=== PATIENT | male | born 1940 | race African-American/Black ===

== ENCOUNTER 2016-07-12 17:22 | Emergency (ER) | payer MEDICARE, MEDICAID ==
--- NOTE | 2016-07-12 18:27 | ER Document Report ---
ED General - General Chief Complaint: Nausea/Vomiting Stated Complaint: NAUSEA/VOMITING Time seen by provider: 18:01 Mode of Arrival: Stretcher Information source: Patient, Emergency Med Personnel Cannot obtain history due to: Dementia TRAVEL OUTSIDE OF THE [place] IN LAST 30 DAYS: No - HPI Notes: Patient is a 76-year-old male coming from local [facility] has history of dementia, CABG, gastroesophageal reflux disease presents to the emergency department without report of some nausea and vomiting earlier this week and report of leg swelling. There is a question of the patient previously having abdominal pain, but on my questioning he denies both nausea and abdominal pain. Patient reports no chest pain or difficulty breathing or fever or dysuria. No significant back pain. No head injury or headache or neck stiffness or cough or congestion. - Related Data Allergies/Adverse Reactions: No Known Allergies Allergy (Unverified 01/25/16 11:24) Past Medical History - General Information source: Patient, Emergency Med Personnel, Outside Facility Records Cannot obtain history due to: Dementia - Social History Smoking Status: Never Smoker Chew tobacco use (# tins/day): No Frequency of alcohol use: None Drug Abuse: None Lives with: [facility] Family History: Reviewed & Not Pertinent - Past Medical History Cardiac Medical History: Reports: Hx Coronary Artery Disease, Hx Hypercholesterolemia, Hx Hypertension Pulmonary Medical History: Reports: Hx COPD Renal/ Medical History: Reports: Hx Renal Insufficiency GI Medical History: Reports: Hx Gastroesophageal Reflux Disease, Hx Hiatal Hernia Musculoskeltal Medical History: Reports Hx Muscle Weakness - generalized Past Surgical History: Reports: Hx Cardiac Surgery, Hx Coronary Artery Bypass Graft - Immunizations Hx Diphtheria, Pertussis, Tetanus Vaccination: Yes Review of Systems - Review of Systems Notes: REVIEW OF SYSTEMS: CONSTITUTIONAL : Denies fever, chills, or sweats. EENT: Denies eye, ear, throat, or mouth pain or symptoms. Denies nasal or sinus congestion or discharge. Denies throat, tongue, or mouth swelling or difficulty swallowing. CARDIOVASCULAR: Denies chest pain. Denies palpitations or racing or irregular heart beat. Denies ankle edema. RESPIRATORY: Denies cough, cold, or chest congestion. Denies shortness of breath, difficulty breathing, or wheezing. GASTROINTESTINAL: Denies abdominal pain or distention. Denies diarrhea. Denies blood in vomitus, stools, or per rectum. Denies black, tarry stools. Denies constipation. Patient reports no recollection of when his last bowel movement was. GENITOURINARY: Denies difficulty urinating, painful urination, burning, frequency, blood in urine, or discharge. MUSCULOSKELETAL: Denies back or neck pain or stiffness. Denies joint pain or swelling. SKIN: Denies rash. HEMATOLOGIC : Denies easy bruising or bleeding. LYMPHATIC: Denies swollen, enlarged glands. NEUROLOGICAL: Denies change in his mental state.. Denies passing out or loss of consciousness. Denies dizziness or lightheadedness. Denies headache. Denies weakness or paralysis or loss of use of either side. Denies problems with gait or speech. Denies sensory loss, numbness, or tingling. Denies seizures. PSYCHIATRIC: Denies anxiety or stress. Denies depression, suicidal ideation, or homicidal ideation. ALL OTHER SYSTEMS REVIEWED AND NEGATIVE. Dictation was performed using [employer] voice recognition software Physical Exam - Vital signs Vitals: Temp Pulse Resp BP Pulse Ox 98 F 67 17 127/80 H 96 07/12/16 17:40 07/12/16 17:40 07/12/16 17:40 07/12/16 17:40 07/12/16 17:40 - Notes Notes: PHYSICAL EXAMINATION: GENERAL: Well-appearing, well-nourished and in no acute distress. HEAD: Atraumatic, normocephalic. EYES: Pupils equal round and reactive to light, extraocular movements intact, sclera anicteric, conjunctiva are normal. ENT: Nares patent, oropharynx clear without exudates. Moist mucous membranes. NECK: Normal range of motion, supple without lymphadenopathy LUNGS: Breath sounds clear to auscultation bilaterally and equal. No wheezes rales or rhonchi. HEART: Regular rate and rhythm without murmurs ABDOMEN: Soft, nontender abdomen. No guarding, no rebound. No masses appreciated. Mildly distended, no pulsatile mass. Patient does have a midline upper hernia which is easily reduced. Patient's coronary bypass surgery scar is well-healed but does seem to represent the upper aspect of the midline abdominal hernia. Negative Quintanilla's. Normal bowel sounds. Musculoskeletal: Normal range of motion. No cyanosis. 1+ bilateral lower extremity edema. Negative Homans. No palpable cord. NEUROLOGICAL: Cranial nerves grossly intact. Normal speech. Normal sensory exam. Patient is alert to person and place but thinks the president is Obama. patient does not know the year. This is chronic for the patient. Patient has mild generalized weakness in both legs which is also unchanged. PSYCH: Normal mood, normal affect. SKIN: Warm, Dry, normal turgor, no rashes noted. Patient has minimal stage I decubitus on the scrotum without evidence for active infection or other abnormality. Course - Re-evaluation Re-evalutation: 07/12/16 22:38 Patient was rehydrated with IV fluids, given that his BUN and creatinine were somewhat elevated showing some evidence of dehydration. On repeat exam patient's abdomen is nontender. He denied any further nausea. 07/12/16 22:39 No obvious evidence for cardiac ischemia or lower extremity edema. 07/12/16 22:42 Repeat troponin unchanged. No evidence for acute ME. 07/13/16 00:03 Patient given IV fluid rehydration for dehydration. We'll hold the patient's Lasix pending follow-up by her regular practitioner given the dehydration. We'll start the patient on omeprazole for reflux and Zofran for any nausea. 07/13/16 00:03 - Vital Signs Vital signs: Temp Pulse Resp BP Pulse Ox 98 F 67 17 127/75 H 98 07/12/16 17:40 07/12/16 17:40 07/12/16 23:00 07/12/16 22:01 07/12/16 23:00 - Laboratory Result Diagrams: 07/12/16 18:36 07/12/16 18:36 Laboratory results interpreted by me: 07/12/16 07/12/16 07/12/16 18:36 18:36 19:16 WBC 11.5 H RDW 14.6 H Sodium 148.8 H Carbon Dioxide 33 H BUN 47 H Creatinine 3.31 H Est GFR ( Amer) 22 L Est GFR (Non-Af Amer) 18 L Glucose 150 H Urine Protein 30 H Urine Urobilinogen 4.0 H - EKG Interpretation by Ri EKG shows normal: Sinus rhythm Additional EKG results interpreted by me: 07/12/16 19:16 EKG as interpreted by az showed normal sinus rhythm heart rate of 75. There is a left bundle-branch block noted with secondary repolarization abnormalities. There is no gross evidence for acute ME or ischemia. There was no old EKG available for comparison. Discharge - Discharge Clinical Impression: Renal insufficiency, Dehydration Vomiting Qualifiers: Vomiting type: unspecified Vomiting Intractability: unspecified Nausea presence : with nausea Qualified Code(s): R11.2 - Nausea with vomiting, unspecified GERD (gastroesophageal reflux disease) Qualifiers: Esophagitis presence: without esophagitis Qualified Code(s): K21.9 - Gastro- esophageal reflux disease without esophagitis Condition: Stable Disposition: SNF Instructions: Antinausea Medication ([facility]), Intravenous (IV) Fluids ([facility]), Vomiting ([facility]) Additional Instructions: Stop Lasix until you follow up with your regular doctor due to dehydration. Start omeprazole for reflux symptoms. Take Zofran as needed for nausea. Prescriptions: Ondansetron [Zofran Odt 4 mg Tablet] 1 - 2 tab PO Q8HP PRN #15 tab.rapdis PRN Reason: For Nausea/Vomiting Omeprazole 20 mg PO DAILY #30 tablet.dr Referrals: BOB MAHARAJ MD [Primary Care Provider] - Follow up as needed
[2016-07-12 18:58] LABS: ABSOLUTE BASOPHILS # (AUTO) 0.1 10^3/uL (0.0-0.2); ABSOLUTE EOSINOPHILS # (AUTO) 0.2 10^3/uL (0.0-0.6); ABSOLUTE LYMPHOCYTES (AUTO) 2.2 10^3/uL (0.5-4.7); ABSOLUTE NEUT (AUTO) 7.9 10^3/uL (1.7-8.2); EOSINOPHILS % (AUTO) 1.7 % (0-6); HEMATOCRIT 41.8 % (37.9-51.0); HEMOGLOBIN 13.8 g/dL (13.5-17.0); HGB HCT DIFFERENCE -0.4; LYMPHOCYTES % (AUTO) 19.6 % (13-45); MEAN CORPUSCULAR HEMOGLOBIN 29.1 pg (27.0-33.4); MEAN CORPUSCULAR VOLUME 88 fl (80-97); RED BLOOD COUNT 4.74 10^6/uL (4.35-5.55); RED CELL DISTRIBUTION WIDTH 14.6 % (11.5-14.0); SEGMENTED NEUTROPHILS % (AUTO) 68.7 % (42-78); WHITE BLOOD COUNT 11.5 10^3/uL (4.0-10.5)
[2016-07-12 19:05] LABS: ALANINE AMINOTRANSFERASE 38 U/L (21-72); ALBUMIN 3.9 g/dL (3.5-5.0); ALKALINE PHOSPHATASE 93 U/L (38-126); ANION GAP 17 (5-19); ASPARTATE AMINO TRANSFERASE 29 U/L (17-59); BILIRUBIN,DIRECT 0.4 mg/dL (0.0-0.4); BILIRUBIN,TOTAL 0.8 mg/dL (0.2-1.3); BLOOD UREA NITROGEN 47 mg/dL (7-20); CARBON DIOXIDE 33 mmol/L (22-30); CHLORIDE 99 mmol/L (98-107); CREATININE RESULT 3.31 mg/dL (0.52-1.25); GLUCOSE 150 mg/dL (75-110); LIPASE 105.7 U/L (23-300); POTASSIUM 3.9 mmol/L (3.6-5.0); SODIUM 148.8 mmol/L (137-145); TOTAL PROTEIN 7.3 g/dL (6.3-8.2)
[2016-07-12 19:28] LABS: APPEARANCE,URINE CLEAR; BILIRUBIN,URINE NEGATIVE (NEGATIVE); GLUCOSE, URINE NEGATIVE (NEGATIVE); KETONES,URINE NEGATIVE (NEGATIVE); LEUKOCYTE ESTERASE,URINE NEGATIVE (NEGATIVE); NITRITE,URINE NEGATIVE (NEGATIVE); PROTEIN,URINE 30 mg/dL (NEGATIVE); URINE SPECIFIC GRAVITY 1.013
[2016-07-12] MEDS ORDERED: POTASSI CL 20 MEQ/1/2NS 1L 1,000 ML IV ONE (20:07)
--- NOTE | 2016-07-12 22:17 | EKG REPORT ---
SEVERITY:- ABNORMAL ECG - SINUS RHYTHM PROBABLE LEFT ATRIAL ABNORMALITY LEFT BUNDLE BRANCH BLOCK : Confirmed by: Beto Delarosa 12-Jul-2016 22:16:50
[2016-07-12] MEDS ORDERED: FAMOTIDINE 20 MG TABLET PO ONE (23:30)
[2016-07-13 11:07] VITALS: BP 164/89
== END 2016-07-13 11:50 ==
LOC: ER 17:22
DX: K21.9 Gastro-esophageal reflux disease without esophagitis (principal); N28.9 Disorder of kidney and ureter, unspecified; R11.2 Nausea with vomiting, unspecified; E86.0 Dehydration; I44.7 Left bundle-branch block, unspecified; Z95.1 Presence of aortocoronary bypass graft; F03.90 Unspecified dementia, unspecified severity, without behavioral disturbance, psychotic disturbance, mood disturbance, and anxiety; I25.10 Atherosclerotic heart disease of native coronary artery without angina pectoris; I10 Essential (primary) hypertension; J44.9 Chronic obstructive pulmonary disease, unspecified; K46.9 Unspecified abdominal hernia without obstruction or gangrene; R60.0 Localized edema; R53.1 Weakness; L89.891 Pressure ulcer of other site, stage 1
CPT/HCPCS: 93005; 99284; 96365; 96366; 36415; 83605; 83690; 85025; 80053; 81001; 84484; 74022; 93010; A9270; J3480

== ENCOUNTER 2016-07-17 18:54 | Inpatient (IN) | payer MEDICARE, MEDICAID ==
[2016-07-17] MEDS ORDERED: NORMAL SALINE 1000 ML 1,000 ML IV ONE (19:31)
[2016-07-17 19:45] LABS: ABSOLUTE BASOPHILS # (AUTO) 0.1 10^3/uL (0.0-0.2); ABSOLUTE EOSINOPHILS # (AUTO) 0.5 10^3/uL (0.0-0.6); ABSOLUTE LYMPHOCYTES (AUTO) 2.4 10^3/uL (0.5-4.7); ABSOLUTE MONOCYTES (AUTO) 1.1 10^3/uL (0.1-1.4); ABSOLUTE NEUT (AUTO) 8.6 10^3/uL (1.7-8.2); BASOPHILS % (AUTO) 0.9 % (0-2); EOSINOPHILS % (AUTO) 4.2 % (0-6); HEMATOCRIT 39.3 % (37.9-51.0); HEMOGLOBIN 12.8 g/dL (13.5-17.0); HGB HCT DIFFERENCE -0.9; LYMPHOCYTES % (AUTO) 19.1 % (13-45); MEAN CORPUSCULAR HEMOGLOBIN 28.5 pg (27.0-33.4); MEAN CORPUSCULAR HGB CONC 32.5 g/dL (32.0-36.0); MEAN CORPUSCULAR VOLUME 88 fl (80-97); MONOCYTES % (AUTO) 8.6 % (3-13); RED BLOOD COUNT 4.48 10^6/uL (4.35-5.55); RED CELL DISTRIBUTION WIDTH 14.2 % (11.5-14.0); SEGMENTED NEUTROPHILS % (AUTO) 67.2 % (42-78); WHITE BLOOD COUNT 12.8 10^3/uL (4.0-10.5)
--- NOTE | 2016-07-17 19:45 | ER Document Report ---
ED General - General Stated Complaint: BOWEL ISSUES Time seen by provider: 19:40 Notes: Patient is a 76-year-old male that comes emergency department for chief complaint of "no bowel movement for 2 days", patient comes by EMS from [facility]. After arrival to the emergency department patient was found to be hypotensive. Patient states he "feels fine", he denies vomiting, fever, or any areas of pain including his abdomen. He states he has not had a bowel movement in a "couple" of days. Patient is unable to tell me any more relevant history this time. Past medical history of dementia and he has an obvious CABG scar. TRAVEL OUTSIDE OF THE [place] IN LAST 30 DAYS: No - Related Data Allergies/Adverse Reactions: No Known Allergies Allergy (Verified 07/18/16 03:22) Past Medical History - General Information source: Patient, Transfer Record, Emergency Med Personnel - Social History Smoking Status: Never Smoker Frequency of alcohol use: None Drug Abuse: None Lives with: [facility]irement Family History: Reviewed & Not Pertinent - Past Medical History Cardiac Medical History: Reports: Hx Coronary Artery Disease, Hx Hypercholesterolemia, Hx Hypertension Pulmonary Medical History: Reports: Hx COPD Renal/ Medical History: Reports: Hx Renal Insufficiency GI Medical History: Reports: Hx Gastroesophageal Reflux Disease, Hx Hiatal Hernia Musculoskeltal Medical History: Reports Hx Muscle Weakness - generalized Past Surgical History: Reports: Hx Cardiac Surgery, Hx Coronary Artery Bypass Graft - Immunizations Hx Diphtheria, Pertussis, Tetanus Vaccination: Yes Review of Systems - Review of Systems Constitutional: No symptoms reported EENT: No symptoms reported Cardiovascular: See HPI Respiratory: No symptoms reported Gastrointestinal: See HPI Genitourinary: No symptoms reported Male Genitourinary: No symptoms reported Musculoskeletal: No symptoms reported Skin: No symptoms reported Hematologic/Lymphatic: No symptoms reported Neurological/Psychological: No symptoms reported Physical Exam - Vital signs Vitals: Temp Pulse BP Pulse Ox 98.2 F 122 H 89/57 L 93 07/17/16 19:05 07/17/16 19:05 07/17/16 19:05 07/17/16 19:05 Interpretation: Normal - General General appearance: Appears well, Alert - HEENT Head: Normocephalic, Atraumatic Eyes: Normal Pupils: PERRL - Respiratory Respiratory status: No respiratory distress Chest status: Nontender Breath sounds: Normal Chest palpation: Normal - Cardiovascular Rhythm: Regular. No: Tachycardia Heart sounds: Normal auscultation, S1 appreciated, S2 appreciated - Abdominal Inspection: Normal Distension: Distended - Questionable mild distention, small diastasis recti hernia, no evidence of incarceration, hernia area is very nontender Bowel sounds: Normal Tenderness: Nontender. No: Tender - No tenderness noted over the abdomen, no guarding Organomegaly: No organomegaly - Back Back: Normal, Nontender. No: Tender - Extremities General upper extremity: Normal inspection, Nontender, Normal color, Normal ROM , Normal temperature General lower extremity: Normal inspection, Nontender, Normal color, Normal ROM , Normal temperature, Normal weight bearing. 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 No fever, no vomiting, no other symptoms reported. His primary care is listed as Dr. Burrell. Patient is on treatments for hypertension including Norvasc, lisinopril, Lopressor, Catapres, hydralazine, and Lasix 40 mg daily. Patient was evaluated in this department for vomiting 5 days ago. Patient is also treated for COPD, hyperlipidemia. Patient noted to be hypotensive, IV placed, immediately gave IV fluid bolus, after this blood pressure normalized. Patient still denies any symptoms. Patient is not tachycardic. Mild leukocytosis at 13.1 with elevated neutrophils but no shift. Could be from dehydration, nonspecific. Other labs hemolyzed. Acute abdominal series shows no obstruction, free air, or obvious abnormal. Chest x-ray is clear. 07/17/16 22:52 Still attempting to obtain chemistry, initial hemolyzed, 2 more attempts by personnel failed to get any blood, lab support technician is returning and has been paged. Chemistry shows that creatinine is significantly elevated, this has been trending upwards from 2, then 3 days, now in the 5 range. Patient given 500 mL of additional fluid. Despite extra time patient's blood pressure is still borderline low. CAT scan was performed to rule out obstruction or intra- abdominal pathology with mild leukocytosis, but CAT scan is completely unremarkable. Patient was discussed with Dr. Lisa for potential admission, agrees with admission for hypotension, worsening renal failure. Patient remains asymptomatic on reevaluation. Discussed with Dr. Huerta, neon sign erector for Dr. Burrell, patient will be admitted to the hospital - Vital Signs Vital signs: Temp Pulse Resp BP Pulse Ox 98.3 F 66 16 108/59 L 100 07/18/16 04:16 07/18/16 04:22 07/18/16 04:16 07/18/16 04:16 07/18/16 04:16 - Laboratory Result Diagrams: 07/17/16 19:20 07/17/16 23:21 Laboratory results interpreted by me: 07/17/16 07/17/16 19:20 23:21 WBC 12.8 H Hgb 12.8 L RDW 14.2 H Absolute Neutrophils 8.6 H BUN 70 H Creatinine 5.30 H Est GFR ( Amer) 13 L Est GFR (Non-Af Amer) 11 L Glucose 111 H Albumin 3.4 L Lipase 309.8 H Discharge - Discharge Clinical Impression: Acute renal insufficiency Hypotension Qualifiers: Hypotension type: unspecified hypotension type Qualified Code(s): I95.9 - Hypotension, unspecified Condition: Stable Disposition: ADMITTED INPATIENT Admitting Provider: Deanna Unit Admitted: [facility], [place]
--- NOTE | 2016-07-17 22:50 | EKG REPORT ---
SEVERITY:- ABNORMAL ECG - SINUS RHYTHM LEFT BUNDLE BRANCH BLOCK : Confirmed by: Beto Delarosa 17-Jul-2016 22:50:01
[2016-07-17 23:40] LABS: ALANINE AMINOTRANSFERASE 29 U/L (21-72); ALBUMIN 3.4 g/dL (3.5-5.0); ALKALINE PHOSPHATASE 72 U/L (38-126); ANION GAP 16 (5-19); ASPARTATE AMINO TRANSFERASE 25 U/L (17-59); BILIRUBIN,DIRECT 0.3 mg/dL (0.0-0.4); BILIRUBIN,TOTAL 0.4 mg/dL (0.2-1.3); BLOOD UREA NITROGEN 70 mg/dL (7-20); CALCIUM 8.6 mg/dL (8.4-10.2); CARBON DIOXIDE 25 mmol/L (22-30); CHLORIDE 98 mmol/L (98-107); CREATINE KINASE 76 U/L (55-170); GLUCOSE 111 mg/dL (75-110); LIPASE 309.8 U/L (23-300); POTASSIUM 3.9 mmol/L (3.6-5.0); SODIUM 138.6 mmol/L (137-145); TOTAL PROTEIN 6.6 g/dL (6.3-8.2)
[2016-07-17] MEDS ORDERED: NORMAL SALINE 1000 ML 500 ML IV ONE (23:54)
[2016-07-18] MEDS ORDERED: NORMAL SALINE 1000 ML 1,000 ML IV PRN ×2 (05:34→08:00)
[2016-07-18] MEDS ORDERED: (PENDING PHARMACY ID) (Budesonide [Pulmicort 180 Mcg Flexhaler] 2 PUFF) IH PRN (08:03)
[2016-07-18] MEDS ORDERED: LANSOPRAZOLE 15 MG TAB.RAP.DR PO ONE (09:00)
[2016-07-18] MEDS: IPRATROPIUM/ALBUTEROL 0.5-2.5 MG/3 ML AMPUL NEB SCH ×3 (09:07→20:38)
[2016-07-18 09:34] LABS: CREATINE KINASE MB 0.79 ng/mL (<4.55); TROPONIN I 0.061 ng/mL
[2016-07-18] MEDS ORDERED: HYDRALAZINE HCL 25 MG TABLET PO SCH (10:00)
[2016-07-18] MEDS ORDERED: FUROSEMIDE 40 MG TABLET PO SCH (10:00)
[2016-07-18] MEDS ORDERED: ISOSORBIDE DINITRATE 20 MG TABLET PO SCH ×2 (10:00)
[2016-07-18] MEDS ORDERED: CLONIDINE HCL 0.1 MG TABLET PO SCH (10:00)
[2016-07-18] MEDS ORDERED: AMLODIPINE BESYLATE 10 MG TABLET PO SCH (10:00)
--- NOTE | 2016-07-18 10:56 | PDOC H&P ---
History of Present Illness Admission Date/PCP: 07/18/16 08:00 ILAN FALCON MD Patient complains of: Altered mental status and worsening the kidney functions History of Present Illness: PHOEBE CHARLES is a 76 year old male This is a 76-year-old male with a history of the coronary artery disease status post bypass surgery history of the congestive heart failure and a history of the COPD and a chronic kidney disease came to the emergency department couple of days back with a complaint for nausea vomiting and not feeling well and patient was discharged with not significant finding and in the jail the nursing staff noticed the patient is more lethargic and patient's blood pressure is running lower and and in emergency department patient was found to acute renal failure on chronic kidney disease and the patient initial workup otherwise all stableAnd patient was decided to admit in the IMCU for further evaluation and treatment When I saw the patient on the floor this morning patient was denied any chest pain patients denied any shortness of the breath denied any abdominal pain and no nausea no vomitinPatient also see cardiology Dr. Pace As outpatients Patient's having no swelling in the lower extremity this morning and patient initial cardiac enzyme was also stable Patient CT abdomen and pelvis is not any significant finding Past Medical History Cardiac Medical History: Reports: Coronary Artery Disease, Hyperlipidema, Hypertension Pulmonary Medical History: Reports: Chronic Obstructive Pulmonary Disease (COPD) Renal/ Medical History: Reports: Chronic Kidney Disease GI Medical History: Reports: Gastroesophageal Reflux Disease, Hiatal Hernia Hematology: Reports: Anemia Past Surgical History Past Surgical History: 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 Social History Lives with: Long-Term Smoking Status: Never Smoker Last Time Smoked: 03/20/2012 Frequency of Alcohol Use: None Hx Recreational Drug Use: No Hx Prescription Drug Abuse: No - Advance Directive Resuscitation Status: Full Code Family History Family History: Reviewed & Not Pertinent Parental Family History Reviewed: Yes Children Family History Reviewed: Yes Sibling(s) Family History Reviewed.: Yes Medication/Allergy Home Medications: Amlodipine Besylate 10 mg PO DAILY 07/18/16 Aspirin [[place] Aspirin] 81 mg PO DAILY PRN 07/18/16 Budesonide [Pulmicort 180 mcg Flexhaler] 2 puff IH DAILY PRN 07/18/16 Clonidine HCl [Catapres 0.1 mg Tablet] 0.1 mg PO Q12 07/18/16 Furosemide [Lasix] 40 mg PO DAILY 07/18/16 Hydralazine HCl [Apresoline 25 mg Tablet] 25 mg PO TID 07/18/16 Isosorbide Dinitrate [Isordil Titradose 20 Mg Tablet] 20 mg PO TID 07/18/16 Lisinopril [Prinivil 10 mg Tablet] 10 mg PO DAILY 07/18/16 Metoprolol Tartrate [Lopressor] 50 mg PO Q12 07/18/16 Omeprazole Magnesium [Prilosec Otc] 20 mg PO QAM 07/18/16 Ondansetron HCl [Zofran 4 mg Tablet] 1 tab PO Q8H PRN 07/18/16 Simvastatin [Zocor 20 mg Tablet] 20 mg PO QHS 07/18/16 Tiotropium [place] [Spiriva Handihaler 5 Cap/Kit (18 Mcg/Cap)] 1 cap IH DAILY Allergies/Adverse Reactions: No Known Allergies Allergy (Verified 07/18/16 03:22) Review of Systems Constitutional: ABSENT: chills, fever(s), headache(s), weight gain, weight loss Eyes: ABSENT: visual disturbances Ears: ABSENT: hearing changes Cardiovascular: ABSENT: chest pain, dyspnea on exertion, edema, orthropnea, palpitations Respiratory: ABSENT: cough, hemoptysis Gastrointestinal: ABSENT: abdominal pain, constipation, diarrhea, hematemesis, hematochezia, nausea, vomiting Genitourinary: ABSENT: dysuria, hematuria Musculoskeletal: ABSENT: joint swelling Integumentary: ABSENT: rash, wounds Neurological: ABSENT: abnormal gait, abnormal speech, confusion, dizziness, focal weakness, syncope Psychiatric: ABSENT: anxiety, depression, homidical ideation, suicidal ideation Endocrine: ABSENT: cold intolerance, heat intolerance, menstrual abnormalities, polydipsia, polyuria Hematologic/Lymphatic: ABSENT: easy bleeding, easy bruising, lymphadenopathy Physical Exam Vital Signs: Temp Pulse Resp BP Pulse Ox 98.5 F 65 20 110/55 L 94 07/18/16 07:07 07/18/16 09:15 07/18/16 09:15 07/18/16 07:07 07/18/16 09:15 General appearance: PRESENT: no acute distress, well-developed, well-nourished Head exam: PRESENT: atraumatic, normocephalic Eye exam: PRESENT: conjunctiva pink, EOMI, PERRLA. ABSENT: scleral icterus Ear exam: PRESENT: normal external ear exam Mouth exam: PRESENT: moist, tongue midline Neck exam: PRESENT: full ROM. ABSENT: carotid bruit, JVD, lymphadenopathy, thyromegaly Respiratory exam: PRESENT: clear to auscultation magdalena Cardiovascular exam: PRESENT: RRR. ABSENT: diastolic murmur, rubs, systolic murmur Pulses: PRESENT: normal dorsalis pedis pul, +2 pedal pulses bilateral Vascular exam: PRESENT: normal capillary refill GI/Abdominal exam: PRESENT: distended, normal bowel sounds, soft. ABSENT: guarding, mass, organolmegaly, rebound, tenderness Rectal exam: PRESENT: deferred Extremities exam: ABSENT: pedal edema Neurological exam: PRESENT: alert, awake, oriented to person, oriented to place , oriented to time, oriented to situation, CN II-XII grossly intact. ABSENT: motor sensory deficit Psychiatric exam: PRESENT: appropriate affect, normal mood. ABSENT: homicidal ideation, suicidal ideation Skin exam: PRESENT: dry, intact, warm. ABSENT: cyanosis, rash Results Laboratory Results: 07/18/16 07/18/16 08:45 08:45 Creatine Kinase 88 CK-MB (CK-2) 0.79 Troponin I 0.061 Impressions: Acute Abdomen Series 07/17/16 19:30 IMPRESSION: NO RADIOGRAPHIC EVIDENCE FOR ACUTE ABDOMINAL DISEASE.Similar moderate gas distention of the stomach. Nonobstructive pattern. Abdomen/Pelvis CT 07/18/16 00:00 IMPRESSION: NO SIGNIFICANT OR ACUTE PROCESS IN THE ABDOMEN OR PELVIS. Renal Ultrasound 07/18/16 00:00 IMPRESSION: There is some increased echogenicity in the renal cortex of the left kidney suggesting intrinsic renal disease. No evidence for hydronephrosis. Other findings as noted above Assessment & Plan - Diagnosis (1) Acute renal insufficiency Is this a current diagnosis for this admission?: YesPlan: Mostly a possible underlying dehydration's with the recent onset of the nausea and vomiting and possible underlying urinary tract infections. We will start the patient on IV fluid and stop the lisinopril and currently hold the Lasix and consult the nephrology and continues to monitor the patient's (2) Hypotension Qualifiers: Hypotension type: unspecified hypotension type Qualified Code(s): I95.9 - Hypotension, unspecified Is this a current diagnosis for this admission?: YesPlan: Most likely recent dehydration's versus underlying sepsis but continues to hold all blood pressure medications and continues to IV fluid (3) Dehydration Is this a current diagnosis for this admission?: YesPlan: Within the sudden onset of the gastroenteritis (4) Coronary artery disease (CAD) excluded Is this a current diagnosis for this admission?: YesPlan: We will consult the cardiology with ongoing heart issues with the heart failure possible need a echocardiogram (5) GERD (gastroesophageal reflux disease) Qualifiers: Esophagitis presence: without esophagitis Qualified Code(s): K21.9 - Gastro-esophageal reflux disease without esophagitis Is this a current diagnosis for this admission?: YesPlan: Currently stable (6) Congestive heart failure Qualifiers: Congestive heart failure type: diastolic Is this a current diagnosis for this admission?: YesPlan: We will get the echocardiogram (7) Chronic obstructive pulmonary disease (COPD) Qualifiers: COPD type: unspecified COPD Qualified Code(s): J44.9 - Chronic obstructive pulmonary disease, unspecified Is this a current diagnosis for this admission?: YesPlan: Continues to nebulizer treatment (8) Hypertension Qualifiers: Hypertension type: unspecified secondary hypertension Qualified Code (s): I15.9 - Secondary hypertension, unspecified; I15 - Secondary hypertension Is this a current diagnosis for this admission?: YesPlan: Currently low will give IV fluid and hold all blood pressure medications (9) Hyperlipidemia Qualifiers: Hyperlipidemia type: unspecified Qualified Code(s): E78.5 - Hyperlipidemia, unspecified Is this a current diagnosis for this admission?: YesPlan: Stable - Time Time Spent: 50 to 70 Minutes Medications reviewed and adjusted accordingly: Yes Anticipated discharge: SNF Within: Other - Inpatient Certification Medical Necessity: Need For IV Fluids, Need for IV Antibiotics Post Hospital Care: D/C Dry Pan Feeder Documentation - Plan Summary Plan Summary: Patient is currently hemodynamically stable we will correct the patient's renal failure started on IV fluid and start the IV Rocephin get the urine culture and continues to monitor the patient's will put the consult from nephrology and cardiology and will discuss the patient's brother who also works in the jail regarding the patient's current status
[2016-07-18] MEDS: TIOTROPIUM BROMIDE DPI 5 CAP/KIT (18 MCG/CAP) IH SCH (10:59)
[2016-07-18] MEDS: ASPIRIN 81 MG TABLET, CHEWABLE PO SCH (11:01)
[2016-07-18] MEDS: METOPROLOL TARTRATE 50 MG TABLET PO SCH ×2 (11:02→21:47)
[2016-07-18] MEDS: CEFTRIAXONE 1 GM/D5W RTU 50 ML IV SCH (11:03)
[2016-07-18] MEDS: ENOXAPARIN SODIUM INJ 30 MG/0.3 ML DISP.SYRIN SUBCUT SCH (11:04)
[2016-07-18 12:04] LABS: AMORPHOUS SEDIMENT,URINE TRACE /HPF; APPEARANCE,URINE CLEAR; BILIRUBIN,URINE NEGATIVE (NEGATIVE); GLUCOSE, URINE NEGATIVE (NEGATIVE); KETONES,URINE NEGATIVE (NEGATIVE); LEUKOCYTE ESTERASE,URINE MODERATE (NEGATIVE); NITRITE,URINE NEGATIVE (NEGATIVE); PROTEIN,URINE NEGATIVE (NEGATIVE); URINE SPECIFIC GRAVITY 1.011; UROBILINOGEN,URINE NEGATIVE mg/dL (<2.0)
--- NOTE | 2016-07-18 18:03 | PDOC CONSULTATION ---
Consultation Consult Date: 07/18/16 Consult reason:: Acute kidney injury on CKD stage III. History of Present Illness Admission Date/PCP: 07/18/16 08:00 ILAN FALCON MD History of Present Illness: PHOEBE CHARLES is a 76 year old male with a history of the coronary artery disease, status post bypass surgery history of the congestive heart failure and a history of the COPD and chronic kidney disease Stage III with a base creatinine of 2.0, came to the emergency department couple of days ago with a complaint for nausea vomiting and not feeling well. He was evaluated in the ER and patient was discharged with no significant finding. In the detention the nursing staff noticed the patient was more lethargic and patient's blood pressure is running low. Evaluations in the emergency department patient was found to acute renal failure on chronic kidney disease with a creatinine of 5.3. Patient is currently sleepy but easily arousable and answers to questions. He denies any history of chest pain shortness of breath no history of any coughing spells no history of any dysuria. He says he is constipated and does not know when was his last bowel movements. Does not recall any history to indicate of having had seizures. Has a poor appetite with poor food and fluid intake Past Medical History Cardiac Medical History: Reports: Coronary Artery Disease, Hyperlipidemia, Hypertension-primary Pulmonary Medical History: Reports: Chronic Obstructive Pulmonary Disease (COPD) Renal/ Medical History: Reports: Chronic Kidney Disease Stage III - The base creatinine of around 2.0. GI Medical History: Reports: Gastroesophageal Reflux Disease, Hiatal Hernia Past Surgical History Past Surgical History: 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 Social History Lives with: Care Home Smoking Status: Never Smoker Last Time Smoked: 03/20/2012 Frequency of Alcohol Use: None Hx Recreational Drug Use: No Hx Prescription Drug Abuse: No - Advance Directive Resuscitation Status: Full Code Family History Parental Family History Reviewed: Yes - Negative for CKD Children Family History Reviewed: No Sibling(s) Family History Reviewed.: No Medication/Allergy Home Medications: Amlodipine Besylate 10 mg PO DAILY 07/18/16 Aspirin [[place] Aspirin] 81 mg PO DAILY PRN 07/18/16 Budesonide [Pulmicort 180 mcg Flexhaler] 2 puff IH DAILY PRN 07/18/16 Clonidine HCl [Catapres 0.1 mg Tablet] 0.1 mg PO Q12 07/18/16 Furosemide [Lasix] 40 mg PO DAILY 07/18/16 Hydralazine HCl [Apresoline 25 mg Tablet] 25 mg PO TID 07/18/16 Isosorbide Dinitrate [Isordil Titradose 20 Mg Tablet] 20 mg PO TID 07/18/16 Lisinopril [Prinivil 10 mg Tablet] 10 mg PO DAILY 07/18/16 Metoprolol Tartrate [Lopressor] 50 mg PO Q12 07/18/16 Omeprazole Magnesium [Prilosec Otc] 20 mg PO QAM 07/18/16 Ondansetron HCl [Zofran 4 mg Tablet] 1 tab PO Q8H PRN 07/18/16 Simvastatin [Zocor 20 mg Tablet] 20 mg PO QHS 07/18/16 Tiotropium [place] [Spiriva Handihaler 5 Cap/Kit (18 Mcg/Cap)] 1 cap IH DAILY Allergies/Adverse Reactions: No Known Allergies Allergy (Verified 07/18/16 03:22) Review of Systems Review of Systems: Constitutional: PRESENT: as per HPI. ABSENT: chills, fever(s), headache(s), weight gain, weight loss Eyes: ABSENT: visual disturbances Ears: ABSENT: hearing changes Cardiovascular: ABSENT: edema, orthropnea, palpitations Respiratory: ABSENT: cough, hemoptysis Gastrointestinal: ABSENT: abdominal pain, diarrhea, hematemesis, hematochezia, nausea, vomiting Genitourinary: ABSENT: dysuria, hematuria Musculoskeletal: ABSENT: joint swelling Integumentary: ABSENT: rash, wounds Neurological: ABSENT: abnormal gait, abnormal speech, confusion, dizziness, focal weakness, syncope Psychiatric: ABSENT: anxiety, depression, homicidal ideation, suicidal ideation Endocrine: ABSENT: cold intolerance, heat intolerance, polydipsia, polyuria Hematologic/Lymphatic: ABSENT: easy bleeding, easy bruising, lymphadenopathy Physical Exam Vital Signs: Temp Pulse Resp BP Pulse Ox 98.3 F 70 16 126/50 H 99 07/18/16 15:33 07/18/16 15:33 07/18/16 15:33 07/18/16 15:33 07/18/16 15:33 Intake & Output 07/17/16 07/18/16 07/19/16 06:59 06:59 06:59 Intake Total 237 Output Total 100 Balance 137 General appearance: PRESENT: no acute distress Eye exam: PRESENT: conjunctiva pink, EOMI, PERRLA Ear exam: PRESENT: normal external ear exam Mouth exam: ABSENT: moist Neck exam: ABSENT: lymphadenopathy, meningismus, tenderness, thyromegaly, tracheal deviation Respiratory exam: PRESENT: clear to auscultation magdalena. ABSENT: crackles, rhonchi Cardiovascular exam: PRESENT: +S1, +S2, systolic murmur GI/Abdominal exam: PRESENT: normal bowel sounds, soft. ABSENT: distended, organomegaly, tenderness Extremities exam: PRESENT: pedal edema Neurological exam: PRESENT: altered - As he is quite sleepy but easily arousable and answers questions appropriately., oriented to person, oriented to place Psychiatric exam: PRESENT: flat affect Skin exam: PRESENT: dry. ABSENT: erythema, mottled, rash Results Laboratory Results: 07/18/16 11:00 Urine Color YELLOW Urine Appearance CLEAR Urine pH 5.0 Ur Specific [place] 1.011 Urine Protein NEGATIVE Urine Glucose (UA) NEGATIVE Urine Ketones NEGATIVE Urine Blood NEGATIVE Urine Nitrite NEGATIVE Ur Leukocyte Esterase MODERATE H Urine WBC (Auto) 12 Urine RBC (Auto) 1 07/18/16 07/18/16 08:45 08:45 Creatine Kinase 88 CK-MB (CK-2) 0.79 Troponin I 0.061 Impressions: Acute Abdomen Series 07/17/16 19:30 IMPRESSION: NO RADIOGRAPHIC EVIDENCE FOR ACUTE ABDOMINAL DISEASE.Similar moderate gas distention of the stomach. Nonobstructive pattern. Abdomen/Pelvis CT 07/18/16 00:00 IMPRESSION: NO SIGNIFICANT OR ACUTE PROCESS IN THE ABDOMEN OR PELVIS. Renal Ultrasound 07/18/16 00:00 IMPRESSION: There is some increased echogenicity in the renal cortex of the left kidney suggesting intrinsic renal disease. No evidence for hydronephrosis. Other findings as noted above Assessment & Plan - Diagnosis (1) Acute renal insufficiency Is this a current diagnosis for this admission?: YesPlan: Continue on the dry side. Agree with fluid resuscitation. I am going to hold the Lasix and cut back on the clonidine and follow-up.Reviewed the ultrasound which shows no obstructive hydronephrosis. (2) Chronic obstructive pulmonary disease (COPD) Qualifiers: COPD type: unspecified COPD Qualified Code(s): J44.9 - Chronic obstructive pulmonary disease, unspecified Is this a current diagnosis for this admission?: YesPlan: Stable. Would recommend however to do an ABG on him. (3) Congestive heart failure Qualifiers: Congestive heart failure type: diastolic Is this a current diagnosis for this admission?: YesPlan: Stable. Monitor. (4) Hypertension Qualifiers: Hypertension type: unspecified secondary hypertension Qualified Code (s): I15.9 - Secondary hypertension, unspecified; I15 - Secondary hypertension Is this a current diagnosis for this admission?: YesPlan: Presently low normal. Cut back clonidine to just 1 at bedtime and follow-up monitor. (5) Dehydration Is this a current diagnosis for this admission?: YesPlan: Agree with fluid resuscitation and follow-up.
--- NOTE | 2016-07-18 18:51 | XCELERA REPORT ---
[address] [address] Transthoracic Echocardiogram Report Name: PHOEBE CHARLES Age: 76 yrs Gender: Male : 1940 Patient Status: Inpatient Patient Location: [id number]\324\[id number]\A Study Date: 07/18/2016 09:23 AM Height: 65 in Weight: 189 lb BSA: 1.9 m2 Procedure: A complete two-dimensional transthoracic echocardiogram was performed (2D, M-mode, spectral and color flow Doppler). The study was technically difficult with many images being suboptimal in quality. Reason For Study: chf Ordering Physician: BOB MAHARAJ Performed By: Susana Esquivel Interpretation Summary The study was technically difficult with many images being suboptimal in quality. Left ventricular systolic function is low normal. There is moderate concentric left ventricular hypertrophy. Doppler measurements suggest pseudonormalized left ventricular relaxation, which is associated with grade II/IV or mild to moderate diastolic dysfunction The left ventricle is grossly normal size. Not all wall segments were well visualized. Wall motion cannot be accurately commented on, but no definite regional wall motion abnormalities noted. The right ventricular systolic function is normal. The left atrial size is normal. The right atrium is normal. There is a trace amount of mitral regurgitation There is no mitral valve stenosis. No aortic regurgitation is present. There is no aortic valve stenosis There is a trace or physiologic amount of tricuspid regurgitation Tricuspid regurgitation jet envelope not well defined to measure RV systolic pressure accurately. The aortic root is not well visualized. The inferior vena cava appeared small and collapsed with respiration (RAP 0-5 mmHg) Minimal pericardial effusion. MMode/2D Measurements \T\ Calculations RVDd: 3.5 cm LVIDd: 3.8 cm FS: 29.2 % Ao root diam: 3.5 cm IVSd: 1.4 cm LVIDs: 2.7 cm EDV(Teich): 62.1 ml LVPWd: 1.4 cm ESV(Teich): 26.8 ml Ao root area: 9.7 cm2 EF(Teich): 56.8 % LA dimension: 2.8 cm LVOT diam: 2.2 cm LVOT area: 3.8 cm2 Doppler Measurements \T\ Calculations MV E max bennie: MV P1/2t max bennie: Ao V2 max: LV V1 max P.1 cm/sec 73.1 cm/sec 167.7 cm/sec 6.8 mmHg MV A max bennie: MV P1/2t: 69.7 msec Ao max PG: LV V1 max: 102.7 cm/sec MVA(P1/2t): 3.2 cm2 11.3 mmHg 130.3 cm/sec MV E/A: 0.71 MV dec slope: ARMANDO(V,D): 2.9 cm2 307.2 cm/sec2 PA V2 max: 119.4 cm/sec PA max P.7 mmHg Left Ventricle The left ventricle is grossly normal size. There is moderate concentric left ventricular hypertrophy. Left ventricular systolic function is low normal. Doppler measurements suggest pseudonormalized left ventricular relaxation, which is associated with grade II/IV or mild to moderate diastolic dysfunction. Not all wall segments were well visualized. Wall motion cannot be accurately commented on, but no definite regional wall motion abnormalities noted. Right Ventricle The right ventricle is grossly normal size. There is normal right ventricular wall thickness. The right ventricular systolic function is normal. Atria The right atrium is normal. The left atrial size is normal. Interarterial septum not well visualized and not well dopplered. Cannot comment on ASD/PFO presence. Mitral Valve The mitral valve is grossly normal. There is no mitral valve stenosis. There is a trace amount of mitral regurgitation. Aortic Valve The aortic valve is not well visualized secondary to technical limitations. There is no aortic valve stenosis. No aortic regurgitation is present. Tricuspid Valve The tricuspid valve is not well visualized secondary to technical limitations. There is no tricuspid stenosis. There is a trace or physiologic amount of tricuspid regurgitation. Tricuspid regurgitation jet envelope not well defined to measure RV systolic pressure accurately. Pulmonic Valve The pulmonic valve is not well visualized. Great Vessels The aortic root is not well visualized. The inferior vena cava appeared small and collapsed with respiration (RAP 0-5 mmHg). Effusions Minimal pericardial effusion. : BOB MAHARAJ > Beto Delarosa
--- NOTE | 2016-07-18 19:33 | PDOC CONSULTATION ---
Consultation Consult Date: 07/18/16 Attending physician:: BOB MAHARAJ Consult reason:: CAD History of Present Illness Admission Date/PCP: 07/18/16 08:00 ILAN FALCON MD Patient complains of: Shortness of breath History of Present Illness: PHOEBE CHARLES is a 76 year old male with a history of the coronary artery disease status post bypass surgery history of the congestive heart failure and a history of the COPD and a chronic kidney disease came to the emergency department couple of days back with a complaint for nausea vomiting and not feeling well and patient was discharged with no significant finding. In the [facility] the nursing staff noticed the patient is more lethargic and patient 's blood pressure is running lower and and in emergency department patient was found to acute renal failure on chronic kidney disease and the patient initial workup otherwise all stableAnd patient was decided to admit in the IMCU for further evaluation and treatment When I saw the patient on the floor this morning patient was denied any chest pain patients denied any shortness of the breath denied any abdominal pain and no nausea no vomiting. Patient's having no swelling in the lower extremity this morning and patient initial cardiac enzyme was also stable Patient CT abdomen and pelvis is not any significant finding. Patient has significant coronary artery disease and also now presented with acute renal failure on chronic renal failure therefore I was asked to see this patient. This history was reviewed confirmed and supplemented. Past Medical History Cardiac Medical History: Reports: Coronary Artery Disease, Hyperlipidema, Hypertension Pulmonary Medical History: Reports: Chronic Obstructive Pulmonary Disease (COPD) Renal/ Medical History: Reports: Chronic Kidney Disease GI Medical History: Reports: Gastroesophageal Reflux Disease, Hiatal Hernia Hematology: Reports: Anemia Past Surgical History Past Surgical History: 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 Social History Information Source: Patient Lives with: Intermediate Smoking Status: Never Smoker Last Time Smoked: 03/20/2012 Frequency of Alcohol Use: None Hx Recreational Drug Use: No Hx Prescription Drug Abuse: No - Advance Directive Resuscitation Status: Full Code Surrogate healthcare decision maker:: Currently full code patient did not want to identify a surrogate decision-maker at this time. Family History Family History: CAD Parental Family History Reviewed: Yes Children Family History Reviewed: Yes Sibling(s) Family History Reviewed.: Yes Medication/Allergy Home Medications: Amlodipine Besylate 10 mg PO DAILY 07/18/16 Aspirin [[place] Aspirin] 81 mg PO DAILY PRN 07/18/16 Budesonide [Pulmicort 180 mcg Flexhaler] 2 puff IH DAILY PRN 07/18/16 Clonidine HCl [Catapres 0.1 mg Tablet] 0.1 mg PO Q12 07/18/16 Furosemide [Lasix] 40 mg PO DAILY 07/18/16 Hydralazine HCl [Apresoline 25 mg Tablet] 25 mg PO TID 07/18/16 Isosorbide Dinitrate [Isordil Titradose 20 Mg Tablet] 20 mg PO TID 07/18/16 Lisinopril [Prinivil 10 mg Tablet] 10 mg PO DAILY 07/18/16 Metoprolol Tartrate [Lopressor] 50 mg PO Q12 07/18/16 Omeprazole Magnesium [Prilosec Otc] 20 mg PO QAM 07/18/16 Ondansetron HCl [Zofran 4 mg Tablet] 1 tab PO Q8H PRN 07/18/16 Simvastatin [Zocor 20 mg Tablet] 20 mg PO QHS 07/18/16 Tiotropium [place] [Spiriva Handihaler 5 Cap/Kit (18 Mcg/Cap)] 1 cap IH DAILY Allergies/Adverse Reactions: No Known Allergies Allergy (Verified 07/18/16 03:22) Review of Systems Review of Systems: Please see history of present illness and past medical history as wall. This was mainly obtained by direct questioning as patient is somewhat lethargic and intermittently confused. Constitutional: No fever or chills reported. Head : No recent chronic headaches, recent head injury. Eyes: No recent eye pain, diplopia, redness, discharge, acute visual changes. Ears: No recent chronic ear pain, acute hearing loss, ear discharge. Oral cavity: No recent ulcerations, bleeding, oral cavity discomfort. Neck: No recent acute neck pain reported. Hematologic: No recent easy bruising or bleeding or hematologic malignancy reported. Lymphatic: No recent lymphatic malignancy, chronic lymphadenopathy reported yet Cardiovascular system review: See history of present illness. Respiratory system review: No recent chronic cough, hemoptysis, blood clots in the lungs reported. Shortness of breath on exertion Gastrointestinal system review: Negative for any recent acute or chronic abdominal pain, hematemesis, melena, recent change in bowel habits. Patient did note some recent nausea vomiting and poor by mouth intake. Genitourinary system review: No recent acute or chronic hematuria, flank pain, UTI etc. reported. Skin system review: Negative for any recent abnormal bruising, no rash, no pruritus reported. Neurologic: No prior history of strokes, mini strokes, seizure disorder. Psychologic: No history of major psychosis or major depression reported. Musculoskeletal: Minor aches and pains reported. No acute joint swelling reported. Endocrine: No recent polyuria, polydipsia, recent heat or cold intolerance. Physical Exam Vital Signs: Temp Pulse Resp BP Pulse Ox 98.4 F 65 16 128/54 H 100 07/18/16 11:29 07/18/16 11:29 07/18/16 11:29 07/18/16 11:29 07/18/16 11:29 Intake & Output 07/17/16 07/18/16 07/19/16 06:59 06:59 06:59 Intake Total 237 Output Total 100 Balance 137 Exam: GENERAL: well-nourished and in no acute distress. Alert and oriented x3. Patient however noted to be intermittently confused by the nurses. HEAD: Atraumatic, normocephalic. EYES: Pupils equal round and reactive to light, extraocular movements intact, sclera anicteric, conjunctiva are normal. ENT: TMs normal, nares patent, oropharynx clear without exudates. Moist mucous membranes. No oral ulcerations or bleeding gums noted NECK: supple without lymphadenopathy. Trachea is central. No cervical or axillary lymphadenopathy noted. Carotids are 2+, JVD WNL LUNGS: Respiration seems nonlabored, no significant accessory muscle action noted. Breath sounds clear to auscultation bilaterally and equal noted. No wheezes rales or rhonchi noted. No significant dullness noted on percussion. CHEST: Palpation of the chest wall shows no significant chest wall tenderness. No other significant abnormalities noted. HEART: [employer], No PSH, 1/6 PARMINDER aortic area, 1/6 brown systolic murmur mitral area, no rubs, no gallops. ABDOMEN: Soft, no significant tenderness appreciated, normoactive bowel sounds. No guarding, no rebound. No rigidity noted . No masses appreciated. EXTREMITIES: Pedal pulses are 1-2+, no calf tenderness noted. No clubbing or cyanosis.trace to 1+ pedal edema noted NEUROLOGICAL: Focused neurological exam showed no significant neurologic deficit. Normal speech, no focal weakness appreciated. PSYCH: Normal mood, normal affect. Judgment and insight somewhat impaired because of intermittent confusion. SKIN: No significant ecchymosis, rash, ulcerations or signs of pruritus noted. MUSCULOSKELETAL EXAM: No significant joint swelling noted. Results Laboratory Results: 07/18/16 11:00 Urine Color YELLOW Urine Appearance CLEAR Urine pH 5.0 Ur Specific [place] 1.011 Urine Protein NEGATIVE Urine Glucose (UA) NEGATIVE Urine Ketones NEGATIVE Urine Blood NEGATIVE Urine Nitrite NEGATIVE Ur Leukocyte Esterase MODERATE H Urine WBC (Auto) 12 Urine RBC (Auto) 1 07/18/16 07/18/16 08:45 08:45 Creatine Kinase 88 CK-MB (CK-2) 0.79 Troponin I 0.061 EKG Comments: Sinus rhythm with left bundle branch block pattern. Impressions: Acute Abdomen Series 07/17/16 19:30 IMPRESSION: NO RADIOGRAPHIC EVIDENCE FOR ACUTE ABDOMINAL DISEASE.Similar moderate gas distention of the stomach. Nonobstructive pattern. Abdomen/Pelvis CT 07/18/16 00:00 IMPRESSION: NO SIGNIFICANT OR ACUTE PROCESS IN THE ABDOMEN OR PELVIS. Renal Ultrasound 07/18/16 00:00 IMPRESSION: There is some increased echogenicity in the renal cortex of the left kidney suggesting intrinsic renal disease. No evidence for hydronephrosis. Other findings as noted above Assessment & Plan - Diagnosis (1) Acute renal insufficiency Is this a current diagnosis for this admission?: Yes (2) Hyperlipidemia Qualifiers: Hyperlipidemia type: unspecified Qualified Code(s): E78.5 - Hyperlipidemia, unspecified Is this a current diagnosis for this admission?: Yes (3) Hypotension Qualifiers: Hypotension type: unspecified hypotension type Qualified Code(s): I95.9 - Hypotension, unspecified Is this a current diagnosis for this admission?: Yes (4) Dehydration Is this a current diagnosis for this admission?: Yes (5) Hypertension Qualifiers: Hypertension type: unspecified secondary hypertension Qualified Code (s): I15.9 - Secondary hypertension, unspecified; I15 - Secondary hypertension Is this a current diagnosis for this admission?: Yes (6) Chronic obstructive pulmonary disease (COPD) Qualifiers: COPD type: unspecified COPD Qualified Code(s): J44.9 - Chronic obstructive pulmonary disease, unspecified Is this a current diagnosis for this admission?: Yes (7) Coronary artery disease Qualifiers: Coronary Disease-Associated Artery/Lesion type: unspecified vessel or lesion type [place] vs. transplanted heart: [place] heart Associated angina: angina presence unspecified Qualified Code(s): I25.10 - Atherosclerotic heart disease of [place] coronary artery without angina pectoris Is this a current diagnosis for this admission?: Yes - Notes Notes: Acute renal failure: Chart review suggest that patient really has acute on chronic renal failure most likely precipitated by volume depletion and dehydration. Very likely he may have had ATN. Nephrology already following. At this point recommend stopping EUGENE inhibitor/ARB and slow hydration. This was discussed with primary care attending. Continue to follow renal functions. Coronary artery disease: Patient is symptomatically stable. 2-D echo performed was reviewed. It shows lower limit of normal LVEF. Hypotension: Patient was noted to have low blood pressure at the [facility]. Exact readings are not available. This could be related to dehydration, medication etc. Currently blood pressure is stable. Hypertension: Patient has a history of this. Blood-pressure medications would need to be held. Dehydration: Agree with slow hydration. COPD: Currently stable. Mental status changes: Possibly related to uremia. Continue to observe very closely. Elevation to was just slow in speaking but not noted to have any other significant focal deficit. - Time Time Spent: 50 to 70 Minutes - CODE STATUS was discussed, patient remains full code. Surrogate decision-maker unchanged. Multiple medical problems were addressed.More than 50% of the time spent coordinating care, discussing management plans with involved caregivers. Management plans discussed with involved personnels. Medical decision making was of moderate to high complexity , patient's has multiple severe comorbidities. Medications reviewed and adjusted accordingly: Yes - consider stopping clonidine
[2016-07-18 20:45] LABS: CREATINE KINASE MB 0.77 ng/mL (<4.55); TROPONIN I 0.063 ng/mL
[2016-07-18] MEDS: SIMVASTATIN 10 MG TABLET PO SCH (21:47)
[2016-07-18] MEDS: CLONIDINE HCL 0.1 MG TABLET PO SCH (21:47)
[2016-07-18] MEDS: ISOSORBIDE DINITRATE 20 MG TABLET PO SCH (21:48)
[2016-07-19] MEDS: LANSOPRAZOLE 15 MG TAB.RAP.DR PO SCH (05:39)
[2016-07-19 06:02] LABS: ABSOLUTE BASOPHILS # (AUTO) 0.1 10^3/uL (0.0-0.2); ABSOLUTE EOSINOPHILS # (AUTO) 0.2 10^3/uL (0.0-0.6); ABSOLUTE LYMPHOCYTES (AUTO) 1.8 10^3/uL (0.5-4.7); ABSOLUTE NEUT (AUTO) 7.8 10^3/uL (1.7-8.2); BASOPHILS % (AUTO) 0.8 % (0-2); EOSINOPHILS % (AUTO) 1.7 % (0-6); HEMATOCRIT 35.4 % (37.9-51.0); HEMOGLOBIN 11.6 g/dL (13.5-17.0); HGB HCT DIFFERENCE -0.6; LYMPHOCYTES % (AUTO) 16.3 % (13-45); MEAN CORPUSCULAR HEMOGLOBIN 28.8 pg (27.0-33.4); MEAN CORPUSCULAR HGB CONC 32.9 g/dL (32.0-36.0); MEAN CORPUSCULAR VOLUME 88 fl (80-97); RED BLOOD COUNT 4.04 10^6/uL (4.35-5.55); RED CELL DISTRIBUTION WIDTH 14.4 % (11.5-14.0); SEGMENTED NEUTROPHILS % (AUTO) 72.2 % (42-78); WHITE BLOOD COUNT 10.8 10^3/uL (4.0-10.5)
[2016-07-19 06:22] LABS: ALANINE AMINOTRANSFERASE 29 U/L (21-72); ALBUMIN 3.2 g/dL (3.5-5.0); ALKALINE PHOSPHATASE 69 U/L (38-126); ANION GAP 14 (5-19); ASPARTATE AMINO TRANSFERASE 20 U/L (17-59); BILIRUBIN,DIRECT 0.3 mg/dL (0.0-0.4); BILIRUBIN,TOTAL 0.6 mg/dL (0.2-1.3); BLOOD UREA NITROGEN 52 mg/dL (7-20); CARBON DIOXIDE 25 mmol/L (22-30); CHLORIDE 107 mmol/L (98-107); CREATININE RESULT 3.22 mg/dL (0.52-1.25); GLUCOSE 120 mg/dL (75-110); LIPASE 250.6 U/L (23-300); MAGNESIUM 2.8 mg/dL (1.6-2.3); POTASSIUM 3.7 mmol/L (3.6-5.0); SODIUM 146.3 mmol/L (137-145); TOTAL PROTEIN 6.2 g/dL (6.3-8.2)
[2016-07-19] MEDS: IPRATROPIUM/ALBUTEROL 0.5-2.5 MG/3 ML AMPUL NEB SCH ×3 (08:03→20:33)
--- NOTE | 2016-07-19 09:51 | PDOC PROGRESS REPORT ---
Subjective Progress Note for:: 07/19/16 Subjective:: Patient is currently doing well more alert awake denied any chest pain denied any shortness of the breath patient seen by nephrology and cardiology and adjust the medications Physical Exam Vital Signs: Temp Pulse Resp BP Pulse Ox 98.6 F 64 16 118/60 93 07/19/16 07:08 07/19/16 08:03 07/19/16 08:03 07/19/16 07:08 07/19/16 08:03 Intake & Output 07/18/16 07/19/16 07/20/16 06:59 06:59 06:59 Intake Total 2974 Output Total 1300 Balance 1674 Weight 85.5 kg General appearance: PRESENT: no acute distress, well-developed, well-nourished Head exam: PRESENT: atraumatic, normocephalic Eye exam: PRESENT: conjunctiva pink, EOMI, PERRLA. ABSENT: scleral icterus Ear exam: PRESENT: normal external ear exam Mouth exam: PRESENT: moist, tongue midline Neck exam: PRESENT: full ROM. ABSENT: carotid bruit, JVD, lymphadenopathy, thyromegaly Respiratory exam: PRESENT: clear to auscultation magdalena Cardiovascular exam: PRESENT: RRR. ABSENT: diastolic murmur, rubs, systolic murmur Pulses: PRESENT: normal dorsalis pedis pul, +2 pedal pulses bilateral Vascular exam: PRESENT: normal capillary refill GI/Abdominal exam: PRESENT: normal bowel sounds, soft. ABSENT: distended, guarding, mass, organolmegaly, rebound, tenderness Rectal exam: PRESENT: deferred Neurological exam: PRESENT: alert, awake, oriented to person, oriented to place , oriented to time, oriented to situation, CN II-XII grossly intact. ABSENT: motor sensory deficit Psychiatric exam: PRESENT: appropriate affect, normal mood. ABSENT: homicidal ideation, suicidal ideation Skin exam: PRESENT: dry, intact, warm. ABSENT: cyanosis, rash Results Laboratory Results: 07/19/16 05:11 07/19/16 05:11 07/18/16 07/19/16 07/19/16 11:00 05:11 05:11 WBC 10.8 H RBC 4.04 L Hgb 11.6 L Hct 35.4 L MCV 88 MCH 28.8 MCHC 32.9 RDW 14.4 H Plt Count 304 Seg Neutrophils % 72.2 Lymphocytes % 16.3 Monocytes % 9.0 Eosinophils % 1.7 Basophils % 0.8 Absolute Neutrophils 7.8 Absolute Lymphocytes 1.8 Absolute Monocytes 1.0 Absolute Eosinophils 0.2 Absolute Basophils 0.1 Sodium 146.3 H Potassium 3.7 Chloride 107 Carbon Dioxide 25 Anion Gap 14 BUN 52 H Creatinine 3.22 H Est GFR ( Amer) 23 L Est GFR (Non-Af Amer) 19 L Glucose 120 H Calcium 9.0 Magnesium 2.8 H Total Bilirubin 0.6 AST 20 ALT 29 Alkaline Phosphatase 69 Total Protein 6.2 L Albumin 3.2 L Lipase 250.6 Urine Color YELLOW Urine Appearance CLEAR Urine pH 5.0 Ur Specific [place] 1.011 Urine Protein NEGATIVE Urine Glucose (UA) NEGATIVE Urine Ketones NEGATIVE Urine Blood NEGATIVE Urine Nitrite NEGATIVE Ur Leukocyte Esterase MODERATE H Urine WBC (Auto) 12 Urine RBC (Auto) 1 07/18/16 07/18/16 07/18/16 08:45 08:45 20:00 Creatine Kinase 88 81 CK-MB (CK-2) 0.79 Troponin I 0.061 07/18/16 20:00 Creatine Kinase CK-MB (CK-2) 0.77 Troponin I 0.063 Impressions: Acute Abdomen Series 07/17/16 19:30 IMPRESSION: NO RADIOGRAPHIC EVIDENCE FOR ACUTE ABDOMINAL DISEASE.Similar moderate gas distention of the stomach. Nonobstructive pattern. Abdomen/Pelvis CT 07/18/16 00:00 IMPRESSION: NO SIGNIFICANT OR ACUTE PROCESS IN THE ABDOMEN OR PELVIS. Renal Ultrasound 07/18/16 00:00 IMPRESSION: There is some increased echogenicity in the renal cortex of the left kidney suggesting intrinsic renal disease. No evidence for hydronephrosis. Other findings as noted above Assessment & Plan - Diagnosis (1) Acute renal insufficiency Is this a current diagnosis for this admission?: YesPlan: Currently all improving continues to current IV fluid and continues to monitor and follow with the nephrology (2) Hypotension Qualifiers: Hypotension type: unspecified hypotension type Qualified Code(s): I95.9 - Hypotension, unspecified Is this a current diagnosis for this admission?: YesPlan: Currently hold all the blood pressure medications and is all stable (3) Dehydration Is this a current diagnosis for this admission?: YesPlan: Continues to IV fluid (4) Coronary artery disease (CAD) excluded Is this a current diagnosis for this admission?: YesPlan: We will consult the cardiology with ongoing heart issues with the heart failure possible need a echocardiogram (5) GERD (gastroesophageal reflux disease) Qualifiers: Esophagitis presence: without esophagitis Qualified Code(s): K21.9 - Gastro-esophageal reflux disease without esophagitis Is this a current diagnosis for this admission?: YesPlan: Currently stable (6) Congestive heart failure Qualifiers: Congestive heart failure type: diastolic Is this a current diagnosis for this admission?: YesPlan: Will follow the following the echo report and follow with the cardiology (7) Chronic obstructive pulmonary disease (COPD) Qualifiers: COPD type: unspecified COPD Qualified Code(s): J44.9 - Chronic obstructive pulmonary disease, unspecified Is this a current diagnosis for this admission?: YesPlan: Continues to nebulizer treatment (8) Hypertension Qualifiers: Hypertension type: unspecified secondary hypertension Qualified Code (s): I15.9 - Secondary hypertension, unspecified; I15 - Secondary hypertension Is this a current diagnosis for this admission?: YesPlan: Currently low will give IV fluid and hold all blood pressure medications (9) Hyperlipidemia Qualifiers: Hyperlipidemia type: unspecified Qualified Code(s): E78.5 - Hyperlipidemia, unspecified Is this a current diagnosis for this admission?: Yes - Time Time Spent with patient: 15-24 minutes Medications reviewed and adjusted accordingly: Yes Anticipated discharge: SNF Within: Other - Inpatient Certification Medical Necessity: Need Close Monitoring Due to Risk of Patient Decompensation, Need For IV Fluids 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
[2016-07-19] MEDS: ASPIRIN 81 MG TABLET, CHEWABLE PO SCH (09:54)
[2016-07-19] MEDS: ISOSORBIDE DINITRATE 20 MG TABLET PO SCH ×2 (09:54→21:09)
[2016-07-19] MEDS: METOPROLOL TARTRATE 50 MG TABLET PO SCH ×2 (09:54→21:10)
[2016-07-19] MEDS: TIOTROPIUM BROMIDE DPI 5 CAP/KIT (18 MCG/CAP) IH SCH (09:55)
[2016-07-19] MEDS: CEFTRIAXONE 1 GM/D5W RTU 50 ML IV SCH (09:55)
[2016-07-19] MEDS: ENOXAPARIN SODIUM INJ 30 MG/0.3 ML DISP.SYRIN SUBCUT SCH (09:56)
--- NOTE | 2016-07-19 14:29 | PDOC PROGRESS REPORT ---
Subjective Progress Note for:: 07/19/16 Subjective:: Patient seen in the hospital today. He is feeling somewhat better. He denies any history of chest pain shortness of breath no history of nausea vomiting. He states he is constipated and has not moved bowels for quite a few days. Labs were reviewed as well as medications. His labs shows improving renal numbers. Physical Exam Vital Signs: Temp Pulse Resp BP Pulse Ox 98.6 F 64 16 118/60 93 07/19/16 07:08 07/19/16 08:03 07/19/16 08:03 07/19/16 07:08 07/19/16 08:03 Intake & Output 07/18/16 07/19/16 07/20/16 06:59 06:59 06:59 Intake Total 2974 Output Total 1300 Balance 1674 Weight 85.5 kg General appearance: PRESENT: no acute distress Respiratory exam: PRESENT: clear to auscultation magdalena. ABSENT: crackles, rhonchi Cardiovascular exam: PRESENT: +S1, +S2, systolic murmur GI/Abdominal exam: PRESENT: normal bowel sounds, soft. ABSENT: distended, organomegaly, tenderness Extremities exam: ABSENT: pedal edema Neurological exam: PRESENT: awake, oriented to person, oriented to place, oriented to time Skin exam: PRESENT: dry. ABSENT: erythema, mottled, rash Results Laboratory Results: 07/19/16 05:11 07/19/16 05:11 07/19/16 07/19/16 05:11 05:11 WBC 10.8 H RBC 4.04 L Hgb 11.6 L Hct 35.4 L MCV 88 MCH 28.8 MCHC 32.9 RDW 14.4 H Plt Count 304 Seg Neutrophils % 72.2 Lymphocytes % 16.3 Monocytes % 9.0 Eosinophils % 1.7 Basophils % 0.8 Absolute Neutrophils 7.8 Absolute Lymphocytes 1.8 Absolute Monocytes 1.0 Absolute Eosinophils 0.2 Absolute Basophils 0.1 Sodium 146.3 H Potassium 3.7 Chloride 107 Carbon Dioxide 25 Anion Gap 14 BUN 52 H Creatinine 3.22 H Est GFR ( Amer) 23 L Est GFR (Non-Af Amer) 19 L Glucose 120 H Calcium 9.0 Magnesium 2.8 H Total Bilirubin 0.6 AST 20 ALT 29 Alkaline Phosphatase 69 Total Protein 6.2 L Albumin 3.2 L Lipase 250.6 07/18/16 07/18/16 07/18/16 08:45 08:45 20:00 Creatine Kinase 88 81 CK-MB (CK-2) 0.79 Troponin I 0.061 07/18/16 20:00 Creatine Kinase CK-MB (CK-2) 0.77 Troponin I 0.063 Impressions: Acute Abdomen Series 07/17/16 19:30 IMPRESSION: NO RADIOGRAPHIC EVIDENCE FOR ACUTE ABDOMINAL DISEASE.Similar moderate gas distention of the stomach. Nonobstructive pattern. Abdomen/Pelvis CT 07/18/16 00:00 IMPRESSION: NO SIGNIFICANT OR ACUTE PROCESS IN THE ABDOMEN OR PELVIS. Renal Ultrasound 07/18/16 00:00 IMPRESSION: There is some increased echogenicity in the renal cortex of the left kidney suggesting intrinsic renal disease. No evidence for hydronephrosis. Other findings as noted above Assessment & Plan - Diagnosis (1) Acute renal insufficiency Is this a current diagnosis for this admission?: YesPlan: Patient improving renal numbers. Continue present lines of management. Adjusted medications. (2) Chronic obstructive pulmonary disease (COPD) Qualifiers: COPD type: unspecified COPD Qualified Code(s): J44.9 - Chronic obstructive pulmonary disease, unspecified Is this a current diagnosis for this admission?: Yes (3) Congestive heart failure Qualifiers: Congestive heart failure type: diastolic Is this a current diagnosis for this admission?: YesPlan: Stable. No signs of decompensation. (4) Hypertension Qualifiers: Hypertension type: unspecified secondary hypertension Qualified Code (s): I15.9 - Secondary hypertension, unspecified; I15 - Secondary hypertension Is this a current diagnosis for this admission?: YesPlan: Presently low normal. Patient's antihypertensives are being held. Monitor. (5) Dehydration Is this a current diagnosis for this admission?: Yes (6) Constipation Plan: Will order an enema and follow-up.
--- NOTE | 2016-07-19 19:17 | PDOC PROGRESS REPORT ---
Subjective Progress Note for:: 07/19/16 Subjective:: Patient seems to be doing significantly better with marked. Patient confusion is significantly improved as well. Pt is denying any chest arm or neck discomfort. Patient denying any PND, orthopnea. Patient denied any sustained palpitations, dizziness, syncope, near syncope. Patient denying any fever chills. Patient denying any other significant discomfort. Yesterday he was noted to be in somewhat slow in responses but today he is better. Patient is maintaining sinus rhythm. Review of systems: Rest review of systems negative. Medications: Medications have been reviewed. Physical Exam Vital Signs: Temp Pulse Resp BP Pulse Ox 98.6 F 64 16 118/60 93 07/19/16 07:08 07/19/16 08:03 07/19/16 08:03 07/19/16 07:08 07/19/16 08:03 Intake & Output 07/18/16 07/19/16 07/20/16 06:59 06:59 06:59 Intake Total 2974 Output Total 1300 Balance 1674 Weight 85.5 kg Exam: GENERAL: well-nourished and in no acute distress. Alert and oriented x3 HEAD: Atraumatic, normocephalic. EYES: Pupils equal round and reactive to light, extraocular movements intact, sclera anicteric, conjunctiva are normal. ENT: TMs normal, nares patent, oropharynx clear without exudates. Moist mucous membranes. No oral ulcerations or bleeding gums noted NECK: supple without lymphadenopathy. Trachea is central. No cervical or axillary lymphadenopathy noted. Carotids are 2+, JVD WNL LUNGS: Respiration seems nonlabored, no significant accessory muscle action noted. Breath sounds clear to auscultation bilaterally and equal noted. No wheezes rales or rhonchi noted. No significant dullness noted on percussion. CHEST: Palpation of the chest wall shows no significant chest wall tenderness. No other significant abnormalities noted. HEART: [place] [employer], No PSH, 1/6 PARMINDER aortic area, 1/6 brown systolic murmur mitral area, no rubs, no gallops. ABDOMEN: Soft, mildly distended, no significant tenderness appreciated, normoactive bowel sounds. No guarding, no rebound. No rigidity noted . No masses appreciated. EXTREMITIES: Pedal pulses are 1-2+, no calf tenderness noted. No clubbing or cyanosis.1+ pedal edema noted NEUROLOGICAL: Focused neurological exam showed no significant neurologic deficit. Normal speech, no focal weakness appreciated. PSYCH: Normal mood, normal affect. Judgment and insight within normal limits. SKIN: No significant ecchymosis, rash, ulcerations or signs of pruritus noted. MUSCULOSKELETAL EXAM: No significant joint swelling noted. Results Laboratory Results: 07/19/16 05:11 07/19/16 05:11 07/19/16 07/19/16 05:11 05:11 WBC 10.8 H RBC 4.04 L Hgb 11.6 L Hct 35.4 L MCV 88 MCH 28.8 MCHC 32.9 RDW 14.4 H Plt Count 304 Seg Neutrophils % 72.2 Lymphocytes % 16.3 Monocytes % 9.0 Eosinophils % 1.7 Basophils % 0.8 Absolute Neutrophils 7.8 Absolute Lymphocytes 1.8 Absolute Monocytes 1.0 Absolute Eosinophils 0.2 Absolute Basophils 0.1 Sodium 146.3 H Potassium 3.7 Chloride 107 Carbon Dioxide 25 Anion Gap 14 BUN 52 H Creatinine 3.22 H Est GFR ( Amer) 23 L Est GFR (Non-Af Amer) 19 L Glucose 120 H Calcium 9.0 Magnesium 2.8 H Total Bilirubin 0.6 AST 20 ALT 29 Alkaline Phosphatase 69 Total Protein 6.2 L Albumin 3.2 L Lipase 250.6 07/18/16 07/18/16 07/18/16 08:45 08:45 20:00 Creatine Kinase 88 81 CK-MB (CK-2) 0.79 Troponin I 0.061 07/18/16 20:00 Creatine Kinase CK-MB (CK-2) 0.77 Troponin I 0.063 Impressions: Acute Abdomen Series 07/17/16 19:30 IMPRESSION: NO RADIOGRAPHIC EVIDENCE FOR ACUTE ABDOMINAL DISEASE.Similar moderate gas distention of the stomach. Nonobstructive pattern. Abdomen/Pelvis CT 07/18/16 00:00 IMPRESSION: NO SIGNIFICANT OR ACUTE PROCESS IN THE ABDOMEN OR PELVIS. Renal Ultrasound 07/18/16 00:00 IMPRESSION: There is some increased echogenicity in the renal cortex of the left kidney suggesting intrinsic renal disease. No evidence for hydronephrosis. Other findings as noted above Assessment & Plan - Diagnosis (1) Acute renal insufficiency Is this a current diagnosis for this admission?: Yes (2) Hyperlipidemia Qualifiers: Hyperlipidemia type: unspecified Qualified Code(s): E78.5 - Hyperlipidemia, unspecified Is this a current diagnosis for this admission?: Yes (3) Hypotension Qualifiers: Hypotension type: unspecified hypotension type Qualified Code(s): I95.9 - Hypotension, unspecified Is this a current diagnosis for this admission?: Yes (4) Dehydration Is this a current diagnosis for this admission?: Yes (5) Hypertension Qualifiers: Hypertension type: unspecified secondary hypertension Qualified Code (s): I15.9 - Secondary hypertension, unspecified; I15 - Secondary hypertension Is this a current diagnosis for this admission?: Yes (6) Chronic obstructive pulmonary disease (COPD) Qualifiers: COPD type: unspecified COPD Qualified Code(s): J44.9 - Chronic obstructive pulmonary disease, unspecified Is this a current diagnosis for this admission?: Yes (7) Coronary artery disease Qualifiers: Coronary Disease-Associated Artery/Lesion type: unspecified vessel or lesion type [place] vs. transplanted heart: [place] heart Associated angina: angina presence unspecified Qualified Code(s): I25.10 - Atherosclerotic heart disease of [place] coronary artery without angina pectoris Is this a current diagnosis for this admission?: Yes - Notes Notes: Acute renal insufficiency: There is significant improvement in patient's renal function with hydration. Hypotension: Blood pressure is improved. Hypertension: Blood pressure is stable. Continue beta blockers for CAD. COPD: Stable Coronary artery disease: Symptomatically stable. Continue with statin, aspirin and beta hussain therapy. EUGENE inhibitor/ARB on hold due to acute renal failure. Mental status changes: Was secondary to uremia is much improved today. - Time Time with patient: 15-25 minutes - CODE STATUS was discussed, patient remains full code. Surrogate decision-maker unchanged. Multiple medical problems were addressed.More than 50% of the time spent coordinating care, discussing management plans with involved caregivers. Management plans discussed with involved personnels. Medical decision making was of moderate to high complexity , patient's has multiple severe comorbidities.
[2016-07-19] MEDS: SIMVASTATIN 10 MG TABLET PO SCH (21:07)
[2016-07-19] MEDS: CLONIDINE HCL 0.1 MG TABLET PO SCH (21:09)
[2016-07-20] MEDS: ONDANSETRON 4 MG TAB.RAPDIS PO PRN ×2 (00:48→22:40)
[2016-07-20] MEDS: LANSOPRAZOLE 15 MG TAB.RAP.DR PO SCH (06:05)
[2016-07-20 06:45] LABS: ABSOLUTE BASOPHILS # (AUTO) 0.1 10^3/uL (0.0-0.2); ABSOLUTE EOSINOPHILS # (AUTO) 0.3 10^3/uL (0.0-0.6); ABSOLUTE LYMPHOCYTES (AUTO) 1.9 10^3/uL (0.5-4.7); ABSOLUTE MONOCYTES (AUTO) 0.9 10^3/uL (0.1-1.4); ABSOLUTE NEUT (AUTO) 6.5 10^3/uL (1.7-8.2); BASOPHILS % (AUTO) 0.9 % (0-2); EOSINOPHILS % (AUTO) 3.5 % (0-6); HEMATOCRIT 34.7 % (37.9-51.0); HEMOGLOBIN 11.7 g/dL (13.5-17.0); HGB HCT DIFFERENCE 0.4; LYMPHOCYTES % (AUTO) 19.7 % (13-45); MEAN CORPUSCULAR HEMOGLOBIN 29.4 pg (27.0-33.4); MEAN CORPUSCULAR HGB CONC 33.6 g/dL (32.0-36.0); MEAN CORPUSCULAR VOLUME 88 fl (80-97); MONOCYTES % (AUTO) 8.8 % (3-13); RED BLOOD COUNT 3.97 10^6/uL (4.35-5.55); RED CELL DISTRIBUTION WIDTH 14.5 % (11.5-14.0); SEGMENTED NEUTROPHILS % (AUTO) 67.1 % (42-78); WHITE BLOOD COUNT 9.7 10^3/uL (4.0-10.5)
[2016-07-20 07:11] LABS: ALANINE AMINOTRANSFERASE 31 U/L (21-72); ALBUMIN 3.3 g/dL (3.5-5.0); ALKALINE PHOSPHATASE 71 U/L (38-126); ANION GAP 15 (5-19); ASPARTATE AMINO TRANSFERASE 23 U/L (17-59); BILIRUBIN,DIRECT 0.5 mg/dL (0.0-0.4); BILIRUBIN,TOTAL 0.7 mg/dL (0.2-1.3); BLOOD UREA NITROGEN 38 mg/dL (7-20); CALCIUM 9.3 mg/dL (8.4-10.2); CARBON DIOXIDE 24 mmol/L (22-30); CHLORIDE 109 mmol/L (98-107); CREATININE RESULT 2.45 mg/dL (0.52-1.25); GLUCOSE 96 mg/dL (75-110); MAGNESIUM 2.5 mg/dL (1.6-2.3); POTASSIUM 4.3 mmol/L (3.6-5.0); SODIUM 147.6 mmol/L (137-145); TOTAL PROTEIN 6.6 g/dL (6.3-8.2)
[2016-07-20] MEDS ORDERED: NORMAL SALINE 1000 ML 1,000 ML IV PRN (07:58)
[2016-07-20] MEDS: IPRATROPIUM/ALBUTEROL 0.5-2.5 MG/3 ML AMPUL NEB SCH ×3 (08:27→20:16)
[2016-07-20] MEDS: METOPROLOL TARTRATE 50 MG TABLET PO SCH ×2 (09:11→22:39)
[2016-07-20] MEDS: ISOSORBIDE DINITRATE 20 MG TABLET PO SCH ×2 (09:11→22:39)
[2016-07-20] MEDS: CEFTRIAXONE 1 GM/D5W RTU 50 ML IV SCH (09:12)
[2016-07-20] MEDS: TIOTROPIUM BROMIDE DPI 5 CAP/KIT (18 MCG/CAP) IH SCH (09:12)
[2016-07-20] MEDS: ASPIRIN 81 MG TABLET, CHEWABLE PO SCH (09:12)
[2016-07-20] MEDS: ENOXAPARIN SODIUM INJ 30 MG/0.3 ML DISP.SYRIN SUBCUT SCH (09:12)
--- NOTE | 2016-07-20 11:58 | PDOC CONSULTATION ---
Consultation Consult Date: 07/20/16 Consult reason:: nausea , vomitting. regurgutation. dysphagia History of Present Illness Admission Date/PCP: 07/18/16 08:00 ILAN FALCON MD History of Present Illness: patient has been admitted by Dr Burrell he is a custodial resident his brother is by the bedside patient has been having difficulty with nausea, vomiting and regurgitation going on for several weeks patient states cannot eat certain foods he has a plate of fruit in front of him and states has dysphagia and has spit up undigested food contents patient denies any weight loss denies any melena admitted for renal issues, and now improved however upper GI symptoms have not improved consultation requested to rule out esophageal stricture denies any GERD there is no odynophagia patient denies any rectal bleeding Past Medical History Cardiac Medical History: Reports: Coronary Artery Disease, Hyperlipidema, Hypertension Pulmonary Medical History: Reports: Chronic Obstructive Pulmonary Disease (COPD) Renal/ Medical History: Reports: Chronic Kidney Disease GI Medical History: Reports: Gastroesophageal Reflux Disease, Hiatal Hernia Hematology: Reports: Anemia Past Surgical History Past Surgical History: 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 Social History Lives with: [facility] Smoking Status: Never Smoker Last Time Smoked: 03/20/2012 Frequency of Alcohol Use: None Hx Recreational Drug Use: No Hx Prescription Drug Abuse: No - Advance Directive Resuscitation Status: Full Code Family History Family History: CAD Parental Family History Reviewed: Yes Children Family History Reviewed: Unknown Sibling(s) Family History Reviewed.: Unknown Medication/Allergy Home Medications: Amlodipine Besylate 10 mg PO DAILY 07/18/16 Aspirin [[place] Aspirin] 81 mg PO DAILY PRN 07/18/16 Budesonide [Pulmicort 180 mcg Flexhaler] 2 puff IH DAILY PRN 07/18/16 Clonidine HCl [Catapres 0.1 mg Tablet] 0.1 mg PO Q12 07/18/16 Furosemide [Lasix] 40 mg PO DAILY 07/18/16 Hydralazine HCl [Apresoline 25 mg Tablet] 25 mg PO TID 07/18/16 Isosorbide Dinitrate [Isordil Titradose 20 Mg Tablet] 20 mg PO TID 07/18/16 Lisinopril [Prinivil 10 mg Tablet] 10 mg PO DAILY 07/18/16 Metoprolol Tartrate [Lopressor] 50 mg PO Q12 07/18/16 Omeprazole Magnesium [Prilosec Otc] 20 mg PO QAM 07/18/16 Ondansetron HCl [Zofran 4 mg Tablet] 1 tab PO Q8H PRN 07/18/16 Simvastatin [Zocor 20 mg Tablet] 20 mg PO QHS 07/18/16 Tiotropium [place] [Spiriva Handihaler 5 Cap/Kit (18 Mcg/Cap)] 1 cap IH DAILY Allergies/Adverse Reactions: No Known Allergies Allergy (Verified 07/18/16 03:22) Review of Systems Constitutional: ABSENT: fever(s), headache(s), night sweats, weakness Eyes: ABSENT: visual disturbances Ears: ABSENT: hearing changes Nose, Mouth, and Throat: ABSENT: mouth pain Cardiovascular: ABSENT: chest pain, edema, palpitations Respiratory: ABSENT: dyspnea, hemoptysis Gastrointestinal: PRESENT: dysphagia, vomiting. ABSENT: diarrhea, heartburn, hematochezia, melena Genitourinary: ABSENT: dysuria, hematuria Musculoskeletal: ABSENT: joint swelling Integumentary: ABSENT: pruritus Neurological: ABSENT: syncope, tremor(s), vertigo Psychiatric: ABSENT: anxiety Endocrine: ABSENT: polydipsia, polyphagia, polyuria Hematologic/Lymphatic: ABSENT: easy bruising Physical Exam Vital Signs: Temp Pulse Resp BP Pulse Ox 98.0 F 63 18 147/61 H 94 07/20/16 07:33 07/20/16 08:28 07/20/16 08:28 07/20/16 07:33 07/20/16 08:28 Intake & Output 07/19/16 07/20/16 07/21/16 06:59 06:59 06:59 Intake Total 2974 2888 Output Total 1300 1500 Balance 1674 1388 Weight 85.5 kg 85.7 kg General appearance: PRESENT: no acute distress, morbidly obese Head exam: PRESENT: atraumatic, normocephalic Eye exam: PRESENT: EOMI, PERRLA. ABSENT: nystagmus, periorbital swelling, scleral icterus Throat exam: ABSENT: tonsillar exudate Neck exam: ABSENT: meningismus, tenderness, thyromegaly Respiratory exam: PRESENT: symmetrical, unlabored. ABSENT: tachypnea, wheezes Cardiovascular exam: PRESENT: RRR, +S1, +S2 GI/Abdominal exam: PRESENT: soft. ABSENT: ascites, Quintanilla's sign, rebound, rigid Extremities exam: ABSENT: joint swelling Musculoskeletal exam: PRESENT: full ROM Neurological exam: PRESENT: oriented to time, oriented to situation, reflexes normal, CN II-XII grossly intact Focused psych exam: ABSENT: restlessness Skin exam: PRESENT: normal color. ABSENT: mottled, pallor, petechiae, urticaria , vesicles Results Laboratory Results: 07/20/16 06:01 07/20/16 06:01 07/20/16 07/20/16 06:01 06:01 WBC 9.7 RBC 3.97 L Hgb 11.7 L Hct 34.7 L MCV 88 MCH 29.4 MCHC 33.6 RDW 14.5 H Plt Count 329 Seg Neutrophils % 67.1 Lymphocytes % 19.7 Monocytes % 8.8 Eosinophils % 3.5 Basophils % 0.9 Absolute Neutrophils 6.5 Absolute Lymphocytes 1.9 Absolute Monocytes 0.9 Absolute Eosinophils 0.3 Absolute Basophils 0.1 Sodium 147.6 H Potassium 4.3 Chloride 109 H Carbon Dioxide 24 Anion Gap 15 BUN 38 H Creatinine 2.45 H Est GFR ( Amer) 31 L Est GFR (Non-Af Amer) 26 L Glucose 96 Calcium 9.3 Magnesium 2.5 H Total Bilirubin 0.7 AST 23 ALT 31 Alkaline Phosphatase 71 Total Protein 6.6 Albumin 3.3 L 07/18/16 11:00 Catheterized Urine Urine Culture - Final Aerococcus Urinae 07/18/16 07/18/16 07/18/16 08:45 08:45 20:00 Creatine Kinase 88 81 CK-MB (CK-2) 0.79 Troponin I 0.061 07/18/16 20:00 Creatine Kinase CK-MB (CK-2) 0.77 Troponin I 0.063 Impressions: Acute Abdomen Series 07/17/16 19:30 IMPRESSION: NO RADIOGRAPHIC EVIDENCE FOR ACUTE ABDOMINAL DISEASE.Similar moderate gas distention of the stomach. Nonobstructive pattern. Abdomen/Pelvis CT 07/18/16 00:00 IMPRESSION: NO SIGNIFICANT OR ACUTE PROCESS IN THE ABDOMEN OR PELVIS. Renal Ultrasound 07/18/16 00:00 IMPRESSION: There is some increased echogenicity in the renal cortex of the left kidney suggesting intrinsic renal disease. No evidence for hydronephrosis. Other findings as noted above Assessment & Plan - Diagnosis (1) GERD (gastroesophageal reflux disease) Qualifiers: Esophagitis presence: without esophagitis Qualified Code(s): K21.9 - Gastro-esophageal reflux disease without esophagitis Is this a current diagnosis for this admission?: YesPlan: associated with nausea and vomiting there is a component of implied dysphagia as well patient will need EGD will need to exclude esophageal obstruction , possible stricture patient has been having symptoms for the past several weeks he is willing to have EGD done Risks, benefits and alternatives are discussed with the patient in detail Further recommendations to follow he is agreeable to proceed - Time Time Spent: 50 to 70 Minutes
--- NOTE | 2016-07-20 12:22 | PDOC PROGRESS REPORT ---
Subjective Progress Note for:: 07/20/16 Subjective:: Patient is still complaining of some nausea vomiting and according to the patient every time he tried to eat he feels that sensations. Patient's kidney function is also improving. Patient's denied any chest pain no shortness of the breath Physical Exam Vital Signs: Temp Pulse Resp BP Pulse Ox 98.0 F 63 18 147/61 H 94 07/20/16 07:33 07/20/16 08:28 07/20/16 08:28 07/20/16 07:33 07/20/16 08:28 Intake & Output 07/19/16 07/20/16 07/21/16 06:59 06:59 06:59 Intake Total 2974 2888 Output Total 1300 1500 Balance 1674 1388 Weight 85.5 kg 85.7 kg General appearance: PRESENT: no acute distress, well-developed, well-nourished Head exam: PRESENT: atraumatic, normocephalic Eye exam: PRESENT: conjunctiva pink, EOMI, PERRLA. ABSENT: scleral icterus Ear exam: PRESENT: normal external ear exam Mouth exam: PRESENT: moist, tongue midline Neck exam: PRESENT: full ROM. ABSENT: carotid bruit, JVD, lymphadenopathy, thyromegaly Respiratory exam: PRESENT: clear to auscultation magdalena Cardiovascular exam: PRESENT: RRR. ABSENT: diastolic murmur, rubs, systolic murmur Pulses: PRESENT: normal dorsalis pedis pul, +2 pedal pulses bilateral Vascular exam: PRESENT: normal capillary refill GI/Abdominal exam: PRESENT: normal bowel sounds, soft. ABSENT: distended, guarding, mass, organolmegaly, rebound, tenderness Rectal exam: PRESENT: deferred Neurological exam: PRESENT: alert, awake, oriented to person, oriented to place , oriented to time, oriented to situation, CN II-XII grossly intact. ABSENT: motor sensory deficit Psychiatric exam: PRESENT: appropriate affect, normal mood. ABSENT: homicidal ideation, suicidal ideation Skin exam: PRESENT: dry, intact, warm. ABSENT: cyanosis, rash Results Laboratory Results: 07/20/16 06:01 07/20/16 06:01 07/20/16 07/20/16 06:01 06:01 WBC 9.7 RBC 3.97 L Hgb 11.7 L Hct 34.7 L MCV 88 MCH 29.4 MCHC 33.6 RDW 14.5 H Plt Count 329 Seg Neutrophils % 67.1 Lymphocytes % 19.7 Monocytes % 8.8 Eosinophils % 3.5 Basophils % 0.9 Absolute Neutrophils 6.5 Absolute Lymphocytes 1.9 Absolute Monocytes 0.9 Absolute Eosinophils 0.3 Absolute Basophils 0.1 Sodium 147.6 H Potassium 4.3 Chloride 109 H Carbon Dioxide 24 Anion Gap 15 BUN 38 H Creatinine 2.45 H Est GFR ( Amer) 31 L Est GFR (Non-Af Amer) 26 L Glucose 96 Calcium 9.3 Magnesium 2.5 H Total Bilirubin 0.7 AST 23 ALT 31 Alkaline Phosphatase 71 Total Protein 6.6 Albumin 3.3 L 07/18/16 11:00 Catheterized Urine Urine Culture - Final Aerococcus Urinae 07/18/16 07/18/16 07/18/16 08:45 08:45 20:00 Creatine Kinase 88 81 CK-MB (CK-2) 0.79 Troponin I 0.061 07/18/16 20:00 Creatine Kinase CK-MB (CK-2) 0.77 Troponin I 0.063 Impressions: Acute Abdomen Series 07/17/16 19:30 IMPRESSION: NO RADIOGRAPHIC EVIDENCE FOR ACUTE ABDOMINAL DISEASE.Similar moderate gas distention of the stomach. Nonobstructive pattern. Abdomen/Pelvis CT 07/18/16 00:00 IMPRESSION: NO SIGNIFICANT OR ACUTE PROCESS IN THE ABDOMEN OR PELVIS. Renal Ultrasound 07/18/16 00:00 IMPRESSION: There is some increased echogenicity in the renal cortex of the left kidney suggesting intrinsic renal disease. No evidence for hydronephrosis. Other findings as noted above Assessment & Plan - Diagnosis (1) Acute renal insufficiency Is this a current diagnosis for this admission?: YesPlan: Continues to current medications (2) Hypotension Qualifiers: Hypotension type: unspecified hypotension type Qualified Code(s): I95.9 - Hypotension, unspecified Is this a current diagnosis for this admission?: YesPlan: All resolved (3) Dehydration Is this a current diagnosis for this admission?: YesPlan: Continues to IV fluid (4) Coronary artery disease (CAD) excluded Is this a current diagnosis for this admission?: YesPlan: We will consult the cardiology with ongoing heart issues with the heart failure possible need a echocardiogram (5) GERD (gastroesophageal reflux disease) Qualifiers: Esophagitis presence: without esophagitis Qualified Code(s): K21.9 - Gastro-esophageal reflux disease without esophagitis Is this a current diagnosis for this admission?: YesPlan: Will get the GI consult for persistent symptoms (6) Congestive heart failure Qualifiers: Congestive heart failure type: diastolic Is this a current diagnosis for this admission?: YesPlan: Will follow the following the echo report and follow with the cardiology (7) Chronic obstructive pulmonary disease (COPD) Qualifiers: COPD type: unspecified COPD Qualified Code(s): J44.9 - Chronic obstructive pulmonary disease, unspecified Is this a current diagnosis for this admission?: YesPlan: Continues to nebulizer treatment (8) Hypertension Qualifiers: Hypertension type: unspecified secondary hypertension Qualified Code (s): I15.9 - Secondary hypertension, unspecified; I15 - Secondary hypertension Is this a current diagnosis for this admission?: YesPlan: Currently low will give IV fluid and hold all blood pressure medications (9) Hyperlipidemia Qualifiers: Hyperlipidemia type: unspecified Qualified Code(s): E78.5 - Hyperlipidemia, unspecified Is this a current diagnosis for this admission?: Yes - Time Time Spent with patient: 15-24 minutes Medications reviewed and adjusted accordingly: Yes Anticipated discharge: SNF Within: Other - Inpatient Certification Medical Necessity: Need Close Monitoring Due to Risk of Patient Decompensation 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
--- NOTE | 2016-07-20 12:51 | PDOC PROGRESS REPORT ---
Subjective Progress Note for:: 07/20/16 Subjective:: Patient seems to be doing significantly better with marked. Patient today is much more conversational and is alert oriented 3. Pt is denying any chest arm or neck discomfort. Patient denying any PND, orthopnea. Patient denied any sustained palpitations, dizziness, syncope, near syncope. Patient denying any fever chills. Patient denying any other significant discomfort. Patient still has some nausea. Patient is maintaining sinus rhythm. Review of systems: Rest review of systems negative. Medications: Medications have been reviewed. Physical Exam Vital Signs: Temp Pulse Resp BP Pulse Ox 98.0 F 63 18 147/61 H 94 07/20/16 07:33 07/20/16 08:28 07/20/16 08:28 07/20/16 07:33 07/20/16 08:28 Intake & Output 07/19/16 07/20/16 07/21/16 06:59 06:59 06:59 Intake Total 2974 2888 Output Total 1300 1500 Balance 1674 1388 Weight 85.5 kg 85.7 kg Exam: GENERAL: well-nourished and in no acute distress. Alert and oriented x3 HEAD: Atraumatic, normocephalic. EYES: Pupils equal round and reactive to light, extraocular movements intact, sclera anicteric, conjunctiva are normal. ENT: TMs normal, nares patent, oropharynx clear without exudates. Moist mucous membranes. No oral ulcerations or bleeding gums noted NECK: supple without lymphadenopathy. Trachea is central. No cervical or axillary lymphadenopathy noted. Carotids are 2+, JVD WNL LUNGS: Respiration seems nonlabored, no significant accessory muscle action noted. Breath sounds clear to auscultation bilaterally and equal noted. No wheezes rales or rhonchi noted. No significant dullness noted on percussion. CHEST: Palpation of the chest wall shows no significant chest wall tenderness. No other significant abnormalities noted. 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 ABDOMEN: Soft, no significant tenderness appreciated, normoactive bowel sounds. No guarding, no rebound. No rigidity noted . No masses appreciated. EXTREMITIES: Pedal pulses are 1-2+, no calf tenderness noted. No clubbing or cyanosis.trace to 1+ pedal edema noted NEUROLOGICAL: Focused neurological exam showed no significant neurologic deficit. Normal speech, no focal weakness appreciated. PSYCH: Normal mood, normal affect. Judgment and insight within normal limits. SKIN: No significant ecchymosis, rash, ulcerations or signs of pruritus noted. MUSCULOSKELETAL EXAM: No significant joint swelling noted. Results Laboratory Results: 07/20/16 06:01 07/20/16 06:01 07/20/16 07/20/16 06:01 06:01 WBC 9.7 RBC 3.97 L Hgb 11.7 L Hct 34.7 L MCV 88 MCH 29.4 MCHC 33.6 RDW 14.5 H Plt Count 329 Seg Neutrophils % 67.1 Lymphocytes % 19.7 Monocytes % 8.8 Eosinophils % 3.5 Basophils % 0.9 Absolute Neutrophils 6.5 Absolute Lymphocytes 1.9 Absolute Monocytes 0.9 Absolute Eosinophils 0.3 Absolute Basophils 0.1 Sodium 147.6 H Potassium 4.3 Chloride 109 H Carbon Dioxide 24 Anion Gap 15 BUN 38 H Creatinine 2.45 H Est GFR ( Amer) 31 L Est GFR (Non-Af Amer) 26 L Glucose 96 Calcium 9.3 Magnesium 2.5 H Total Bilirubin 0.7 AST 23 ALT 31 Alkaline Phosphatase 71 Total Protein 6.6 Albumin 3.3 L 07/18/16 11:00 Catheterized Urine Urine Culture - Final Aerococcus Urinae 07/18/16 07/18/16 07/18/16 08:45 08:45 20:00 Creatine Kinase 88 81 CK-MB (CK-2) 0.79 Troponin I 0.061 07/18/16 20:00 Creatine Kinase CK-MB (CK-2) 0.77 Troponin I 0.063 Impressions: Acute Abdomen Series 07/17/16 19:30 IMPRESSION: NO RADIOGRAPHIC EVIDENCE FOR ACUTE ABDOMINAL DISEASE.Similar moderate gas distention of the stomach. Nonobstructive pattern. Abdomen/Pelvis CT 07/18/16 00:00 IMPRESSION: NO SIGNIFICANT OR ACUTE PROCESS IN THE ABDOMEN OR PELVIS. Renal Ultrasound 07/18/16 00:00 IMPRESSION: There is some increased echogenicity in the renal cortex of the left kidney suggesting intrinsic renal disease. No evidence for hydronephrosis. Other findings as noted above Assessment & Plan - Diagnosis (1) Acute renal insufficiency Is this a current diagnosis for this admission?: Yes (2) Hyperlipidemia Qualifiers: Hyperlipidemia type: unspecified Qualified Code(s): E78.5 - Hyperlipidemia, unspecified Is this a current diagnosis for this admission?: Yes (3) Hypotension Qualifiers: Hypotension type: unspecified hypotension type Qualified Code(s): I95.9 - Hypotension, unspecified Is this a current diagnosis for this admission?: Yes (4) Dehydration Is this a current diagnosis for this admission?: Yes (5) Hypertension Qualifiers: Hypertension type: unspecified secondary hypertension Qualified Code (s): I15.9 - Secondary hypertension, unspecified; I15 - Secondary hypertension Is this a current diagnosis for this admission?: Yes (6) Chronic obstructive pulmonary disease (COPD) Qualifiers: COPD type: unspecified COPD Qualified Code(s): J44.9 - Chronic obstructive pulmonary disease, unspecified Is this a current diagnosis for this admission?: Yes (7) Coronary artery disease Qualifiers: Coronary Disease-Associated Artery/Lesion type: unspecified vessel or lesion type [place] vs. transplanted heart: [place] heart Associated angina: angina presence unspecified Qualified Code(s): I25.10 - Atherosclerotic heart disease of [place] coronary artery without angina pectoris Is this a current diagnosis for this admission?: Yes - Notes Notes: Acute renal insufficiency: This has improved significantly. Patient does have some underlying chronic kidney disease. Patient being followed by forecast analyst. Patient seems euvolemic. Hyperlipidemia: LDL goal is less than 70. Recommend statin therapy at least intermediate or high dose, of high potency status. Periodic lipid panel and liver panel is indicated. Patient to report any significant muscle discomfort or other side effects. Hypotension: Resolved. Dehydration: Resolved. Hypertension: Reasonably well controlled. Blood pressure goal in this patient is 135/85 or less. This was discussed with the patient. Currently blood pressure under reasonable control. Better medication for this patient are EUGENE inhibitor/ARB/beta hussain etc. discussed side effects of uncontrolled hypertension and also severe hypotension. COPD: Currently stable. CAD: Patient has CAD. Currently stable without any angina or angina equivalent symptoms. Aggressive risk factor modification advised. Continue with current medical therapy. Nausea vomiting: Persistent. Agree with GI evaluation and endoscopy is planned. - Time Time with patient: 15-25 minutes - CODE STATUS was discussed, patient remains full code. Surrogate decision-maker unchanged. Multiple medical problems were addressed.More than 50% of the time spent coordinating care, discussing management plans with involved caregivers. Management plans discussed with involved personnels. Medical decision making was of moderate to high complexity , patient's has multiple severe comorbidities.
[2016-07-20] MEDS: CLONIDINE HCL 0.1 MG TABLET PO SCH (22:39)
[2016-07-20] MEDS: SIMVASTATIN 10 MG TABLET PO SCH (22:39)
[2016-07-21] MEDS: LANSOPRAZOLE 15 MG TAB.RAP.DR PO SCH (05:50)
[2016-07-21 07:08] LABS: ABSOLUTE BASOPHILS # (AUTO) 0.1 10^3/uL (0.0-0.2); ABSOLUTE EOSINOPHILS # (AUTO) 0.3 10^3/uL (0.0-0.6); ABSOLUTE LYMPHOCYTES (AUTO) 1.7 10^3/uL (0.5-4.7); ABSOLUTE MONOCYTES (AUTO) 0.9 10^3/uL (0.1-1.4); ABSOLUTE NEUT (AUTO) 6.2 10^3/uL (1.7-8.2); EOSINOPHILS % (AUTO) 3.6 % (0-6); HEMATOCRIT 37.3 % (37.9-51.0); HEMOGLOBIN 12.5 g/dL (13.5-17.0); HGB HCT DIFFERENCE 0.2; LYMPHOCYTES % (AUTO) 18.6 % (13-45); MEAN CORPUSCULAR HEMOGLOBIN 29.6 pg (27.0-33.4); MEAN CORPUSCULAR HGB CONC 33.6 g/dL (32.0-36.0); MEAN CORPUSCULAR VOLUME 88 fl (80-97); MONOCYTES % (AUTO) 9.9 % (3-13); RED BLOOD COUNT 4.23 10^6/uL (4.35-5.55); RED CELL DISTRIBUTION WIDTH 14.8 % (11.5-14.0); SEGMENTED NEUTROPHILS % (AUTO) 66.9 % (42-78); WHITE BLOOD COUNT 9.3 10^3/uL (4.0-10.5)
[2016-07-21 07:23] LABS: ALANINE AMINOTRANSFERASE 34 U/L (21-72); ALBUMIN 3.4 g/dL (3.5-5.0); ALKALINE PHOSPHATASE 73 U/L (38-126); ANION GAP 14 (5-19); ASPARTATE AMINO TRANSFERASE 36 U/L (17-59); BILIRUBIN,DIRECT 0.4 mg/dL (0.0-0.4); BILIRUBIN,TOTAL 0.5 mg/dL (0.2-1.3); BLOOD UREA NITROGEN 28 mg/dL (7-20); CALCIUM 9.5 mg/dL (8.4-10.2); CARBON DIOXIDE 26 mmol/L (22-30); CHLORIDE 110 mmol/L (98-107); CREATININE RESULT 2.29 mg/dL (0.52-1.25); GLUCOSE 95 mg/dL (75-110); MAGNESIUM 2.4 mg/dL (1.6-2.3); POTASSIUM 4.5 mmol/L (3.6-5.0); SODIUM 150.3 mmol/L (137-145); TOTAL PROTEIN 6.9 g/dL (6.3-8.2)
[2016-07-21] MEDS: IPRATROPIUM/ALBUTEROL 0.5-2.5 MG/3 ML AMPUL NEB SCH ×3 (07:58→19:33)
[2016-07-21] MEDS: METOPROLOL TARTRATE 50 MG TABLET PO SCH ×2 (10:26→22:00)
[2016-07-21] MEDS: CEFTRIAXONE 1 GM/D5W RTU 50 ML IV SCH (10:27)
[2016-07-21] MEDS: ISOSORBIDE DINITRATE 20 MG TABLET PO SCH ×2 (10:27→22:01)
[2016-07-21] MEDS: ASPIRIN 81 MG TABLET, CHEWABLE PO SCH (10:27)
[2016-07-21] MEDS: ENOXAPARIN SODIUM INJ 30 MG/0.3 ML DISP.SYRIN SUBCUT SCH (10:27)
[2016-07-21] MEDS: TIOTROPIUM BROMIDE DPI 5 CAP/KIT (18 MCG/CAP) IH SCH (10:28)
--- NOTE | 2016-07-21 11:08 | PDOC PROGRESS REPORT ---
Subjective Progress Note for:: 07/21/16 Subjective:: He was seen in the hospital this morning. He is getting ready to have an EGD. He still does not feel well. He says he is a very poor appetite and has not been eating. He has got some vague nausea and possible dysphagia symptoms. He states he had a bowel movement to the enema that had ordered earlier. Physical Exam Vital Signs: Temp Pulse Resp BP Pulse Ox 97.4 F 66 20 152/72 H 96 07/21/16 07:29 07/21/16 07:58 07/21/16 07:58 07/21/16 07:29 07/21/16 07:58 Intake & Output 07/20/16 07/21/16 07/22/16 06:59 06:59 06:59 Intake Total 2888 1825 Output Total 1500 1375 Balance 1388 450 Weight 85.7 kg 86 kg General appearance: PRESENT: no acute distress Respiratory exam: PRESENT: clear to auscultation magdalena, symmetrical. ABSENT: crackles, rhonchi, tachypnea Cardiovascular exam: PRESENT: +S1, +S2, systolic murmur GI/Abdominal exam: PRESENT: normal bowel sounds, soft. ABSENT: distended, organomegaly, tenderness Extremities exam: ABSENT: pedal edema Skin exam: PRESENT: dry. ABSENT: erythema, mottled, rash Results Laboratory Results: 07/21/16 06:17 07/21/16 06:17 07/21/16 07/21/16 06:17 06:17 WBC 9.3 RBC 4.23 L Hgb 12.5 L Hct 37.3 L MCV 88 MCH 29.6 MCHC 33.6 RDW 14.8 H Plt Count 321 Seg Neutrophils % 66.9 Lymphocytes % 18.6 Monocytes % 9.9 Eosinophils % 3.6 Basophils % 1.0 Absolute Neutrophils 6.2 Absolute Lymphocytes 1.7 Absolute Monocytes 0.9 Absolute Eosinophils 0.3 Absolute Basophils 0.1 Sodium 150.3 H Potassium 4.5 Chloride 110 H Carbon Dioxide 26 Anion Gap 14 BUN 28 H Creatinine 2.29 H Est GFR ( Amer) 34 L Est GFR (Non-Af Amer) 28 L Glucose 95 Calcium 9.5 Magnesium 2.4 H Total Bilirubin 0.5 AST 36 ALT 34 Alkaline Phosphatase 73 Total Protein 6.9 Albumin 3.4 L 07/18/16 11:00 Catheterized Urine Urine Culture - Final Aerococcus Urinae 07/18/16 07/18/16 07/18/16 08:45 08:45 20:00 Creatine Kinase 88 81 CK-MB (CK-2) 0.79 Troponin I 0.061 07/18/16 20:00 Creatine Kinase CK-MB (CK-2) 0.77 Troponin I 0.063 Impressions: Acute Abdomen Series 07/17/16 19:30 IMPRESSION: NO RADIOGRAPHIC EVIDENCE FOR ACUTE ABDOMINAL DISEASE.Similar moderate gas distention of the stomach. Nonobstructive pattern. Abdomen/Pelvis CT 07/18/16 00:00 IMPRESSION: NO SIGNIFICANT OR ACUTE PROCESS IN THE ABDOMEN OR PELVIS. Renal Ultrasound 07/18/16 00:00 IMPRESSION: There is some increased echogenicity in the renal cortex of the left kidney suggesting intrinsic renal disease. No evidence for hydronephrosis. Other findings as noted above Assessment & Plan - Diagnosis (1) Acute renal insufficiency Is this a current diagnosis for this admission?: YesPlan: Patient improving renal numbers. Continue present lines of management. Clinically he is still dry. He also has a having rising sodium and will therefore titrate his fluids accordingly. (2) Chronic obstructive pulmonary disease (COPD) Qualifiers: COPD type: unspecified COPD Qualified Code(s): J44.9 - Chronic obstructive pulmonary disease, unspecified Is this a current diagnosis for this admission?: Yes (3) Congestive heart failure Qualifiers: Congestive heart failure type: diastolic Is this a current diagnosis for this admission?: YesPlan: Stable. No signs of decompensation. (4) Hypertension Qualifiers: Hypertension type: unspecified secondary hypertension Qualified Code (s): I15.9 - Secondary hypertension, unspecified; I15 - Secondary hypertension Is this a current diagnosis for this admission?: YesPlan: Slowly starting to rise. We will start him on amlodipine and monitor. (5) Dehydration Is this a current diagnosis for this admission?: YesPlan: Needs fluid resuscitation and follow-up. He does not seem to be taking anything substantial and therefore needs to be supplemented through IV. (7) Hypernatremia Plan: Adjust fluids accordingly and monitor.
[2016-07-21] MEDS: 1/2 NORMAL SALINE 1,000 ML IV PRN ×2 (12:57→22:01)
[2016-07-21] MEDS ORDERED: DIPHENHYDRAMINE HCL 50 MG/ML VIAL ONE (13:13)
[2016-07-21] MEDS ORDERED: NALOXONE HCL INJ/PF 0.4 MG/1 ML SDV ONE (13:13)
[2016-07-21] MEDS ORDERED: MIDAZOLAM 2 MG/2 ML INJ ONE ×2 (13:13→13:14)
[2016-07-21] MEDS ORDERED: ONDANSETRON HCL INJ/PF 4 MG/2 ML SDV ONE (13:13)
[2016-07-21] MEDS ORDERED: FLUMAZENIL INJ 0.5 MG/5 ML VIAL IV ONE (13:14)
[2016-07-21] MEDS ORDERED: FENTANYL CITRATE INJ/PF 100 MCG/2 ML AMPUL ONE (13:14)
[2016-07-21] MEDS ORDERED: GLUCAGON,HUMAN RECOMB 1 MG INJ ONE (13:15)
[2016-07-21] MEDS ORDERED: EPINEPHRINE INJ 1 MG/10 ML DISP.SYRIN ONE (13:15)
--- NOTE | 2016-07-21 14:22 | Operative Report ---
Operative Report DATE OF SURGERY: 07/21/16 Operative Report: The risks benefits and alternatives of the procedure explained to the patient in detail and informed consent is obtained that GIF Olympus video scope was inserted into the patient's mouth and hypopharynx the esophagus is identified intubated and insufflated the scope was then advanced through the esophagus stomach and duodenum retroflexion maneuver is done the esophagus stomach and first and second portions of the duodenum examined PREOPERATIVE DIAGNOSIS: Nausea vomiting, regurgitation POSTOPERATIVE DIAGNOSIS: Erosive esophagitis. Esophageal ulcer. Hiatal hernia. Gastritis status post biopsy. Duodenitis OPERATION: EGD with biopsy SURGEON: PARIS MCGARRY ANESTHESIA: Moderate Sedation - 2 mg of Versed, 25 g of fentanyl. Conscious sedation monitoring time 30 minutes. TISSUE REMOVED OR ALTERED: As described above. COMPLICATIONS: None. ESTIMATED BLOOD LOSS: none. INTRAOPERATIVE FINDINGS: As described above. PROCEDURE: Patient tolerated procedure well. He sent back to his room in good condition. No immediate postprocedure complications are noted. We'll await on biopsies. Restart diet and see how he does. No obstruction noted. Question of whether he may have had a food bolus which passed. Certainly the distal esophagus appears irritated and inflamed. PPI and Zofran as needed.
--- NOTE | 2016-07-21 15:45 | PDOC PROGRESS REPORT ---
Subjective Progress Note for:: 07/21/16 Subjective:: Patient is still complaining of some nausea and is stomach discomfort every time he tried to eat. Patient's is scheduled for the endoscopy today. Patient' s kidney function is currently stable Physical Exam Vital Signs: Temp Pulse Resp BP Pulse Ox 98 F 90 17 132/66 H 97 07/21/16 11:45 07/21/16 14:20 07/21/16 14:20 07/21/16 14:20 07/21/16 14:20 Intake & Output 07/20/16 07/21/16 07/22/16 06:59 06:59 06:59 Intake Total 2888 1825 100 Output Total 1500 1375 200 Balance 1388 450 -100 Weight 85.7 kg 86 kg General appearance: PRESENT: no acute distress, well-developed, well-nourished Head exam: PRESENT: atraumatic, normocephalic Eye exam: PRESENT: conjunctiva pink, EOMI, PERRLA. ABSENT: scleral icterus Ear exam: PRESENT: normal external ear exam Mouth exam: PRESENT: moist, tongue midline Neck exam: PRESENT: full ROM. ABSENT: carotid bruit, JVD, lymphadenopathy, thyromegaly Respiratory exam: PRESENT: clear to auscultation magdalena Cardiovascular exam: PRESENT: RRR. ABSENT: diastolic murmur, rubs, systolic murmur Pulses: PRESENT: normal dorsalis pedis pul, +2 pedal pulses bilateral Vascular exam: PRESENT: normal capillary refill GI/Abdominal exam: PRESENT: normal bowel sounds, soft. ABSENT: distended, guarding, mass, organolmegaly, rebound, tenderness Rectal exam: PRESENT: deferred Neurological exam: PRESENT: alert, awake, oriented to person, oriented to place , oriented to time, oriented to situation, CN II-XII grossly intact. ABSENT: motor sensory deficit Psychiatric exam: PRESENT: appropriate affect, normal mood. ABSENT: homicidal ideation, suicidal ideation Skin exam: PRESENT: dry, intact, warm. ABSENT: cyanosis, rash Results Laboratory Results: 07/21/16 06:17 07/21/16 06:17 07/21/16 07/21/16 06:17 06:17 WBC 9.3 RBC 4.23 L Hgb 12.5 L Hct 37.3 L MCV 88 MCH 29.6 MCHC 33.6 RDW 14.8 H Plt Count 321 Seg Neutrophils % 66.9 Lymphocytes % 18.6 Monocytes % 9.9 Eosinophils % 3.6 Basophils % 1.0 Absolute Neutrophils 6.2 Absolute Lymphocytes 1.7 Absolute Monocytes 0.9 Absolute Eosinophils 0.3 Absolute Basophils 0.1 Sodium 150.3 H Potassium 4.5 Chloride 110 H Carbon Dioxide 26 Anion Gap 14 BUN 28 H Creatinine 2.29 H Est GFR ( Amer) 34 L Est GFR (Non-Af Amer) 28 L Glucose 95 Calcium 9.5 Magnesium 2.4 H Total Bilirubin 0.5 AST 36 ALT 34 Alkaline Phosphatase 73 Total Protein 6.9 Albumin 3.4 L 07/18/16 07/18/16 07/18/16 08:45 08:45 20:00 Creatine Kinase 88 81 CK-MB (CK-2) 0.79 Troponin I 0.061 07/18/16 20:00 Creatine Kinase CK-MB (CK-2) 0.77 Troponin I 0.063 Impressions: Acute Abdomen Series 07/17/16 19:30 IMPRESSION: NO RADIOGRAPHIC EVIDENCE FOR ACUTE ABDOMINAL DISEASE.Similar moderate gas distention of the stomach. Nonobstructive pattern. Abdomen/Pelvis CT 07/18/16 00:00 IMPRESSION: NO SIGNIFICANT OR ACUTE PROCESS IN THE ABDOMEN OR PELVIS. Renal Ultrasound 07/18/16 00:00 IMPRESSION: There is some increased echogenicity in the renal cortex of the left kidney suggesting intrinsic renal disease. No evidence for hydronephrosis. Other findings as noted above Assessment & Plan - Diagnosis (1) Acute renal insufficiency Is this a current diagnosis for this admission?: YesPlan: Continues to IV fluid and follow with the nephrology (2) Hypotension Qualifiers: Hypotension type: unspecified hypotension type Qualified Code(s): I95.9 - Hypotension, unspecified Is this a current diagnosis for this admission?: YesPlan: All stable and resolved (3) Dehydration Is this a current diagnosis for this admission?: YesPlan: Still needed IV fluid (4) Coronary artery disease (CAD) excluded Is this a current diagnosis for this admission?: YesPlan: We will consult the cardiology with ongoing heart issues with the heart failure possible need a echocardiogram (5) GERD (gastroesophageal reflux disease) Qualifiers: Esophagitis presence: without esophagitis Qualified Code(s): K21.9 - Gastro-esophageal reflux disease without esophagitis Is this a current diagnosis for this admission?: YesPlan: Scheduled for the endoscopy today (6) Congestive heart failure Qualifiers: Congestive heart failure type: diastolic Is this a current diagnosis for this admission?: YesPlan: Will follow the following the echo report and follow with the cardiology (7) Chronic obstructive pulmonary disease (COPD) Qualifiers: COPD type: unspecified COPD Qualified Code(s): J44.9 - Chronic obstructive pulmonary disease, unspecified Is this a current diagnosis for this admission?: YesPlan: Continues to nebulizer treatment (8) Hypertension Qualifiers: Hypertension type: unspecified secondary hypertension Qualified Code (s): I15.9 - Secondary hypertension, unspecified; I15 - Secondary hypertension Is this a current diagnosis for this admission?: YesPlan: Currently low will give IV fluid and hold all blood pressure medications (9) Hyperlipidemia Qualifiers: Hyperlipidemia type: unspecified Qualified Code(s): E78.5 - Hyperlipidemia, unspecified Is this a current diagnosis for this admission?: Yes - Time Time Spent with patient: 15-24 minutes Medications reviewed and adjusted accordingly: Yes Anticipated discharge: SNF Within: Other - Inpatient Certification Medical Necessity: Need Close Monitoring Due to Risk of Patient Decompensation, Need For IV Fluids 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
--- NOTE | 2016-07-21 20:12 | PDOC PROGRESS REPORT ---
Subjective Progress Note for:: 07/21/16 Subjective:: Patient was seen in the morning. His still somewhat nauseous and has poor appetite therefore is going for upper GI endoscopy. Pt is denying any chest arm or neck discomfort. Patient denying any PND, orthopnea. Patient denied any sustained palpitations, dizziness, syncope, near syncope. Patient denying any fever chills. Patient denying any other significant discomfort. Patient still has some nausea. Patient is maintaining sinus rhythm. Patient noted to have bundle branch block pattern. Review of systems: Rest review of systems negative. Medications: Medications have been reviewed. Physical Exam Vital Signs: Temp Pulse Resp BP Pulse Ox 98.1 F 79 21 H 121/67 98 07/21/16 14:54 07/21/16 14:54 07/21/16 14:54 07/21/16 14:54 07/21/16 14:54 Intake & Output 07/20/16 07/21/16 07/22/16 06:59 06:59 06:59 Intake Total 2888 1825 1281 Output Total 1500 1375 450 Balance 1388 450 831 Weight 85.7 kg 86 kg Exam: GENERAL: well-nourished and in no acute distress. Alert and oriented x3 HEAD: Atraumatic, normocephalic. EYES: Pupils equal round and reactive to light, extraocular movements intact, sclera anicteric, conjunctiva are normal. ENT: TMs normal, nares patent, oropharynx clear without exudates. Moist mucous membranes. No oral ulcerations or bleeding gums noted NECK: supple without lymphadenopathy. Trachea is central. No cervical or axillary lymphadenopathy noted. Carotids are 2+, JVD WNL LUNGS: Respiration seems nonlabored, no significant accessory muscle action noted. Breath sounds clear to auscultation bilaterally and equal noted. No wheezes rales or rhonchi noted. No significant dullness noted on percussion. CHEST: Palpation of the chest wall shows no significant chest wall tenderness. No other significant abnormalities noted. HEART: [place] BRICK BURNER, No PSH, 1/6 PARMINDER aortic area, 1/6 brown systolic murmur mitral area, no rubs, no gallops. ABDOMEN: Soft, no significant tenderness appreciated, normoactive bowel sounds. No guarding, no rebound. No rigidity noted . No masses appreciated. EXTREMITIES: Pedal pulses are 1-2+, no calf tenderness noted. No clubbing or cyanosis.trace to 1+ pedal edema noted NEUROLOGICAL: Focused neurological exam showed no significant neurologic deficit. Normal speech, no focal weakness appreciated. PSYCH: Normal mood, normal affect. Judgment and insight within normal limits. SKIN: No significant ecchymosis, rash, ulcerations or signs of pruritus noted. MUSCULOSKELETAL EXAM: No significant joint swelling noted. Results Laboratory Results: 07/21/16 06:07/21/16 06:07/21/16 07/21/16 06: 06:17 WBC 9.3 RBC 4.23 L Hgb 12.5 L Hct 37.3 L MCV 88 MCH 29.6 MCHC 33.6 RDW 14.8 H Plt Count 321 Seg Neutrophils % 66.9 Lymphocytes % 18.6 Monocytes % 9.9 Eosinophils % 3.6 Basophils % 1.0 Absolute Neutrophils 6.2 Absolute Lymphocytes 1.7 Absolute Monocytes 0.9 Absolute Eosinophils 0.3 Absolute Basophils 0.1 Sodium 150.3 H Potassium 4.5 Chloride 110 H Carbon Dioxide 26 Anion Gap 14 BUN 28 H Creatinine 2.29 H Est GFR ( Amer) 34 L Est GFR (Non-Af Amer) 28 L Glucose 95 Calcium 9.5 Magnesium 2.4 H Total Bilirubin 0.5 AST 36 ALT 34 Alkaline Phosphatase 73 Total Protein 6.9 Albumin 3.4 L 07/18/16 07/18/16 07/18/16 08:45 08:45 20:00 Creatine Kinase 88 81 CK-MB (CK-2) 0.79 Troponin I 0.061 07/18/16 20:00 Creatine Kinase CK-MB (CK-2) 0.77 Troponin I 0.063 Impressions: Acute Abdomen Series 07/17/16 19:30 IMPRESSION: NO RADIOGRAPHIC EVIDENCE FOR ACUTE ABDOMINAL DISEASE.Similar moderate gas distention of the stomach. Nonobstructive pattern. Abdomen/Pelvis CT 07/18/16 00:00 IMPRESSION: NO SIGNIFICANT OR ACUTE PROCESS IN THE ABDOMEN OR PELVIS. Renal Ultrasound 07/18/16 00:00 IMPRESSION: There is some increased echogenicity in the renal cortex of the left kidney suggesting intrinsic renal disease. No evidence for hydronephrosis. Other findings as noted above Assessment & Plan - Diagnosis (1) Acute renal insufficiency Is this a current diagnosis for this admission?: Yes (2) Hyperlipidemia Qualifiers: Hyperlipidemia type: unspecified Qualified Code(s): E78.5 - Hyperlipidemia, unspecified Is this a current diagnosis for this admission?: Yes (3) Hypotension Qualifiers: Hypotension type: unspecified hypotension type Qualified Code(s): I95.9 - Hypotension, unspecified Is this a current diagnosis for this admission?: Yes (4) Dehydration Is this a current diagnosis for this admission?: Yes (5) Hypertension Qualifiers: Hypertension type: unspecified secondary hypertension Qualified Code (s): I15.9 - Secondary hypertension, unspecified; I15 - Secondary hypertension Is this a current diagnosis for this admission?: Yes (6) Chronic obstructive pulmonary disease (COPD) Qualifiers: COPD type: unspecified COPD Qualified Code(s): J44.9 - Chronic obstructive pulmonary disease, unspecified Is this a current diagnosis for this admission?: Yes (7) Coronary artery disease Qualifiers: Coronary Disease-Associated Artery/Lesion type: unspecified vessel or lesion type [place] vs. transplanted heart: [place] heart Associated angina: angina presence unspecified Qualified Code(s): I25.10 - Atherosclerotic heart disease of [place] coronary artery without angina pectoris Is this a current diagnosis for this admission?: Yes - Notes Notes: Acute renal insufficiency: This has improved significantly. Patient does have some underlying chronic kidney disease. Renal functions have progressively improved. Hyperlipidemia: LDL goal is less than 70. Recommend statin therapy at least intermediate or high dose, of high potency status. Periodic lipid panel and liver panel is indicated. Patient to report any significant muscle discomfort or other side effects. Hypotension: Resolved. Dehydration: Resolved. Hypertension: Reasonably well controlled. Blood pressure goal in this patient is 135/85 or less. This was discussed with the patient. Currently blood pressure under reasonable control. Better medication for this patient are EUGENE inhibitor/ARB/beta hussain etc. discussed side effects of uncontrolled hypertension and also severe hypotension. COPD: Currently stable. CAD: Patient has CAD. Currently stable without any angina or angina equivalent symptoms. Aggressive risk factor modification advised. Continue with current medical therapy. Nausea vomiting: Persistent. Patient to have endoscopy. Patient has been stable from cardiac standpoint. Will therefore sign off. Please reconsult if needed. We will be happy to follow patient in the office if desired by the primary care M.D. - Time Time with patient: 15-25 minutes - CODE STATUS was discussed, patient remains full code. Surrogate decision-maker unchanged. Multiple medical problems were addressed.More than 50% of the time spent coordinating care, discussing management plans with involved caregivers. Management plans discussed with involved personnels. Medical decision making was of moderate complexity, patient's has multiple severe comorbidities.
[2016-07-21] MEDS: SIMVASTATIN 10 MG TABLET PO SCH (22:00)
[2016-07-21] MEDS: AMLODIPINE BESYLATE 5 MG TABLET PO SCH (22:00)
[2016-07-21] MEDS: CLONIDINE HCL 0.1 MG TABLET PO SCH (22:01)
[2016-07-22 04:48] LABS: ABSOLUTE BASOPHILS # (AUTO) 0.1 10^3/uL (0.0-0.2); ABSOLUTE EOSINOPHILS # (AUTO) 0.4 10^3/uL (0.0-0.6); ABSOLUTE LYMPHOCYTES (AUTO) 1.8 10^3/uL (0.5-4.7); ABSOLUTE MONOCYTES (AUTO) 0.8 10^3/uL (0.1-1.4); ABSOLUTE NEUT (AUTO) 5.7 10^3/uL (1.7-8.2); BASOPHILS % (AUTO) 0.8 % (0-2); EOSINOPHILS % (AUTO) 4.8 % (0-6); HEMOGLOBIN 12.3 g/dL (13.5-17.0); HGB HCT DIFFERENCE -1.1; LYMPHOCYTES % (AUTO) 20.8 % (13-45); MEAN CORPUSCULAR HEMOGLOBIN 28.9 pg (27.0-33.4); MEAN CORPUSCULAR HGB CONC 32.4 g/dL (32.0-36.0); MEAN CORPUSCULAR VOLUME 89 fl (80-97); MONOCYTES % (AUTO) 8.8 % (3-13); RED BLOOD COUNT 4.26 10^6/uL (4.35-5.55); RED CELL DISTRIBUTION WIDTH 14.7 % (11.5-14.0); SEGMENTED NEUTROPHILS % (AUTO) 64.8 % (42-78); WHITE BLOOD COUNT 8.9 10^3/uL (4.0-10.5)
[2016-07-22] MEDS: LANSOPRAZOLE 15 MG TAB.RAP.DR PO SCH ×3 (05:37→17:34)
[2016-07-22] MEDS: ONDANSETRON 4 MG TAB.RAPDIS PO PRN (05:38)
[2016-07-22 07:15] LABS: ANION GAP 12 (5-19); BLOOD UREA NITROGEN 23 mg/dL (7-20); CALCIUM 9.4 mg/dL (8.4-10.2); CARBON DIOXIDE 27 mmol/L (22-30); CHLORIDE 108 mmol/L (98-107); CREATININE RESULT 2.06 mg/dL (0.52-1.25); GLUCOSE 115 mg/dL (75-110); POTASSIUM 4.1 mmol/L (3.6-5.0); SODIUM 146.9 mmol/L (137-145)
--- NOTE | 2016-07-22 08:18 | EKG REPORT ---
SEVERITY:- ABNORMAL ECG - SINUS RHYTHM LEFT BUNDLE BRANCH BLOCK : Confirmed by: Quoc Sadler MD 22-Jul-2016 08:17:36
[2016-07-22] MEDS: IPRATROPIUM/ALBUTEROL 0.5-2.5 MG/3 ML AMPUL NEB SCH ×3 (08:21→20:31)
--- NOTE | 2016-07-22 09:41 | PDOC PROGRESS REPORT ---
Subjective Progress Note for:: 07/22/16 Subjective:: Patient is currently doing same patient still have an endoscopy done yesterday and was so some esophageal ulcer and esophagitis patient is currently been put on a PPI twice a day. Patient's does not like the Ojeda catheter and according to the nurse patient's lipid trauma from the Ojeda catheter site and some blood but now is clearing up Physical Exam Vital Signs: Temp Pulse Resp BP Pulse Ox 98.1 F 62 20 151/109 H 99 07/22/16 07:21 07/22/16 07:21 07/22/16 07:21 07/22/16 07:21 07/22/16 07:21 Intake & Output 07/21/16 07/22/16 07/23/16 06:59 06:59 06:59 Intake Total 1825 2734 Output Total 1375 950 Balance 450 1784 Weight 86 kg 90.4 kg General appearance: PRESENT: no acute distress, well-developed, well-nourished Head exam: PRESENT: atraumatic, normocephalic Eye exam: PRESENT: conjunctiva pink, EOMI, PERRLA. ABSENT: scleral icterus Ear exam: PRESENT: normal external ear exam Mouth exam: PRESENT: moist, tongue midline Neck exam: PRESENT: full ROM. ABSENT: carotid bruit, JVD, lymphadenopathy, thyromegaly Respiratory exam: PRESENT: clear to auscultation magdalena Cardiovascular exam: PRESENT: RRR. ABSENT: diastolic murmur, rubs, systolic murmur Pulses: PRESENT: normal dorsalis pedis pul, +2 pedal pulses bilateral Vascular exam: PRESENT: normal capillary refill GI/Abdominal exam: PRESENT: normal bowel sounds, soft. ABSENT: distended, guarding, mass, organolmegaly, rebound, tenderness Rectal exam: PRESENT: deferred Neurological exam: PRESENT: alert, awake, oriented to person, oriented to place , oriented to time, oriented to situation, CN II-XII grossly intact. ABSENT: motor sensory deficit Psychiatric exam: PRESENT: appropriate affect, normal mood. ABSENT: homicidal ideation, suicidal ideation Skin exam: PRESENT: dry, intact, warm. ABSENT: cyanosis, rash Results Laboratory Results: 07/22/16 04:15 07/22/16 06:51 07/22/16 07/22/16 07/22/16 04:15 04:15 06:51 WBC 8.9 RBC 4.26 L Hgb 12.3 L Hct 38.0 MCV 89 MCH 28.9 MCHC 32.4 RDW 14.7 H Plt Count 305 Seg Neutrophils % 64.8 Lymphocytes % 20.8 Monocytes % 8.8 Eosinophils % 4.8 Basophils % 0.8 Absolute Neutrophils 5.7 Absolute Lymphocytes 1.8 Absolute Monocytes 0.8 Absolute Eosinophils 0.4 Absolute Basophils 0.1 Sodium Cancelled 146.9 H Potassium Cancelled 4.1 Chloride Cancelled 108 H Carbon Dioxide Cancelled 27 Anion Gap Cancelled 12 BUN Cancelled 23 H Creatinine Cancelled 2.06 H Est GFR ( Amer) Cancelled 38 L Est GFR (Non-Af Amer) Cancelled 32 L Glucose Cancelled 115 H Calcium Cancelled 9.4 07/18/16 07/18/16 07/18/16 08:45 08:45 20:00 Creatine Kinase 88 81 CK-MB (CK-2) 0.79 Troponin I 0.061 07/18/16 20:00 Creatine Kinase CK-MB (CK-2) 0.77 Troponin I 0.063 Impressions: Acute Abdomen Series 07/17/16 19:30 IMPRESSION: NO RADIOGRAPHIC EVIDENCE FOR ACUTE ABDOMINAL DISEASE.Similar moderate gas distention of the stomach. Nonobstructive pattern. Abdomen/Pelvis CT 07/18/16 00:00 IMPRESSION: NO SIGNIFICANT OR ACUTE PROCESS IN THE ABDOMEN OR PELVIS. Renal Ultrasound 07/18/16 00:00 IMPRESSION: There is some increased echogenicity in the renal cortex of the left kidney suggesting intrinsic renal disease. No evidence for hydronephrosis. Other findings as noted above Assessment & Plan - Diagnosis (1) Acute renal insufficiency Is this a current diagnosis for this admission?: YesPlan: Currently stable patients have a very hard time to get IV continues to more p.o. encourage the fluidContinues to hold the Lasix and EUGENE inhibitors (2) Hypotension Qualifiers: Hypotension type: unspecified hypotension type Qualified Code(s): I95.9 - Hypotension, unspecified Is this a current diagnosis for this admission?: YesPlan: Currently all resolved (3) Coronary artery disease (CAD) excluded Is this a current diagnosis for this admission?: YesPlan: Currently stable follow with the cardiology (4) Congestive heart failure Qualifiers: Congestive heart failure type: diastolic Is this a current diagnosis for this admission?: YesPlan: Currently stable patient still on the dry side will hold the Lasix (5) Chronic obstructive pulmonary disease (COPD) Qualifiers: COPD type: unspecified COPD Qualified Code(s): J44.9 - Chronic obstructive pulmonary disease, unspecified Is this a current diagnosis for this admission?: YesPlan: Continues to nebulizer treatment (6) Hypertension Qualifiers: Hypertension type: unspecified secondary hypertension Qualified Code (s): I15.9 - Secondary hypertension, unspecified; I15 - Secondary hypertension Is this a current diagnosis for this admission?: YesPlan: Currently low will give IV fluid and hold all blood pressure medications (7) Hyperlipidemia Qualifiers: Hyperlipidemia type: unspecified Qualified Code(s): E78.5 - Hyperlipidemia, unspecified Is this a current diagnosis for this admission?: Yes (8) Esophageal ulcer Qualifiers: Esophageal ulcer bleeding: without bleeding Qualified Code(s): K22.10 - Ulcer of esophagus without bleeding Is this a current diagnosis for this admission?: YesPlan: Continues to twice a day PPI and follow with the GI - Time Time Spent with patient: 15-24 minutes Medications reviewed and adjusted accordingly: Yes Anticipated discharge: SNF Within: Other - Inpatient Certification Medical Necessity: Significant Comorbidiites Make Outpatient Treatment Too Risky , Need Close Monitoring Due to Risk of Patient Decompensation Post Hospital Care: D/C Fisheries Officer Documentation - Plan Summary Plan Summary: Will DC the Ojeda catheter and continues to current other medications will add the physical therapy
[2016-07-22] MEDS: ASPIRIN 81 MG TABLET, CHEWABLE PO SCH (09:51)
[2016-07-22] MEDS: METOPROLOL TARTRATE 50 MG TABLET PO SCH ×2 (09:52→22:32)
[2016-07-22] MEDS: ISOSORBIDE DINITRATE 20 MG TABLET PO SCH ×2 (09:52→22:32)
[2016-07-22] MEDS: TIOTROPIUM BROMIDE DPI 5 CAP/KIT (18 MCG/CAP) IH SCH (09:52)
[2016-07-22] MEDS: ENOXAPARIN SODIUM INJ 30 MG/0.3 ML DISP.SYRIN SUBCUT SCH (09:52)
[2016-07-22] MEDS ORDERED: CEFTRIAXONE INJ 1000 MG VIAL IM SCH (10:00)
[2016-07-22] MEDS ORDERED: LIDOCAINE HCL 1% INJ (FOR 1 GM VIAL) INJ SCH (10:00)
--- NOTE | 2016-07-22 15:20 | PDOC PROGRESS REPORT ---
Subjective Progress Note for:: 07/22/16 Subjective:: patient underwent EGD yesterday had a significant amount of bile in the stomach patient does have some gastritis No H.Pylori patient had CT scan but no oral contrast EGD did not show any obstruction to the 2nd portion of othe duodenum ? possible ileus started back on diet will continue to monitor PPI along with antiemetics if symptoms were to continue, then will need contrast imaging of the small bowel Physical Exam Vital Signs: Temp Pulse Resp BP Pulse Ox 98.4 F 70 18 154/66 H 98 07/22/16 11:53 07/22/16 11:53 07/22/16 11:53 07/22/16 11:53 07/22/16 11:53 Intake & Output 07/21/16 07/22/16 07/23/16 06:59 06:59 06:59 Intake Total 1825 2734 Output Total 1375 950 Balance 450 1784 Weight 86 kg 90.4 kg General appearance: PRESENT: no acute distress, well-developed, well-nourished Head exam: PRESENT: atraumatic, normocephalic Eye exam: PRESENT: EOMI, PERRLA. ABSENT: scleral icterus Mouth exam: PRESENT: moist Throat exam: ABSENT: tonsillogmegaly Neck exam: ABSENT: meningismus, tenderness, thyromegaly Respiratory exam: PRESENT: clear to auscultation magdalena, symmetrical, unlabored Cardiovascular exam: PRESENT: RRR, +S2 GI/Abdominal exam: PRESENT: normal bowel sounds, soft. ABSENT: Quintanilla's sign, rebound, rigid Extremities exam: ABSENT: joint swelling Musculoskeletal exam: PRESENT: full ROM Neurological exam: PRESENT: oriented to person, oriented to place, motor sensory deficit Skin exam: PRESENT: normal color. ABSENT: mottled, pallor, petechiae, urticaria Results Laboratory Results: 07/22/16 04:15 07/22/16 06:51 07/22/16 07/22/16 07/22/16 04:15 04:15 06:51 WBC 8.9 RBC 4.26 L Hgb 12.3 L Hct 38.0 MCV 89 MCH 28.9 MCHC 32.4 RDW 14.7 H Plt Count 305 Seg Neutrophils % 64.8 Lymphocytes % 20.8 Monocytes % 8.8 Eosinophils % 4.8 Basophils % 0.8 Absolute Neutrophils 5.7 Absolute Lymphocytes 1.8 Absolute Monocytes 0.8 Absolute Eosinophils 0.4 Absolute Basophils 0.1 Sodium Cancelled 146.9 H Potassium Cancelled 4.1 Chloride Cancelled 108 H Carbon Dioxide Cancelled 27 Anion Gap Cancelled 12 BUN Cancelled 23 H Creatinine Cancelled 2.06 H Est GFR ( Amer) Cancelled 38 L Est GFR (Non-Af Amer) Cancelled 32 L Glucose Cancelled 115 H Calcium Cancelled 9.4 07/18/16 07/18/16 07/18/16 08:45 08:45 20:00 Creatine Kinase 88 81 CK-MB (CK-2) 0.79 Troponin I 0.061 07/18/16 20:00 Creatine Kinase CK-MB (CK-2) 0.77 Troponin I 0.063 Impressions: Acute Abdomen Series 07/17/16 19:30 IMPRESSION: NO RADIOGRAPHIC EVIDENCE FOR ACUTE ABDOMINAL DISEASE.Similar moderate gas distention of the stomach. Nonobstructive pattern. Abdomen/Pelvis CT 07/18/16 00:00 IMPRESSION: NO SIGNIFICANT OR ACUTE PROCESS IN THE ABDOMEN OR PELVIS. Renal Ultrasound 07/18/16 00:00 IMPRESSION: There is some increased echogenicity in the renal cortex of the left kidney suggesting intrinsic renal disease. No evidence for hydronephrosis. Other findings as noted above Assessment & Plan - Diagnosis (1) GERD (gastroesophageal reflux disease) Qualifiers: Esophagitis presence: without esophagitis Qualified Code(s): K21.9 - Gastro-esophageal reflux disease without esophagitis Is this a current diagnosis for this admission?: YesPlan: EGD with biopsies negative for obstruction biopsies are negative for H.Pylori patient had CT with oral contrast patient does not cholecystitis, or pancreatitis ? need HIDA scan continue symptomatic treatment PPI and antiemetics for now spoke with Dr Burrell
[2016-07-22 19:06] LABS: ARTERIAL BLOOD BASE EXCESS 2.3 mmol/L
[2016-07-22] MEDS: ONDANSETRON 4 MG TAB.RAPDIS SL PRN (19:57)
[2016-07-22 20:15] LABS: PROTHROMBIN TIME 13.6 SEC (11.4-15.4)
[2016-07-22 20:23] LABS: PARTIAL THROMBOPLASTIN TIME 43.2 SEC (23.5-35.8)
[2016-07-22] MEDS ORDERED: NORMAL SALINE 10 ML SDV (AFTER EACH USE) IV PRN (22:26)
[2016-07-22] MEDS: CLONIDINE HCL 0.1 MG TABLET PO SCH (22:32)
[2016-07-22] MEDS: SIMVASTATIN 10 MG TABLET PO SCH (22:32)
[2016-07-22] MEDS: AMLODIPINE BESYLATE 5 MG TABLET PO SCH (22:32)
[2016-07-22] MEDS: 1/2 NORMAL SALINE 1,000 ML IV PRN (22:34)
[2016-07-23 06:48] LABS: ABSOLUTE BASOPHILS # (AUTO) 0.1 10^3/uL (0.0-0.2); ABSOLUTE EOSINOPHILS # (AUTO) 0.4 10^3/uL (0.0-0.6); ABSOLUTE LYMPHOCYTES (AUTO) 1.5 10^3/uL (0.5-4.7); ABSOLUTE MONOCYTES (AUTO) 0.8 10^3/uL (0.1-1.4); ABSOLUTE NEUT (AUTO) 5.6 10^3/uL (1.7-8.2); BASOPHILS % (AUTO) 1.3 % (0-2); EOSINOPHILS % (AUTO) 4.5 % (0-6); HEMATOCRIT 33.6 % (37.9-51.0); HGB HCT DIFFERENCE -0.6; LYMPHOCYTES % (AUTO) 17.6 % (13-45); MEAN CORPUSCULAR HGB CONC 32.8 g/dL (32.0-36.0); MEAN CORPUSCULAR VOLUME 88 fl (80-97); MONOCYTES % (AUTO) 9.8 % (3-13); RED CELL DISTRIBUTION WIDTH 14.8 % (11.5-14.0); SEGMENTED NEUTROPHILS % (AUTO) 66.8 % (42-78); WHITE BLOOD COUNT 8.4 10^3/uL (4.0-10.5)
[2016-07-23 07:03] LABS: ANION GAP 10 (5-19); BLOOD UREA NITROGEN 19 mg/dL (7-20); CALCIUM 9.3 mg/dL (8.4-10.2); CARBON DIOXIDE 25 mmol/L (22-30); CHLORIDE 110 mmol/L (98-107); CREATININE RESULT 1.94 mg/dL (0.52-1.25); GLUCOSE 92 mg/dL (75-110); POTASSIUM 4.3 mmol/L (3.6-5.0)
[2016-07-23] MEDS: IPRATROPIUM/ALBUTEROL 0.5-2.5 MG/3 ML AMPUL NEB SCH ×3 (08:24→19:54)
[2016-07-23] MEDS: ENOXAPARIN SODIUM INJ 30 MG/0.3 ML DISP.SYRIN SUBCUT SCH (08:26)
[2016-07-23] MEDS: LANSOPRAZOLE 15 MG TAB.RAP.DR PO SCH ×2 (10:00→17:23)
[2016-07-23] MEDS: 1/2 NORMAL SALINE 1,000 ML IV PRN (10:00)
[2016-07-23] MEDS: ISOSORBIDE DINITRATE 20 MG TABLET PO SCH ×2 (10:03→21:09)
[2016-07-23] MEDS: METOPROLOL TARTRATE 50 MG TABLET PO SCH ×2 (10:03→21:09)
[2016-07-23] MEDS: ASPIRIN 81 MG TABLET, CHEWABLE PO SCH (10:03)
[2016-07-23] MEDS: NORMAL SALINE 10 ML SDV (SCHEDULED) IV SCH ×2 (10:03→21:10)
[2016-07-23] MEDS: TIOTROPIUM BROMIDE DPI 5 CAP/KIT (18 MCG/CAP) IH SCH (11:18)
[2016-07-23] MEDS ORDERED: CEFTRIAXONE 1 GM/D5W RTU 1 GM/50 ML RTUPB IV ONE (12:00)
--- NOTE | 2016-07-23 13:09 | PDOC PROGRESS REPORT ---
Subjective Progress Note for:: 07/23/16 Subjective:: There is persistence of hematuriia post removal of membreno catheter. Patient denied any straining or dysuria with urination. Patient denied fever or chills. No chest pain or difficulty with breathing. No nausea, vomiting or abdominal pain. Tolerating oral feeding with fair appetite. Physical Exam Vital Signs: Temp Pulse Resp BP Pulse Ox 98.3 F 65 16 121/74 100 07/23/16 11:32 07/23/16 11:32 07/23/16 11:32 07/23/16 11:32 07/23/16 11:32 Intake & Output 07/22/16 07/23/16 07/24/16 06:59 06:59 06:59 Intake Total 2734 1095 Output Total 950 115 Balance 1784 980 Weight 90.4 kg 85.4 kg General appearance: PRESENT: no acute distress, cooperative, obese Head exam: PRESENT: atraumatic, normocephalic Eye exam: PRESENT: conjunctiva pink, EOMI, PERRLA. ABSENT: scleral icterus Respiratory exam: PRESENT: clear to auscultation magdalena Cardiovascular exam: PRESENT: RRR. ABSENT: diastolic murmur, rubs, systolic murmur GI/Abdominal exam: PRESENT: normal bowel sounds, soft. ABSENT: distended, guarding, mass, organolmegaly, rebound, tenderness Extremities exam: ABSENT: pedal edema Neurological exam: PRESENT: alert, awake, oriented to person, oriented to place , oriented to time, oriented to situation, CN II-XII grossly intact. ABSENT: motor sensory deficit Psychiatric exam: PRESENT: appropriate affect, normal mood. ABSENT: homicidal ideation, suicidal ideation Skin exam: PRESENT: dry, intact, warm. ABSENT: cyanosis, rash Results Laboratory Results: 07/23/16 06:35 07/23/16 06:35 07/22/16 07/23/16 07/23/16 18:45 06:35 06:35 WBC 8.4 RBC 3.80 L Hgb 11.0 L Hct 33.6 L MCV 88 MCH 29.0 MCHC 32.8 RDW 14.8 H Plt Count 377 Seg Neutrophils % 66.8 Lymphocytes % 17.6 Monocytes % 9.8 Eosinophils % 4.5 Basophils % 1.3 Absolute Neutrophils 5.6 Absolute Lymphocytes 1.5 Absolute Monocytes 0.8 Absolute Eosinophils 0.4 Absolute Basophils 0.1 Carbonic Acid 1.07 HCO3/H2CO3 Ratio 23:1 ABG pH 7.47 H ABG pCO2 35.7 ABG pO2 75.2 L ABG HCO3 25.6 ABG O2 Saturation 96.0 ABG Base Excess 2.3 FiO2 ROOMAIR Sodium 145.0 Potassium 4.3 Chloride 110 H Carbon Dioxide 25 Anion Gap 10 BUN 19 Creatinine 1.94 H Est GFR ( Amer) 41 L Est GFR (Non-Af Amer) 34 L Glucose 92 Calcium 9.3 07/18/16 07/18/16 07/18/16 08:45 08:45 20:00 Creatine Kinase 88 81 CK-MB (CK-2) 0.79 Troponin I 0.061 07/18/16 20:00 Creatine Kinase CK-MB (CK-2) 0.77 Troponin I 0.063 Impressions: Acute Abdomen Series 07/17/16 19:30 IMPRESSION: NO RADIOGRAPHIC EVIDENCE FOR ACUTE ABDOMINAL DISEASE.Similar moderate gas distention of the stomach. Nonobstructive pattern. Abdomen/Pelvis CT 07/18/16 00:00 IMPRESSION: NO SIGNIFICANT OR ACUTE PROCESS IN THE ABDOMEN OR PELVIS. Renal Ultrasound 07/18/16 00:00 IMPRESSION: There is some increased echogenicity in the renal cortex of the left kidney suggesting intrinsic renal disease. No evidence for hydronephrosis. Other findings as noted above Abdomen Ultrasound 07/22/16 00:00 IMPRESSION: No gallstone or inflammatory changes identified.Parts or all of the pancreas and aorta are poorly seen secondary to acoustical interference from fat or from air in the bowel. PICC Line Insertion 07/22/16 20:06 IMPRESSION: SUCCESSFUL PLACEMENT OF A 5 FR DUAL LUMEN 45 CM PICC IN THE brachiocephalic VEIN. Assessment & Plan - Diagnosis (1) Acute renal insufficiency Is this a current diagnosis for this admission?: YesPlan: Continue current medication and supportive management. Monitor renal indices. (2) Hypertension Qualifiers: Hypertension type: unspecified secondary hypertension Qualified Code (s): I15.9 - Secondary hypertension, unspecified; I15 - Secondary hypertension Is this a current diagnosis for this admission?: YesPlan: Maintain on current medication management. (3) UTI (urinary tract infection), uncomplicated Plan: Continue IV Rocephin coverage. (4) Hematuria due to acute cystitis Is this a current diagnosis for this admission?: NoPlan: Obtain PT/aPTT. Continue to hold Lovenox due to increase risk of worsening bleeding. - Time Time Spent with patient: 25-34 minutes Medications reviewed and adjusted accordingly: Yes Anticipated discharge: Home with Homehealth Within: Other - Inpatient Certification Based on my medical assessment, after consideration of the patient's comorbidities, presenting symptoms, or acuity I expect that the services needed warrant INPATIENT care.: Yes I certify that my determination is in accordance with my understanding of Medicare's requirements for reasonable and necessary INPATIENT services [42 CFR 412.3e].: Yes Medical Necessity: Need Close Monitoring Due to Risk of Patient Decompensation, Need For IV Fluids, Need For Continuous Telemetry Monitoring, Need for IV Antibiotics, Risk of Complication if Not Cared For in Hospital Post Hospital Care: D/C Carpentry Professional Documentation - Plan Summary Plan Summary: See covering attending physician orders.
[2016-07-23 14:13] LABS: PROTHROMBIN TIME 13.8 SEC (11.4-15.4)
[2016-07-23 14:14] LABS: PARTIAL THROMBOPLASTIN TIME 38.7 SEC (23.5-35.8)
[2016-07-23] MEDS: AMLODIPINE BESYLATE 5 MG TABLET PO SCH (21:09)
[2016-07-23] MEDS: SIMVASTATIN 10 MG TABLET PO SCH (21:09)
[2016-07-23] MEDS: CLONIDINE HCL 0.1 MG TABLET PO SCH (21:10)
[2016-07-24 05:26] LABS: ANION GAP 6 (5-19); BLOOD UREA NITROGEN 18 mg/dL (7-20); CALCIUM 8.3 mg/dL (8.4-10.2); CARBON DIOXIDE 20 mmol/L (22-30); CHLORIDE 109 mmol/L (98-107); CREATININE RESULT 1.73 mg/dL (0.52-1.25); GLUCOSE 81 mg/dL (75-110); POTASSIUM 4.1 mmol/L (3.6-5.0); SODIUM 135.1 mmol/L (137-145)
[2016-07-24] MEDS: IPRATROPIUM/ALBUTEROL 0.5-2.5 MG/3 ML AMPUL NEB SCH ×3 (08:20→20:10)
[2016-07-24] MEDS: LANSOPRAZOLE 15 MG TAB.RAP.DR PO SCH ×2 (09:36→17:27)
[2016-07-24] MEDS: METOPROLOL TARTRATE 50 MG TABLET PO SCH ×2 (09:37→21:39)
[2016-07-24] MEDS: CEFTRIAXONE 1 GM/D5W RTU 1 GM/50 ML RTUPB IV SCH (09:37)
[2016-07-24] MEDS: ASPIRIN 81 MG TABLET, CHEWABLE PO SCH (09:37)
[2016-07-24] MEDS: ISOSORBIDE DINITRATE 20 MG TABLET PO SCH ×2 (09:37→21:39)
[2016-07-24] MEDS: NORMAL SALINE 10 ML SDV (SCHEDULED) IV SCH ×2 (09:38→22:00)
[2016-07-24] MEDS: TIOTROPIUM BROMIDE DPI 5 CAP/KIT (18 MCG/CAP) IH SCH (09:41)
[2016-07-24] MEDS: ENOXAPARIN SODIUM INJ 30 MG/0.3 ML DISP.SYRIN SUBCUT SCH (09:43)
--- NOTE | 2016-07-24 13:55 | PDOC PROGRESS REPORT ---
Subjective Progress Note for:: 07/24/16 Subjective:: There is some improvement in his hematuria since last clinical evaluation. Patient denied any straining or dysuria with urination. Patient denied fever or chills. No chest pain or difficulty with breathing. No nausea, vomiting or abdominal pain. Tolerating oral feeding with fair appetite. Physical Exam Vital Signs: Temp Pulse Resp BP Pulse Ox 98.0 F 65 16 136/70 H 98 07/24/16 07:18 07/24/16 08:20 07/24/16 08:20 07/24/16 07:18 07/24/16 08:20 Intake & Output 07/23/16 07/24/16 07/25/16 06:59 06:59 06:59 Intake Total 1095 1356 Output Total 115 Balance 980 1356 Weight 85.4 kg 88.1 kg Physical Exam: General appearance: PRESENT: no acute distress, cooperative, obese Head exam: PRESENT: atraumatic, normocephalic Eye exam: PRESENT: conjunctiva pink, EOMI, PERRLA. ABSENT: scleral icterus Respiratory exam: PRESENT: clear to auscultation magdalena Cardiovascular exam: PRESENT: RRR. ABSENT: diastolic murmur, rubs, systolic murmur GI/Abdominal exam: PRESENT: normal bowel sounds, soft. ABSENT: distended, guarding, mass, organomegaly, rebound, tenderness Extremities exam: ABSENT: pedal edema Neurological exam: PRESENT: alert, awake, oriented to person, oriented to place , oriented to time, oriented to situation, CN II-XII grossly intact. ABSENT: motor sensory deficit Psychiatric exam: PRESENT: appropriate affect, normal mood. ABSENT: homicidal ideation, suicidal ideation Skin exam: PRESENT: dry, intact, warm. ABSENT: cyanosis, rash Results Laboratory Results: 07/23/16 06:35 07/24/16 04:29 07/24/16 04:29 Sodium 135.1 L Potassium 4.1 Chloride 109 H Carbon Dioxide 20 L Anion Gap 6 BUN 18 Creatinine 1.73 H Est GFR ( Amer) 47 L Est GFR (Non-Af Amer) 39 L Glucose 81 Calcium 8.3 L 07/18/16 07/18/16 07/18/16 08:45 08:45 20:00 Creatine Kinase 88 81 CK-MB (CK-2) 0.79 Troponin I 0.061 07/18/16 20:00 Creatine Kinase CK-MB (CK-2) 0.77 Troponin I 0.063 Impressions: Acute Abdomen Series 07/17/16 19:30 IMPRESSION: NO RADIOGRAPHIC EVIDENCE FOR ACUTE ABDOMINAL DISEASE.Similar moderate gas distention of the stomach. Nonobstructive pattern. Abdomen/Pelvis CT 07/18/16 00:00 IMPRESSION: NO SIGNIFICANT OR ACUTE PROCESS IN THE ABDOMEN OR PELVIS. Renal Ultrasound 07/18/16 00:00 IMPRESSION: There is some increased echogenicity in the renal cortex of the left kidney suggesting intrinsic renal disease. No evidence for hydronephrosis. Other findings as noted above Abdomen Ultrasound 07/22/16 00:00 IMPRESSION: No gallstone or inflammatory changes identified.Parts or all of the pancreas and aorta are poorly seen secondary to acoustical interference from fat or from air in the bowel. PICC Line Insertion 07/22/16 20:06 IMPRESSION: SUCCESSFUL PLACEMENT OF A 5 FR DUAL LUMEN 45 CM PICC IN THE brachiocephalic VEIN. Assessment & Plan - Diagnosis (1) Acute renal insufficiency Is this a current diagnosis for this admission?: Yes (2) Hypertension Qualifiers: Hypertension type: unspecified secondary hypertension Qualified Code (s): I15.9 - Secondary hypertension, unspecified; I15 - Secondary hypertension Is this a current diagnosis for this admission?: Yes (4) Hematuria due to acute cystitis Is this a current diagnosis for this admission?: No - Time Time Spent with patient: 25-34 minutes Medications reviewed and adjusted accordingly: Yes Anticipated discharge: Home with Homehealth Within: Other - Inpatient Certification Medical Necessity: Need Close Monitoring Due to Risk of Patient Decompensation, Need For IV Fluids, Need For Continuous Telemetry Monitoring, Need for IV Antibiotics, Risk of Complication if Not Cared For in Hospital Post Hospital Care: D/C Curriculum Counselor Documentation - Plan Summary Plan Summary: See covering attending physician orders.
[2016-07-24] MEDS: CLONIDINE HCL 0.1 MG TABLET PO SCH (21:38)
[2016-07-24] MEDS: SIMVASTATIN 10 MG TABLET PO SCH (21:39)
[2016-07-24] MEDS: AMLODIPINE BESYLATE 5 MG TABLET PO SCH (21:39)
[2016-07-25] MEDS: ONDANSETRON 4 MG TAB.RAPDIS SL PRN (03:32)
[2016-07-25] MEDS ORDERED: LANSOPRAZOLE 30 MG TAB.RAP.DR PO ONE (08:15)
[2016-07-25] MEDS: IPRATROPIUM/ALBUTEROL 0.5-2.5 MG/3 ML AMPUL NEB SCH ×3 (08:16→19:55)
[2016-07-25] MEDS: ENOXAPARIN SODIUM INJ 30 MG/0.3 ML DISP.SYRIN SUBCUT SCH (08:32)
[2016-07-25] MEDS: ISOSORBIDE DINITRATE 20 MG TABLET PO SCH ×2 (09:43→22:54)
[2016-07-25] MEDS: METOPROLOL TARTRATE 50 MG TABLET PO SCH ×2 (09:43→22:53)
[2016-07-25] MEDS: DOCUSATE SODIUM 100 MG CAPSULE PO SCH ×2 (09:43→17:09)
[2016-07-25] MEDS: POLYETHYLENE GLYCOL 3350 POWDER 17 GM/1 PACKET PO SCH (09:44)
[2016-07-25] MEDS: ASPIRIN 81 MG TABLET, CHEWABLE PO SCH (09:44)
[2016-07-25] MEDS: CEFTRIAXONE 1 GM/D5W RTU 1 GM/50 ML RTUPB IV SCH (09:44)
[2016-07-25] MEDS: TIOTROPIUM BROMIDE DPI 5 CAP/KIT (18 MCG/CAP) IH SCH (09:44)
[2016-07-25] MEDS: NORMAL SALINE 10 ML SDV (SCHEDULED) IV SCH ×2 (09:46→22:54)
--- NOTE | 2016-07-25 10:14 | PDOC PROGRESS REPORT ---
Subjective Progress Note for:: 07/25/16 Subjective:: Patient is feeling much better still have some nausea. Patients have a PICC line placements on the weekend. No other events happen. Patient still have some constipation issue. Patient's denied any chest pain denied any shortness of the breath Physical Exam Vital Signs: Temp Pulse Resp BP Pulse Ox 98.3 F 57 L 16 141/69 H 99 07/25/16 07:31 07/25/16 07:31 07/25/16 07:31 07/25/16 07:31 07/25/16 07:31 Intake & Output 07/24/16 07/25/16 07/26/16 06:59 06:59 06:59 Intake Total 2556 2363 Balance 2556 2363 Weight 88.1 kg 87.6 kg General appearance: PRESENT: no acute distress, well-developed, well-nourished Head exam: PRESENT: atraumatic, normocephalic Eye exam: PRESENT: conjunctiva pink, EOMI, PERRLA. ABSENT: scleral icterus Ear exam: PRESENT: normal external ear exam Mouth exam: PRESENT: moist, tongue midline Neck exam: PRESENT: full ROM. ABSENT: carotid bruit, JVD, lymphadenopathy, thyromegaly Respiratory exam: PRESENT: clear to auscultation magdalena Cardiovascular exam: PRESENT: RRR. ABSENT: diastolic murmur, rubs, systolic murmur Pulses: PRESENT: normal dorsalis pedis pul, +2 pedal pulses bilateral Vascular exam: PRESENT: normal capillary refill GI/Abdominal exam: PRESENT: normal bowel sounds, soft. ABSENT: distended, guarding, mass, organolmegaly, rebound, tenderness Rectal exam: PRESENT: deferred Neurological exam: PRESENT: alert, awake, oriented to person, oriented to place , oriented to time, oriented to situation, CN II-XII grossly intact. ABSENT: motor sensory deficit Psychiatric exam: PRESENT: appropriate affect, normal mood. ABSENT: homicidal ideation, suicidal ideation Skin exam: PRESENT: dry, intact, warm. ABSENT: cyanosis, rash Results Laboratory Results: 07/23/16 06:35 07/24/16 04:29 07/18/16 07/18/16 07/18/16 08:45 08:45 20:00 Creatine Kinase 88 81 CK-MB (CK-2) 0.79 Troponin I 0.061 07/18/16 20:00 Creatine Kinase CK-MB (CK-2) 0.77 Troponin I 0.063 Impressions: Acute Abdomen Series 07/17/16 19:30 IMPRESSION: NO RADIOGRAPHIC EVIDENCE FOR ACUTE ABDOMINAL DISEASE.Similar moderate gas distention of the stomach. Nonobstructive pattern. Abdomen/Pelvis CT 07/18/16 00:00 IMPRESSION: NO SIGNIFICANT OR ACUTE PROCESS IN THE ABDOMEN OR PELVIS. Renal Ultrasound 07/18/16 00:00 IMPRESSION: There is some increased echogenicity in the renal cortex of the left kidney suggesting intrinsic renal disease. No evidence for hydronephrosis. Other findings as noted above Abdomen Ultrasound 07/22/16 00:00 IMPRESSION: No gallstone or inflammatory changes identified.Parts or all of the pancreas and aorta are poorly seen secondary to acoustical interference from fat or from air in the bowel. Guidance Fluoroscopy 07/22/16 00:00 IMPRESSION: Please see combined report for performance of procedure and radiologic supervision and interpretation. Interventional Vascular Procedure 07/22/16 00:00 IMPRESSION: Please see combined report for performance of procedure and radiologic supervision and interpretation. PICC Line Insertion 07/22/16 20:06 IMPRESSION: SUCCESSFUL PLACEMENT OF A 5 FR DUAL LUMEN 45 CM PICC IN THE brachiocephalic VEIN. Assessment & Plan - Diagnosis (1) Acute renal insufficiency Is this a current diagnosis for this admission?: YesPlan: Currently all improving continues to current medications (2) Hypotension Qualifiers: Hypotension type: unspecified hypotension type Qualified Code(s): I95.9 - Hypotension, unspecified Is this a current diagnosis for this admission?: YesPlan: All resolved (3) Coronary artery disease (CAD) excluded Is this a current diagnosis for this admission?: YesPlan: Currently stable follow with the cardiology (4) Congestive heart failure Qualifiers: Congestive heart failure type: diastolic Is this a current diagnosis for this admission?: YesPlan: Currently stable we will hold the Lasix (5) Chronic obstructive pulmonary disease (COPD) Qualifiers: COPD type: unspecified COPD Qualified Code(s): J44.9 - Chronic obstructive pulmonary disease, unspecified Is this a current diagnosis for this admission?: YesPlan: Continues to nebulizer treatment (6) Hypertension Qualifiers: Hypertension type: unspecified secondary hypertension Qualified Code (s): I15.9 - Secondary hypertension, unspecified; I15 - Secondary hypertension Is this a current diagnosis for this admission?: YesPlan: Currently low will give IV fluid and hold all blood pressure medications (7) Hyperlipidemia Qualifiers: Hyperlipidemia type: unspecified Qualified Code(s): E78.5 - Hyperlipidemia, unspecified Is this a current diagnosis for this admission?: YesPlan: Stable (8) Esophageal ulcer Qualifiers: Esophageal ulcer bleeding: without bleeding Qualified Code(s): K22.10 - Ulcer of esophagus without bleeding Is this a current diagnosis for this admission?: Yes (9) Hematuria due to acute cystitis Is this a current diagnosis for this admission?: YesPlan: Currently all stable continues IV antibiotic - Time Time Spent with patient: 15-24 minutes Medications reviewed and adjusted accordingly: Yes Anticipated discharge: SNF Within: Other - Inpatient Certification Medical Necessity: Need Close Monitoring Due to Risk of Patient Decompensation 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 Dr. Novak
[2016-07-25] MEDS: LANSOPRAZOLE 30 MG TAB.RAP.DR PO SCH (15:25)
[2016-07-25] MEDS: TAMSULOSIN HCL 0.4 MG CAP.SR.24H PO SCH (17:10)
[2016-07-25] MEDS: AMLODIPINE BESYLATE 5 MG TABLET PO SCH (22:54)
[2016-07-25] MEDS: SIMVASTATIN 10 MG TABLET PO SCH (22:54)
[2016-07-25] MEDS: CLONIDINE HCL 0.1 MG TABLET PO SCH (22:54)
[2016-07-26 04:56] LABS: ABSOLUTE BASOPHILS # (AUTO) 0.1 10^3/uL (0.0-0.2); ABSOLUTE EOSINOPHILS # (AUTO) 0.1 10^3/uL (0.0-0.6); ABSOLUTE MONOCYTES (AUTO) 0.6 10^3/uL (0.1-1.4); ABSOLUTE NEUT (AUTO) 6.7 10^3/uL (1.7-8.2); BASOPHILS % (AUTO) 0.8 % (0-2); EOSINOPHILS % (AUTO) 1.6 % (0-6); HEMATOCRIT 32.1 % (37.9-51.0); HEMOGLOBIN 10.7 g/dL (13.5-17.0); LYMPHOCYTES % (AUTO) 12.2 % (13-45); MEAN CORPUSCULAR HEMOGLOBIN 29.4 pg (27.0-33.4); MEAN CORPUSCULAR HGB CONC 33.2 g/dL (32.0-36.0); MEAN CORPUSCULAR VOLUME 88 fl (80-97); RED BLOOD COUNT 3.63 10^6/uL (4.35-5.55); RED CELL DISTRIBUTION WIDTH 14.5 % (11.5-14.0); SEGMENTED NEUTROPHILS % (AUTO) 78.4 % (42-78); WHITE BLOOD COUNT 8.5 10^3/uL (4.0-10.5)
[2016-07-26 05:13] LABS: ANION GAP 8 (5-19); BLOOD UREA NITROGEN 13 mg/dL (7-20); CALCIUM 9.2 mg/dL (8.4-10.2); CARBON DIOXIDE 21 mmol/L (22-30); CHLORIDE 109 mmol/L (98-107); CREATININE RESULT 1.74 mg/dL (0.52-1.25); GLUCOSE 93 mg/dL (75-110); POTASSIUM 4.8 mmol/L (3.6-5.0); SODIUM 138.2 mmol/L (137-145)
[2016-07-26] MEDS: IPRATROPIUM/ALBUTEROL 0.5-2.5 MG/3 ML AMPUL NEB SCH ×3 (08:07→19:50)
[2016-07-26] MEDS: LANSOPRAZOLE 30 MG TAB.RAP.DR PO SCH ×2 (08:13→15:02)
--- NOTE | 2016-07-26 08:53 | PDOC PROGRESS REPORT ---
Subjective Progress Note for:: 07/26/16 Subjective:: patient is still having symptoms has been having constipation as well biopsies are negative Dr Burrell called, has to have CT scan today along with oral contrast will wait on findings patient would benefit from colonoscopy patient should be able to prep will try and schedule for tomorrow. Physical Exam Vital Signs: Temp Pulse Resp BP Pulse Ox 98.9 F 67 12 167/86 H 98 07/26/16 07:28 07/26/16 07:28 07/26/16 07:28 07/26/16 07:28 07/26/16 07:28 Intake & Output 07/25/16 07/26/16 07/27/16 06:59 06:59 06:59 Intake Total 2363 778 Balance 2363 778 Weight 87.6 kg 86.9 kg General appearance: PRESENT: mild distress, well-developed, well-nourished Head exam: PRESENT: atraumatic, normocephalic Eye exam: PRESENT: EOMI, PERRLA. ABSENT: nystagmus, scleral icterus Mouth exam: PRESENT: moist Throat exam: ABSENT: tonsillar exudate, tonsillogmegaly Neck exam: ABSENT: meningismus, tenderness, thyromegaly Respiratory exam: PRESENT: symmetrical. ABSENT: tachypnea, wheezes Cardiovascular exam: PRESENT: RRR, +S1, +S2 Pulses: PRESENT: normal carotid pulses GI/Abdominal exam: PRESENT: distended, hypoactive bowel sounds, soft. ABSENT: rebound, rigid Extremities exam: ABSENT: joint swelling Neurological exam: PRESENT: oriented to time, oriented to situation, reflexes normal Psychiatric exam: PRESENT: flat affect Skin exam: PRESENT: normal color. ABSENT: mottled, pallor, petechiae, urticaria , vesicles Results Laboratory Results: 07/26/16 04:30 07/26/16 04:30 07/26/16 07/26/16 04:30 04:30 WBC 8.5 RBC 3.63 L Hgb 10.7 L Hct 32.1 L MCV 88 MCH 29.4 MCHC 33.2 RDW 14.5 H Plt Count 335 Seg Neutrophils % 78.4 H Lymphocytes % 12.2 L Monocytes % 7.0 Eosinophils % 1.6 Basophils % 0.8 Absolute Neutrophils 6.7 Absolute Lymphocytes 1.0 Absolute Monocytes 0.6 Absolute Eosinophils 0.1 Absolute Basophils 0.1 Sodium 138.2 Potassium 4.8 Chloride 109 H Carbon Dioxide 21 L Anion Gap 8 BUN 13 Creatinine 1.74 H Est GFR ( Amer) 47 L Est GFR (Non-Af Amer) 38 L Glucose 93 Calcium 9.2 07/23/16 14:17 Clean Catch Midstream Urine Culture - Final NO GROWTH 2 DAYS 07/18/16 07/18/16 07/18/16 08:45 08:45 20:00 Creatine Kinase 88 81 CK-MB (CK-2) 0.79 Troponin I 0.061 07/18/16 20:00 Creatine Kinase CK-MB (CK-2) 0.77 Troponin I 0.063 Impressions: Acute Abdomen Series 07/17/16 19:30 IMPRESSION: NO RADIOGRAPHIC EVIDENCE FOR ACUTE ABDOMINAL DISEASE.Similar moderate gas distention of the stomach. Nonobstructive pattern. Abdomen/Pelvis CT 07/18/16 00:00 IMPRESSION: NO SIGNIFICANT OR ACUTE PROCESS IN THE ABDOMEN OR PELVIS. Renal Ultrasound 07/18/16 00:00 IMPRESSION: There is some increased echogenicity in the renal cortex of the left kidney suggesting intrinsic renal disease. No evidence for hydronephrosis. Other findings as noted above Abdomen Ultrasound 07/22/16 00:00 IMPRESSION: No gallstone or inflammatory changes identified.Parts or all of the pancreas and aorta are poorly seen secondary to acoustical interference from fat or from air in the bowel. Guidance Fluoroscopy 07/22/16 00:00 IMPRESSION: Please see combined report for performance of procedure and radiologic supervision and interpretation. Interventional Vascular Procedure 07/22/16 00:00 IMPRESSION: Please see combined report for performance of procedure and radiologic supervision and interpretation. PICC Line Insertion 07/22/16 20:06 IMPRESSION: SUCCESSFUL PLACEMENT OF A 5 FR DUAL LUMEN 45 CM PICC IN THE brachiocephalic VEIN. Assessment & Plan - Diagnosis (1) GERD (gastroesophageal reflux disease) Qualifiers: Esophagitis presence: without esophagitis Qualified Code(s): K21.9 - Gastro-esophageal reflux disease without esophagitis Is this a current diagnosis for this admission?: Yes (2) Constipation Plan: ongoing issue change of bowel habits EGD is negative and patient still having symptoms patient getting CT scan today will wait on findings patient would benefit from colonoscopy to exclude potential obstruction Risks, benefits and alternatives are discussed with the patient in detail further recommendations to follow - Time Time Spent with patient: 15-24 minutes
[2016-07-26] MEDS: ISOSORBIDE DINITRATE 20 MG TABLET PO SCH ×2 (09:16→21:29)
[2016-07-26] MEDS: CEFTRIAXONE 1 GM/D5W RTU 1 GM/50 ML RTUPB IV SCH (09:16)
[2016-07-26] MEDS: POLYETHYLENE GLYCOL 3350 POWDER 17 GM/1 PACKET PO SCH (09:16)
[2016-07-26] MEDS: ASPIRIN 81 MG TABLET, CHEWABLE PO SCH (09:16)
[2016-07-26] MEDS: DOCUSATE SODIUM 100 MG CAPSULE PO SCH ×2 (09:16→17:21)
[2016-07-26] MEDS: NORMAL SALINE 10 ML SDV (SCHEDULED) IV SCH ×2 (09:17→21:30)
[2016-07-26] MEDS: METOPROLOL TARTRATE 50 MG TABLET PO SCH ×2 (09:17→21:29)
[2016-07-26] MEDS: TIOTROPIUM BROMIDE DPI 5 CAP/KIT (18 MCG/CAP) IH SCH (09:18)
[2016-07-26] MEDS ORDERED: PEG 3350/NA SULF,BICARB,CL/KCL 4000 ML PO ONE (15:00)
--- NOTE | 2016-07-26 15:42 | PDOC PROGRESS REPORT ---
Subjective Progress Note for:: 07/26/16 Subjective:: patient had CT scan, was noted to have possible gastric outlet obstruction then had upper GI series reading now suggests that there is an esophageal ulcer, but barium does pass thru to the duodenum with patient positioning please see previous EGD report the ulcer was noted then along with the fact that the pt had a patent gastric outlet so no new information is gathered from recent radiology evaluation will continue with colon prep to explain other causes of nausea and vomiting Physical Exam Vital Signs: Temp Pulse Resp BP Pulse Ox 98.8 F 65 20 162/68 H 99 07/26/16 11:17 07/26/16 14:00 07/26/16 11:17 07/26/16 11:17 07/26/16 11:17 Intake & Output 07/25/16 07/26/16 07/27/16 06:59 06:59 06:59 Intake Total 2363 778 150 Balance 2363 778 150 Weight 87.6 kg 86.9 kg Results Laboratory Results: 07/26/16 04:30 07/26/16 04:30 07/26/16 07/26/16 04:30 04:30 WBC 8.5 RBC 3.63 L Hgb 10.7 L Hct 32.1 L MCV 88 MCH 29.4 MCHC 33.2 RDW 14.5 H Plt Count 335 Seg Neutrophils % 78.4 H Lymphocytes % 12.2 L Monocytes % 7.0 Eosinophils % 1.6 Basophils % 0.8 Absolute Neutrophils 6.7 Absolute Lymphocytes 1.0 Absolute Monocytes 0.6 Absolute Eosinophils 0.1 Absolute Basophils 0.1 Sodium 138.2 Potassium 4.8 Chloride 109 H Carbon Dioxide 21 L Anion Gap 8 BUN 13 Creatinine 1.74 H Est GFR ( Amer) 47 L Est GFR (Non-Af Amer) 38 L Glucose 93 Calcium 9.2 07/18/16 07/18/16 07/18/16 08:45 08:45 20:00 Creatine Kinase 88 81 CK-MB (CK-2) 0.79 Troponin I 0.061 07/18/16 20:00 Creatine Kinase CK-MB (CK-2) 0.77 Troponin I 0.063 Impressions: Acute Abdomen Series 07/17/16 19:30 IMPRESSION: NO RADIOGRAPHIC EVIDENCE FOR ACUTE ABDOMINAL DISEASE.Similar moderate gas distention of the stomach. Nonobstructive pattern. Renal Ultrasound 07/18/16 00:00 IMPRESSION: There is some increased echogenicity in the renal cortex of the left kidney suggesting intrinsic renal disease. No evidence for hydronephrosis. Other findings as noted above Abdomen Ultrasound 07/22/16 00:00 IMPRESSION: No gallstone or inflammatory changes identified.Parts or all of the pancreas and aorta are poorly seen secondary to acoustical interference from fat or from air in the bowel. Guidance Fluoroscopy 07/22/16 00:00 IMPRESSION: Please see combined report for performance of procedure and radiologic supervision and interpretation. Interventional Vascular Procedure 07/22/16 00:00 IMPRESSION: Please see combined report for performance of procedure and radiologic supervision and interpretation. PICC Line Insertion 07/22/16 20:06 IMPRESSION: SUCCESSFUL PLACEMENT OF A 5 FR DUAL LUMEN 45 CM PICC IN THE brachiocephalic VEIN. Abdomen/Pelvis CT 07/26/16 00:00 IMPRESSION: Distended stomach with oral contrast. Gastric Air-fluid level. Pneumatosis along the stomach fundus. Findings are worrisome for gastric outlet obstruction. Results discussed with Dr. Burrell. Upper GI Series 07/26/16 00:00 IMPRESSION: Duodenal ulcer just past the duodenum bulb. Decreased gastric motility with delayed gastric emptying at fluoroscopy. No gross pyloric channel ulcer is identified. Assessment & Plan - Diagnosis (1) GERD (gastroesophageal reflux disease) Qualifiers: Esophagitis presence: without esophagitis Qualified Code(s): K21.9 - Gastro-esophageal reflux disease without esophagitis Is this a current diagnosis for this admission?: Yes
--- NOTE | 2016-07-26 15:59 | PDOC PROGRESS REPORT ---
Subjective Progress Note for:: 07/26/16 Subjective:: Patient is currently doing fair have some projectile vomiting today 1. Patient have a CT scan of the abdomen and pelvis with the p.o. contrast was done and the Dr. Rao was concern about some GI outlet obstructions and order the barium swallow which is so some possible ulcers. Discussed with the Dr. Novak and he just had a endoscopy done and he suggest the most likely erosion and he suggested just go ahead and do the colonoscopy tomorrow. Patient 's otherwise denied any chest pain denied any shortness of the breath Physical Exam Vital Signs: Temp Pulse Resp BP Pulse Ox 98.8 F 65 20 162/68 H 99 07/26/16 11:17 07/26/16 14:00 07/26/16 11:17 07/26/16 11:17 07/26/16 11:17 Intake & Output 07/25/16 07/26/16 07/27/16 06:59 06:59 06:59 Intake Total 2363 778 150 Balance 2363 778 150 Weight 87.6 kg 86.9 kg General appearance: PRESENT: no acute distress, well-developed, well-nourished Head exam: PRESENT: atraumatic, normocephalic Eye exam: PRESENT: conjunctiva pink, EOMI, PERRLA. ABSENT: scleral icterus Ear exam: PRESENT: normal external ear exam Mouth exam: PRESENT: moist, tongue midline Neck exam: PRESENT: full ROM. ABSENT: carotid bruit, JVD, lymphadenopathy, thyromegaly Respiratory exam: PRESENT: clear to auscultation magdalena Cardiovascular exam: PRESENT: RRR. ABSENT: diastolic murmur, rubs, systolic murmur Pulses: PRESENT: normal dorsalis pedis pul, +2 pedal pulses bilateral Vascular exam: PRESENT: normal capillary refill GI/Abdominal exam: PRESENT: normal bowel sounds, soft. ABSENT: distended, guarding, mass, organolmegaly, rebound, tenderness Rectal exam: PRESENT: deferred Neurological exam: PRESENT: alert, awake, oriented to person, oriented to place , oriented to time, oriented to situation, CN II-XII grossly intact. ABSENT: motor sensory deficit Psychiatric exam: PRESENT: appropriate affect, normal mood. ABSENT: homicidal ideation, suicidal ideation Skin exam: PRESENT: dry, intact, warm. ABSENT: cyanosis, rash Results Laboratory Results: 07/26/16 04:30 07/26/16 04:30 07/26/16 07/26/16 04:30 04:30 WBC 8.5 RBC 3.63 L Hgb 10.7 L Hct 32.1 L MCV 88 MCH 29.4 MCHC 33.2 RDW 14.5 H Plt Count 335 Seg Neutrophils % 78.4 H Lymphocytes % 12.2 L Monocytes % 7.0 Eosinophils % 1.6 Basophils % 0.8 Absolute Neutrophils 6.7 Absolute Lymphocytes 1.0 Absolute Monocytes 0.6 Absolute Eosinophils 0.1 Absolute Basophils 0.1 Sodium 138.2 Potassium 4.8 Chloride 109 H Carbon Dioxide 21 L Anion Gap 8 BUN 13 Creatinine 1.74 H Est GFR ( Amer) 47 L Est GFR (Non-Af Amer) 38 L Glucose 93 Calcium 9.2 07/18/16 07/18/16 07/18/16 08:45 08:45 20:00 Creatine Kinase 88 81 CK-MB (CK-2) 0.79 Troponin I 0.061 07/18/16 20:00 Creatine Kinase CK-MB (CK-2) 0.77 Troponin I 0.063 Impressions: Acute Abdomen Series 07/17/16 19:30 IMPRESSION: NO RADIOGRAPHIC EVIDENCE FOR ACUTE ABDOMINAL DISEASE.Similar moderate gas distention of the stomach. Nonobstructive pattern. Renal Ultrasound 07/18/16 00:00 IMPRESSION: There is some increased echogenicity in the renal cortex of the left kidney suggesting intrinsic renal disease. No evidence for hydronephrosis. Other findings as noted above Abdomen Ultrasound 07/22/16 00:00 IMPRESSION: No gallstone or inflammatory changes identified.Parts or all of the pancreas and aorta are poorly seen secondary to acoustical interference from fat or from air in the bowel. Guidance Fluoroscopy 07/22/16 00:00 IMPRESSION: Please see combined report for performance of procedure and radiologic supervision and interpretation. Interventional Vascular Procedure 07/22/16 00:00 IMPRESSION: Please see combined report for performance of procedure and radiologic supervision and interpretation. PICC Line Insertion 07/22/16 20:06 IMPRESSION: SUCCESSFUL PLACEMENT OF A 5 FR DUAL LUMEN 45 CM PICC IN THE brachiocephalic VEIN. Abdomen/Pelvis CT 07/26/16 00:00 IMPRESSION: Distended stomach with oral contrast. Gastric Air-fluid level. Pneumatosis along the stomach fundus. Findings are worrisome for gastric outlet obstruction. Results discussed with Dr. Burrell. Upper GI Series 07/26/16 00:00 IMPRESSION: Duodenal ulcer just past the duodenum bulb. Decreased gastric motility with delayed gastric emptying at fluoroscopy. No gross pyloric channel ulcer is identified. Assessment & Plan - Diagnosis (1) Acute renal insufficiency Is this a current diagnosis for this admission?: YesPlan: Currently all stable and back to the normal state as before (2) Hypotension Qualifiers: Hypotension type: unspecified hypotension type Qualified Code(s): I95.9 - Hypotension, unspecified Is this a current diagnosis for this admission?: YesPlan: Resolved (3) Congestive heart failure Qualifiers: Congestive heart failure type: diastolic Is this a current diagnosis for this admission?: YesPlan: Currently stable (4) Chronic obstructive pulmonary disease (COPD) Qualifiers: COPD type: unspecified COPD Qualified Code(s): J44.9 - Chronic obstructive pulmonary disease, unspecified Is this a current diagnosis for this admission?: YesPlan: Continues to nebulizer treatment (5) Hypertension Qualifiers: Hypertension type: unspecified secondary hypertension Qualified Code (s): I15.9 - Secondary hypertension, unspecified; I15 - Secondary hypertension Is this a current diagnosis for this admission?: YesPlan: Currently low will give IV fluid and hold all blood pressure medications (6) Hyperlipidemia Qualifiers: Hyperlipidemia type: unspecified Qualified Code(s): E78.5 - Hyperlipidemia, unspecified Is this a current diagnosis for this admission?: YesPlan: Stable (7) Esophageal ulcer Qualifiers: Esophageal ulcer bleeding: without bleeding Qualified Code(s): K22.10 - Ulcer of esophagus without bleeding Is this a current diagnosis for this admission?: YesPlan: Continues the PPI (8) Hematuria due to acute cystitis Is this a current diagnosis for this admission?: YesPlan: Currently stable continues the Flomax - Time Time Spent with patient: 15-24 minutes Medications reviewed and adjusted accordingly: Yes Anticipated discharge: SNF Within: Other - Inpatient Certification Medical Necessity: Need Close Monitoring Due to Risk of Patient Decompensation, Need for IV Antibiotics 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
[2016-07-26] MEDS: TAMSULOSIN HCL 0.4 MG CAP.SR.24H PO SCH (17:21)
[2016-07-26] MEDS: AMLODIPINE BESYLATE 5 MG TABLET PO SCH (21:28)
[2016-07-26] MEDS: SIMVASTATIN 10 MG TABLET PO SCH (21:29)
[2016-07-26] MEDS: CLONIDINE HCL 0.1 MG TABLET PO SCH (21:29)
[2016-07-27 05:06] LABS: ABSOLUTE BASOPHILS # (AUTO) 0.1 10^3/uL (0.0-0.2); ABSOLUTE EOSINOPHILS # (AUTO) 0.3 10^3/uL (0.0-0.6); ABSOLUTE LYMPHOCYTES (AUTO) 1.5 10^3/uL (0.5-4.7); ABSOLUTE MONOCYTES (AUTO) 0.8 10^3/uL (0.1-1.4); ABSOLUTE NEUT (AUTO) 5.6 10^3/uL (1.7-8.2); EOSINOPHILS % (AUTO) 3.5 % (0-6); HEMATOCRIT 31.4 % (37.9-51.0); HEMOGLOBIN 10.6 g/dL (13.5-17.0); HGB HCT DIFFERENCE 0.4; LYMPHOCYTES % (AUTO) 18.1 % (13-45); MEAN CORPUSCULAR HEMOGLOBIN 28.9 pg (27.0-33.4); MEAN CORPUSCULAR HGB CONC 33.7 g/dL (32.0-36.0); MEAN CORPUSCULAR VOLUME 86 fl (80-97); MONOCYTES % (AUTO) 9.6 % (3-13); RED BLOOD COUNT 3.65 10^6/uL (4.35-5.55); RED CELL DISTRIBUTION WIDTH 14.9 % (11.5-14.0); SEGMENTED NEUTROPHILS % (AUTO) 67.8 % (42-78); WHITE BLOOD COUNT 8.3 10^3/uL (4.0-10.5)
[2016-07-27 05:31] LABS: ANION GAP 11 (5-19); BLOOD UREA NITROGEN 14 mg/dL (7-20); CALCIUM 9.2 mg/dL (8.4-10.2); CARBON DIOXIDE 21 mmol/L (22-30); CHLORIDE 108 mmol/L (98-107); CREATININE RESULT 1.56 mg/dL (0.52-1.25); GLUCOSE 82 mg/dL (75-110); POTASSIUM 4.4 mmol/L (3.6-5.0); SODIUM 140.1 mmol/L (137-145)
[2016-07-27] MEDS: IPRATROPIUM/ALBUTEROL 0.5-2.5 MG/3 ML AMPUL NEB SCH ×3 (08:02→20:26)
--- NOTE | 2016-07-27 08:25 | PDOC PROGRESS REPORT ---
Subjective Progress Note for:: 07/27/16 Subjective:: patient not able to prep will not be able to get colonoscopy done will not be able to visualize adequately has several new findings that were read on CT and upper GI series since has duodenal ulcer, would empirically treat for H.Pylori patient not having a GI bleed patient has movement of Barium when turned on right side consideration for possible volvulus on the long axis of the stomach if symptoms were to persist, then transfer to tertiary institution may be necessary would not proceed with colonoscopy at this point start PPI and empiric treatment for H.pylori Physical Exam Vital Signs: Temp Pulse Resp BP Pulse Ox 98.4 F 61 18 149/82 H 98 07/27/16 04:46 07/27/16 08:08 07/27/16 08:08 07/27/16 04:46 07/27/16 08:08 Intake & Output 07/26/16 07/27/16 07/28/16 06:59 06:59 06:59 Intake Total 778 530 Balance 778 530 Weight 86.9 kg 87.7 kg General appearance: PRESENT: mild distress, well-developed, well-nourished Head exam: PRESENT: atraumatic, normocephalic Eye exam: PRESENT: EOMI, PERRLA. ABSENT: periorbital swelling, scleral icterus Mouth exam: PRESENT: neck supple Throat exam: ABSENT: tonsillar exudate, tonsillogmegaly Neck exam: ABSENT: meningismus, tenderness, thyromegaly Cardiovascular exam: PRESENT: RRR, +S1, +S2 Pulses: PRESENT: normal carotid pulses GI/Abdominal exam: PRESENT: soft. ABSENT: ascites, Quintanilla's sign, rebound, rigid, other Neurological exam: PRESENT: alert, altered, oriented to person, CN II-XII grossly intact Skin exam: PRESENT: normal color. ABSENT: mottled, pallor, urticaria, vesicles Results Laboratory Results: 07/27/16 04:52 07/27/16 04:52 07/27/16 07/27/16 04:52 04:52 WBC 8.3 RBC 3.65 L Hgb 10.6 L Hct 31.4 L MCV 86 MCH 28.9 MCHC 33.7 RDW 14.9 H Plt Count 351 Seg Neutrophils % 67.8 Lymphocytes % 18.1 Monocytes % 9.6 Eosinophils % 3.5 Basophils % 1.0 Absolute Neutrophils 5.6 Absolute Lymphocytes 1.5 Absolute Monocytes 0.8 Absolute Eosinophils 0.3 Absolute Basophils 0.1 Sodium 140.1 Potassium 4.4 Chloride 108 H Carbon Dioxide 21 L Anion Gap 11 BUN 14 Creatinine 1.56 H Est GFR ( Amer) 53 L Est GFR (Non-Af Amer) 44 L Glucose 82 Calcium 9.2 07/18/16 07/18/16 07/18/16 08:45 08:45 20:00 Creatine Kinase 88 81 CK-MB (CK-2) 0.79 Troponin I 0.061 07/18/16 20:00 Creatine Kinase CK-MB (CK-2) 0.77 Troponin I 0.063 Impressions: Acute Abdomen Series 07/17/16 19:30 IMPRESSION: NO RADIOGRAPHIC EVIDENCE FOR ACUTE ABDOMINAL DISEASE.Similar moderate gas distention of the stomach. Nonobstructive pattern. Renal Ultrasound 07/18/16 00:00 IMPRESSION: There is some increased echogenicity in the renal cortex of the left kidney suggesting intrinsic renal disease. No evidence for hydronephrosis. Other findings as noted above Abdomen Ultrasound 07/22/16 00:00 IMPRESSION: No gallstone or inflammatory changes identified.Parts or all of the pancreas and aorta are poorly seen secondary to acoustical interference from fat or from air in the bowel. Guidance Fluoroscopy 07/22/16 00:00 IMPRESSION: Please see combined report for performance of procedure and radiologic supervision and interpretation. Interventional Vascular Procedure 07/22/16 00:00 IMPRESSION: Please see combined report for performance of procedure and radiologic supervision and interpretation. PICC Line Insertion 07/22/16 20:06 IMPRESSION: SUCCESSFUL PLACEMENT OF A 5 FR DUAL LUMEN 45 CM PICC IN THE brachiocephalic VEIN. Abdomen/Pelvis CT 07/26/16 00:00 IMPRESSION: Distended stomach with oral contrast. Gastric Air-fluid level. Pneumatosis along the stomach fundus. Findings are worrisome for gastric outlet obstruction. Results discussed with Dr. Burrell. Upper GI Series 07/26/16 00:00 IMPRESSION: Duodenal ulcer just past the duodenum bulb. Decreased gastric motility with delayed gastric emptying at fluoroscopy. No gross pyloric channel ulcer is identified. Assessment & Plan - Diagnosis (1) GERD (gastroesophageal reflux disease) Qualifiers: Esophagitis presence: without esophagitis Qualified Code(s): K21.9 - Gastro-esophageal reflux disease without esophagitis Is this a current diagnosis for this admission?: Yes (3) Nausea and vomiting Plan: not marvin to prep for colonoscopy would be at high risk of perforation plus would not be able to visualize since had new findings on CT and upper GI series as noted, would empirically treat for H.pylori PPI - Time Time Spent with patient: 15-24 minutes
[2016-07-27] MEDS: LANSOPRAZOLE 30 MG TAB.RAP.DR PO SCH ×2 (09:53→15:26)
[2016-07-27] MEDS: METOPROLOL TARTRATE 50 MG TABLET PO SCH ×2 (09:54→21:26)
[2016-07-27] MEDS: ISOSORBIDE DINITRATE 20 MG TABLET PO SCH ×2 (09:54→21:27)
[2016-07-27] MEDS: CEFTRIAXONE 1 GM/D5W RTU 1 GM/50 ML RTUPB IV SCH (09:55)
[2016-07-27] MEDS: ASPIRIN 81 MG TABLET, CHEWABLE PO SCH (09:55)
[2016-07-27] MEDS: DOCUSATE SODIUM 100 MG CAPSULE PO SCH ×2 (09:55→16:58)
[2016-07-27] MEDS: POLYETHYLENE GLYCOL 3350 POWDER 17 GM/1 PACKET PO SCH (09:56)
[2016-07-27] MEDS: TIOTROPIUM BROMIDE DPI 5 CAP/KIT (18 MCG/CAP) IH SCH (09:57)
[2016-07-27] MEDS: NORMAL SALINE 10 ML SDV (SCHEDULED) IV SCH ×2 (10:54→21:28)
--- NOTE | 2016-07-27 12:45 | PDOC PROGRESS REPORT ---
Subjective Progress Note for:: 07/27/16 Subjective:: Patients to have a CT scan of the abdomen and pelvis and upper GI series done and was supposed a duodenal ulcer and which may contribute the patient's symptomsPatients denied any chest pain patients denied any shortness of the breathPatient also seen by the GI and suggest the because of the poor prep unable to do the colonoscopy Physical Exam Vital Signs: Temp Pulse Resp BP Pulse Ox 98.5 F 74 19 142/73 H 99 07/27/16 08:30 07/27/16 08:30 07/27/16 08:30 07/27/16 08:30 07/27/16 08:30 Intake & Output 07/26/16 07/27/16 07/28/16 06:59 06:59 06:59 Intake Total 778 530 Balance 778 530 Weight 86.9 kg 87.7 kg General appearance: PRESENT: no acute distress, well-developed, well-nourished Head exam: PRESENT: atraumatic, normocephalic Eye exam: PRESENT: conjunctiva pink, EOMI, PERRLA. ABSENT: scleral icterus Ear exam: PRESENT: normal external ear exam Mouth exam: PRESENT: moist, tongue midline Neck exam: PRESENT: full ROM. ABSENT: carotid bruit, JVD, lymphadenopathy, thyromegaly Respiratory exam: PRESENT: clear to auscultation magdalena Cardiovascular exam: PRESENT: RRR. ABSENT: diastolic murmur, rubs, systolic murmur Pulses: PRESENT: normal dorsalis pedis pul, +2 pedal pulses bilateral Vascular exam: PRESENT: normal capillary refill GI/Abdominal exam: PRESENT: normal bowel sounds, soft. ABSENT: distended, guarding, mass, organolmegaly, rebound, tenderness Rectal exam: PRESENT: deferred Neurological exam: PRESENT: alert, awake, oriented to person, oriented to place , oriented to time, oriented to situation, CN II-XII grossly intact. ABSENT: motor sensory deficit Psychiatric exam: PRESENT: appropriate affect, normal mood. ABSENT: homicidal ideation, suicidal ideation Skin exam: PRESENT: dry, intact, warm. ABSENT: cyanosis, rash Results Laboratory Results: 07/27/16 04:52 07/27/16 04:52 07/27/16 07/27/16 04:52 04:52 WBC 8.3 RBC 3.65 L Hgb 10.6 L Hct 31.4 L MCV 86 MCH 28.9 MCHC 33.7 RDW 14.9 H Plt Count 351 Seg Neutrophils % 67.8 Lymphocytes % 18.1 Monocytes % 9.6 Eosinophils % 3.5 Basophils % 1.0 Absolute Neutrophils 5.6 Absolute Lymphocytes 1.5 Absolute Monocytes 0.8 Absolute Eosinophils 0.3 Absolute Basophils 0.1 Sodium 140.1 Potassium 4.4 Chloride 108 H Carbon Dioxide 21 L Anion Gap 11 BUN 14 Creatinine 1.56 H Est GFR ( Amer) 53 L Est GFR (Non-Af Amer) 44 L Glucose 82 Calcium 9.2 07/18/16 07/18/16 07/18/16 08:45 08:45 20:00 Creatine Kinase 88 81 CK-MB (CK-2) 0.79 Troponin I 0.061 07/18/16 20:00 Creatine Kinase CK-MB (CK-2) 0.77 Troponin I 0.063 Impressions: Acute Abdomen Series 07/17/16 19:30 IMPRESSION: NO RADIOGRAPHIC EVIDENCE FOR ACUTE ABDOMINAL DISEASE.Similar moderate gas distention of the stomach. Nonobstructive pattern. Renal Ultrasound 07/18/16 00:00 IMPRESSION: There is some increased echogenicity in the renal cortex of the left kidney suggesting intrinsic renal disease. No evidence for hydronephrosis. Other findings as noted above Abdomen Ultrasound 07/22/16 00:00 IMPRESSION: No gallstone or inflammatory changes identified.Parts or all of the pancreas and aorta are poorly seen secondary to acoustical interference from fat or from air in the bowel. Guidance Fluoroscopy 07/22/16 00:00 IMPRESSION: Please see combined report for performance of procedure and radiologic supervision and interpretation. Interventional Vascular Procedure 07/22/16 00:00 IMPRESSION: Please see combined report for performance of procedure and radiologic supervision and interpretation. PICC Line Insertion 07/22/16 20:06 IMPRESSION: SUCCESSFUL PLACEMENT OF A 5 FR DUAL LUMEN 45 CM PICC IN THE brachiocephalic VEIN. Abdomen/Pelvis CT 07/26/16 00:00 IMPRESSION: Distended stomach with oral contrast. Gastric Air-fluid level. Pneumatosis along the stomach fundus. Findings are worrisome for gastric outlet obstruction. Results discussed with Dr. Burrell. Upper GI Series 07/26/16 00:00 IMPRESSION: Duodenal ulcer just past the duodenum bulb. Decreased gastric motility with delayed gastric emptying at fluoroscopy. No gross pyloric channel ulcer is identified. Assessment & Plan - Diagnosis (1) Acute renal insufficiency Is this a current diagnosis for this admission?: YesPlan: All stable (2) Hypotension Qualifiers: Hypotension type: unspecified hypotension type Qualified Code(s): I95.9 - Hypotension, unspecified Is this a current diagnosis for this admission?: YesPlan: Resolved (3) Congestive heart failure Qualifiers: Congestive heart failure type: diastolic Is this a current diagnosis for this admission?: YesPlan: Currently stable (4) Chronic obstructive pulmonary disease (COPD) Qualifiers: COPD type: unspecified COPD Qualified Code(s): J44.9 - Chronic obstructive pulmonary disease, unspecified Is this a current diagnosis for this admission?: YesPlan: Continues to nebulizer treatment (5) Hypertension Qualifiers: Hypertension type: unspecified secondary hypertension Qualified Code (s): I15.9 - Secondary hypertension, unspecified; I15 - Secondary hypertension Is this a current diagnosis for this admission?: YesPlan: Currently low will give IV fluid and hold all blood pressure medications (6) Hyperlipidemia Qualifiers: Hyperlipidemia type: unspecified Qualified Code(s): E78.5 - Hyperlipidemia, unspecified Is this a current diagnosis for this admission?: YesPlan: Stable (7) Esophageal ulcer Qualifiers: Esophageal ulcer bleeding: without bleeding Qualified Code(s): K22.10 - Ulcer of esophagus without bleeding Is this a current diagnosis for this admission?: YesPlan: Continues the PPI (8) Hematuria due to acute cystitis Is this a current diagnosis for this admission?: YesPlan: Currently stable (9) Duodenal ulcer Is this a current diagnosis for this admission?: YesPlan: Continues to PPI per Dr. owen treated with empirical H pylori - Time Time Spent with patient: 15-24 minutes Medications reviewed and adjusted accordingly: Yes Anticipated discharge: Other Within: Other - Inpatient Certification Medical Necessity: Significant Comorbidiites Make Outpatient Treatment Too Risky Post Hospital Care: D/C [employer] Documentation - Plan Summary Plan Summary: Continues to current medications
[2016-07-27] MEDS: TAMSULOSIN HCL 0.4 MG CAP.SR.24H PO SCH (16:57)
[2016-07-27] MEDS: AMLODIPINE BESYLATE 5 MG TABLET PO SCH (21:27)
[2016-07-27] MEDS: SIMVASTATIN 10 MG TABLET PO SCH (21:28)
[2016-07-27] MEDS: CLONIDINE HCL 0.1 MG TABLET PO SCH (21:28)
[2016-07-28 05:13] LABS: ABSOLUTE BASOPHILS # (AUTO) 0.1 10^3/uL (0.0-0.2); ABSOLUTE EOSINOPHILS # (AUTO) 0.3 10^3/uL (0.0-0.6); ABSOLUTE LYMPHOCYTES (AUTO) 1.9 10^3/uL (0.5-4.7); ABSOLUTE MONOCYTES (AUTO) 0.8 10^3/uL (0.1-1.4); ABSOLUTE NEUT (AUTO) 5.5 10^3/uL (1.7-8.2); BASOPHILS % (AUTO) 1.1 % (0-2); EOSINOPHILS % (AUTO) 3.6 % (0-6); HEMATOCRIT 31.7 % (37.9-51.0); HEMOGLOBIN 10.7 g/dL (13.5-17.0); HGB HCT DIFFERENCE 0.4; LYMPHOCYTES % (AUTO) 22.4 % (13-45); MEAN CORPUSCULAR HEMOGLOBIN 29.9 pg (27.0-33.4); MEAN CORPUSCULAR HGB CONC 33.8 g/dL (32.0-36.0); MEAN CORPUSCULAR VOLUME 89 fl (80-97); MONOCYTES % (AUTO) 9.1 % (3-13); RED BLOOD COUNT 3.58 10^6/uL (4.35-5.55); SEGMENTED NEUTROPHILS % (AUTO) 63.8 % (42-78); WHITE BLOOD COUNT 8.6 10^3/uL (4.0-10.5)
[2016-07-28 05:28] LABS: ANION GAP 14 (5-19); BLOOD UREA NITROGEN 15 mg/dL (7-20); CALCIUM 9.5 mg/dL (8.4-10.2); CARBON DIOXIDE 22 mmol/L (22-30); CHLORIDE 107 mmol/L (98-107); GLUCOSE 85 mg/dL (75-110); POTASSIUM 4.3 mmol/L (3.6-5.0)
[2016-07-28] MEDS: IPRATROPIUM/ALBUTEROL 0.5-2.5 MG/3 ML AMPUL NEB SCH ×3 (08:34→20:00)
[2016-07-28] MEDS: ASPIRIN 81 MG TABLET, CHEWABLE PO SCH (09:32)
[2016-07-28] MEDS: CEFTRIAXONE 1 GM/D5W RTU 1 GM/50 ML RTUPB IV SCH (09:32)
[2016-07-28] MEDS: POLYETHYLENE GLYCOL 3350 POWDER 17 GM/1 PACKET PO SCH (09:32)
[2016-07-28] MEDS: METOPROLOL TARTRATE 50 MG TABLET PO SCH ×2 (09:32→23:04)
[2016-07-28] MEDS: ISOSORBIDE DINITRATE 20 MG TABLET PO SCH ×2 (09:32→23:04)
[2016-07-28] MEDS: LANSOPRAZOLE 30 MG TAB.RAP.DR PO SCH ×2 (09:32→15:06)
[2016-07-28] MEDS: NORMAL SALINE 10 ML SDV (SCHEDULED) IV SCH ×2 (09:33→23:04)
[2016-07-28] MEDS: DOCUSATE SODIUM 100 MG CAPSULE PO SCH ×2 (09:33→17:21)
[2016-07-28] MEDS: TIOTROPIUM BROMIDE DPI 5 CAP/KIT (18 MCG/CAP) IH SCH (10:59)
--- NOTE | 2016-07-28 15:15 | PDOC TRANSFER SUMMARY ---
General - Admit/Disc Date/PCP Admission Date/Primary Care Provider: 07/18/16 08:00 ILAN FALCON MD Discharge Date: 07/29/16 - Discharge Diagnosis (1) Acute renal insufficiency Is this a current diagnosis for this admission?: YesSummary: Currently all resolved and the patient's last creatinine is 1.80 (2) Hypotension Is this a current diagnosis for this admission?: YesSummary: All resolved (3) Congestive heart failure Is this a current diagnosis for this admission?: YesSummary: Echocardiogram so start diastolic dysfunctions and discussed with the cardiology suggest continues to monitor and to hold the Lasix and in 2 weeks further evaluate the patient's complaint for some short of breath increasing the swelling will restart the 20 mg the Lasix (4) Chronic obstructive pulmonary disease (COPD) Is this a current diagnosis for this admission?: YesSummary: Vladimir the current inhaler and as needed nebulizer (5) Hypertension Is this a current diagnosis for this admission?: YesSummary: Insert current medication as above (6) Hyperlipidemia Is this a current diagnosis for this admission?: YesSummary: Continues to statin (7) Esophageal ulcer Is this a current diagnosis for this admission?: YesSummary: Continues the PPI twice a day for 1 month (8) Hematuria due to acute cystitis Is this a current diagnosis for this admission?: YesSummary: Due to the Ojeda catheter currently all resolved (9) Duodenal ulcer Is this a current diagnosis for this admission?: YesSummary: Continues the PPI - Additional Information Resuscitation Status: Full Code Discharge Diet: Cardiac Discharge Activity: Activity As Tolerated Home Medications: Aspirin [[place] Aspirin] 81 mg PO DAILY PRN 07/18/16 Budesonide [Pulmicort 180 mcg Flexhaler] 2 puff IH DAILY PRN 07/18/16 Clonidine HCl [Catapres 0.1 mg Tablet] 0.1 mg PO Q12 07/18/16 Isosorbide Dinitrate [Isordil Titradose 20 mg Tablet] 20 mg PO TID 07/18/16 Metoprolol Tartrate [Lopressor] 50 mg PO Q12 07/18/16 Ondansetron HCl [Zofran 4 mg Tablet] 1 tab PO Q8H PRN 07/18/16 Simvastatin [Zocor 20 mg Tablet] 20 mg PO QHS 07/18/16 Tiotropium [place] [Spiriva Handihaler 5 Cap/Kit (18 Mcg/Cap)] 1 cap IH DAILY Amlodipine Besylate [Norvasc 5 mg Tablet] 5 mg PO QHS #0 tablet 07/28/16 Docusate Sodium [Colace 100 mg Capsule] 100 mg PO BID #0 capsule 07/28/16 Ipratropium/Albuterol Sulfate [Duoneb 3 ml Ampul] 3 ml [facility] [id number] PRN #0 vial.neb 07/28/16 Omeprazole Magnesium [Prilosec Otc] 40 mg PO BID #60 07/28/16 Polyethylene Glycol 3350 [Miralax Powder 17 gm/Packet] 17 gm PO DAILY #0 powd.pack 07/28/16 History of Present Illness Admission Date/PCP: 07/18/16 08:00 ILAN FALCON MD History of Present Illness: patient has been admitted by Dr Burrell he is a [facility] resident his brother is by the bedside patient has been having difficulty with nausea, vomiting and regurgitation going on for several weeks patient states cannot eat certain foods he has a plate of fruit in front of him and states has dysphagia and has spit up undigested food contents patient denies any weight loss denies any melena admitted for renal issues, and now improved however upper GI symptoms have not improved consultation requested to rule out esophageal stricture denies any GERD there is no odynophagia patient denies any rectal bleeding Hospital Course Hospital Course: This is a 76-year-old male from the jail with the multiple medical problems as above came to the emergency department with nausea vomiting and not feeling well patient was found with acute renal failure on chronic kidney disease and patient was admitting in the hospital and started on IV fluid. The nephrology was also consulted. Patient also seen by the cardiology due to the congestive heart failure and echocardiogram was done with some's diastolic dysfunctions. Patient's Lasix and lisinopril was all hold. Initially patient was hypertensions due to the renal failure and dehydration's and all results. Patient's otherwise persistent nausea vomiting and the GI Dr. Novak was consulted and patient underwent for the endoscopy and found some esophageal ulcers. Patient underwent for the CT scan of the abdomen and pelvis and barium swallow and find a duodenal ulcer also. Patient's otherwise unable to get the colonoscopy because patient unable to drink to go light and the poor prep. Patient's other medical problem was stable. Discussed with the cardiology and suggested currently hold the lisinopril and the Lasix. In consult with the Dr. Novak and suggested continues to PPI and a following a one-month for further evaluation for the ulcers. [facility] Discussed with the patient's brother regarding the patient's current conditions Physical Exam Vital Signs: Temp Pulse Resp BP Pulse Ox 97.5 F 67 19 114/69 100 07/28/16 11:57 07/28/16 13:10 07/28/16 11:57 07/28/16 11:57 07/28/16 11:57 Intake & Output 07/27/16 07/28/16 07/29/16 06:59 06:59 06:59 Intake Total 530 507 237 Balance 530 507 237 Weight 87.7 kg General appearance: PRESENT: no acute distress, well-developed, well-nourished Head exam: PRESENT: atraumatic, normocephalic Eye exam: PRESENT: conjunctiva pink, EOMI, PERRLA. ABSENT: scleral icterus Ear exam: PRESENT: normal external ear exam Mouth exam: PRESENT: moist, tongue midline Neck exam: ABSENT: carotid bruit, JVD, lymphadenopathy, thyromegaly Respiratory exam: PRESENT: clear to auscultation magdalena. ABSENT: rales, rhonchi, wheezes Cardiovascular exam: PRESENT: RRR. ABSENT: diastolic murmur, rubs, systolic murmur Pulses: PRESENT: normal dorsalis pedis pul Vascular exam: PRESENT: normal capillary refill GI/Abdominal exam: PRESENT: normal bowel sounds, soft. ABSENT: distended, guarding, mass, organolmegaly, rebound, tenderness Rectal exam: PRESENT: deferred Extremities exam: PRESENT: full ROM. ABSENT: calf tenderness, clubbing, pedal edema Neurological exam: PRESENT: alert, awake, oriented to person, oriented to place Psychiatric exam: PRESENT: appropriate affect, normal mood. ABSENT: homicidal ideation, suicidal ideation Skin exam: PRESENT: dry, intact, warm. ABSENT: cyanosis, rash Results Laboratory Results: 07/28/16 04:30 07/28/16 04:30 07/28/16 07/28/16 04:30 04:30 WBC 8.6 RBC 3.58 L Hgb 10.7 L Hct 31.7 L MCV 89 MCH 29.9 MCHC 33.8 RDW 15.0 H Plt Count 345 Seg Neutrophils % 63.8 Lymphocytes % 22.4 Monocytes % 9.1 Eosinophils % 3.6 Basophils % 1.1 Absolute Neutrophils 5.5 Absolute Lymphocytes 1.9 Absolute Monocytes 0.8 Absolute Eosinophils 0.3 Absolute Basophils 0.1 Sodium 143.0 Potassium 4.3 Chloride 107 Carbon Dioxide 22 Anion Gap 14 BUN 15 Creatinine 1.80 H Est GFR ( Amer) 45 L Est GFR (Non-Af Amer) 37 L Glucose 85 Calcium 9.5 07/18/16 07/18/16 07/18/16 08:45 08:45 20:00 Creatine Kinase 88 81 CK-MB (CK-2) 0.79 Troponin I 0.061 07/18/16 20:00 Creatine Kinase CK-MB (CK-2) 0.77 Troponin I 0.063 Impressions: Acute Abdomen Series 07/17/16 19:30 IMPRESSION: NO RADIOGRAPHIC EVIDENCE FOR ACUTE ABDOMINAL DISEASE.Similar moderate gas distention of the stomach. Nonobstructive pattern. Renal Ultrasound 07/18/16 00:00 IMPRESSION: There is some increased echogenicity in the renal cortex of the left kidney suggesting intrinsic renal disease. No evidence for hydronephrosis. Other findings as noted above Abdomen Ultrasound 07/22/16 00:00 IMPRESSION: No gallstone or inflammatory changes identified.Parts or all of the pancreas and aorta are poorly seen secondary to acoustical interference from fat or from air in the bowel. Guidance Fluoroscopy 07/22/16 00:00 IMPRESSION: Please see combined report for performance of procedure and radiologic supervision and interpretation. Interventional Vascular Procedure 07/22/16 00:00 IMPRESSION: Please see combined report for performance of procedure and radiologic supervision and interpretation. PICC Line Insertion 07/22/16 20:06 IMPRESSION: SUCCESSFUL PLACEMENT OF A 5 FR DUAL LUMEN 45 CM PICC IN THE brachiocephalic VEIN. Abdomen/Pelvis CT 07/26/16 00:00 IMPRESSION: Distended stomach with oral contrast. Gastric Air-fluid level. Pneumatosis along the stomach fundus. Findings are worrisome for gastric outlet obstruction. Results discussed with Dr. Burrell. Upper GI Series 07/26/16 00:00 IMPRESSION: Duodenal ulcer just past the duodenum bulb. Decreased gastric motility with delayed gastric emptying at fluoroscopy. No gross pyloric channel ulcer is identified. Transfer Plan - Time Spent with Patient Time spent with patient: Greater than 30 Minutes Plan Time Spent: Greater than 30 Minutes - Patient was started on cardiac diet and continues to monitor and aspirations precautions in the fall precautions.
[2016-07-28] MEDS: TAMSULOSIN HCL 0.4 MG CAP.SR.24H PO SCH (17:21)
[2016-07-28] MEDS: SIMVASTATIN 10 MG TABLET PO SCH (23:03)
[2016-07-28] MEDS: CLONIDINE HCL 0.1 MG TABLET PO SCH (23:03)
[2016-07-28] MEDS: AMLODIPINE BESYLATE 5 MG TABLET PO SCH (23:04)
[2016-07-29] MEDS: LANSOPRAZOLE 30 MG TAB.RAP.DR PO SCH (07:35)
[2016-07-29] MEDS: METOPROLOL TARTRATE 50 MG TABLET PO SCH (08:30)
[2016-07-29] MEDS: POLYETHYLENE GLYCOL 3350 POWDER 17 GM/1 PACKET PO SCH (08:30)
[2016-07-29] MEDS: ISOSORBIDE DINITRATE 20 MG TABLET PO SCH (08:30)
[2016-07-29] MEDS: ASPIRIN 81 MG TABLET, CHEWABLE PO SCH (08:31)
[2016-07-29] MEDS: DOCUSATE SODIUM 100 MG CAPSULE PO SCH (08:31)
[2016-07-29] MEDS: CEFTRIAXONE 1 GM/D5W RTU 1 GM/50 ML RTUPB IV SCH (08:32)
[2016-07-29] MEDS: NORMAL SALINE 10 ML SDV (SCHEDULED) IV SCH (08:35)
[2016-07-29] MEDS: TIOTROPIUM BROMIDE DPI 5 CAP/KIT (18 MCG/CAP) IH SCH (08:35)
[2016-07-29] MEDS: IPRATROPIUM/ALBUTEROL 0.5-2.5 MG/3 ML AMPUL NEB SCH (09:26)
[2016-07-29 09:38] VITALS: BP 135/69
== END 2016-07-29 10:30 | DRG 683 ==
LOC: ER 18:54 → EH 07-18 02:30 → UNDOADMIN 07-18 02:30 → 3W 07-18 04:06 → EH 07-18 04:06 → 3W 07-18 08:00
PROVIDERS: ADMIT Family Medicine; ATTEND Family Medicine
PROC: 0DB68ZX Excision of Stomach, Via Natural or Artificial Opening Endoscopic, Diagnostic (ICD-10-PCS; principal; 2016-07-21 13:30)
PROC: 02H633Z Insertion of Infusion Device into Right Atrium, Percutaneous Approach (ICD-10-PCS; 2016-07-22)
PROC: B244YZZ Ultrasonography of Right Heart using Other Contrast (ICD-10-PCS; 2016-07-22)
PROC: B214YZZ Fluoroscopy of Right Heart using Other Contrast (ICD-10-PCS; 2016-07-22)
DX: N17.9 Acute kidney failure, unspecified (principal); I13.0 Hypertensive heart and chronic kidney disease with heart failure and stage 1 through stage 4 chronic kidney disease, or unspecified chronic kidney disease; I50.32 Chronic diastolic (congestive) heart failure; E87.0 Hyperosmolality and hypernatremia; K22.10 Ulcer of esophagus without bleeding; N30.01 Acute cystitis with hematuria; I95.9 Hypotension, unspecified; I25.10 Atherosclerotic heart disease of native coronary artery without angina pectoris; E78.5 Hyperlipidemia, unspecified; J44.9 Chronic obstructive pulmonary disease, unspecified; E86.0 Dehydration; N18.3 Chronic kidney disease, stage 3 (moderate); K59.00 Constipation, unspecified; K21.0 Gastro-esophageal reflux disease with esophagitis; K26.9 Duodenal ulcer, unspecified as acute or chronic, without hemorrhage or perforation; F03.90 Unspecified dementia, unspecified severity, without behavioral disturbance, psychotic disturbance, mood disturbance, and anxiety; Z95.1 Presence of aortocoronary bypass graft; Z79.82 Long term (current) use of aspirin; Z79.51 Long term (current) use of inhaled steroids; Z79.899 Other long term (current) drug therapy
CPT/HCPCS: 36415; 36569; 36600; 43239; 74022; 74176; 74247; 76705; 76770; 76937; 77001; 80048; 80053; 81001; 82550; 82553; 82803; 83690; 83735; 84484; 85025; 85610; 85730; 87086; 87088; 88305; 93005; 93010; 93306; 93976; 94640; 96360; 99285; G8978-GP; G8979-GP; J0171; J0696; J1200; J1610; J1642; J1650; J2250; J2310; J2405; J3010; J3490; J7030; J7620; S0119

== ENCOUNTER 2016-12-15 17:34 | Inpatient (IN) | payer MEDICARE, MEDICAID ==
--- NOTE | 2016-12-15 18:15 | RADIOLOGY REPORT (SQ) ---
EXAM DESCRIPTION: CT HEAD WITHOUT COMPLETED DATE/TIME: 12/15/2016 6:04 pm REASON FOR STUDY: bed [address] gomez ams s/p fall COMPARISON: None. TECHNIQUE: Axial images acquired through the brain without intravenous contrast. Images reviewed wi th bone, brain and subdural windows. Images stored on PACS. All CT scanners at this facility use dose modulation, iterative reconstruction, and/or weight based d osing when appropriate to reduce radiation dose to as low as reasonably achievable (ALARA). [facility]: Dose Right [facility]: CareDose [facility]: Dose Right [facility]: Teradose 4D [facility]: Smart BackTrack RADIATION DOSE: Up-to-date CT equipment and radiation dose reduction techniques were employed. CTDIv ol: 49.0 mGy. DLP: 1762 mGy-cm.mGy. LIMITATIONS: None. FINDINGS: VENTRICLES: Prominent. CEREBRUM: No masses. No hemorrhage. No midline shift. Areas of low density in the white matter mos t likely due to chronic micro-vascular ischemic change. There is focal encephalomalacia in the right frontal lobe and left parietal lobe consistent with areas of prior infarction. 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 No evidence for acute infarction. CEREBELLUM: No masses. No hemorrhage. No alteration of density. No evidence for acute infarction. EXTRAAXIAL SPACES: Age-related involutional change. No fluid collections. No masses. ORBITS AND GLOBE: No intra- or extraconal masses. Normal contour of globe without masses. CALVARIUM: No fracture. PARANASAL SINUSES: No fluid or mucosal thickening. SOFT TISSUES: No mass or hematoma. OTHER: No other significant finding. IMPRESSION: CHRONIC CHANGES OF ATROPHY AND MICROVASCULAR ISCHEMIA. Areas of prior infarction as not ed above. NO ACUTE PROCESS. EVIDENCE OF ACUTE STROKE: NO. TECHNICAL DOCUMENTATION: JOB ID: [id number] Quality ID # [id number]: Final reports with documentation of one or more dose reduction techniques (e.g., Au tomated exposure control, adjustment of the mA and/or kV according to patient size, use of iterative reconstruction technique) 2010 [employer]- All Rights Reserved
--- NOTE | 2016-12-15 19:01 | ER Document Report ---
ED General - General Chief Complaint: Altered Mental Status Stated Complaint: ALTERED MENTAL STATUS Time Seen by Provider: 12/15/16 18:23 Cannot obtain history due to: Altered mental status Notes: Patient is a 76 year old male with a past medical history of hypertension, hyperlipidemia, chronic dysphasia who presents by EMS after being found lying on the ground at his nursing facility for an unknown period of time. The facility was unable to report his last known normal. The patient arrives a phasic and is unable to provide any history TRAVEL OUTSIDE OF THE [place] IN LAST 30 DAYS: No - Related Data Allergies/Adverse Reactions: No Known Allergies Allergy (Verified 07/18/16 03:22) Past Medical History - General Cannot obtain history due to: Altered mental status - Social History Smoking Status: Unknown if Ever Smoked Lives with: Alf Family History: CAD Patient has suicidal ideation: No Patient has homicidal ideation: No - Past Medical History Cardiac Medical History: Reports: Hx Coronary Artery Disease, Hx Hypercholesterolemia, Hx Hypertension Pulmonary Medical History: Reports: Hx COPD Neurological Medical History: Denies: Hx Seizures Renal/ Medical History: Reports: Hx Renal Insufficiency. Denies: Hx Peritoneal Dialysis GI Medical History: Reports: Hx Gastroesophageal Reflux Disease, Hx Hiatal Hernia Musculoskeltal Medical History: Reports Hx Muscle Weakness - generalized Past Surgical History: Reports: Hx Cardiac Surgery, Hx Coronary Artery Bypass Graft - Immunizations Hx Diphtheria, Pertussis, Tetanus Vaccination: Yes Review of Systems - Review of Systems -: Yes ROS unobtainable due to patient's medical condition Physical Exam - Vital signs Vitals: Resp Pulse Ox 22 H 97 12/15/16 17:40 12/15/16 17:40 Interpretation: Hypertensive Notes: PHYSICAL EXAMINATION: GENERAL: Appears older than stated age, somewhat lethargic HEAD: Atraumatic, normocephalic. EYES: Pupils equal round and reactive to light, extraocular movements intact, sclera anicteric, conjunctiva are normal. ENT: nares patent, oropharynx clear without exudates. Moist mucous membranes. NECK: Normal range of motion, supple without lymphadenopathy LUNGS: Breath sounds clear to auscultation bilaterally and equal. No wheezes rales or rhonchi. HEART: Regular rate and rhythm without murmurs ABDOMEN: Soft, nontender, normoactive bowel sounds. No guarding, no rebound. No masses appreciated. EXTREMITIES: No obvious deformities, no pitting or edema. No cyanosis. NEUROLOGICAL: Patient appears to have a dense expressive aphasia. Mild receptive aphasia. Has a left-sided facial droop. Does not move the left upper lower extremity. Does grasp the right hand but will not follow further commands. Pupils are midline, 3 mm equally reactive PSYCH: Minimal verbal content. SKIN: Warm, Dry, normal turgor, no rashes or lesions noted. Course - Re-evaluation Re-evalutation: 12/15/16 18:59 Patient presents with signs and symptoms concerning for possible acute stroke. He has a dense expressive aphasia and a moderate receptive aphasia. He is unable to perform strength testing likely secondary to his lack of understanding what I am asking him to do. He does have a facial droop on the left. There is no clear evidence of what time the patient's symptoms started as apparently he was found the ground and had been there for an unknown period of time by the prison. There also unable to tell the paramedics what his baseline is but he apparently has a remote history of a CVA in the past. Due to unclear time of onset he is not a TPA candidate. Will proceed with labs, imaging of the right hip is apparently patient fell on the right hip was found in the right hip, CT of the head is very been performed and is noted to be unremarkable. Patient will require admission 12/15/16 20:27 Patient's laboratories are at baseline. Patient continues to have a receptive and expressive aphasia although it is much less dense than on my initial assessment. He still has difficulty following commands in all 4 extremities such as giving me a thumbs up in the bilateral hands. He is able to name a pen and its function, but struggles to open and close his eye on request. He is also unable to perform any kind of coherent sentence. However, his left-sided deficits appear to have resolved. He no longer has left-sided facial droop and is now spontaneously moving all 4 extremities. I discussed this case with Dr. Huerta his primary care physician is accepted for admission. - Vital Signs Vital signs: Temp Pulse Resp BP Pulse Ox 98.4 F 75 23 H 148/78 H 98 12/15/16 17:55 12/15/16 17:55 12/15/16 19:02 12/15/16 19:02 12/15/16 18:07 - Laboratory Result Diagrams: 12/15/16 19:15 12/15/16 19:15 Laboratory results interpreted by me: 12/15/16 12/15/16 19:15 19:15 RDW 16.5 H Seg Neutrophils % 82.1 H Lymphocytes % 10.6 L Chloride 111 H Carbon Dioxide 18 L Creatinine 1.84 H Est GFR ( Amer) 44 L Est GFR (Non-Af Amer) 36 L Glucose 111 H Calcium 10.4 H - Diagnostic Test Radiology reviewed: Image reviewed, Reports reviewed Radiology results interpreted by me: 12/15/16 20:33 CT head: No acute intracranial bleed Discharge - Discharge Clinical Impression: Aphasia CVA (cerebral vascular accident) Qualifiers: CVA mechanism: unspecified Qualified Code(s): I63.9 - Cerebral infarction, unspecified Condition: Fair Disposition: ADMITTED INPATIENT Admitting Provider: [facility] Admitted: [facility]
--- NOTE | 2016-12-15 19:06 | RADIOLOGY REPORT (SQ) ---
EXAM DESCRIPTION: CHEST SINGLE VIEW COMPLETED DATE/TIME: 12/15/2016 6:59 pm REASON FOR STUDY: ams COMPARISON: None. EXAM PARAMETERS: NUMBER OF VIEWS: January 2016 TECHNIQUE: Single frontal radiographic view of the chest acquired. RADIATION DOSE: NA LIMITATIONS: Patient has made a shallow inspiration. FINDINGS: LUNGS AND PLEURA: No opacities, masses or pneumothorax. No pleural effusion. MEDIASTINUM AND HILAR STRUCTURES: No masses. Contour normal. HEART AND VASCULAR STRUCTURES: Heart normal in size. Normal vasculature. BONES: No acute findings. HARDWARE: None in the chest. OTHER: No other significant finding. IMPRESSION: NO ACUTE RADIOGRAPHIC FINDING IN THE CHEST. TECHNICAL DOCUMENTATION: JOB ID: [id number]
--- NOTE | 2016-12-15 19:07 | RADIOLOGY REPORT (SQ) ---
EXAM DESCRIPTION: HIP RIGHT AP/LATERAL COMPLETED DATE/TIME: 12/15/2016 6:59 pm REASON FOR STUDY: fall COMPARISON: None. NUMBER OF VIEWS: Two views. TECHNIQUE: AP pelvis and additional frog-leg view of the right hip. LIMITATIONS: None. FINDINGS: MINERALIZATION: Normal. RIGHT HIP: No fracture or dislocation. No worrisome bone lesions. LEFT HIP: No fracture or dislocation. No worrisome bone lesions. PUBIS AND ISCHIUM: No fracture. PELVIS: No fracture. SACRUM: No fracture or dislocation. No worrisome bone lesions. LOWER LUMBAR SPINE: No fracture or dislocation. No worrisome bone lesions. No significant disc disea se. SOFT TISSUES: No findings. OTHER: No other significant finding. IMPRESSION: NEGATIVE STUDY OF THE RIGHT HIP. NO RADIOGRAPHIC EVIDENCE OF ACUTE INJURY. TECHNICAL DOCUMENTATION: JOB ID: [id number] [employer]- All Rights Reserved
[2016-12-15 19:26] LABS: ABSOLUTE BASOPHILS # (AUTO) 0.1 10^3/uL (0.0-0.2); ABSOLUTE EOSINOPHILS # (AUTO) 0.1 10^3/uL (0.0-0.6); ABSOLUTE MONOCYTES (AUTO) 0.6 10^3/uL (0.1-1.4); BASOPHILS % (AUTO) 0.7 % (0-2); EOSINOPHILS % (AUTO) 0.6 % (0-6); HEMATOCRIT 44.1 % (37.9-51.0); HEMOGLOBIN 14.7 g/dL (13.5-17.0); LYMPHOCYTES % (AUTO) 10.6 % (13-45); MEAN CORPUSCULAR HEMOGLOBIN 28.8 pg (27.0-33.4); MEAN CORPUSCULAR HGB CONC 33.3 g/dL (32.0-36.0); MEAN CORPUSCULAR VOLUME 87 fl (80-97); RED BLOOD COUNT 5.09 10^6/uL (4.35-5.55); RED CELL DISTRIBUTION WIDTH 16.5 % (11.5-14.0); SEGMENTED NEUTROPHILS % (AUTO) 82.1 % (42-78); WHITE BLOOD COUNT 9.8 10^3/uL (4.0-10.5)
[2016-12-15 19:48] LABS: ANION GAP 15 (5-19); BLOOD UREA NITROGEN 19 mg/dL (7-20); CALCIUM 10.4 mg/dL (8.4-10.2); CARBON DIOXIDE 18 mmol/L (22-30); CHLORIDE 111 mmol/L (98-107); CREATININE RESULT 1.84 mg/dL (0.52-1.25); GLUCOSE 111 mg/dL (75-110); POTASSIUM 4.2 mmol/L (3.6-5.0); SODIUM 143.6 mmol/L (137-145)
[2016-12-15] MEDS ORDERED: ASPIRIN 81 MG TABLET, CHEWABLE PO ONE (20:27)
[2016-12-15] MEDS ORDERED: GLUCAGON,HUMAN RECOMB 1 MG INJ SUBCUT PRN (22:42)
[2016-12-15] MEDS ORDERED: DEXTROSE 40% GEL 15 GM TUBE PO PRN ×2 (22:42)
[2016-12-15] MEDS ORDERED: NORMAL SALINE 1000 ML 1,000 ML IV PRN (22:42)
[2016-12-15] MEDS ORDERED: DEXTROSE 50%-WATER 25 GM/50 ML DISP.SYRIN IV PRN ×2 (22:42)
[2016-12-15] MEDS ORDERED: AMLODIPINE BESYLATE 5 MG TABLET PO SCH (23:00)
[2016-12-15] MEDS ORDERED: (PENDING PHARMACY ID) (Omeprazole Magnesium [Prilosec Otc] 40 MG) PO SCH (23:00)
[2016-12-15] MEDS ORDERED: SIMVASTATIN 10 MG TABLET PO SCH (23:00)
[2016-12-15 23:01] LABS: PROTHROMBIN TIME 13.6 SEC (11.4-15.4)
[2016-12-15 23:02] LABS: PARTIAL THROMBOPLASTIN TIME 38.6 SEC (23.5-35.8)
[2016-12-15 23:42] LABS: HEMATOCRIT 41.2 % (37.9-51.0); HEMOGLOBIN 13.7 g/dL (13.5-17.0); HGB HCT DIFFERENCE -0.1; MEAN CORPUSCULAR HEMOGLOBIN 28.5 pg (27.0-33.4); MEAN CORPUSCULAR HGB CONC 33.2 g/dL (32.0-36.0); MEAN CORPUSCULAR VOLUME 86 fl (80-97); RED CELL DISTRIBUTION WIDTH 16.4 % (11.5-14.0)
[2016-12-15 23:44] LABS: CREATININE RESULT 1.77 mg/dL (0.52-1.25)
--- NOTE | 2016-12-16 03:56 | EKG REPORT ---
SEVERITY:- ABNORMAL ECG - SINUS RHYTHM MULTIFORM VENTRICULAR PREMATURE COMPLEXES LEFT BUNDLE BRANCH BLOCK : Confirmed by: Delma Fuchs MD 16-Dec-2016 03:55:20
[2016-12-16 07:07] LABS: CREATINE KINASE MB 3.05 ng/mL (<4.55); TROPONIN I 0.082 ng/mL
[2016-12-16] MEDS: IPRATROPIUM/ALBUTEROL 0.5-2.5 MG/3 ML AMPUL NEB PRN ×3 (08:41→21:29)
[2016-12-16] MEDS ORDERED: (PENDING PHARMACY ID) (Budesonide [Pulmicort 180 Mcg Flexhaler] 2 PUFF) IH SCH (10:00)
--- NOTE | 2016-12-16 11:10 | RADIOLOGY REPORT (SQ) ---
EXAM DESCRIPTION: MRI HEAD WITHOUT COMPLETED DATE/TIME: 12/16/2016 10:58 am REASON FOR STUDY: CVA COMPARISON: CT brain 12/15/2016 TECHNIQUE: Multiplanar imaging includes non-contrasted T1, T2, FLAIR, and diffusion with ADC map seq uences. Images stored on PACS. LIMITATIONS: Motion artifact FINDINGS: ANATOMY: No developmental anomalies. Normal vascular flow voids. Pituitary fossa normal. CSF SPACES: Stable prominence of the ventricles and sulci. CEREBRUM: Old encephalomalacia in the right frontal anterior cortex and subcortical white matter, and left frontal posterior cortex and subcortical white matter. Spotty bifrontal and biparietal white m atter signal abnormalities from small vessel disease. No MR evidence of acute ischemic change, acute intracranial hemorrhage, mass effect, or midline shift . POSTERIOR FOSSA: No signal alteration. No hemorrhage. No edema, masses or mass effect. Internal louise tory canals, cerebello-pontine angles, mastoids normal. DIFFUSION IMAGING: Negative for acute or sub-acute infarction. ORBITS: No masses. Globes normal. PARANASAL SINUSES: No fluid levels. Mucosa normal. OTHER: No other significant finding. IMPRESSION: No acute findings Stable prominence of the ventricles and sulci Stable old infarcts in the anterior right frontal and posterior left frontal regions with stable spot ty white matter chronic disease. EVIDENCE OF ACUTE STROKE: NO. TECHNICAL DOCUMENTATION: JOB ID: [id number]- All Rights Reserved
[2016-12-16 13:03] LABS: CREATINE KINASE MB 2.36 ng/mL (<4.55); TROPONIN I 0.065 ng/mL
[2016-12-16] MEDS: ENOXAPARIN SODIUM INJ 40 MG/0.4 ML DISP.SYRIN SUBCUT SCH (14:50)
[2016-12-16] MEDS: METOPROLOL TARTRATE 50 MG TABLET PO SCH ×2 (14:51→22:42)
[2016-12-16] MEDS: ASPIRIN/DIPYRIDAMOLE 25-200 MG 1 CAP.SR CPMP.12HR PO SCH ×2 (14:56→22:41)
[2016-12-16] MEDS: CLONIDINE HCL 0.1 MG TABLET PO SCH ×2 (14:57→22:41)
[2016-12-16] MEDS: LANSOPRAZOLE 30 MG TAB.RAP.DR PO SCH ×2 (15:02→17:56)
[2016-12-16] MEDS: ISOSORBIDE DINITRATE 20 MG TABLET PO SCH ×2 (15:02→17:55)
[2016-12-16] MEDS: TIOTROPIUM BROMIDE DPI 5 CAP/KIT (18 MCG/CAP) IH SCH (15:02)
[2016-12-16] MEDS: DOCUSATE SODIUM 100 MG CAPSULE PO SCH ×2 (15:02→17:56)
[2016-12-16] MEDS: POLYETHYLENE GLYCOL 3350 POWDER 17 GM/1 PACKET PO SCH (15:02)
--- NOTE | 2016-12-16 15:11 | RADIOLOGY REPORT (SQ) ---
EXAM DESCRIPTION: CAROTID DOPPLER COMPLETED DATE/TIME: 12/16/2016 2:58 pm REASON FOR STUDY: CVA COMPARISON: None. TECHNIQUE: Grayscale ultrasound, Doppler velocity and spectra, and color Doppler images acquired of the extra-cranial carotid and vertebral arteries. Images stored on PACS. LIMITATIONS: Study is limited due to the patient's inability to cooperate. The right distal interna l carotid artery was not visualize. FINDINGS: RIGHT CAROTID CCA Velocities: Within normal limits. ICA Velocities Peak systolic 0.32 m/s. End diastolic 0.09 m/s. Proximal ICA/CCA peak systolic ratio 0.89. Spectra normal. No significant plaque. LEFT CAROTID CCA Velocities: Within normal limits. ICA Velocities Peak systolic 1.18 m/s. End diastolic 0.31 m/s. Proximal ICA/CCA peak systolic ratio 1.9. Spectra normal. No significant plaque. VERTEBRAL ARTERIES: Antegrade flow. Normal waveforms. SUBCLAVIAN ARTERIES: No finding. OTHER: No other significant finding. IMPRESSION: NO HEMODYNAMICALLY SIGNIFICANT STENOSIS. COMMENT: Quality ID #[id number]: Velocity criteria are extrapolated from the diameter data as defined by t he Society of Radiologists in Ultrasound Consensus Conference. Radiology 2003: 229; 340-346. TECHNICAL DOCUMENTATION: JOB ID: [id number] [employer]- All Rights Reserved
[2016-12-16 16:37] LABS: CREATINE KINASE MB 1.95 ng/mL (<4.55); TROPONIN I 0.061 ng/mL
--- NOTE | 2016-12-16 19:01 | XCELERA REPORT ---
[address] [address] Transthoracic Echocardiogram Report Name: PHOEBE CHARLES Age: 76 yrs Gender: Male : 1940 Patient Status: Inpatient Patient Location: [address] [place] [address] Study Date: 12/16/2016 01:28 PM Height: 66 in Weight: 181 lb BSA: 1.9 m2 Procedure: A complete two-dimensional transthoracic echocardiogram was performed (2D, M-mode, spectral and color flow Doppler). The study was technically difficult with many images being suboptimal in quality. Reason For Study: CVA Ordering Physician: ILAN FALCON Performed By: Leonor Yen Interpretation Summary The left ventricular ejection fraction is within normal limits. There is mild concentric left ventricular hypertrophy. Doppler measurements suggest pseudonormalized left ventricular relaxation, which is associated with grade II/IV or mild to moderate diastolic dysfunction The left ventricle is grossly normal size. Wall motion cannot be accurately commented on, but no definite regional wall motion abnormalities noted. The right ventricular systolic function is normal. The left atrial size is normal. The right atrium is normal in size There is a trace to mild amount of mitral regurgitation There is no mitral valve stenosis. There is a mild amount of aortic regurgitation There is no aortic valve stenosis There is a trace amount of tricuspid regurgitation Tricuspid regurgitation jet envelope not well defined to measure RV systolic pressure accurately. The aortic root is not well visualized. The inferior vena cava was not well visualized There is no pericardial effusion. MMode/2D Measurements & Calculations RVDd: 3.4 cm LVIDd: 4.8 cm FS: 35.8 % Ao root diam: 3.4 cm IVSd: 0.97 cm LVIDs: 3.1 cm EDV(Teich): 107.7 ml LVPWd: 0.96 cm ESV(Teich): 37.4 ml Ao root area: 9.0 cm2 EF(Teich): 65.2 % LA dimension: 2.6 cm Doppler Measurements & Calculations MV E max bennie: MV P1/2t max bennie: Ao V2 max: LV V1 max P.7 cm/sec 56.3 cm/sec 132.0 cm/sec 4.9 mmHg MV A max bennie: MV P1/2t: 86.1 msec Ao max PG: LV V1 max: 113.0 cm/sec 7.0 mmHg 111.1 cm/sec MV E/A: 0.52 MVA(P1/2t): 2.6 cm2 MV dec slope: 191.5 cm/sec2 Left Ventricle The left ventricle is grossly normal size. There is mild concentric left ventricular hypertrophy. The left ventricular ejection fraction is within normal limits. Doppler measurements suggest pseudonormalized left ventricular relaxation, which is associated with grade II/IV or mild to moderate diastolic dysfunction. Wall motion cannot be accurately commented on, but no definite regional wall motion abnormalities noted. Right Ventricle The right ventricle is grossly normal size. There is normal right ventricular wall thickness. The right ventricular systolic function is normal. Atria The right atrium is normal in size. The left atrial size is normal. Interarterial septum not well visualized and not well dopplered. Cannot comment on ASD/PFO presence. Mitral Valve The mitral valve leaflets are sclerotic, but show no functional abnormalities. There is no mitral valve stenosis. There is a trace to mild amount of mitral regurgitation. Aortic Valve The aortic valve is grossly normal. There is no aortic valve stenosis. There is a mild amount of aortic regurgitation. Tricuspid Valve The tricuspid valve is not well visualized, but is grossly normal. There is no tricuspid stenosis. There is a trace amount of tricuspid regurgitation. Tricuspid regurgitation jet envelope not well defined to measure RV systolic pressure accurately. Pulmonic Valve The pulmonic valve is not well visualized. Great Vessels The aortic root is not well visualized. The inferior vena cava was not well visualized. Effusions There is no pericardial effusion. Incidental Findings No definite cardiac source of CVA/TIA noted on this particular trans- thoracic study. Consider SPARKLE if clinically indicated. May consider mobile cardiac telemetry monitoring (MCT) for ruling out transient AFIB. : ILAN FALCON > Beto Delarosa
--- NOTE | 2016-12-16 20:46 | PDOC H&P ---
History of Present Illness Admission Date/PCP: 12/16/16 17:13 BOB MAHARAJ MD History of Present Illness: PHOEBE CHARLES is a 76 year old male, he has a history of chronic kidney disease stage III, chronic diastolic heart failure, coronary artery disease, a resident of the care home at [facility]. He was transferred from the care home to the emergency room because he was found on the floor dysphasic and there was a concern for CVA. 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 The initial CAT scan of the head that was done did not show any acute stroke patient was admitted to the hospital for the management of CVA ,the clinical picture was highly suggestive of CVA. Subsequent MRI that was done this morning showed old encephalomalacia in the right frontal anterior cortex and subcortical white matter and left frontal posterior cortex and subcortical white matter no MRI evidence of acute ischemic change acute hemorrhage mass-effect or midline shift. The diffusion imaging was negative for acute or subacute infarction. Patient failed the initial swallow screen test that was done this morning suggesting that he is a high risk for aspiration. The carotid Doppler that was done this morning did not show any significant hemodynamic lesion in the carotid artery system. I saw patient on the floor he does not respond verbally to questions appropriately probably from his residual dysphasia from previous stroke. Past Medical History Cardiac Medical History: Reports: Coronary Artery Disease, Hyperlipidema, Hypertension, Other - Chronic diastolic heart failure Pulmonary Medical History: Reports: Chronic Obstructive Pulmonary Disease (COPD) Neurological Medical History: Reports: Ischemic CVA Renal/ Medical History: Reports: Chronic Kidney Disease, Other - Chronic kidney disease stage III GI Medical History: Reports: Gastroesophageal Reflux Disease, Hiatal Hernia Hematology: Reports: Anemia Past Surgical History Past Surgical History: 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 Social History Information Source: Patient, Transfer Record Lives with: [facility] Smoking Status: Former Smoker Frequency of Alcohol Use: None Hx Recreational Drug Use: No Hx Prescription Drug Abuse: No - Advance Directive Resuscitation Status: Full Code Family History Family History: CAD Parental Family History Reviewed: Yes Children Family History Reviewed: Yes Sibling(s) Family History Reviewed.: Yes Medication/Allergy Home Medications: Aspirin [[place] Aspirin] 81 mg PO DAILY 07/18/16 Budesonide [Pulmicort 180 mcg Flexhaler] 2 puff IH DAILY PRN 07/18/16 Clonidine HCl [Catapres 0.1 mg Tablet] 0.1 mg PO Q12 07/18/16 Isosorbide Dinitrate [Isordil Titradose 20 mg Tablet] 20 mg PO Q8 07/18/16 Metoprolol Tartrate [Lopressor] 50 mg PO Q12 07/18/16 Ondansetron HCl [Zofran 4 mg Tablet] 4 mg PO Q8HP PRN 07/18/16 Simvastatin [Zocor 20 mg Tablet] 20 mg PO QHS 07/18/16 Tiotropium [place] [Spiriva Handihaler 5 Cap/Kit (18 Mcg/Cap)] 1 cap IH DAILY Docusate Sodium [Colace 100 mg Capsule] 100 mg PO BID #0 capsule 07/28/16 Ipratropium/Albuterol Sulfate [Duoneb 3 ml Ampul] 3 ml NEB [id number] PRN #0 vial.neb 07/28/16 Polyethylene Glycol 3350 [Miralax Powder 17 gm/Packet] 17 gm PO DAILY #0 powd.pack 07/28/16 Amlodipine Besylate [Norvasc 5 mg Tablet] 5 mg PO QHS 12/16/16 Omeprazole 40 mg PO BID 12/16/16 Allergies/Adverse Reactions: No Known Allergies Allergy (Verified 07/18/16 03:22) Review of Systems ROS unobtainable: Other - Expressive dysphasia Constitutional: PRESENT: as per HPI Cardiovascular: ABSENT: as per HPI, chest pain, dyspnea on exertion, edema, orthropnea, palpitations, other Gastrointestinal: ABSENT: as per HPI, abdominal pain, bloating, coffee ground emesis, constipation, diarrhea, dysphagia, heartburn, hematemesis, hematochezia , melena, nausea, vomiting, other Integumentary: ABSENT: as per HPI, diaphoresis, erythema, lesions, pruritus, rash, wounds, other Physical Exam Vital Signs: Temp Pulse Resp BP Pulse Ox 98.5 F 66 18 107/73 98 12/16/16 19:43 12/16/16 19:43 12/16/16 19:43 12/16/16 19:43 12/16/16 19:43 Intake & Output 12/15/16 12/16/16 12/17/16 06:59 06:59 06:59 Intake Total 10 Balance 10 General appearance: PRESENT: no acute distress, well-developed, well-nourished Head exam: PRESENT: atraumatic, normocephalic Eye exam: PRESENT: conjunctiva pink, EOMI, PERRLA Ear exam: PRESENT: normal external ear exam Mouth exam: PRESENT: moist, tongue midline Neck exam: PRESENT: full ROM. ABSENT: carotid bruit, JVD, lymphadenopathy, thyromegaly Cardiovascular exam: PRESENT: RRR, +S1, +S2 Vascular exam: PRESENT: normal capillary refill GI/Abdominal exam: PRESENT: normal bowel sounds, soft Rectal exam: PRESENT: deferred Neurological exam: PRESENT: alert, motor sensory deficit - Hemiparesis of the left side of body Skin exam: PRESENT: dry, intact, warm Results Impressions: Head CT 12/15/16 00:00 IMPRESSION: CHRONIC CHANGES OF ATROPHY AND MICROVASCULAR ISCHEMIA. Areas of prior infarction as noted above. NO ACUTE PROCESS. EVIDENCE OF ACUTE STROKE: NO. Chest X-Ray 12/15/16 18:26 IMPRESSION: NO ACUTE RADIOGRAPHIC FINDING IN THE CHEST. Hip/Pelvis X-Ray 12/15/16 18:26 IMPRESSION: NEGATIVE STUDY OF THE RIGHT HIP. NO RADIOGRAPHIC EVIDENCE OF ACUTE INJURY. Carotid Doppler Study 12/16/16 00:00 IMPRESSION: NO HEMODYNAMICALLY SIGNIFICANT STENOSIS. Head MRI 12/16/16 00:00 IMPRESSION: No acute findings Stable prominence of the ventricles and sulci Stable old infarcts in the anterior right frontal and posterior left frontal regions with stable spotty white matter chronic disease. EVIDENCE OF ACUTE STROKE: NO. Assessment & Plan - Diagnosis (1) Cerebral infarction Qualifiers: Cerebral infarction mechanism: unspecified mechanism Qualified Code(s): I63.9 - Cerebral infarction, unspecified Is this a current diagnosis for this admission?: Yes Plan: The MRI did not show any new cerebral infarction,it showed old infarct in the anterior right frontal and posterior left frontal regions. He failed swallow screen study, consultation will be requested from speech for further evaluation (2) Chronic diastolic (congestive) heart failure Is this a current diagnosis for this admission?: Yes (3) Chronic kidney disease, stage 3 Is this a current diagnosis for this admission?: Yes
[2016-12-17] MEDS: IPRATROPIUM/ALBUTEROL 0.5-2.5 MG/3 ML AMPUL NEB PRN ×2 (07:55→14:21)
[2016-12-17] MEDS: ASPIRIN/DIPYRIDAMOLE 25-200 MG 1 CAP.SR CPMP.12HR PO SCH (09:39)
[2016-12-17] MEDS: DOCUSATE SODIUM 100 MG CAPSULE PO SCH (09:40)
[2016-12-17] MEDS: LANSOPRAZOLE 30 MG TAB.RAP.DR PO SCH (09:40)
[2016-12-17] MEDS: METOPROLOL TARTRATE 50 MG TABLET PO SCH (09:40)
[2016-12-17] MEDS: CLONIDINE HCL 0.1 MG TABLET PO SCH (09:40)
[2016-12-17] MEDS: ISOSORBIDE DINITRATE 20 MG TABLET PO SCH ×2 (09:41→13:55)
[2016-12-17] MEDS: TIOTROPIUM BROMIDE DPI 5 CAP/KIT (18 MCG/CAP) IH SCH (09:41)
[2016-12-17] MEDS: ENOXAPARIN SODIUM INJ 40 MG/0.4 ML DISP.SYRIN SUBCUT SCH (09:42)
[2016-12-17] MEDS: POLYETHYLENE GLYCOL 3350 POWDER 17 GM/1 PACKET PO SCH (09:43)
[2016-12-17 10:02] LABS: ABSOLUTE BASOPHILS # (AUTO) 0.1 10^3/uL (0.0-0.2); ABSOLUTE EOSINOPHILS # (AUTO) 0.6 10^3/uL (0.0-0.6); ABSOLUTE LYMPHOCYTES (AUTO) 2.3 10^3/uL (0.5-4.7); ABSOLUTE MONOCYTES (AUTO) 0.6 10^3/uL (0.1-1.4); ABSOLUTE NEUT (AUTO) 4.9 10^3/uL (1.7-8.2); BASOPHILS % (AUTO) 1.2 % (0-2); EOSINOPHILS % (AUTO) 7.4 % (0-6); HEMATOCRIT 38.4 % (37.9-51.0); HEMOGLOBIN 12.9 g/dL (13.5-17.0); HGB HCT DIFFERENCE 0.3; MEAN CORPUSCULAR HEMOGLOBIN 28.9 pg (27.0-33.4); MEAN CORPUSCULAR HGB CONC 33.5 g/dL (32.0-36.0); MEAN CORPUSCULAR VOLUME 86 fl (80-97); MONOCYTES % (AUTO) 7.5 % (3-13); RED BLOOD COUNT 4.44 10^6/uL (4.35-5.55); RED CELL DISTRIBUTION WIDTH 16.1 % (11.5-14.0); SEGMENTED NEUTROPHILS % (AUTO) 56.9 % (42-78); WHITE BLOOD COUNT 8.6 10^3/uL (4.0-10.5)
[2016-12-17 10:21] LABS: ALANINE AMINOTRANSFERASE 10 U/L (21-72); ALBUMIN 3.4 g/dL (3.5-5.0); ALKALINE PHOSPHATASE 94 U/L (38-126); ANION GAP 12 (5-19); ASPARTATE AMINO TRANSFERASE 26 U/L (17-59); BILIRUBIN,DIRECT 0.6 mg/dL (0.0-0.4); BILIRUBIN,TOTAL 0.9 mg/dL (0.2-1.3); BLOOD UREA NITROGEN 18 mg/dL (7-20); CALCIUM 10.4 mg/dL (8.4-10.2); CARBON DIOXIDE 23 mmol/L (22-30); CHLORIDE 112 mmol/L (98-107); CREATININE RESULT 1.77 mg/dL (0.52-1.25); GLUCOSE 78 mg/dL (75-110); POTASSIUM 4.3 mmol/L (3.6-5.0); SODIUM 146.8 mmol/L (137-145); TOTAL PROTEIN 6.4 g/dL (6.3-8.2)
--- NOTE | 2016-12-17 13:29 | PDOC TRANSFER SUMMARY ---
General - Admit/Disc Date/PCP Admission Date/Primary Care Provider: 12/16/16 17:13 BOB MAHARAJ MD Discharge Date: 12/17/16 - Discharge Diagnosis (1) Cerebral infarction Is this a current diagnosis for this admission?: Yes (2) Chronic diastolic (congestive) heart failure Is this a current diagnosis for this admission?: Yes (3) Chronic kidney disease, stage 3 Is this a current diagnosis for this admission?: Yes - Additional Information Resuscitation Status: Full Code Discharge Diet: As Tolerated Home Medications: Aspirin [[place] Aspirin] 81 mg PO DAILY 07/18/16 Budesonide [Pulmicort 180 mcg Flexhaler] 2 puff IH DAILY PRN 07/18/16 Clonidine HCl [Catapres 0.1 mg Tablet] 0.1 mg PO Q12 07/18/16 Isosorbide Dinitrate [Isordil Titradose 20 mg Tablet] 20 mg PO Q8 07/18/16 Metoprolol Tartrate [Lopressor] 50 mg PO Q12 07/18/16 Ondansetron HCl [Zofran 4 mg Tablet] 4 mg PO Q8HP PRN 07/18/16 Simvastatin [Zocor 20 mg Tablet] 20 mg PO QHS 07/18/16 Tiotropium [place] [Spiriva Handihaler 5 Cap/Kit (18 Mcg/Cap)] 1 cap IH DAILY Docusate Sodium [Colace 100 mg Capsule] 100 mg PO BID #0 capsule 07/28/16 Ipratropium/Albuterol Sulfate [Duoneb 3 ml Ampul] 3 ml NEB [id number] PRN #0 vial.neb 07/28/16 Polyethylene Glycol 3350 [Miralax Powder 17 gm/Packet] 17 gm PO DAILY #0 powd.pack 07/28/16 Amlodipine Besylate [Norvasc 5 mg Tablet] 5 mg PO QHS 12/16/16 Omeprazole 40 mg PO BID 12/16/16 History of Present Illness Admission Date/PCP: 12/16/16 17:13 BOB MAHARAJ MD History of Present Illness: PHOEBE CHARLES is a 76 year old male, he has a history of chronic kidney disease stage III, chronic diastolic heart failure, coronary artery disease, a resident of the longterm at [facility]. He was transferred from the longterm to the emergency room because he was found on the floor dysphasic and there was a concern for CVA. 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 The initial CAT scan of the head that was done did not show any acute stroke patient was admitted to the hospital for the management of CVA ,the clinical picture was highly suggestive of CVA. Subsequent MRI that was done this morning showed old encephalomalacia in the right frontal anterior cortex and subcortical white matter and left frontal posterior cortex and subcortical white matter no MRI evidence of acute ischemic change acute hemorrhage mass-effect or midline shift. The diffusion imaging was negative for acute or subacute infarction. Patient failed the initial swallow screen test that was done this morning suggesting that he is a high risk for aspiration. The carotid Doppler that was done this morning did not show any significant hemodynamic lesion in the carotid artery system. I saw patient on the floor he does not respond verbally to questions appropriately probably from his residual dysphasia from previous stroke. Hospital Course Hospital Course: Patient was admitted because of expressive dysphasia and concern for CVA. The initial CAT scan of the head that was done was negative for any acute stroke subsequent MRI brain that was done was also negative for any acute stroke, it confirmed old cerebral infarction. Initially on admission he failed swallow screen subsequently he did well on a swallow screen. He was managed according to the stroke protocol in the hospital. The plan is to transfer him back to longterm for continuity of care . Physical Exam Vital Signs: Temp Pulse Resp BP Pulse Ox 97.4 F 60 16 145/114 H 100 12/17/16 07:15 12/17/16 08:00 12/17/16 08:00 12/17/16 08:00 12/17/16 08:00 Intake & Output 12/16/16 12/17/16 12/18/16 06:59 06:59 06:59 Intake Total 13 Balance 13 General appearance: PRESENT: no acute distress, well-developed, well-nourished Head exam: PRESENT: atraumatic, normocephalic Eye exam: PRESENT: conjunctiva pink, EOMI, PERRLA Ear exam: PRESENT: normal external ear exam Mouth exam: PRESENT: moist, tongue midline Respiratory exam: PRESENT: clear to auscultation magdalena Cardiovascular exam: PRESENT: RRR Pulses: PRESENT: normal dorsalis pedis pul Vascular exam: PRESENT: normal capillary refill GI/Abdominal exam: PRESENT: normal bowel sounds, soft Rectal exam: PRESENT: deferred Extremities exam: PRESENT: full ROM Neurological exam: PRESENT: alert, motor sensory deficit Psychiatric exam: PRESENT: appropriate affect, normal mood Skin exam: PRESENT: dry, intact, warm Results Laboratory Results: 12/17/16 09:52 12/17/16 09:52 12/17/16 12/17/16 09:52 09:52 WBC 8.6 RBC 4.44 Hgb 12.9 L Hct 38.4 MCV 86 MCH 28.9 MCHC 33.5 RDW 16.1 H Plt Count 262 Seg Neutrophils % 56.9 Lymphocytes % 27.0 Monocytes % 7.5 Eosinophils % 7.4 H Basophils % 1.2 Absolute Neutrophils 4.9 Absolute Lymphocytes 2.3 Absolute Monocytes 0.6 Absolute Eosinophils 0.6 Absolute Basophils 0.1 Sodium 146.8 H Potassium 4.3 Chloride 112 H Carbon Dioxide 23 Anion Gap 12 BUN 18 Creatinine 1.77 H Est GFR ( Amer) 46 L Est GFR (Non-Af Amer) 38 L Glucose 78 Calcium 10.4 H Total Bilirubin 0.9 AST 26 ALT 10 L Alkaline Phosphatase 94 Total Protein 6.4 Albumin 3.4 L Impressions: Head CT 12/15/16 00:00 IMPRESSION: CHRONIC CHANGES OF ATROPHY AND MICROVASCULAR ISCHEMIA. Areas of prior infarction as noted above. NO ACUTE PROCESS. EVIDENCE OF ACUTE STROKE: NO. Chest X-Ray 12/15/16 18:26 IMPRESSION: NO ACUTE RADIOGRAPHIC FINDING IN THE CHEST. Hip/Pelvis X-Ray 12/15/16 18:26 IMPRESSION: NEGATIVE STUDY OF THE RIGHT HIP. NO RADIOGRAPHIC EVIDENCE OF ACUTE INJURY. Carotid Doppler Study 12/16/16 00:00 IMPRESSION: NO HEMODYNAMICALLY SIGNIFICANT STENOSIS. Head MRI 12/16/16 00:00 IMPRESSION: No acute findings Stable prominence of the ventricles and sulci Stable old infarcts in the anterior right frontal and posterior left frontal regions with stable spotty white matter chronic disease. EVIDENCE OF ACUTE STROKE: NO.
[2016-12-17 13:35] VITALS: BP 125/58
== END 2016-12-17 17:51 | DRG 57 ==
LOC: ER 17:34 → EH 20:47 → UNDOADMIN 20:47 → 3N 12-16 00:01 → EH 12-16 00:01 → 3N 12-16 17:13
PROVIDERS: ADMIT Internal Medicine; ATTEND Internal Medicine
DX: I69.321 Dysphasia following cerebral infarction (principal); I13.0 Hypertensive heart and chronic kidney disease with heart failure and stage 1 through stage 4 chronic kidney disease, or unspecified chronic kidney disease; I50.32 Chronic diastolic (congestive) heart failure; I69.354 Hemiplegia and hemiparesis following cerebral infarction affecting left non-dominant side; N18.3 Chronic kidney disease, stage 3 (moderate); J44.9 Chronic obstructive pulmonary disease, unspecified; K21.9 Gastro-esophageal reflux disease without esophagitis; K44.9 Diaphragmatic hernia without obstruction or gangrene; E78.5 Hyperlipidemia, unspecified; I25.10 Atherosclerotic heart disease of native coronary artery without angina pectoris; Z79.82 Long term (current) use of aspirin; Z79.899 Other long term (current) drug therapy; Z95.1 Presence of aortocoronary bypass graft
CPT/HCPCS: 36415; 70450; 70551; 71010; 80048; 80053; 82550; 82553; 82565; 82962; 84484; 85025; 85027; 85610; 85730; 93005; 93010; 93306; 93880; 94640; 99285; G8978-GP; G8979-GP; G8980-GP; G8987-GO; G8988-GO; G8989-GO; J1650; J3490; J7620

== ENCOUNTER 2016-12-28 20:26 | Inpatient (IN) | payer MEDICARE, MEDICAID ==
[2016-12-28 21:21] LABS: HEMATOCRIT 43.2 % (37.9-51.0); HEMOGLOBIN 14.2 g/dL (13.5-17.0); HGB HCT DIFFERENCE -0.6; MEAN CORPUSCULAR HGB CONC 32.9 g/dL (32.0-36.0); MEAN CORPUSCULAR VOLUME 85 fl (80-97); RED BLOOD COUNT 5.07 10^6/uL (4.35-5.55); RED CELL DISTRIBUTION WIDTH 16.3 % (11.5-14.0); WHITE BLOOD COUNT 29.7 10^3/uL (4.0-10.5)
[2016-12-28 21:25] LABS: PARTIAL THROMBOPLASTIN TIME 45.2 SEC (23.5-35.8)
[2016-12-28 21:42] LABS: ALANINE AMINOTRANSFERASE 41 U/L (21-72); ALBUMIN 3.8 g/dL (3.5-5.0); ALKALINE PHOSPHATASE 157 U/L (38-126); ANION GAP 16 (5-19); ASPARTATE AMINO TRANSFERASE 63 U/L (17-59); BILIRUBIN,DIRECT 1.8 mg/dL (0.0-0.4); BILIRUBIN,TOTAL 2.6 mg/dL (0.2-1.3); BLOOD UREA NITROGEN 19 mg/dL (7-20); CALCIUM 10.2 mg/dL (8.4-10.2); CARBON DIOXIDE 22 mmol/L (22-30); CHLORIDE 108 mmol/L (98-107); CREATINE KINASE 29 U/L (55-170); GLUCOSE 172 mg/dL (75-110); POTASSIUM 4.4 mmol/L (3.6-5.0); SODIUM 145.6 mmol/L (137-145)
[2016-12-28 21:54] LABS: BASOPHILS % (MANUAL) 0 % (0-2); CREATINE KINASE MB 0.39 ng/mL (<4.55); EOSINOPHILS % (MANUAL) 0 % (0-6); LYMPHOCYTES % (MANUAL) 3 % (13-45); TOTAL CELLS COUNTED 100
[2016-12-28 21:56] LABS: ANISOCYTOSIS 1+; BURR CELLS SLIGHT; OVALOCYTES SLIGHT; TOXIC GRANULATION SLIGHT
[2016-12-28 21:59] LABS: TROPONIN I 0.077 ng/mL
--- NOTE | 2016-12-28 22:21 | RADIOLOGY REPORT (SQ) ---
EXAM DESCRIPTION: CT HEAD WITHOUT COMPLETED DATE/TIME: 12/28/2016 9:27 pm REASON FOR STUDY: stroke sx times 2 days COMPARISON: 12/15/2016 TECHNIQUE: Axial images acquired through the brain without intravenous contrast. Images reviewed wi th bone, brain and subdural windows. Images stored on PACS. All CT scanners at this facility use dose modulation, iterative reconstruction, and/or weight based d osing when appropriate to reduce radiation dose to as low as reasonably achievable (ALARA). [facility]: Dose Right [facility]: CareDose [facility]: Dose Right [facility]: Teradose 4D [facility]: [employer] RADIATION DOSE: Up-to-date CT equipment and radiation dose reduction techniques were employed. CTDIv ol: 64.6 mGy. DLP: 1163 mGy-cm.mGy. LIMITATIONS: None. FINDINGS: VENTRICLES: Prominent. CEREBRUM: No masses. No hemorrhage. No midline shift. Areas of low density in the white matter due to chronic ischemic change. No evidence for acute infarction. CEREBELLUM: No masses. No hemorrhage. No alteration of density. No evidence for acute infarction. EXTRAAXIAL SPACES: Age-related involutional change. No fluid collections. No masses. ORBITS AND GLOBE: No intra- or extraconal masses. Normal contour of globe without masses. CALVARIUM: No fracture. PARANASAL SINUSES: No fluid or mucosal thickening. SOFT TISSUES: No mass or hematoma. OTHER: No other significant finding. IMPRESSION: CHRONIC CHANGES OF ATROPHY AND MICROVASCULAR ISCHEMIA. NO ACUTE PROCESS. EVIDENCE OF ACUTE STROKE: NO. TECHNICAL DOCUMENTATION: JOB ID: [id number] Quality ID # [id number]: Final reports with documentation of one or more dose reduction techniques (e.g., Au tomated exposure control, adjustment of the mA and/or kV according to patient size, use of iterative reconstruction technique) 2010 [employer]- All Rights Reserved
--- NOTE | 2016-12-28 22:30 | RADIOLOGY REPORT (SQ) ---
EXAM DESCRIPTION: CHEST SINGLE VIEW COMPLETED DATE/TIME: 12/28/2016 9:25 pm REASON FOR STUDY: stroke protocol COMPARISON: 12/15/2016 NUMBER OF VIEWS: One view. TECHNIQUE: Single frontal radiographic view of the chest acquired. LIMITATIONS: None. FINDINGS: LUNGS AND PLEURA: No acute opacities, masses or pneumothorax. No pleural effusion. MEDIASTINUM AND HILAR STRUCTURES: Stable. HEART AND VASCULAR STRUCTURES: Stable cardiomegaly. BONES: No acute findings. HARDWARE: CABG hardware. OTHER: No other significant finding. IMPRESSION: No acute findings. TECHNICAL DOCUMENTATION: JOB ID: [id number]- All Rights Reserved
[2016-12-28 23:05] LABS: APPEARANCE,URINE CLEAR; BILIRUBIN,URINE NEGATIVE (NEGATIVE); GLUCOSE, URINE NEGATIVE (NEGATIVE); KETONES,URINE 20 mg/dL (NEGATIVE); LEUKOCYTE ESTERASE,URINE NEGATIVE (NEGATIVE); NITRITE,URINE NEGATIVE (NEGATIVE); PROTEIN,URINE >=500 mg/dL (NEGATIVE); URINE SPECIFIC GRAVITY 1.016
--- NOTE | 2016-12-28 23:15 | ER Document Report ---
ED Neuro Symptoms/Deficit - General Chief Complaint: Altered Mental Status Stated Complaint: ALTERED MENTAL STATUS Time Seen by Provider: 12/28/16 20:39 Mode of Arrival: Medic Information source: Emergency Med Personnel, Outside Facility Records Notes: Patient is a 76-year-old with a history of CVA, congestive heart failure, at [facility] who reports today for 2 days of altered mental status. They deny that he has had any fever. Patient does not have a Ojeda catheter. They state that usually he will respond to you, say yes and no and move his hands and arms and that is his baseline, that over the past 2 days he really has not said anything or followed commands well. TRAVEL OUTSIDE OF THE [place] IN LAST 30 DAYS: No - Related Data Allergies/Adverse Reactions: No Known Allergies Allergy (Verified 07/18/16 03:22) Home Medications: Current Home Medications Atorvastatin Calcium [Lipitor 40 mg Tablet] 12/29/16 [History] Mirtazapine [Remeron 15 mg Tablet] 7.5 mg PO QHS 12/29/16 [History] Polyethylene Glycol 3350 [Miralax Powder 17 gm/Packet] 17 gm PO 12/29/16 [ History] Past Medical History - General Information source: Outside Facility Records - Social History Smoking Status: Unknown if Ever Smoked Frequency of alcohol use: None Drug Abuse: None Family History: CAD Patient has suicidal ideation: No Patient has homicidal ideation: No - Past Medical History Cardiac Medical History: Reports: Hx Coronary Artery Disease, Hx Hypercholesterolemia, Hx Hypertension Pulmonary Medical History: Reports: Hx COPD Neurological Medical History: Denies: Hx Seizures Renal/ Medical History: Reports: Hx Renal Insufficiency. Denies: Hx Peritoneal Dialysis GI Medical History: Reports: Hx Gastroesophageal Reflux Disease, Hx Hiatal Hernia Musculoskeltal Medical History: Reports Hx Muscle Weakness - generalized Past Surgical History: Reports: Hx Cardiac Surgery, Hx Coronary Artery Bypass Graft - Immunizations Hx Diphtheria, Pertussis, Tetanus Vaccination: Yes Review of Systems - Review of Systems Constitutional: No symptoms reported EENT: No symptoms reported Cardiovascular: No symptoms reported Respiratory: No symptoms reported Gastrointestinal: No symptoms reported Genitourinary: No symptoms reported Male Genitourinary: No symptoms reported Musculoskeletal: No symptoms reported Skin: No symptoms reported Hematologic/Lymphatic: No symptoms reported Neurological/Psychological: See HPI Physical Exam - Vital signs Vitals: Pulse Ox 97 12/28/16 20:31 - Notes Notes: PHYSICAL EXAMINATION: GENERAL: Chronically ill-appearing, but in no acute distress. HEAD: Atraumatic, normocephalic. EYES: Pupils equal round and reactive to light, extraocular movements intact, sclera anicteric, conjunctiva are normal. NECK: Normal range of motion, supple without lymphadenopathy LUNGS: CTAB and equal. No wheezes rales or rhonchi. HEART: Regular rate and rhythm without murmurs ABDOMEN: Soft, RUQ tenderness. No guarding, no rebound BACK: no vertebral tenderness, normal ROM GI/: no CVA tenderness EXTREMITIES: Normal range of motion, no pitting edema. No cyanosis. NEUROLOGICAL: pt nonverbal, does not follow commands, unable to asses most of neuro exam due to inability to follow commands SKIN: Warm, Dry, normal turgor, no rashes or lesions noted Course - Re-evaluation Re-evalutation: 12/29/16 00:31 Patient has a white count of 29,000, tender to the right upper quadrant, liver enzymes are elevated and bilirubin is elevated today. CAT scan of the abdomen was ordered and reports inflamed tissue around the gallbladder and a punctate cholelithiasis. CT of the head and other lab work is normal today. Lactic acid is normal. Blood cultures pending. Patient was finally able to say yes and no to me and squeeze both my hands. Dr. Leung, surgeon agrees to consult and is at bedside, stating that because of patient's age and medical issues that a drain may be placed instead of surgery for the cholecystitis that is likely today. Dr. Falcon patient's primary care provider was called and agrees to admit patient at this time to medicine. Patient started on Zosyn and fluids. - Vital Signs Vital signs: Temp Pulse Resp BP Pulse Ox 96 22 H 172/82 H 97 12/29/16 00:00 12/29/16 00:00 12/29/16 00:00 12/29/16 00:00 - Laboratory Result Diagrams: 12/28/16 21:10 12/28/16 21:10 Laboratory results interpreted by me: 12/28/16 12/28/16 12/28/16 21:10 21:10 21:10 WBC 29.7 H RDW 16.3 H Seg Neuts % (Manual) 86 H Lymphocytes % (Manual) 3 L Abs Neuts (Manual) 25.5 H Abs Monocytes (Manual) 3.0 H APTT 45.2 H Sodium 145.6 H Chloride 108 H Creatinine 1.70 H Est GFR ( Amer) 48 L Est GFR (Non-Af Amer) 39 L Glucose 172 H Total Bilirubin 2.6 H Direct Bilirubin 1.8 H AST 63 H Alkaline Phosphatase 157 H Creatine Kinase 29 L Urine Protein Urine Ketones Urine Blood Urine Urobilinogen 12/28/16 22:30 WBC RDW Seg Neuts % (Manual) Lymphocytes % (Manual) Abs Neuts (Manual) Abs Monocytes (Manual) APTT Sodium Chloride Creatinine Est GFR ( Amer) Est GFR (Non-Af Amer) Glucose Total Bilirubin Direct Bilirubin AST Alkaline Phosphatase Creatine Kinase Urine Protein >=500 H Urine Ketones 20 H Urine Blood SMALL H Urine Urobilinogen 4.0 H Discharge - Discharge Clinical Impression: Cholecystitis, Aphasia Condition: Stable Disposition: ADMITTED INPATIENT Admitting Provider: Deanna Unit Admitted: Telemetry Referrals: ILAN FALCON MD [Primary Care Provider] - Follow up as needed
--- NOTE | 2016-12-29 00:03 | RADIOLOGY REPORT (SQ) ---
EXAM DESCRIPTION: CT ABD/PELVIS NO ORAL OR IV COMPLETED DATE/TIME: 12/28/2016 11:24 pm REASON FOR STUDY: elevated liver enzymes and bili, WBC 29.7, ams COMPARISON: None. TECHNIQUE: CT scan of the abdomen and pelvis performed without intravenous or oral contrast. Images reviewed with lung, soft tissue, and bone windows. Reconstructed coronal and sagittal MPR images revi ewed. All images stored on PACS. All CT scanners at this facility use dose modulation, iterative reconstruction, and/or weight based d osing when appropriate to reduce radiation dose to as low as reasonably achievable (ALARA). [facility]: Dose Right [facility]: CareDose [facility]: Dose Right [facility]: Teradose 4D [facility]: [employer] RADIATION DOSE: Up-to-date CT equipment and radiation dose reduction techniques were employed. CTDIv ol: 21.8 mGy. DLP: 1092 mGy-cm.mGy. LIMITATIONS: None. FINDINGS: LOWER CHEST: No significant findings. No nodules or infiltrates. Small atelectasis or sca r. Sternotomy. Small coronary arterial calcification. Minimal hiatal hernia. NON-CONTRASTED LIVER, SPLEEN, ADRENALS: Evaluation limited by lack of IV contrast. No identified sign ificant masses. PANCREAS: No masses. No peripancreatic inflammatory changes. GALLBLADDER: Hydropic gallbladder with inflamed surrounding fat. Punctate cholelithiasis. RIGHT KIDNEY AND URETER: No suspicious masses. Assessment limited by lack of IV contrast. No signif icant calcifications. No hydronephrosis or hydroureter. Perinephric fat stranding. Moderate renal volume loss. LEFT KIDNEY AND URETER: No suspicious masses. Assessment limited by lack of IV contrast. No signifi cant calcifications. No hydronephrosis or hydroureter.Perinephric fat stranding. Moderate renal vol ume loss. 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 Atheroscle rosis. BOWEL AND PERITONEAL CAVITY: No obvious masses or inflammatory changes. No free fluid. Small colonic diverticulosis. APPENDIX: No evidence of appendicitis. PELVIS, BLADDER, AND ABDOMINAL WALL:No abnormal masses. No free fluid. Bladder normal. Ojeda cathete r. Small bilateral inguinal fat only herniation. BONES: No significant findings. OTHER: No other significant finding. IMPRESSION: 1. Nonspecific inflamed pericholecystic fat. Punctate cholelithiasis. Differential di agnosis includes cholecystitis. Consider ultrasound correlation. 2. Atherosclerosis includes 2.9 c m diameter enlargement of the abdominal aorta. COMMENT: Quality ID # 436: Final reports with documentation of one or more dose reduction techniques (e.g., Automated exposure control, adjustment of the mA and/or kV according to patient size, use of iterative reconstruction technique) TECHNICAL DOCUMENTATION: JOB ID: [id number] [employer]- All Rights Reserved
[2016-12-29] MEDS ORDERED: NORMAL SALINE 1000 ML 500 ML IV ONE (00:18)
[2016-12-29] MEDS ORDERED: PIPERACILLIN/TAZOBACTAM 3.375 GM VIAL IV ONE (00:18)
--- NOTE | 2016-12-29 00:42 | PDOC CONSULTATION ---
History of Present Illness Admission Date/PCP: ILAN FALCON MD Patient complains of: Unknown History of Present Illness: PHOEBE CHARLES is a 76 year old male [facility] patient with multiple medical problems including COPD, congestive heart failure, cerebrovascular accident who presents with mental status changes and failure to thrive [facility] the [facility]. No other history can be ascertained at this time. Patient does not speak. Past Medical History Cardiac Medical History: Reports: Coronary Artery Disease, Hyperlipidema, Hypertension Pulmonary Medical History: Reports: Chronic Obstructive Pulmonary Disease (COPD) Neurological Medical History: Reports: Ischemic CVA Denies: Seizures GI Medical History: Reports: Gastroesophageal Reflux Disease, Hiatal Hernia Hematology: Reports: Anemia Past Surgical History Past Surgical History: 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 Social History Smoking Status: Unknown if Ever Smoked Frequency of Alcohol Use: None Hx Recreational Drug Use: No Hx Prescription Drug Abuse: No Family History Family History: CAD Parental Family History Reviewed: No Children Family History Reviewed: Unknown Sibling(s) Family History Reviewed.: Unknown Medication/Allergy Home Medications: Aspirin [[place] Aspirin] 81 mg PO DAILY 07/18/16 Budesonide [Pulmicort 180 mcg Flexhaler] 2 puff IH DAILY PRN 07/18/16 Clonidine HCl [Catapres 0.1 mg Tablet] 0.1 mg PO Q12 07/18/16 Isosorbide Dinitrate [Isordil Titradose 20 mg Tablet] 20 mg PO Q8 07/18/16 Metoprolol Tartrate [Lopressor] 50 mg PO Q12 07/18/16 Ondansetron HCl [Zofran 4 mg Tablet] 4 mg PO Q8HP PRN 07/18/16 Simvastatin [Zocor 20 mg Tablet] 20 mg PO QHS 07/18/16 Tiotropium [place] [Spiriva Handihaler 5 Cap/Kit (18 Mcg/Cap)] 1 cap IH DAILY Docusate Sodium [Colace 100 mg Capsule] 100 mg PO BID #0 capsule 07/28/16 Ipratropium/Albuterol Sulfate [Duoneb 3 ml Ampul] 3 ml NEB [id number] PRN #0 vial.neb 07/28/16 Polyethylene Glycol 3350 [Miralax Powder 17 gm/Packet] 17 gm PO DAILY #0 powd.pack 07/28/16 Amlodipine Besylate [Norvasc 5 mg Tablet] 5 mg PO QHS 12/16/16 Omeprazole 40 mg PO BID 12/16/16 Atorvastatin Calcium [Lipitor 40 mg Tablet] 12/29/16 Mirtazapine [Remeron 15 mg Tablet] 7.5 mg PO QHS 12/29/16 Polyethylene Glycol 3350 [Miralax Powder 17 gm/Packet] 17 gm PO 12/29/16 Allergies/Adverse Reactions: No Known Allergies Allergy (Verified 07/18/16 03:22) Physical Exam Vital Signs: Temp Pulse Resp BP Pulse Ox 96 22 H 172/82 H 97 12/29/16 00:00 12/29/16 00:00 12/29/16 00:00 12/29/16 00:00 Intake & Output 12/27/16 12/28/16 12/29/16 06:59 06:59 06:59 Weight 82.1 kg General appearance: PRESENT: no acute distress, other - Patient does not speak and he does not obey commands. He is awake. Eye exam: PRESENT: conjunctiva pink Respiratory exam: PRESENT: clear to auscultation magdalena Cardiovascular exam: PRESENT: RRR GI/Abdominal exam: PRESENT: other - Soft, protuberant, focal tenderness to palpation in the right upper quadrant. Neurological exam: PRESENT: aphasic, other - Unable to determine motor weakness with patient being completely uncooperative. Subtle right-sided facial droop. Psychiatric exam: PRESENT: flat affect Skin exam: PRESENT: warm Results Laboratory Results: 12/28/16 21:10 12/28/16 21:10 12/28/16 12/28/16 12/28/16 21:10 21:10 21:10 WBC 29.7 H RBC 5.07 Hgb 14.2 Hct 43.2 MCV 85 MCH 28.0 MCHC 32.9 RDW 16.3 H Plt Count 295 Seg Neutrophils % Not Reportable Lymphocytes % Not Reportable Monocytes % Not Reportable Eosinophils % Not Reportable Basophils % Not Reportable Absolute Neutrophils Not Reportable Absolute Lymphocytes Not Reportable Absolute Monocytes Not Reportable Absolute Eosinophils Not Reportable Absolute Basophils Not Reportable Sodium 145.6 H Potassium 4.4 Chloride 108 H Carbon Dioxide 22 Anion Gap 16 BUN 19 Creatinine 1.70 H Est GFR ( Amer) 48 L Est GFR (Non-Af Amer) 39 L Glucose 172 H Lactic Acid 1.1 Calcium 10.2 Total Bilirubin 2.6 H AST 63 H ALT 41 Alkaline Phosphatase 157 H Total Protein 8.0 Albumin 3.8 Urine Color Urine Appearance Urine pH Ur Specific [place] Urine Protein Urine Glucose (UA) Urine Ketones Urine Blood Urine Nitrite Ur Leukocyte Esterase Urine WBC (Auto) Urine RBC (Auto) 12/28/16 22:30 WBC RBC Hgb Hct MCV MCH MCHC RDW Plt Count Seg Neutrophils % Lymphocytes % Monocytes % Eosinophils % Basophils % Absolute Neutrophils Absolute Lymphocytes Absolute Monocytes Absolute Eosinophils Absolute Basophils Sodium Potassium Chloride Carbon Dioxide Anion Gap BUN Creatinine Est GFR ( Amer) Est GFR (Non-Af Amer) Glucose Lactic Acid Calcium Total Bilirubin AST ALT Alkaline Phosphatase Total Protein Albumin Urine Color CARL Urine Appearance CLEAR Urine pH 6.0 Ur Specific [place] 1.016 Urine Protein >=500 H Urine Glucose (UA) NEGATIVE Urine Ketones 20 H Urine Blood SMALL H Urine Nitrite NEGATIVE Ur Leukocyte Esterase NEGATIVE Urine WBC (Auto) 1 Urine RBC (Auto) 14 12/28/16 12/28/16 21:10 21:10 Creatine Kinase 29 L CK-MB (CK-2) 0.39 Troponin I 0.077 Impressions: Chest X-Ray 12/28/16 20:40 IMPRESSION: No acute findings. Head CT 12/28/16 20:40 IMPRESSION: CHRONIC CHANGES OF ATROPHY AND MICROVASCULAR ISCHEMIA. NO ACUTE PROCESS. EVIDENCE OF ACUTE STROKE: NO. Abdomen/Pelvis CT 12/28/16 22:34 IMPRESSION: 1. Nonspecific inflamed pericholecystic fat. Punctate cholelithiasis. Differential diagnosis includes cholecystitis. Consider ultrasound correlation. 2. Atherosclerosis includes 2.9 cm diameter enlargement of the abdominal aorta. Assessment & Plan - Diagnosis (1) Acute cholecystitis Is this a current diagnosis for this admission?: Yes Plan: In patient with multiple morbidities including congestive heart failure, COPD, and cerebrovascular accident of unknown date. Operative intervention would carry significant risk. Recommend admission to the hospitalist service, n.p.o. , antibiotics and a cholecystostomy tube by radiology in the morning.
[2016-12-29] MEDS ORDERED: GLUCAGON,HUMAN RECOMB 1 MG INJ IM PRN (07:17)
[2016-12-29] MEDS ORDERED: DEXTROSE 50%-WATER 25 GM/50 ML DISP.SYRIN IV PRN ×2 (07:17)
[2016-12-29] MEDS ORDERED: DEXTROSE 40% GEL 15 GM TUBE PO PRN ×2 (07:17)
[2016-12-29] MEDS ORDERED: INSULIN REG, HUMAN 100 UNIT/ML 3 ML VIAL (PYX) SUBCUT PRN (07:17)
--- NOTE | 2016-12-29 08:06 | EKG REPORT ---
SEVERITY:- ABNORMAL ECG - SINUS RHYTHM VENTRICULAR PREMATURE COMPLEX PROBABLE LEFT ATRIAL ABNORMALITY LEFT BUNDLE BRANCH BLOCK : Confirmed by: Quoc Sadler MD 29-Dec-2016 08:06:01
[2016-12-29 08:18] LABS: MAGNESIUM 2.1 mg/dL (1.6-2.3); PHOSPHORUS 3.1 mg/dL (2.5-4.5)
[2016-12-29 08:36] LABS: PROTHROMBIN TIME 14.9 SEC (11.4-15.4)
[2016-12-29 08:48] LABS: THYROID STIMULATING HORMONE 1.81 uIU/mL (0.47-4.68)
[2016-12-29 08:52] LABS: PARTIAL THROMBOPLASTIN TIME 43.4 SEC (23.5-35.8)
[2016-12-29 08:58] LABS: CREATINE KINASE MB 0.49 ng/mL (<4.55); TROPONIN I 0.086 ng/mL
[2016-12-29] MEDS ORDERED: AMLODIPINE BESYLATE 5 MG TABLET PO ONE (09:00)
[2016-12-29] MEDS ORDERED: ISOSORBIDE DINITRATE 20 MG TABLET PO ONE (09:30)
[2016-12-29] MEDS: AMPICILLIN SODIUM/SULBACTAM NA 3 GM in NORMAL SALINE 100 ML IV SCH ×3 (09:37→22:18)
[2016-12-29] MEDS: NORMAL SALINE 1000 ML 1,000 ML IV PRN ×2 (09:37→22:22)
[2016-12-29 09:43] LABS: APPEARANCE,URINE SLIGHTLY-CLOUDY; BILIRUBIN,URINE SMALL (NEGATIVE); GLUCOSE, URINE NEGATIVE (NEGATIVE); KETONES,URINE NEGATIVE (NEGATIVE); LEUKOCYTE ESTERASE,URINE NEGATIVE (NEGATIVE); NITRITE,URINE NEGATIVE (NEGATIVE); PROTEIN,URINE >=500 mg/dL (NEGATIVE); URINE SPECIFIC GRAVITY 1.024
[2016-12-29 09:51] LABS: URINE BARBITURATES SCREEN NEGATIVE; URINE METHADONE SCREEN NEGATIVE; URINE OPIATES LOW NEGATIVE; URINE PHENCYCLIDINE SCREEN NEGATIVE
[2016-12-29] MEDS: CLONIDINE HCL 0.1 MG TABLET PO SCH ×2 (10:12→22:48)
[2016-12-29] MEDS: METOPROLOL TARTRATE 50 MG TABLET PO SCH ×2 (10:12→22:46)
[2016-12-29] MEDS ORDERED: ONDANSETRON HCL INJ/PF 4 MG/2 ML SDV IV PRN (11:10)
[2016-12-29] MEDS ORDERED: MIDAZOLAM 2 MG/2 ML INJ ONE (11:14)
[2016-12-29] MEDS ORDERED: FENTANYL CITRATE INJ/PF 100 MCG/2 ML AMPUL ONE (11:16)
--- NOTE | 2016-12-29 14:30 | RADIOLOGY REPORT (SQ) ---
EXAM DESCRIPTION: CT PERC CHOLECYSTOSTOMY COMPLETED DATE/TIME: 12/29/2016 2:11 pm REASON FOR STUDY: ACUTE CHOLECYSTITIS COMPARISON: CT abdomen and pelvis 12/28/2016 TECHNIQUE: CT guided cholecystostomy tube placement performed with conscious sedation. CT Fluoroscopy Time: 4.[address] scanners at this facility use dose modulation, iterative reconstruction, and/or weight based d osing when appropriate to reduce radiation dose to as low as reasonably achievable (ALARA). [facility]: Dose Right [facility]: CareDose [facility]: Dose Right [facility]: Teradose 4D [facility]: evocatal RADIATION DOSE: Up-to-date CT equipment and radiation dose reduction techniques were employed. CTDI vol: 4.0 - 20.2 mGy. DLP: 895 mGy-cm.mGy. FINDINGS: Consent was obtained from the family. Prior to the procedure, a time out was performed to verify the patient's identity and planned procedure. IV sedation was administered and physician direction by the registered nurse using 0.5 milligrams of Versed and 100 micrograms of fentanyl. Physiologic monitoring was provided before, during, and after sedation. The total sedation time was 30 minutes. Documentation face to face time, the performing proceduralist, spent monitoring the patient: [address] scanning was performed to localize the percutaneous site for the cholecystostomy tube placement. After sterile skin prep and local lidocaine for skin and deep tissue anesthesia, a 15 cm long 18 gaug e needle was used to access the gallbladder through transhepatic approach. There was prompt return o f bile. At this point, an 018 guidewire was placed through the needle, coiled into the gallbladder. Needle was removed, tract dilated with a 7 Hebrew dilator. An 8 Hebrew locking pigtail catheter was placed, with the pigtail tip in the gallbladder. A sample of the bile was sent to the lab for Gram stain culture and sensitivity. There were no immediate complications. Cultures on the bile are pending at the time of dictation. IMPRESSION: CT GUIDED CHOLECYSTOSTOMY TUBE PLACEMENT WITH CONSCIOUS SEDATION. COMMENT: Quality ID [id number]: Final reports for procedures using fluoroscopy that document radiation exp osure indices, or exposure time and number of fluorographic images (if radiation exposure indices are not available) Patient medication list reviewed: Yes- Quality ID# [id number]:Eligible professional attests to documenting i n the medical record they obtained, updated, or reviewed the patient's current medications.. TECHNICAL DOCUMENTATION: JOB ID: [id number] Quality ID# [id number]: Final reports with documentation of one or more dose reduction techniques (e.g., Aut omated exposure control, adjustment of the mA and/or kV according to patient size, use of iterative r econstruction technique) 2010 [employer]- All Rights Reserved
[2016-12-29] MEDS: HEPARIN SOD (PORCINE) 5,000 UNIT/ML 1 ML SYRINGE SUBCUT SCH ×2 (14:54→22:48)
[2016-12-29] MEDS: ISOSORBIDE DINITRATE 20 MG TABLET PO SCH ×2 (14:59→22:47)
[2016-12-29 17:04] LABS: CREATINE KINASE MB 0.36 ng/mL (<4.55); TROPONIN I 0.076 ng/mL
--- NOTE | 2016-12-29 17:26 | PDOC PROGRESS REPORT ---
Subjective Progress Note for:: 12/29/16 Subjective:: Patient had successful placement of cholecystostomy tube by radiology Physical Exam Vital Signs: Temp Pulse Resp BP Pulse Ox 98.8 F 97 20 146/94 H 97 12/29/16 11:20 12/29/16 14:00 12/29/16 11:20 12/29/16 11:20 12/29/16 11:20 Exam: Abdomen is soft with mild tenderness in the right upper quadrant. Drain tube in place Results Laboratory Results: 12/29/16 12/29/16 12/29/16 07:27 07:27 08:14 Phosphorus 3.1 Magnesium 2.1 Ammonia < 8.7 L Amylase 230 H Lipase 1128.0 H TSH 1.81 Free T4 1.96 Urine Color Urine Appearance Urine pH Ur Specific [place] Urine Protein Urine Glucose (UA) Urine Ketones Urine Blood Urine Nitrite Ur Leukocyte Esterase Urine WBC (Auto) Urine RBC (Auto) 12/29/16 09:10 Phosphorus Magnesium Ammonia Amylase Lipase TSH Free T4 Urine Color CARL Urine Appearance SLIGHTLY-CLOUDY Urine pH 5.0 Ur Specific [place] 1.024 Urine Protein >=500 H Urine Glucose (UA) NEGATIVE Urine Ketones NEGATIVE Urine Blood SMALL H Urine Nitrite NEGATIVE Ur Leukocyte Esterase NEGATIVE Urine WBC (Auto) 4 Urine RBC (Auto) 13 12/29/16 12/29/16 12/29/16 08:14 08:14 08:14 Creatine Kinase 25 L CK-MB (CK-2) 0.49 Troponin I 0.086 NT-Pro-B Natriuret Pep 2450 H 12/29/16 12/29/16 15:40 15:40 Creatine Kinase 22 L CK-MB (CK-2) 0.36 Troponin I 0.076 NT-Pro-B Natriuret Pep Impressions: Chest X-Ray 12/28/16 20:40 IMPRESSION: No acute findings. Head CT 12/28/16 20:40 IMPRESSION: CHRONIC CHANGES OF ATROPHY AND MICROVASCULAR ISCHEMIA. NO ACUTE PROCESS. EVIDENCE OF ACUTE STROKE: NO. Abdomen/Pelvis CT 12/28/16 22:34 IMPRESSION: 1. Nonspecific inflamed pericholecystic fat. Punctate cholelithiasis. Differential diagnosis includes cholecystitis. Consider ultrasound correlation. 2. Atherosclerosis includes 2.9 cm diameter enlargement of the abdominal aorta. Cholecystostomy 12/29/16 00:00 IMPRESSION: CT GUIDED CHOLECYSTOSTOMY TUBE PLACEMENT WITH CONSCIOUS SEDATION. Assessment & Plan - Time Time Spent with patient: 15-24 minutes - Plan Summary Plan Summary: Continue antibiotics and leave the drain indefinitely Also will await for the final result of the culture and sensitivity for the bile sent by radiology
[2016-12-29 19:57] LABS: CREATINE KINASE MB 0.45 ng/mL (<4.55); TROPONIN I 0.071 ng/mL
[2016-12-29 20:12] LABS: URINE CREATININE 149.8 mg/dL (22-328)
[2016-12-29 20:34] LABS: URINE PROTEIN 960.1 mg/dL (<12)
--- NOTE | 2016-12-29 20:46 | PDOC H&P ---
History of Present Illness Admission Date/PCP: 12/29/16 07:12 ILAN FALCON MD History of Present Illness: Patient is 76-year-old male with multiple comorbid conditions, he was transferred from the alf to the emergency room for evaluation of altered mental status. He has a history of stroke, chronic kidney disease, in the emergency room part of the evaluation included blood draw for hemogram, he was found to have leukocytosis with WBC over 20,000. On examination he was found to have abdominal tenderness with abnormal liver enzymes a CAT scan of the abdomen and pelvis without contrast was done he showed hydropic gallbladder with inflamed surrounding fat, punctate cholelithiasis the appearance is suggestive of cholecystitis. He was seen by the surgeon, it was felt that is not a good candidate for surgery CT percutaneous cholecystostomy was recommended that was done today . Past Medical History Cardiac Medical History: Reports: Coronary Artery Disease, Hyperlipidema, Hypertension Pulmonary Medical History: Reports: Chronic Obstructive Pulmonary Disease (COPD) Neurological Medical History: Reports: Ischemic CVA Denies: Seizures GI Medical History: Reports: Gastroesophageal Reflux Disease, Hiatal Hernia Hematology: Reports: Anemia Past Surgical History Past Surgical History: 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 Social History Smoking Status: Former Smoker Frequency of Alcohol Use: None Hx Recreational Drug Use: No Hx Prescription Drug Abuse: No Family History Family History: CAD Parental Family History Reviewed: Yes Children Family History Reviewed: Yes Sibling(s) Family History Reviewed.: Yes Medication/Allergy Home Medications: Amlodipine Besylate [Norvasc 5 mg Tablet] 5 mg PO QHS 12/29/16 Aspirin [Aspirin 81 mg Chewable Tablet] 81 mg PO DAILY 12/29/16 Atorvastatin Calcium [Lipitor 10 mg Tablet] 10 mg PO QHS 12/29/16 Budesonide [Pulmicort 180 mcg Flexhaler] 2 puff IH DAILYP PRN 12/29/16 Clonidine HCl [Catapres 0.1 mg Tablet] 0.1 mg PO Q12 12/29/16 Docusate Sodium [Colace 100 mg Capsule] 100 mg PO BID 12/29/16 Ipratropium/Albuterol Sulfate [Iprat-Albut 0.5-3(2.5) mg/3 ml] 3 ml NEB Q6HP PRN 12/29/16 Isosorbide Dinitrate [Isordil Titradose 20 mg Tablet] 20 mg PO Q8 12/29/16 Metoprolol Tartrate [Lopressor 50 mg Tablet] 50 mg PO Q12 12/29/16 Mirtazapine 7.5 mg PO QHS 12/29/16 Omeprazole 40 mg PO DAILY 12/29/16 Ondansetron HCl [Zofran 4 mg Tablet] 4 mg PO Q8HP PRN 12/29/16 Polyethylene Glycol 3350 [Miralax Powder 17 gm/Packet] 17 gm PO DAILY 12/29/16 Tiotropium [place] [Spiriva Handihaler 5 Cap/Kit (18 Mcg/Cap)] 1 puff IN DAILY 12/29/16 Allergies/Adverse Reactions: No Known Allergies Allergy (Verified 07/18/16 03:22) Review of Systems ROS unobtainable: Due to mental status Physical Exam Vital Signs: Temp Pulse Resp BP Pulse Ox 97.9 F 94 16 140/78 H 95 12/29/16 14:47 12/29/16 20:00 12/29/16 20:00 12/29/16 20:00 12/29/16 20:00 Intake & Output 12/28/16 12/29/16 12/30/16 06:59 06:59 06:59 Intake Total 1873 Output Total 375 Balance 1498 General appearance: PRESENT: no acute distress Head exam: PRESENT: atraumatic, normocephalic Eye exam: PRESENT: PERRLA. ABSENT: scleral icterus Ear exam: PRESENT: normal external ear exam Neck exam: PRESENT: full ROM Cardiovascular exam: PRESENT: RRR, +S1, +S2 Vascular exam: PRESENT: normal capillary refill GI/Abdominal exam: PRESENT: normal bowel sounds, soft, tenderness Rectal exam: PRESENT: deferred Neurological exam: PRESENT: alert, CN II-XII grossly intact Psychiatric exam: PRESENT: appropriate affect, normal mood Skin exam: PRESENT: dry, intact, warm Results Laboratory Results: 12/29/16 12/29/16 12/29/16 07:27 07:27 08:14 Phosphorus 3.1 Magnesium 2.1 Ammonia < 8.7 L Amylase 230 H Lipase 1128.0 H TSH 1.81 Free T4 1.96 Urine Color Urine Appearance Urine pH Ur Specific [place] Urine Protein Urine Glucose (UA) Urine Ketones Urine Blood Urine Nitrite Ur Leukocyte Esterase Urine WBC (Auto) Urine RBC (Auto) 12/29/16 09:10 Phosphorus Magnesium Ammonia Amylase Lipase TSH Free T4 Urine Color CARL Urine Appearance SLIGHTLY-CLOUDY Urine pH 5.0 Ur Specific [place] 1.024 Urine Protein >=500 H Urine Glucose (UA) NEGATIVE Urine Ketones NEGATIVE Urine Blood SMALL H Urine Nitrite NEGATIVE Ur Leukocyte Esterase NEGATIVE Urine WBC (Auto) 4 Urine RBC (Auto) 13 12/29/16 12/29/16 12/29/16 08:14 08:14 08:14 Creatine Kinase 25 L CK-MB (CK-2) 0.49 Troponin I 0.086 NT-Pro-B Natriuret Pep 2450 H 12/29/16 12/29/16 12/29/16 15:40 15:40 19:15 Creatine Kinase 22 L 21 L CK-MB (CK-2) 0.36 Troponin I 0.076 NT-Pro-B Natriuret Pep 12/29/16 19:15 Creatine Kinase CK-MB (CK-2) 0.45 Troponin I 0.071 NT-Pro-B Natriuret Pep Impressions: Chest X-Ray 12/28/16 20:40 IMPRESSION: No acute findings. Head CT 12/28/16 20:40 IMPRESSION: CHRONIC CHANGES OF ATROPHY AND MICROVASCULAR ISCHEMIA. NO ACUTE PROCESS. EVIDENCE OF ACUTE STROKE: NO. Abdomen/Pelvis CT 12/28/16 22:34 IMPRESSION: 1. Nonspecific inflamed pericholecystic fat. Punctate cholelithiasis. Differential diagnosis includes cholecystitis. Consider ultrasound correlation. 2. Atherosclerosis includes 2.9 cm diameter enlargement of the abdominal aorta. Cholecystostomy 12/29/16 00:00 IMPRESSION: CT GUIDED CHOLECYSTOSTOMY TUBE PLACEMENT WITH CONSCIOUS SEDATION. Assessment & Plan - Diagnosis (1) Acute cholecystitis Is this a current diagnosis for this admission?: Yes Plan: Patient is started on IV antibiotic CT percutaneous cholecystostomy was done today (2) Chronic kidney disease, stage 3 Is this a current diagnosis for this admission?: Yes (3) Coronary artery disease Qualifiers: Coronary Disease-Associated Artery/Lesion type: unspecified vessel or lesion type [place] vs. transplanted heart: [place] heart Associated angina: angina presence unspecified Qualified Code(s): I25.10 - Atherosclerotic heart disease of [place] coronary artery without angina pectoris Is this a current diagnosis for this admission?: Yes
[2016-12-29] MEDS: AMLODIPINE BESYLATE 5 MG TABLET PO SCH (22:45)
[2016-12-30] MEDS: AMPICILLIN SODIUM/SULBACTAM NA 3 GM in NORMAL SALINE 100 ML IV SCH ×4 (03:45→20:39)
[2016-12-30 04:48] LABS: ABSOLUTE BASOPHILS # (AUTO) 0.1 10^3/uL (0.0-0.2); ABSOLUTE LYMPHOCYTES (AUTO) 1.1 10^3/uL (0.5-4.7); ABSOLUTE MONOCYTES (AUTO) 1.1 10^3/uL (0.1-1.4); ABSOLUTE NEUT (AUTO) 17.4 10^3/uL (1.7-8.2); BASOPHILS % (AUTO) 0.3 % (0-2); HEMATOCRIT 41.8 % (37.9-51.0); HEMOGLOBIN 13.8 g/dL (13.5-17.0); HGB HCT DIFFERENCE -0.4; LYMPHOCYTES % (AUTO) 5.8 % (13-45); MEAN CORPUSCULAR HEMOGLOBIN 28.5 pg (27.0-33.4); MEAN CORPUSCULAR VOLUME 86 fl (80-97); MONOCYTES % (AUTO) 5.7 % (3-13); RED BLOOD COUNT 4.85 10^6/uL (4.35-5.55); RED CELL DISTRIBUTION WIDTH 16.3 % (11.5-14.0); SEGMENTED NEUTROPHILS % (AUTO) 88.2 % (42-78); WHITE BLOOD COUNT 19.7 10^3/uL (4.0-10.5)
[2016-12-30 05:10] LABS: ALANINE AMINOTRANSFERASE 55 U/L (21-72); ALBUMIN 3.4 g/dL (3.5-5.0); ALKALINE PHOSPHATASE 163 U/L (38-126); ANION GAP 14 (5-19); ASPARTATE AMINO TRANSFERASE 85 U/L (17-59); BILIRUBIN,DIRECT 1.8 mg/dL (0.0-0.4); BILIRUBIN,TOTAL 2.2 mg/dL (0.2-1.3); BLOOD UREA NITROGEN 22 mg/dL (7-20); CALCIUM 9.5 mg/dL (8.4-10.2); CARBON DIOXIDE 26 mmol/L (22-30); CHLORIDE 112 mmol/L (98-107); CHOLESTEROL 113.88 mg/dL (0-200); CREATININE RESULT 1.98 mg/dL (0.52-1.25); Direct HDL 25 mg/dL (>40); GLUCOSE 122 mg/dL (75-110); POTASSIUM 4.2 mmol/L (3.6-5.0); SODIUM 151.7 mmol/L (137-145); TOTAL PROTEIN 7.3 g/dL (6.3-8.2); TRIGLYCERIDES 75 mg/dL (<150)
[2016-12-30 05:21] LABS: DIRECT LDL 53 mg/dL (<100)
[2016-12-30] MEDS: HEPARIN SOD (PORCINE) 5,000 UNIT/ML 1 ML SYRINGE SUBCUT SCH ×3 (05:44→22:02)
[2016-12-30] MEDS: ISOSORBIDE DINITRATE 20 MG TABLET PO SCH ×3 (05:44→22:02)
[2016-12-30] MEDS: METOPROLOL TARTRATE 50 MG TABLET PO SCH ×2 (09:53→22:02)
[2016-12-30] MEDS: CLONIDINE HCL 0.1 MG TABLET PO SCH ×2 (09:54→22:02)
[2016-12-30] MEDS: NORMAL SALINE 1000 ML 1,000 ML IV PRN (12:12)
--- NOTE | 2016-12-30 16:02 | PDOC PROGRESS REPORT ---
Subjective Progress Note for:: 12/30/16 Subjective:: Feels much better this morning. Also much less pain in the right upper quadrant Physical Exam Vital Signs: Temp Pulse Resp BP Pulse Ox 98.7 F 85 16 125/69 95 12/30/16 08:02 12/30/16 08:02 12/30/16 08:02 12/30/16 08:02 12/30/16 08:02 Intake & Output 12/29/16 12/30/16 12/31/16 06:59 06:59 06:59 Intake Total 3258 Output Total 875 Balance 2383 Weight 73.4 kg Exam: The drain is about 50 cc of dark bile. He is mildly tender at the right upper quadrant. Results Laboratory Results: 12/30/16 03:52 12/30/16 03:52 12/30/16 12/30/16 03:52 03:52 WBC 19.7 H RBC 4.85 Hgb 13.8 Hct 41.8 MCV 86 MCH 28.5 MCHC 33.0 RDW 16.3 H Plt Count 295 Seg Neutrophils % 88.2 H Lymphocytes % 5.8 L Monocytes % 5.7 Eosinophils % 0.0 Basophils % 0.3 Absolute Neutrophils 17.4 H Absolute Lymphocytes 1.1 Absolute Monocytes 1.1 Absolute Eosinophils 0.0 Absolute Basophils 0.1 Sodium 151.7 H Potassium 4.2 Chloride 112 H Carbon Dioxide 26 Anion Gap 14 BUN 22 H Creatinine 1.98 H Est GFR ( Amer) 40 L Est GFR (Non-Af Amer) 33 L Glucose 122 H Calcium 9.5 Total Bilirubin 2.2 H AST 85 H ALT 55 Alkaline Phosphatase 163 H Total Protein 7.3 Albumin 3.4 L Triglycerides 75 Cholesterol 113.88 LDL Cholesterol Direct 53 VLDL Cholesterol 15.0 HDL Cholesterol 25 L 12/29/16 12/29/16 12/29/16 08:14 08:14 08:14 Creatine Kinase 25 L CK-MB (CK-2) 0.49 Troponin I 0.086 NT-Pro-B Natriuret Pep 2450 H 12/29/16 12/29/16 12/29/16 15:40 15:40 19:15 Creatine Kinase 22 L 21 L CK-MB (CK-2) 0.36 Troponin I 0.076 NT-Pro-B Natriuret Pep 12/29/16 19:15 Creatine Kinase CK-MB (CK-2) 0.45 Troponin I 0.071 NT-Pro-B Natriuret Pep Impressions: Chest X-Ray 12/28/16 20:40 IMPRESSION: No acute findings. Head CT 12/28/16 20:40 IMPRESSION: CHRONIC CHANGES OF ATROPHY AND MICROVASCULAR ISCHEMIA. NO ACUTE PROCESS. EVIDENCE OF ACUTE STROKE: NO. Abdomen/Pelvis CT 12/28/16 22:34 IMPRESSION: 1. Nonspecific inflamed pericholecystic fat. Punctate cholelithiasis. Differential diagnosis includes cholecystitis. Consider ultrasound correlation. 2. Atherosclerosis includes 2.9 cm diameter enlargement of the abdominal aorta. Cholecystostomy 12/29/16 00:00 IMPRESSION: CT GUIDED CHOLECYSTOSTOMY TUBE PLACEMENT WITH CONSCIOUS SEDATION. Assessment & Plan - Time Time Spent with patient: 15-24 minutes - Plan Summary Plan Summary: 1 continue with IV antibiotics 2. Will need to keep the drain indefinitely
[2016-12-30] MEDS: AMLODIPINE BESYLATE 5 MG TABLET PO SCH (22:02)
[2016-12-31] MEDS: NORMAL SALINE 1000 ML 1,000 ML IV PRN (00:06)
[2016-12-31] MEDS: AMPICILLIN SODIUM/SULBACTAM NA 3 GM in NORMAL SALINE 100 ML IV SCH ×4 (02:56→20:20)
[2016-12-31 05:18] LABS: ABSOLUTE BASOPHILS # (AUTO) 0.1 10^3/uL (0.0-0.2); ABSOLUTE EOSINOPHILS # (AUTO) 0.1 10^3/uL (0.0-0.6); ABSOLUTE MONOCYTES (AUTO) 0.5 10^3/uL (0.1-1.4); ABSOLUTE NEUT (AUTO) 7.6 10^3/uL (1.7-8.2); BASOPHILS % (AUTO) 0.8 % (0-2); HEMATOCRIT 31.2 % (37.9-51.0); HGB HCT DIFFERENCE 0.9; LYMPHOCYTES % (AUTO) 19.5 % (13-45); MEAN CORPUSCULAR HGB CONC 34.3 g/dL (32.0-36.0); MEAN CORPUSCULAR VOLUME 85 fl (80-97); MONOCYTES % (AUTO) 5.2 % (3-13); RED BLOOD COUNT 3.68 10^6/uL (4.35-5.55); RED CELL DISTRIBUTION WIDTH 16.5 % (11.5-14.0); SEGMENTED NEUTROPHILS % (AUTO) 73.5 % (42-78); WHITE BLOOD COUNT 10.4 10^3/uL (4.0-10.5)
[2016-12-31 05:21] LABS: HEMOGLOBIN 10.7 g/dL (13.5-17.0)
[2016-12-31 05:41] LABS: ALANINE AMINOTRANSFERASE 80 U/L (21-72); ALBUMIN 2.1 g/dL (3.5-5.0); ALKALINE PHOSPHATASE 123 U/L (38-126); ANION GAP 9 (5-19); ASPARTATE AMINO TRANSFERASE 107 U/L (17-59); BILIRUBIN,DIRECT 0.8 mg/dL (0.0-0.4); BILIRUBIN,TOTAL 0.8 mg/dL (0.2-1.3); BLOOD UREA NITROGEN 19 mg/dL (7-20); CALCIUM 8.4 mg/dL (8.4-10.2); CARBON DIOXIDE 24 mmol/L (22-30); CHLORIDE 116 mmol/L (98-107); CREATININE RESULT 1.57 mg/dL (0.52-1.25); GLUCOSE 108 mg/dL (75-110); POTASSIUM 3.8 mmol/L (3.6-5.0); SODIUM 148.8 mmol/L (137-145); TOTAL PROTEIN 4.7 g/dL (6.3-8.2)
[2016-12-31] MEDS: ISOSORBIDE DINITRATE 20 MG TABLET PO SCH ×3 (06:14→23:10)
[2016-12-31] MEDS: HEPARIN SOD (PORCINE) 5,000 UNIT/ML 1 ML SYRINGE SUBCUT SCH ×3 (06:14→23:12)
[2016-12-31] MEDS: CLONIDINE HCL 0.1 MG TABLET PO SCH ×2 (09:24→23:12)
[2016-12-31] MEDS: METOPROLOL TARTRATE 50 MG TABLET PO SCH ×2 (09:25→23:11)
--- NOTE | 2016-12-31 09:28 | PDOC PROGRESS REPORT ---
Subjective Progress Note for:: 12/30/16 Subjective:: Patient was seen by the bedside, he was admitted yesterday for the management of acute cholecystitis he has cholecystectomy tube in place. The white blood cell is on the decline, patient feels better, is more awake alert and eating Physical Exam Vital Signs: Temp Pulse Resp BP Pulse Ox 97.5 F 66 14 163/78 H 96 12/31/16 07:48 12/31/16 07:48 12/31/16 07:48 12/31/16 07:48 12/31/16 07:48 Intake & Output 12/30/16 12/31/16 01/01/17 06:59 06:59 06:59 Intake Total 3258 2989 Output Total 875 925 75 Balance 2383 2064 -75 Weight 73.4 kg 73.4 kg General appearance: PRESENT: no acute distress Eye exam: PRESENT: PERRLA Respiratory exam: PRESENT: clear to auscultation [place] Cardiovascular exam: PRESENT: +S1, +S2 GI/Abdominal exam: PRESENT: soft Neurological exam: PRESENT: alert Results Laboratory Results: 12/31/16 04:02 12/31/16 04:02 12/31/16 12/31/16 04:02 04:02 WBC 10.4 RBC 3.68 L Hgb 10.7 L D Hct 31.2 L MCV 85 MCH 29.0 MCHC 34.3 RDW 16.5 H Plt Count 251 Seg Neutrophils % 73.5 Lymphocytes % 19.5 Monocytes % 5.2 Eosinophils % 1.0 Basophils % 0.8 Absolute Neutrophils 7.6 Absolute Lymphocytes 2.0 Absolute Monocytes 0.5 Absolute Eosinophils 0.1 Absolute Basophils 0.1 Sodium 148.8 H Potassium 3.8 Chloride 116 H Carbon Dioxide 24 Anion Gap 9 BUN 19 Creatinine 1.57 H Est GFR ( Amer) 52 L Est GFR (Non-Af Amer) 43 L Glucose 108 Calcium 8.4 Total Bilirubin 0.8 AST 107 H ALT 80 H Alkaline Phosphatase 123 Total Protein 4.7 L Albumin 2.1 L 12/29/16 12/29/16 12/29/16 08:14 08:14 08:14 Creatine Kinase 25 L CK-MB (CK-2) 0.49 Troponin I 0.086 NT-Pro-B Natriuret Pep 2450 H 12/29/16 12/29/16 12/29/16 15:40 15:40 19:15 Creatine Kinase 22 L 21 L CK-MB (CK-2) 0.36 Troponin I 0.076 NT-Pro-B Natriuret Pep 12/29/16 19:15 Creatine Kinase CK-MB (CK-2) 0.45 Troponin I 0.071 NT-Pro-B Natriuret Pep Impressions: Chest X-Ray 12/28/16 20:40 IMPRESSION: No acute findings. Head CT 12/28/16 20:40 IMPRESSION: CHRONIC CHANGES OF ATROPHY AND MICROVASCULAR ISCHEMIA. NO ACUTE PROCESS. EVIDENCE OF ACUTE STROKE: NO. Abdomen/Pelvis CT 12/28/16 22:34 IMPRESSION: 1. Nonspecific inflamed pericholecystic fat. Punctate cholelithiasis. Differential diagnosis includes cholecystitis. Consider ultrasound correlation. 2. Atherosclerosis includes 2.9 cm diameter enlargement of the abdominal aorta. Cholecystostomy 12/29/16 00:00 IMPRESSION: CT GUIDED CHOLECYSTOSTOMY TUBE PLACEMENT WITH CONSCIOUS SEDATION. Assessment & Plan - Diagnosis (1) Acute cholecystitis Is this a current diagnosis for this admission?: Yes (2) Chronic kidney disease, stage 3 Is this a current diagnosis for this admission?: Yes (3) Coronary artery disease Qualifiers: Coronary Disease-Associated Artery/Lesion type: unspecified vessel or lesion type [place] vs. transplanted heart: [place] heart Associated angina: angina presence unspecified Qualified Code(s): I25.10 - Atherosclerotic heart disease of [place] coronary artery without angina pectoris Is this a current diagnosis for this admission?: Yes - Plan Summary Plan Summary: Patient will continue present IV antibiotic, [facility], he probably could be discharged this weekend
--- NOTE | 2016-12-31 09:35 | PDOC PROGRESS REPORT ---
Subjective Progress Note for:: 12/31/16 Subjective:: pain minimal no fever Physical Exam Vital Signs: Temp Pulse Resp BP Pulse Ox 97.5 F 66 14 163/78 H 96 12/31/16 07:48 12/31/16 07:48 12/31/16 07:48 12/31/16 07:48 12/31/16 07:48 Intake & Output 12/30/16 12/31/16 01/01/17 06:59 06:59 06:59 Intake Total 3258 2989 Output Total 875 925 75 Balance 2383 2064 -75 Weight 73.4 kg 73.4 kg Gentrourinary exam: PRESENT: other - left AKA stump clean , drain - serous continue PT May dc home to be followed in Surgery clinic in 1 wwek for staple removal Results Laboratory Results: 12/31/16 04:02 12/31/16 04:02 12/31/16 12/31/16 04:02 04:02 WBC 10.4 RBC 3.68 L Hgb 10.7 L D Hct 31.2 L MCV 85 MCH 29.0 MCHC 34.3 RDW 16.5 H Plt Count 251 Seg Neutrophils % 73.5 Lymphocytes % 19.5 Monocytes % 5.2 Eosinophils % 1.0 Basophils % 0.8 Absolute Neutrophils 7.6 Absolute Lymphocytes 2.0 Absolute Monocytes 0.5 Absolute Eosinophils 0.1 Absolute Basophils 0.1 Sodium 148.8 H Potassium 3.8 Chloride 116 H Carbon Dioxide 24 Anion Gap 9 BUN 19 Creatinine 1.57 H Est GFR ( Amer) 52 L Est GFR (Non-Af Amer) 43 L Glucose 108 Calcium 8.4 Total Bilirubin 0.8 AST 107 H ALT 80 H Alkaline Phosphatase 123 Total Protein 4.7 L Albumin 2.1 L 12/29/16 12/29/16 12/29/16 08:14 08:14 08:14 Creatine Kinase 25 L CK-MB (CK-2) 0.49 Troponin I 0.086 NT-Pro-B Natriuret Pep 2450 H 12/29/16 12/29/16 12/29/16 15:40 15:40 19:15 Creatine Kinase 22 L 21 L CK-MB (CK-2) 0.36 Troponin I 0.076 NT-Pro-B Natriuret Pep 12/29/16 19:15 Creatine Kinase CK-MB (CK-2) 0.45 Troponin I 0.071 NT-Pro-B Natriuret Pep Impressions: Chest X-Ray 12/28/16 20:40 IMPRESSION: No acute findings. Head CT 12/28/16 20:40 IMPRESSION: CHRONIC CHANGES OF ATROPHY AND MICROVASCULAR ISCHEMIA. NO ACUTE PROCESS. EVIDENCE OF ACUTE STROKE: NO. Abdomen/Pelvis CT 12/28/16 22:34 IMPRESSION: 1. Nonspecific inflamed pericholecystic fat. Punctate cholelithiasis. Differential diagnosis includes cholecystitis. Consider ultrasound correlation. 2. Atherosclerosis includes 2.9 cm diameter enlargement of the abdominal aorta. Cholecystostomy 12/29/16 00:00 IMPRESSION: CT GUIDED CHOLECYSTOSTOMY TUBE PLACEMENT WITH CONSCIOUS SEDATION.
--- NOTE | 2016-12-31 10:38 | PDOC PROGRESS REPORT ---
Subjective Progress Note for:: 12/31/16 Subjective:: Pain abdomen minimal tolerating diet Physical Exam Vital Signs: Temp Pulse Resp BP Pulse Ox 97.5 F 66 14 163/78 H 96 12/31/16 07:48 12/31/16 07:48 12/31/16 07:48 12/31/16 07:48 12/31/16 07:48 Intake & Output 12/30/16 12/31/16 01/01/17 06:59 06:59 06:59 Intake Total 3258 2989 Output Total 875 925 75 Balance 2383 2064 -75 Weight 73.4 kg 73.4 kg GI/Abdominal exam: PRESENT: other - Abdpmen - soft nontender Perc Cholecystostomy tube in place , draining bile Results Laboratory Results: 12/31/16 04:02 12/31/16 04:02 12/31/16 12/31/16 04:02 04:02 WBC 10.4 RBC 3.68 L Hgb 10.7 L D Hct 31.2 L MCV 85 MCH 29.0 MCHC 34.3 RDW 16.5 H Plt Count 251 Seg Neutrophils % 73.5 Lymphocytes % 19.5 Monocytes % 5.2 Eosinophils % 1.0 Basophils % 0.8 Absolute Neutrophils 7.6 Absolute Lymphocytes 2.0 Absolute Monocytes 0.5 Absolute Eosinophils 0.1 Absolute Basophils 0.1 Sodium 148.8 H Potassium 3.8 Chloride 116 H Carbon Dioxide 24 Anion Gap 9 BUN 19 Creatinine 1.57 H Est GFR ( Amer) 52 L Est GFR (Non-Af Amer) 43 L Glucose 108 Calcium 8.4 Total Bilirubin 0.8 AST 107 H ALT 80 H Alkaline Phosphatase 123 Total Protein 4.7 L Albumin 2.1 L 12/29/16 12/29/16 12/29/16 08:14 08:14 08:14 Creatine Kinase 25 L CK-MB (CK-2) 0.49 Troponin I 0.086 NT-Pro-B Natriuret Pep 2450 H 12/29/16 12/29/16 12/29/16 15:40 15:40 19:15 Creatine Kinase 22 L 21 L CK-MB (CK-2) 0.36 Troponin I 0.076 NT-Pro-B Natriuret Pep 12/29/16 19:15 Creatine Kinase CK-MB (CK-2) 0.45 Troponin I 0.071 NT-Pro-B Natriuret Pep Impressions: Chest X-Ray 12/28/16 20:40 IMPRESSION: No acute findings. Head CT 12/28/16 20:40 IMPRESSION: CHRONIC CHANGES OF ATROPHY AND MICROVASCULAR ISCHEMIA. NO ACUTE PROCESS. EVIDENCE OF ACUTE STROKE: NO. Abdomen/Pelvis CT 12/28/16 22:34 IMPRESSION: 1. Nonspecific inflamed pericholecystic fat. Punctate cholelithiasis. Differential diagnosis includes cholecystitis. Consider ultrasound correlation. 2. Atherosclerosis includes 2.9 cm diameter enlargement of the abdominal aorta. Cholecystostomy 12/29/16 00:00 IMPRESSION: CT GUIDED CHOLECYSTOSTOMY TUBE PLACEMENT WITH CONSCIOUS SEDATION. Assessment & Plan - Plan Summary Plan Summary: Cholecystitis, High risk for surgery, s/p percutaneous cholecystostomy doing better May dc home when medically optimized with drain in place , to be follow in surgery clinic in 2 weeks for drain removal
--- NOTE | 2016-12-31 13:44 | RADIOLOGY REPORT (SQ) ---
EXAM DESCRIPTION: MRI ABDOMEN WITHOUT COMPLETED DATE/TIME: 12/31/2016 11:33 am REASON FOR STUDY: r/o cbd stone COMPARISON: CT-guided cholecystostomy tube placement 12/29/2016 CT abdomen pelvis 12/28/2016 Abdominal ultrasound 07/22/2016 TECHNIQUE: Noncontrast MRCP. Source and MIP images reviewed. LIMITATIONS: None. FINDINGS: GALLBLADDER: Drained by a cholecystostomy tube. The tube is seen on axial images 16-19. There is a sacculation filled with fluid off the gallbladder fundus, measuring 2 cm in diameter. Ben ng the anterior edge of the gallbladder body, a 3 x 1.7 cm fluid collection is present, well-circumsc ribed without surrounding inflammatory change. This could be a diverticulum off the gallbladder. A contained gallbladder perforation is possible. These findings are best shown on axial images 18-22. INTRAHEPATIC DUCTS: Nondilated. EXTRAHEPATIC DUCTS: Common duct is normal caliber. No dilatation of the pancreatic duct. No ductal filling defects noted. PANCREAS: Trace fluid between the gastric antrum and pancreatic head. No well-circumscribed pancreat ic pseudocyst. Pancreatic parenchyma normal signal intensity. LIVER, SPLEEN, KIDNEYS, ADRENALS: No significant abnormality. VESSELS: No evidence of aneurysm. Grossly appropriate flow voids in the major vascular structures. LUNG BASES: Grossly clear. OTHER: No other significant finding. IMPRESSION: Post cholecystostomy tube. Gallbladder is decompressed with probable diverticulum or Ph rygian cap at the fundus Small fluid collection well-circumscribed along the ventral edge of the gallbladder body. This could be a small diverticulum. A contained perforation is possible. There is no surrounding inflammatory change. Trace fluid between the gastric antrum and pancreatic head without other MRI evidence of pancreatitis No common bile duct dilatation or common duct stones. TECHNICAL DOCUMENTATION: JOB ID: [id number] [employer]- All Rights Reserved
[2016-12-31 13:53] LABS: ARTERIAL BLOOD BASE EXCESS -0.6 mmol/L; ARTERIAL BLOOD O2 SATURATION 96.7 % (94-98)
--- NOTE | 2016-12-31 16:21 | PDOC PROGRESS REPORT ---
Subjective Progress Note for:: 12/31/16 Subjective:: Patient is very confused today and said he was in [place] yesterday and he was stuck in the elevator. There is no metabolic explanation for the confusion the blood gas that was done today showed a normal pH, the comprehensive metabolic panel was normal Physical Exam Vital Signs: Temp Pulse Resp BP Pulse Ox 97.7 F 57 L 16 146/75 H 98 12/31/16 12:06 12/31/16 14:00 12/31/16 12:06 12/31/16 12:06 12/31/16 12:06 Intake & Output 12/30/16 12/31/16 01/01/17 06:59 06:59 06:59 Intake Total 3258 2989 318 Output Total 875 925 475 Balance 2383 2064 -157 Weight 73.4 kg 73.4 kg General appearance: PRESENT: no acute distress Head exam: PRESENT: atraumatic, normocephalic Eye exam: PRESENT: PERRLA Neck exam: PRESENT: full ROM Respiratory exam: PRESENT: clear to auscultation magdalena Cardiovascular exam: PRESENT: RRR, +S1, +S2 Vascular exam: PRESENT: normal capillary refill GI/Abdominal exam: PRESENT: normal bowel sounds, soft Rectal exam: PRESENT: deferred Neurological exam: PRESENT: alert, awake, oriented to person, oriented to place , oriented to time, oriented to situation, CN II-XII grossly intact Psychiatric exam: PRESENT: appropriate affect, normal mood Skin exam: PRESENT: dry, intact, warm Results Laboratory Results: 12/31/16 04:02 12/31/16 04:02 12/31/16 12/31/16 12/31/16 04:02 04:02 13:30 WBC 10.4 RBC 3.68 L Hgb 10.7 L D Hct 31.2 L MCV 85 MCH 29.0 MCHC 34.3 RDW 16.5 H Plt Count 251 Seg Neutrophils % 73.5 Lymphocytes % 19.5 Monocytes % 5.2 Eosinophils % 1.0 Basophils % 0.8 Absolute Neutrophils 7.6 Absolute Lymphocytes 2.0 Absolute Monocytes 0.5 Absolute Eosinophils 0.1 Absolute Basophils 0.1 Carbonic Acid 1.06 HCO3/H2CO3 Ratio 21:1 ABG pH 7.44 ABG pCO2 35.1 ABG pO2 84.1 ABG HCO3 23.1 ABG O2 Saturation 96.7 ABG Base Excess -0.6 FiO2 21% Sodium 148.8 H Potassium 3.8 Chloride 116 H Carbon Dioxide 24 Anion Gap 9 BUN 19 Creatinine 1.57 H Est GFR ( Amer) 52 L Est GFR (Non-Af Amer) 43 L Glucose 108 Calcium 8.4 Total Bilirubin 0.8 AST 107 H ALT 80 H Alkaline Phosphatase 123 Total Protein 4.7 L Albumin 2.1 L 12/29/16 12/29/16 12/29/16 08:14 08:14 08:14 Creatine Kinase 25 L CK-MB (CK-2) 0.49 Troponin I 0.086 NT-Pro-B Natriuret Pep 2450 H 12/29/16 12/29/16 12/29/16 15:40 15:40 19:15 Creatine Kinase 22 L 21 L CK-MB (CK-2) 0.36 Troponin I 0.076 NT-Pro-B Natriuret Pep 12/29/16 19:15 Creatine Kinase CK-MB (CK-2) 0.45 Troponin I 0.071 NT-Pro-B Natriuret Pep Impressions: Chest X-Ray 12/28/16 20:40 IMPRESSION: No acute findings. Head CT 12/28/16 20:40 IMPRESSION: CHRONIC CHANGES OF ATROPHY AND MICROVASCULAR ISCHEMIA. NO ACUTE PROCESS. EVIDENCE OF ACUTE STROKE: NO. Abdomen/Pelvis CT 12/28/16 22:34 IMPRESSION: 1. Nonspecific inflamed pericholecystic fat. Punctate cholelithiasis. Differential diagnosis includes cholecystitis. Consider ultrasound correlation. 2. Atherosclerosis includes 2.9 cm diameter enlargement of the abdominal aorta. Cholecystostomy 12/29/16 00:00 IMPRESSION: CT GUIDED CHOLECYSTOSTOMY TUBE PLACEMENT WITH CONSCIOUS SEDATION. Abdomen MRI 12/31/16 00:00 IMPRESSION: Post cholecystostomy tube. Gallbladder is decompressed with probable diverticulum or Phrygian cap at the fundus Small fluid collection well-circumscribed along the ventral edge of the gallbladder body. This could be a small diverticulum. A contained perforation is possible. There is no surrounding inflammatory change. Trace fluid between the gastric antrum and pancreatic head without other MRI evidence of pancreatitis No common bile duct dilatation or common duct stones. Assessment & Plan - Diagnosis (1) Acute cholecystitis Is this a current diagnosis for this admission?: Yes (2) Chronic kidney disease, stage 3 Is this a current diagnosis for this admission?: Yes (3) Coronary artery disease Qualifiers: Coronary Disease-Associated Artery/Lesion type: unspecified vessel or lesion type [place] vs. transplanted heart: [place] heart Associated angina: angina presence unspecified Qualified Code(s): I25.10 - Atherosclerotic heart disease of [place] coronary artery without angina pectoris Is this a current diagnosis for this admission?: Yes (4) Delirium Is this a current diagnosis for this admission?: Yes - Plan Summary Plan Summary: Patient will continue the IV antibiotic and other treatment
[2016-12-31] MEDS: AMLODIPINE BESYLATE 5 MG TABLET PO SCH (23:10)
[2017-01-01] MEDS: AMPICILLIN SODIUM/SULBACTAM NA 3 GM in NORMAL SALINE 100 ML IV SCH ×4 (02:15→20:50)
[2017-01-01] MEDS: NORMAL SALINE 1000 ML 1,000 ML IV PRN (04:53)
[2017-01-01 05:01] LABS: ABSOLUTE EOSINOPHILS # (AUTO) 0.3 10^3/uL (0.0-0.6); ABSOLUTE LYMPHOCYTES (AUTO) 1.5 10^3/uL (0.5-4.7); ABSOLUTE MONOCYTES (AUTO) 0.5 10^3/uL (0.1-1.4); ABSOLUTE NEUT (AUTO) 3.9 10^3/uL (1.7-8.2); BASOPHILS % (AUTO) 0.8 % (0-2); EOSINOPHILS % (AUTO) 4.3 % (0-6); HEMATOCRIT 34.5 % (37.9-51.0); HEMOGLOBIN 11.5 g/dL (13.5-17.0); LYMPHOCYTES % (AUTO) 24.2 % (13-45); MEAN CORPUSCULAR HEMOGLOBIN 28.5 pg (27.0-33.4); MEAN CORPUSCULAR HGB CONC 33.2 g/dL (32.0-36.0); MEAN CORPUSCULAR VOLUME 86 fl (80-97); MONOCYTES % (AUTO) 7.6 % (3-13); RED BLOOD COUNT 4.02 10^6/uL (4.35-5.55); RED CELL DISTRIBUTION WIDTH 16.4 % (11.5-14.0); SEGMENTED NEUTROPHILS % (AUTO) 63.1 % (42-78); WHITE BLOOD COUNT 6.1 10^3/uL (4.0-10.5)
[2017-01-01 05:22] LABS: ALANINE AMINOTRANSFERASE 60 U/L (21-72); ALBUMIN 2.5 g/dL (3.5-5.0); ALKALINE PHOSPHATASE 123 U/L (38-126); ANION GAP 8 (5-19); ASPARTATE AMINO TRANSFERASE 66 U/L (17-59); BILIRUBIN,DIRECT 0.5 mg/dL (0.0-0.4); BILIRUBIN,TOTAL 0.5 mg/dL (0.2-1.3); BLOOD UREA NITROGEN 14 mg/dL (7-20); CALCIUM 8.7 mg/dL (8.4-10.2); CARBON DIOXIDE 25 mmol/L (22-30); CHLORIDE 114 mmol/L (98-107); CREATININE RESULT 1.43 mg/dL (0.52-1.25); GLUCOSE 116 mg/dL (75-110); POTASSIUM 3.5 mmol/L (3.6-5.0); SODIUM 146.9 mmol/L (137-145); TOTAL PROTEIN 5.6 g/dL (6.3-8.2)
[2017-01-01] MEDS: HEPARIN SOD (PORCINE) 5,000 UNIT/ML 1 ML SYRINGE SUBCUT SCH ×3 (05:33→21:36)
[2017-01-01] MEDS: ISOSORBIDE DINITRATE 20 MG TABLET PO SCH ×3 (05:33→21:37)
--- NOTE | 2017-01-01 07:58 | EKG REPORT ---
SEVERITY:- ABNORMAL ECG - SINUS RHYTHM LEFT BUNDLE BRANCH BLOCK : Confirmed by: Quoc Sadler MD 01-Jan-2017 07:58:27
[2017-01-01] MEDS: CLONIDINE HCL 0.1 MG TABLET PO SCH ×2 (09:58→21:37)
[2017-01-01] MEDS: METOPROLOL TARTRATE 50 MG TABLET PO SCH ×2 (09:58→21:35)
--- NOTE | 2017-01-01 15:31 | PDOC PROGRESS REPORT ---
Subjective Progress Note for:: 01/01/17 Subjective:: looks comfortable Physical Exam Vital Signs: Temp Pulse Resp BP Pulse Ox 97.4 F 45 L 19 128/65 H 95 01/01/17 11:34 01/01/17 13:54 01/01/17 12:00 01/01/17 12:00 01/01/17 12:00 Intake & Output 12/31/16 01/01/17 01/02/17 06:59 06:59 06:59 Intake Total 2989 2188 100 Output Total 925 1425 450 Balance 2064 763 -350 Weight 73.4 kg 81.5 kg GI/Abdominal exam: PRESENT: other - soft abdomne drain bilious fluid Results Laboratory Results: 01/01/17 04:19 01/01/17 04:19 01/01/17 01/01/17 04:19 04:19 WBC 6.1 RBC 4.02 L Hgb 11.5 L Hct 34.5 L MCV 86 MCH 28.5 MCHC 33.2 RDW 16.4 H Plt Count 270 Seg Neutrophils % 63.1 Lymphocytes % 24.2 Monocytes % 7.6 Eosinophils % 4.3 Basophils % 0.8 Absolute Neutrophils 3.9 Absolute Lymphocytes 1.5 Absolute Monocytes 0.5 Absolute Eosinophils 0.3 Absolute Basophils 0.0 Sodium 146.9 H Potassium 3.5 L Chloride 114 H Carbon Dioxide 25 Anion Gap 8 BUN 14 Creatinine 1.43 H Est GFR ( Amer) 58 L Est GFR (Non-Af Amer) 48 L Glucose 116 H Calcium 8.7 Total Bilirubin 0.5 AST 66 H ALT 60 Alkaline Phosphatase 123 Total Protein 5.6 L Albumin 2.5 L 12/29/16 12/29/16 12/29/16 08:14 08:14 08:14 Creatine Kinase 25 L CK-MB (CK-2) 0.49 Troponin I 0.086 NT-Pro-B Natriuret Pep 2450 H 12/29/16 12/29/16 12/29/16 15:40 15:40 19:15 Creatine Kinase 22 L 21 L CK-MB (CK-2) 0.36 Troponin I 0.076 NT-Pro-B Natriuret Pep 12/29/16 19:15 Creatine Kinase CK-MB (CK-2) 0.45 Troponin I 0.071 NT-Pro-B Natriuret Pep Impressions: Chest X-Ray 12/28/16 20:40 IMPRESSION: No acute findings. Head CT 12/28/16 20:40 IMPRESSION: CHRONIC CHANGES OF ATROPHY AND MICROVASCULAR ISCHEMIA. NO ACUTE PROCESS. EVIDENCE OF ACUTE STROKE: NO. Abdomen/Pelvis CT 12/28/16 22:34 IMPRESSION: 1. Nonspecific inflamed pericholecystic fat. Punctate cholelithiasis. Differential diagnosis includes cholecystitis. Consider ultrasound correlation. 2. Atherosclerosis includes 2.9 cm diameter enlargement of the abdominal aorta. Cholecystostomy 12/29/16 00:00 IMPRESSION: CT GUIDED CHOLECYSTOSTOMY TUBE PLACEMENT WITH CONSCIOUS SEDATION. Abdomen MRI 12/31/16 00:00 IMPRESSION: Post cholecystostomy tube. Gallbladder is decompressed with probable diverticulum or Phrygian cap at the fundus Small fluid collection well-circumscribed along the ventral edge of the gallbladder body. This could be a small diverticulum. A contained perforation is possible. There is no surrounding inflammatory change. Trace fluid between the gastric antrum and pancreatic head without other MRI evidence of pancreatitis No common bile duct dilatation or common duct stones. Assessment & Plan - Plan Summary Plan Summary: cholecystitis s/p perc cholecystomy may dc with tube - to follow in surgery clinic for the drain removal in 2 weeks
--- NOTE | 2017-01-01 20:12 | PDOC PROGRESS REPORT ---
Subjective Progress Note for:: 01/01/17 Subjective:: Patient was seen by the bedside he has normal IV access, the IV antibiotic will be transitioned to p.o. antibiotic Physical Exam Vital Signs: Temp Pulse Resp BP Pulse Ox 97.5 F 49 L 18 130/57 H 94 01/01/17 15:53 01/01/17 16:00 01/01/17 16:00 01/01/17 16:00 01/01/17 16:00 Intake & Output 12/31/16 01/01/17 01/02/17 06:59 06:59 06:59 Intake Total 2989 2188 455 Output Total 925 1425 650 Balance 2064 763 -195 Weight 73.4 kg 81.5 kg General appearance: PRESENT: no acute distress Eye exam: PRESENT: PERRLA Respiratory exam: PRESENT: clear to auscultation magdalena Cardiovascular exam: PRESENT: +S1, +S2 GI/Abdominal exam: PRESENT: soft Neurological exam: PRESENT: alert, CN II-XII grossly intact Results Laboratory Results: 01/01/17 04:19 01/01/17 04:19 01/01/17 01/01/17 04:19 04:19 WBC 6.1 RBC 4.02 L Hgb 11.5 L Hct 34.5 L MCV 86 MCH 28.5 MCHC 33.2 RDW 16.4 H Plt Count 270 Seg Neutrophils % 63.1 Lymphocytes % 24.2 Monocytes % 7.6 Eosinophils % 4.3 Basophils % 0.8 Absolute Neutrophils 3.9 Absolute Lymphocytes 1.5 Absolute Monocytes 0.5 Absolute Eosinophils 0.3 Absolute Basophils 0.0 Sodium 146.9 H Potassium 3.5 L Chloride 114 H Carbon Dioxide 25 Anion Gap 8 BUN 14 Creatinine 1.43 H Est GFR ( Amer) 58 L Est GFR (Non-Af Amer) 48 L Glucose 116 H Calcium 8.7 Total Bilirubin 0.5 AST 66 H ALT 60 Alkaline Phosphatase 123 Total Protein 5.6 L Albumin 2.5 L 12/29/16 12/29/16 12/29/16 08:14 08:14 08:14 Creatine Kinase 25 L CK-MB (CK-2) 0.49 Troponin I 0.086 NT-Pro-B Natriuret Pep 2450 H 12/29/16 12/29/16 12/29/16 15:40 15:40 19:15 Creatine Kinase 22 L 21 L CK-MB (CK-2) 0.36 Troponin I 0.076 NT-Pro-B Natriuret Pep 12/29/16 19:15 Creatine Kinase CK-MB (CK-2) 0.45 Troponin I 0.071 NT-Pro-B Natriuret Pep Impressions: Chest X-Ray 12/28/16 20:40 IMPRESSION: No acute findings. Head CT 12/28/16 20:40 IMPRESSION: CHRONIC CHANGES OF ATROPHY AND MICROVASCULAR ISCHEMIA. NO ACUTE PROCESS. EVIDENCE OF ACUTE STROKE: NO. Abdomen/Pelvis CT 12/28/16 22:34 IMPRESSION: 1. Nonspecific inflamed pericholecystic fat. Punctate cholelithiasis. Differential diagnosis includes cholecystitis. Consider ultrasound correlation. 2. Atherosclerosis includes 2.9 cm diameter enlargement of the abdominal aorta. Cholecystostomy 12/29/16 00:00 IMPRESSION: CT GUIDED CHOLECYSTOSTOMY TUBE PLACEMENT WITH CONSCIOUS SEDATION. Abdomen MRI 12/31/16 00:00 IMPRESSION: Post cholecystostomy tube. Gallbladder is decompressed with probable diverticulum or Phrygian cap at the fundus Small fluid collection well-circumscribed along the ventral edge of the gallbladder body. This could be a small diverticulum. A contained perforation is possible. There is no surrounding inflammatory change. Trace fluid between the gastric antrum and pancreatic head without other MRI evidence of pancreatitis No common bile duct dilatation or common duct stones. Assessment & Plan - Diagnosis (1) Acute cholecystitis Is this a current diagnosis for this admission?: Yes (2) Chronic kidney disease, stage 3 Is this a current diagnosis for this admission?: Yes (3) Coronary artery disease Qualifiers: Coronary Disease-Associated Artery/Lesion type: unspecified vessel or lesion type [place] vs. transplanted heart: [place] heart Associated angina: angina presence unspecified Qualified Code(s): I25.10 - Atherosclerotic heart disease of [place] coronary artery without angina pectoris Is this a current diagnosis for this admission?: Yes (4) Delirium Is this a current diagnosis for this admission?: Yes - Plan Summary Plan Summary: Change IV antibiotic to p.o.
[2017-01-01] MEDS: METRONIDAZOLE 500 MG TABLET PO SCH (21:36)
[2017-01-01] MEDS: CIPROFLOXACIN HCL 500 MG TABLET PO SCH (21:37)
[2017-01-01] MEDS: AMLODIPINE BESYLATE 5 MG TABLET PO SCH (21:37)
[2017-01-02] MEDS: AMPICILLIN SODIUM/SULBACTAM NA 3 GM in NORMAL SALINE 100 ML IV SCH ×2 (02:52→08:19)
[2017-01-02] MEDS: METRONIDAZOLE 500 MG TABLET PO SCH ×3 (06:33→22:34)
[2017-01-02] MEDS: ISOSORBIDE DINITRATE 20 MG TABLET PO SCH ×3 (06:33→22:34)
[2017-01-02] MEDS: HEPARIN SOD (PORCINE) 5,000 UNIT/ML 1 ML SYRINGE SUBCUT SCH ×3 (07:40→22:35)
[2017-01-02] MEDS: METOPROLOL TARTRATE 50 MG TABLET PO SCH ×2 (09:40→22:34)
[2017-01-02] MEDS: CLONIDINE HCL 0.1 MG TABLET PO SCH ×2 (09:40→22:34)
[2017-01-02] MEDS: CIPROFLOXACIN HCL 500 MG TABLET PO SCH ×2 (09:40→22:34)
[2017-01-02] MEDS ORDERED: ZINC OXIDE 20% OINTMENT 28.35 GM TP PRN (13:48)
--- NOTE | 2017-01-02 13:48 | PDOC PROGRESS REPORT ---
Subjective Progress Note for:: 01/02/17 Subjective:: Patient somewhat cantankerous this morning; drain working satisfactorily Physical Exam Vital Signs: Temp Pulse Resp BP Pulse Ox 97.5 F 51 L 16 144/67 H 96 01/02/17 12:14 01/02/17 12:14 01/02/17 12:14 01/02/17 12:14 01/02/17 12:14 Intake & Output 01/01/17 01/02/17 01/03/17 06:59 06:59 06:59 Intake Total 2188 455 Output Total 1425 1050 Balance 763 -595 Weight 81.5 kg 81 kg GI/Abdominal exam: PRESENT: other - Drain site inspected, working satisfactorily ; blisters around dressing site; blisters debrided at bedside Results Laboratory Results: 01/01/17 04:19 01/01/17 04:19 12/29/16 12:40 Gall Bladder Fluid Gram Stain - Final 12/29/16 12:40 Gall Bladder Fluid Body Fluid Culture - Final NO AEROBIC OR ANAEROBIC ORGANISMS RECOVERED 12/29/16 12/29/16 12/29/16 08:14 08:14 08:14 Creatine Kinase 25 L CK-MB (CK-2) 0.49 Troponin I 0.086 NT-Pro-B Natriuret Pep 2450 H 12/29/16 12/29/16 12/29/16 15:40 15:40 19:15 Creatine Kinase 22 L 21 L CK-MB (CK-2) 0.36 Troponin I 0.076 NT-Pro-B Natriuret Pep 12/29/16 19:15 Creatine Kinase CK-MB (CK-2) 0.45 Troponin I 0.071 NT-Pro-B Natriuret Pep Impressions: Chest X-Ray 12/28/16 20:40 IMPRESSION: No acute findings. Head CT 12/28/16 20:40 IMPRESSION: CHRONIC CHANGES OF ATROPHY AND MICROVASCULAR ISCHEMIA. NO ACUTE PROCESS. EVIDENCE OF ACUTE STROKE: NO. Abdomen/Pelvis CT 12/28/16 22:34 IMPRESSION: 1. Nonspecific inflamed pericholecystic fat. Punctate cholelithiasis. Differential diagnosis includes cholecystitis. Consider ultrasound correlation. 2. Atherosclerosis includes 2.9 cm diameter enlargement of the abdominal aorta. Cholecystostomy 12/29/16 00:00 IMPRESSION: CT GUIDED CHOLECYSTOSTOMY TUBE PLACEMENT WITH CONSCIOUS SEDATION. Abdomen MRI 12/31/16 00:00 IMPRESSION: Post cholecystostomy tube. Gallbladder is decompressed with probable diverticulum or Phrygian cap at the fundus Small fluid collection well-circumscribed along the ventral edge of the gallbladder body. This could be a small diverticulum. A contained perforation is possible. There is no surrounding inflammatory change. Trace fluid between the gastric antrum and pancreatic head without other MRI evidence of pancreatitis No common bile duct dilatation or common duct stones. Assessment & Plan - Diagnosis (1) Acute cholecystitis Is this a current diagnosis for this admission?: Yes Plan: Status post a percutaneous radiologically placed cholecystostomy tube functioning satisfactorily with no evidence of ongoing sepsis Plan 1. Will order zinc oxide treatment for skin around dressing site 2. Leave drain in for at least 6 weeks; flush once a day 3. Patient can follow-up with [facility] in 4-6 weeks to discuss drain management thereafter.
--- NOTE | 2017-01-02 20:13 | PDOC TRANSFER SUMMARY ---
General - Admit/Disc Date/PCP Admission Date/Primary Care Provider: 12/29/16 07:12 ILAN FALCON MD Discharge Date: 01/09/17 - Discharge Diagnosis (1) Acute cholecystitis Is this a current diagnosis for this admission?: Yes (2) Chronic kidney disease, stage 3 Is this a current diagnosis for this admission?: Yes (3) Coronary artery disease Is this a current diagnosis for this admission?: Yes (4) Delirium Is this a current diagnosis for this admission?: Yes - Additional Information Home Medications: Amlodipine Besylate [Norvasc 5 mg Tablet] 5 mg PO QHS 12/29/16 Aspirin [Aspirin 81 mg Chewable Tablet] 81 mg PO DAILY 12/29/16 Atorvastatin Calcium [Lipitor 10 mg Tablet] 10 mg PO QHS 12/29/16 Budesonide [Pulmicort 180 mcg Flexhaler] 2 puff IH DAILYP PRN 12/29/16 Clonidine HCl [Catapres 0.1 mg Tablet] 0.1 mg PO Q12 12/29/16 Docusate Sodium [Colace 100 mg Capsule] 100 mg PO BID 12/29/16 Ipratropium/Albuterol Sulfate [Iprat-Albut 0.5-3(2.5) mg/3 ml] 3 ml NEB Q6HP PRN 12/29/16 Isosorbide Dinitrate [Isordil Titradose 20 mg Tablet] 20 mg PO Q8 12/29/16 Metoprolol Tartrate [Lopressor 50 mg Tablet] 50 mg PO Q12 12/29/16 Mirtazapine 7.5 mg PO QHS 12/29/16 Omeprazole 40 mg PO DAILY 12/29/16 Ondansetron HCl [Zofran 4 mg Tablet] 4 mg PO Q8HP PRN 12/29/16 Polyethylene Glycol 3350 [Miralax Powder 17 gm/Packet] 17 gm PO DAILY 12/29/16 Tiotropium [place] [Spiriva Handihaler 5 Cap/Kit (18 Mcg/Cap)] 1 puff IN DAILY 12/29/16 Ciprofloxacin HCl [Cipro 500 mg Tablet] 500 mg PO Q12 #20 tablet 01/02/17 Metronidazole [Flagyl 500 mg Tablet] 500 mg PO Q8 #30 tablet 01/02/17 History of Present Illness Admission Date/PCP: 12/29/16 07:12 ILAN FALCON MD History of Present Illness: Patient is 76-year-old male with multiple comorbid conditions, he was transferred [facility] the [facility] to the emergency room for evaluation of altered mental status. He has a history of stroke, chronic kidney disease, in the emergency room part of the evaluation included blood draw for hemogram, he was found to have leukocytosis with WBC over 20,000. On examination he was found to have abdominal tenderness with abnormal liver enzymes a CAT scan of the abdomen and pelvis without contrast was done he showed hydropic gallbladder with inflamed surrounding fat, punctate cholelithiasis the appearance is suggestive of cholecystitis. He was seen by the surgeon, it was felt that is not a good candidate for surgery CT percutaneous cholecystostomy was recommended that was done today . Hospital Course Hospital Course: Patient was admitted for the management of acute cholecystitis, he was treated conservatively with cholecystostomy. On admission he had leukocytosis, he was treated with IV Unasyn with good result. He will transfer back to [facility] for continuity of care, will follow with the surgeon outpatient. Physical Exam Vital Signs: Temp Pulse Resp BP Pulse Ox 98.2 F 52 L 20 155/65 H 96 01/02/17 20:00 01/02/17 20:00 01/02/17 20:00 01/02/17 20:00 01/02/17 15:46 Intake & Output 01/01/17 01/02/17 01/03/17 06:59 06:59 06:59 Intake Total 2188 455 928 Output Total 1425 1050 1200 Balance 643 -602 -524 Weight 81.5 kg 81 kg General appearance: PRESENT: no acute distress Eye exam: PRESENT: PERRLA Respiratory exam: PRESENT: clear to auscultation magdalena Cardiovascular exam: PRESENT: +S1, +S2 GI/Abdominal exam: PRESENT: other - there is a cholecystotomy bag Neurological exam: PRESENT: alert Results Laboratory Results: 01/01/17 04:19 01/01/17 04:19 12/29/16 12:40 Gall Bladder Fluid Gram Stain - Final 12/29/16 12:40 Gall Bladder Fluid Body Fluid Culture - Final NO AEROBIC OR ANAEROBIC ORGANISMS RECOVERED 12/29/16 12/29/16 12/29/16 08:14 08:14 08:14 Creatine Kinase 25 L CK-MB (CK-2) 0.49 Troponin I 0.086 NT-Pro-B Natriuret Pep 2450 H 12/29/16 12/29/16 12/29/16 15:40 15:40 19:15 Creatine Kinase 22 L 21 L CK-MB (CK-2) 0.36 Troponin I 0.076 NT-Pro-B Natriuret Pep 12/29/16 19:15 Creatine Kinase CK-MB (CK-2) 0.45 Troponin I 0.071 NT-Pro-B Natriuret Pep Impressions: Chest X-Ray 12/28/16 20:40 IMPRESSION: No acute findings. Head CT 12/28/16 20:40 IMPRESSION: CHRONIC CHANGES OF ATROPHY AND MICROVASCULAR ISCHEMIA. NO ACUTE PROCESS. EVIDENCE OF ACUTE STROKE: NO. Abdomen/Pelvis CT 12/28/16 22:34 IMPRESSION: 1. Nonspecific inflamed pericholecystic fat. Punctate cholelithiasis. Differential diagnosis includes cholecystitis. Consider ultrasound correlation. 2. Atherosclerosis includes 2.9 cm diameter enlargement of the abdominal aorta. Cholecystostomy 12/29/16 00:00 IMPRESSION: CT GUIDED CHOLECYSTOSTOMY TUBE PLACEMENT WITH CONSCIOUS SEDATION. Abdomen MRI 12/31/16 00:00 IMPRESSION: Post cholecystostomy tube. Gallbladder is decompressed with probable diverticulum or Phrygian cap at the fundus Small fluid collection well-circumscribed along the ventral edge of the gallbladder body. This could be a small diverticulum. A contained perforation is possible. There is no surrounding inflammatory change. Trace fluid between the gastric antrum and pancreatic head without other MRI evidence of pancreatitis No common bile duct dilatation or common duct stones.
[2017-01-02] MEDS: AMLODIPINE BESYLATE 5 MG TABLET PO SCH (22:24)
[2017-01-03] MEDS: HEPARIN SOD (PORCINE) 5,000 UNIT/ML 1 ML SYRINGE SUBCUT SCH (05:29)
[2017-01-03] MEDS: ISOSORBIDE DINITRATE 20 MG TABLET PO SCH (06:27)
[2017-01-03] MEDS: METRONIDAZOLE 500 MG TABLET PO SCH (06:27)
[2017-01-03] MEDS: CLONIDINE HCL 0.1 MG TABLET PO SCH (09:33)
[2017-01-03] MEDS: METOPROLOL TARTRATE 50 MG TABLET PO SCH (09:33)
[2017-01-03] MEDS: CIPROFLOXACIN HCL 500 MG TABLET PO SCH (09:34)
[2017-01-03 12:10] VITALS: BP 164/76
== END 2017-01-03 12:20 | DRG 445 ==
LOC: ER 20:26 → EH 12-29 01:02 → UNDOADMIN 12-29 01:02 → 3N 12-29 02:35 → EH 12-29 02:35 → 3N 12-29 07:12
PROVIDERS: ADMIT Internal Medicine; ATTEND Internal Medicine
PROC: 0F9440Z Drainage of Gallbladder with Drainage Device, Percutaneous Endoscopic Approach (ICD-10-PCS; principal; 2016-12-29)
PROC: 0HD7XZZ Extraction of Abdomen Skin, External Approach (ICD-10-PCS; 2017-01-02)
DX: K81.0 Acute cholecystitis (principal); R47.01 Aphasia; I50.9 Heart failure, unspecified; J44.9 Chronic obstructive pulmonary disease, unspecified; K21.9 Gastro-esophageal reflux disease without esophagitis; D64.9 Anemia, unspecified; N18.3 Chronic kidney disease, stage 3 (moderate); R62.7 Adult failure to thrive; I25.10 Atherosclerotic heart disease of native coronary artery without angina pectoris; R23.8 Other skin changes; D72.829 Elevated white blood cell count, unspecified; K82.8 Other specified diseases of gallbladder; Z95.1 Presence of aortocoronary bypass graft; Z87.891 Personal history of nicotine dependence; Z89.612 Acquired absence of left leg above knee; Z86.73 Personal history of transient ischemic attack (TIA), and cerebral infarction without residual deficits
CPT/HCPCS: 36415; 36600; 47490; 70450; 71010; 74176; 74181; 80048; 80053; 80061; 80076; 80307; 81001; 82140; 82150; 82550; 82553; 82570; 82803; 82962; 83036; 83605; 83690; 83735; 83880; 84100; 84156; 84439; 84443; 84484; 85025; 85610; 85730; 87040; 87070; 87075; 87086; 87205; 93005; 93010; 96374; 99285; C1729; C1769; C1894; J0295; J1644; J2250; J2405; J2543; J3010; J3490; J7030

== ENCOUNTER → 2017-02-03 | Outpatient (CLI) | payer MEDICARE, MEDICAID ==
--- NOTE | 2017-02-03 13:12 | RADIOLOGY REPORT (SQ) ---
EXAM DESCRIPTION: INJECT T-TUBE CHOLANG COMPLETED DATE/TIME: 02/03/2017 11:31 am REASON FOR STUDY: K81.0 ACUTE CHOLECYSTITIS K81.0 ACUTE CHOLECYSTITIS COMPARISON: MRI abdomen 12/31/2016 Percutaneous cholecystostomy 12/29/2016 CT abdomen 12/28/2016 FLUOROSCOPY TIME: Fluoro time 2 minutes 27 seconds 19 digital images saved to PACS. TECHNIQUE: Gentle hand injection of 100 mL of Isovue-300 through the patient's pre-existing cholecys tostomy tube. Multiple spot images were obtained. LIMITATIONS: None. FINDINGS: Gentle hand injection of Isovue-300 contrast was performed, through the patient's pre-exis ting cholecystostomy tube. There is trace retrograde tracking of contrast from the tube towards the entry site into the posterior right lobe liver, and minimal pooling of contrast along the right lobe liver edge. The gallbladder is contracted with a lumpy irregular mucosal surface. The cholecystostomy tube [place] loop the is a in the gallbladder. Cystic duct is patent. There is reflux of contrast into normal-appearing intrahepatic ducts, and a n ormal caliber common bile duct with free flow of contrast into the duodenum. No reflux into the panc reatic duct. IMPRESSION: No cystic duct or common duct obstruction COMMENT: Quality ID [id number]: Final reports for procedures using fluoroscopy that document radiation exp osure indices, or exposure time and number of fluorographic images (if radiation exposure indices are not available) TECHNICAL DOCUMENTATION: JOB ID: [id number] [employer]- All Rights Reserved
== END ==
LOC: RAD 10:00
PROVIDERS: ATTEND Surgery
DX: K81.0 Acute cholecystitis (principal)
CPT/HCPCS: 47531

== ENCOUNTER → 2017-02-20 | Outpatient (CLI) | payer MEDICARE, MEDICAID, OTHER ==
[2017-02-20 13:52] LABS: ALANINE AMINOTRANSFERASE 29 U/L (21-72); ALBUMIN 3.8 g/dL (3.5-5.0); ALKALINE PHOSPHATASE 91 U/L (38-126); ASPARTATE AMINO TRANSFERASE 18 U/L (17-59); BILIRUBIN,DIRECT 0.4 mg/dL (0.0-0.4); BILIRUBIN,TOTAL 0.5 mg/dL (0.2-1.3); TOTAL PROTEIN 7.7 g/dL (6.3-8.2)
== END ==
LOC: LAB 12:42
PROVIDERS: ATTEND Surgery
DX: K81.0 Acute cholecystitis (principal)
CPT/HCPCS: 36415; 80076

== ENCOUNTER 2018-02-22 18:58 | Inpatient (IN) | payer MEDICARE, MEDICAID ==
--- NOTE | 2018-02-22 19:21 | ER Document Report ---
ED General - General Mode of Arrival: Medic Information source: Patient, Emergency Med Personnel TRAVEL OUTSIDE OF THE [place] IN LAST 30 DAYS: No <ANT BERGER - Last Filed: 02/22/18 19:16> <MANJIT MEDEL - Last Filed: 02/22/18 23:29> - General Stated Complaint: ABNORMAL LABS Time Seen by Provider: 02/22/18 19:06 Notes: 77-year-old male with stage III kidney disease, not on dialysis, who presents to the emergency department today with complaints of an elevated potassium during outpatient labs. EMS states they were called to sisal picker the patient and when arriving at the patient's nursing facility they were told he had an elevated potassium but the exact value wasn't known. EMS states that the patient was watching TV when they arrived and that he has no complaints. Patient states he ate one banana this morning but has not been eating them in excess recently. Patient denies any symptoms including vomiting, diarrhea, chest pain, or abdominal pain. (ANT BERGER) - Related Data Allergies/Adverse Reactions: No Known Allergies Allergy (Verified 07/18/16 03:22) Past Medical History - General Information source: Patient - Social History Smoking Status: Former Smoker Cigarette use (# per day): No Chew tobacco use (# tins/day): Yes Frequency of alcohol use: Social Drug Abuse: Other - former, last use >1 year ago Family History: Reviewed & Not Pertinent, CAD - Past Medical History Cardiac Medical History: Reports: Hx Coronary Artery Disease, Hx Hypercholesterolemia, Hx Hypertension Pulmonary Medical History: Reports: Hx COPD Renal/ Medical History: Reports: Hx Renal Insufficiency GI Medical History: Reports: Hx Gastroesophageal Reflux Disease, Hx Hiatal Hernia Musculoskeletal Medical History: Reports Hx Muscle Weakness - generalized Past Surgical History: Reports: Hx Cardiac Surgery, Hx Coronary Artery Bypass Graft - Immunizations Hx Diphtheria, Pertussis, Tetanus Vaccination: Yes <ANT BERGER - Last Filed: 02/22/18 19:16> Review of Systems - Review of Systems Constitutional: Other - Abnormal labs per EMS, elevated potassium EENT: No symptoms reported Cardiovascular: No symptoms reported Respiratory: No symptoms reported Gastrointestinal: No symptoms reported Genitourinary: No symptoms reported Male Genitourinary: No symptoms reported Musculoskeletal: No symptoms reported Skin: No symptoms reported Hematologic/Lymphatic: No symptoms reported Neurological/Psychological: No symptoms reported -: Yes All other systems reviewed and negative <ANT BERGER - Last Filed: 02/22/18 19:16> Physical Exam <ANT EBRGER - Last Filed: 02/22/18 19:16> <MANJIT MEDEL - Last Filed: 02/22/18 23:29> - Vital signs Vitals: Resp Pulse Ox 19 100 02/22/18 19:29 02/22/18 19:29 - Notes Notes: PHYSICAL EXAM GENERAL: Alert, interacts well. No acute distress. HEAD: Normocephalic, atraumatic. EYES: Pupils equal, round, and reactive to light. Extraocular movements intact. ENT: Oral mucosa moist, tongue midline. NECK: Full range of motion. Supple. Trachea midline. LUNGS: Clear to auscultation bilaterally, no wheezes, rales, or rhonchi. No respiratory distress. HEART: Regular rate and rhythm. No murmurs, gallops, or rubs. ABDOMEN: Soft, non-tender. Non-distended. Bowel sounds present in all 4 quadrants. No guarding, rigidity, or rebound. EXTREMITIES: Moves all 4 extremities spontaneously. No edema, radial and dorsalis pedis pulses 2/4 bilaterally. No cyanosis. NEUROLOGICAL: Able to answer that he is in [place], in a hospital but does not know the name, unable to state the year. Normal speech. PSYCH: Normal affect, normal mood. SKIN: Warm, dry, normal turgor. No rashes or lesions noted. (ANT BERGER) Course <ANT BERGER - Last Filed: 02/22/18 19:16> - Laboratory Result Diagrams: 02/22/18 20:22 02/22/18 20:22 <MANJIT MEDEL - Last Filed: 02/22/18 23:29> - Re-evaluation Re-evalutation: 02/22/18 21:12 CBC shows mild anemia with hemoglobin 11.6, CMP shows acute on chronic renal failure with a BUN of 44 and a creatinine of 4.61, this is approximately double what it was in September, potassium is actually normal at 4.8, prior potassium earlier today was 5.4, EKG was ordered initially screening to see if there are any changes associated with hyperkalemia before had the potassium back, there are no signs of hyperkalemia on the EKG however I was concerned by new T wave inversions in V4, V5 and V6 compared to prior EKG on 01/01/2017. Troponin is indeterminate at 0.054. I did discuss this patient with Dr. Huerta, he is agreeable to admitting the patient for acute on chronic renal failure, no indication for treatment for hyperkalemia at this time as the potassium is now normal. At this time he has no symptoms of acute coronary syndrome, we will continue to trend his troponin but this is likely elevated due to his acute on chronic renal failure. Patient is given aspirin just in case. (MANJIT MEDEL) - Vital Signs Vital signs: Temp Pulse Resp BP Pulse Ox 17 166/90 H 99 02/22/18 22:00 02/22/18 21:03 02/22/18 22:00 - Laboratory Laboratory results interpreted by me: 02/22/18 02/22/18 02/22/18 20:22 20:22 20:22 RBC 3.78 L Hgb 11.6 L Hct 34.8 L RDW 15.2 H Sodium 146.2 H Chloride 111 H BUN 44 H Creatinine 4.61 H Est GFR ( Amer) 15 L Est GFR (Non-Af Amer) 12 L Glucose 125 H Phosphorus 4.7 H Magnesium 2.5 H AST 15 L ALT 11 L Creatine Kinase 27 L NT-Pro-B Natriuret Pep Albumin 3.1 L Amylase 200 H 02/22/18 20:22 RBC Hgb Hct RDW Sodium Chloride BUN Creatinine Est GFR ( Amer) Est GFR (Non-Af Amer) Glucose Phosphorus Magnesium AST ALT Creatine Kinase NT-Pro-B Natriuret Pep 4060 H Albumin Amylase - EKG Interpretation by Me Additional EKG results interpreted by me: 02/22/18 19:28 EKG shows sinus bradycardia at a rate of 54, left bundle branch block, QRS of 154, slight left axis deviation, T wave inversions in 2, 3, aVF, V4 through V6, D inversions V4 through V6 are new, the left bundle branch block does not meet sgarbossa's criteria per my interpretation. (MANJIT MEDEL) Discharge <ANT BERGER - Last Filed: 02/22/18 19:16> - Discharge Admitting Provider: Deanna Unit Admitted: Telemetry <MANJIT MEDEL - Last Filed: 02/22/18 23:29> - Discharge Clinical Impression: Elevated troponin Acute on chronic renal failure Qualifiers: Acute renal failure type: unspecified Chronic kidney disease stage: stage 3 ( moderate) Qualified Code(s): N17.9 - Acute kidney failure, unspecified; N18.3 - Chronic kidney disease, stage 3 (moderate); N18.3 - Chronic kidney disease, stage 3 (moderate); N18.3 - Chronic kidney disease, stage 3 (moderate) Condition: Stable Disposition: ADMITTED OBSERVATION Scribe Attestation: 02/22/18 23:29 I personally performed the services described in the documentation, reviewed and edited the documentation which was dictated to the scribe in my presence, and it accurately records my words and actions. (MANJIT MEDEL) Scribe Documentation - Scribe Written by Scribe:: Wolf Das, 02/22/2018 192 acting as scribe for :: Sofia <ANT BERGER - Last Filed: 02/22/18 19:16>
[2018-02-22 20:40] LABS: ABSOLUTE BASOPHILS # (AUTO) 0.1 10^3/uL (0.0-0.2); ABSOLUTE EOSINOPHILS # (AUTO) 0.3 10^3/uL (0.0-0.6); ABSOLUTE MONOCYTES (AUTO) 0.4 10^3/uL (0.1-1.4); ABSOLUTE NEUT (AUTO) 3.9 10^3/uL (1.7-8.2); BASOPHILS % (AUTO) 1.5 % (0-2); EOSINOPHILS % (AUTO) 4.1 % (0-6); HEMATOCRIT 34.8 % (37.9-51.0); HEMOGLOBIN 11.6 g/dL (13.5-17.0); LYMPHOCYTES % (AUTO) 30.5 % (13-45); MEAN CORPUSCULAR HEMOGLOBIN 30.6 pg (27.0-33.4); MEAN CORPUSCULAR HGB CONC 33.2 g/dL (32.0-36.0); MEAN CORPUSCULAR VOLUME 92 fl (80-97); MONOCYTES % (AUTO) 6.1 % (3-13); PLATELET COUNT 285 10^3/uL (150-450); RED BLOOD COUNT 3.78 10^6/uL (4.35-5.55); RED CELL DISTRIBUTION WIDTH 15.2 % (11.5-14.0); SEGMENTED NEUTROPHILS % (AUTO) 57.8 % (42-78); TOTAL CELLS COUNTED % (AUTO) 100 %; WHITE BLOOD COUNT 6.7 10^3/uL (4.0-10.5)
[2018-02-22 20:52] LABS: ALANINE AMINOTRANSFERASE 11 U/L (21-72); ALBUMIN 3.1 g/dL (3.5-5.0); ALKALINE PHOSPHATASE 109 U/L (38-126); ANION GAP 10 (5-19); ASPARTATE AMINO TRANSFERASE 15 U/L (17-59); BILIRUBIN,DIRECT 0.3 mg/dL (0.0-0.4); BILIRUBIN,TOTAL 0.3 mg/dL (0.2-1.3); BLOOD UREA NITROGEN 44 mg/dL (7-20); CARBON DIOXIDE 25 mmol/L (22-30); CHLORIDE 111 mmol/L (98-107); CREATINE KINASE 27 U/L (55-170); GLUCOSE 125 mg/dL (75-110); POTASSIUM 4.8 mmol/L (3.6-5.0); SODIUM 146.2 mmol/L (137-145); TOTAL PROTEIN 6.5 g/dL (6.3-8.2)
[2018-02-22 21:04] LABS: CREATINE KINASE MB 0.58 ng/mL (<4.55)
[2018-02-22 21:08] LABS: TROPONIN I 0.054 ng/mL
[2018-02-22] MEDS ORDERED: ASPIRIN 325 MG TABLET PO ONE (21:13)
[2018-02-22 22:04] LABS: LIPASE 159.3 U/L (23-300); PHOSPHORUS 4.7 mg/dL (2.5-4.5)
[2018-02-22 22:21] LABS: FREE T4 (FREE THYROXINE) 1.38 ng/dL (0.78-2.19)
[2018-02-22 22:35] LABS: THYROID STIMULATING HORMONE 4.16 uIU/mL (0.47-4.68)
--- NOTE | 2018-02-22 22:38 | EKG REPORT ---
SEVERITY:- ABNORMAL ECG - SINUS RHYTHM LEFT BUNDLE BRANCH BLOCK : Confirmed by: Beto Delarosa 22-Feb-2018 22:37:33
[2018-02-22 23:02] LABS: INTERNATIONAL RATION (INR) 0.94
[2018-02-22] MEDS: NORMAL SALINE 1000 ML 1,000 ML IV PRN (23:48)
[2018-02-23] MEDS ORDERED: IPRATROPIUM/ALBUTEROL 0.5-2.5 MG/3 ML AMPUL NEB PRN (01:54)
[2018-02-23] MEDS ORDERED: ALBUTEROL SULFATE 0.083% NEB 2.5 MG/3 ML AMPUL NEB PRN (02:15)
[2018-02-23] MEDS ORDERED: AMLODIPINE BESYLATE 5 MG TABLET PO ONE (02:15)
[2018-02-23] MEDS ORDERED: ISOSORBIDE DINITRATE 20 MG TABLET PO ONE (02:15)
--- NOTE | 2018-02-23 02:31 | RADIOLOGY REPORT (SQ) ---
EXAM DESCRIPTION: US RETROPERITONEUM LIMITED COMPLETED DATE/TME: 02/23/2018 00:00 CLINICAL HISTORY: 77 years Male, acute kidney injury Comparison: CT, 12/28/2016 LIMITATIONS: None. FINDINGS: 10-cm right kidney, 10-cm left kidney, and urinary bladder with demonstrated bilateral ureteral jet flow appear otherwise of normal size, shape, echotexture, and vascularity. IMPRESSION: Normal renal sonogram.
[2018-02-23 05:14] LABS: ABSOLUTE BASOPHILS # (AUTO) 0.1 10^3/uL (0.0-0.2); ABSOLUTE EOSINOPHILS # (AUTO) 0.3 10^3/uL (0.0-0.6); ABSOLUTE LYMPHOCYTES (AUTO) 2.5 10^3/uL (0.5-4.7); ABSOLUTE MONOCYTES (AUTO) 0.6 10^3/uL (0.1-1.4); ABSOLUTE NEUT (AUTO) 3.3 10^3/uL (1.7-8.2); BASOPHILS % (AUTO) 2.2 % (0-2); EOSINOPHILS % (AUTO) 4.9 % (0-6); HEMATOCRIT 31.4 % (37.9-51.0); HEMOGLOBIN 10.6 g/dL (13.5-17.0); LYMPHOCYTES % (AUTO) 36.1 % (13-45); MEAN CORPUSCULAR HEMOGLOBIN 30.7 pg (27.0-33.4); MEAN CORPUSCULAR HGB CONC 33.7 g/dL (32.0-36.0); MEAN CORPUSCULAR VOLUME 91 fl (80-97); MONOCYTES % (AUTO) 8.5 % (3-13); PLATELET COUNT 259 10^3/uL (150-450); RED BLOOD COUNT 3.44 10^6/uL (4.35-5.55); RED CELL DISTRIBUTION WIDTH 15.1 % (11.5-14.0); SEGMENTED NEUTROPHILS % (AUTO) 48.3 % (42-78); TOTAL CELLS COUNTED % (AUTO) 100 %; WHITE BLOOD COUNT 6.9 10^3/uL (4.0-10.5)
[2018-02-23 05:42] LABS: ALANINE AMINOTRANSFERASE 12 U/L (21-72); ALBUMIN 2.6 g/dL (3.5-5.0); ALKALINE PHOSPHATASE 86 U/L (38-126); ANION GAP 9 (5-19); ASPARTATE AMINO TRANSFERASE 14 U/L (17-59); BILIRUBIN,DIRECT 0.2 mg/dL (0.0-0.4); BILIRUBIN,TOTAL 0.3 mg/dL (0.2-1.3); BLOOD UREA NITROGEN 43 mg/dL (7-20); CALCIUM 8.7 mg/dL (8.4-10.2); CARBON DIOXIDE 23 mmol/L (22-30); CHLORIDE 113 mmol/L (98-107); GLUCOSE 101 mg/dL (75-110); POTASSIUM 4.6 mmol/L (3.6-5.0); SODIUM 145.3 mmol/L (137-145); TOTAL PROTEIN 5.7 g/dL (6.3-8.2)
[2018-02-23] MEDS: HEPARIN SOD (PORCINE) 5,000 UNIT/ML 1 ML SYRINGE SUBCUT SCH ×3 (06:52→22:34)
[2018-02-23] MEDS: ISOSORBIDE DINITRATE 20 MG TABLET PO SCH ×3 (06:52→22:32)
[2018-02-23] MEDS: NORMAL SALINE 1000 ML 1,000 ML IV PRN ×2 (10:24→20:25)
[2018-02-23] MEDS: CLONIDINE HCL 0.1 MG TABLET PO SCH ×2 (10:27→22:33)
[2018-02-23] MEDS: ASPIRIN 81 MG TABLET, CHEWABLE PO SCH (10:27)
[2018-02-23] MEDS: POLYETHYLENE GLYCOL 3350 POWDER 17 GM/1 PACKET PO SCH (10:28)
[2018-02-23] MEDS: FLUTICASONE PROPIONATE HFA 110 MCG/PUFF 12 GM MDI IH SCH ×2 (10:35→17:29)
[2018-02-23] MEDS: TIOTROPIUM BROMIDE DPI 5 CAP/KIT (18 MCG/CAP) IH SCH (10:36)
[2018-02-23] MEDS: METOPROLOL SUCCINATE 50 MG TAB.SR.24H PO SCH (10:44)
[2018-02-23 12:50] LABS: CREATINE KINASE MB 0.51 ng/mL (<4.55); TROPONIN I 0.049 ng/mL
--- NOTE | 2018-02-23 20:24 | PDOC H&P ---
History of Present Illness Admission Date/PCP: 02/22/18 21:39 ILAN FALCON MD History of Present Illness: PHOEBE CHARLES is a 77 year old male, He has chronic kidney disease stage III with base creatinine of 2-2.5, he was recently diagnosed with nephrotic range proteinuria, comprehensive metabolic panel was drawn in the senior care, he was found to have serum creatinine of 4, potassium of over 5.5, patient is a resident of the senior care at [facility] because of the acute on chronic kidney disease with hyperkalemia patient was referred to emergency room for evaluation.The emergency room was evaluated he was found to have serum creatinine of 4 but the potassium was in the 4 range for the admission was advised because of the acute on chronic kidney disease. Kidney ultrasound was done, this was negative for hydronephrosis, normal-sized kidney, there could be a prerenal component for the acute on chronic kidney disease. 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 Patient is very sedentary Past Medical History Cardiac Medical History: Reports: Coronary Artery Disease, Hyperlipidema, Hypertension Pulmonary Medical History: Reports: Chronic Obstructive Pulmonary Disease (COPD) Renal/ Medical History: Reports: Chronic Kidney Disease GI Medical History: Reports: Gastroesophageal Reflux Disease, Hiatal Hernia Hematology: Reports: Anemia Past Surgical History Past Surgical History: 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 Social History Smoking Status: Never Smoker Frequency of Alcohol Use: None Hx Recreational Drug Use: No Hx Prescription Drug Abuse: No Family History Family History: Reviewed & Not Pertinent, CAD Parental Family History Reviewed: Yes Children Family History Reviewed: Yes Sibling(s) Family History Reviewed.: Yes Medication/Allergy Home Medications: Amlodipine Besylate [Norvasc 5 mg Tablet] 5 mg PO QHS 12/29/16 Aspirin [Aspirin 81 mg Chewable Tablet] 81 mg PO DAILY 12/29/16 Atorvastatin Calcium [Lipitor 10 mg Tablet] 10 mg PO QHS 12/29/16 Clonidine HCl [Catapres 0.1 mg Tablet] 0.1 mg PO Q12 12/29/16 Isosorbide Dinitrate [Isordil Titradose 20 mg Tablet] 20 mg PO Q8 12/29/16 Polyethylene Glycol 3350 [Miralax Powder 17 gm/Packet] 17 gm PO DAILY 12/29/16 Tiotropium Borup [Spiriva Handihaler 5 Cap/Kit (18 Mcg/Cap)] 1 puff IN DAILY 12/29/16 Metoprolol Succinate [Toprol XL 100 mg Tablet] 100 mg PO DAILY 02/22/18 Albuterol Sulfate [Proventil 0.5% Neb 2.5 mg/0.5 ml Vial.neb] 2.5 mg NEB Q6HP PRN 02/23/18 Budesonide [Pulmicort 180 mcg Flexhaler] 2 puff IH DAILYP PRN 02/23/18 Ipratropium/Albuterol Sulfate [Duoneb 3 ml Ampul] 3 ml NEB Q6HP PRN 02/23/18 Sennosides/Docusate 8.6-50 mg [Senna Plus Tablet] 1 tab PO QHS 02/23/18 Allergies/Adverse Reactions: No Known Allergies Allergy (Verified 07/18/16 03:22) Review of Systems Constitutional: ABSENT: chills, fever(s), headache(s), weight gain, weight loss Eyes: ABSENT: visual disturbances Ears: ABSENT: hearing changes Cardiovascular: ABSENT: chest pain, dyspnea on exertion, edema, orthropnea, palpitations Respiratory: ABSENT: cough, hemoptysis Gastrointestinal: ABSENT: abdominal pain, constipation, diarrhea, hematemesis, hematochezia, nausea, vomiting Genitourinary: ABSENT: dysuria, hematuria Musculoskeletal: ABSENT: joint swelling Integumentary: ABSENT: rash, wounds Neurological: ABSENT: abnormal gait, abnormal speech, confusion, dizziness, focal weakness, syncope Psychiatric: ABSENT: anxiety, depression, homidical ideation, suicidal ideation Endocrine: ABSENT: cold intolerance, heat intolerance, menstrual abnormalities, polydipsia, polyuria Hematologic/Lymphatic: ABSENT: easy bleeding, easy bruising, lymphadenopathy Physical Exam Vital Signs: Temp Pulse Resp BP Pulse Ox 97.7 F 51 L 14 157/72 H 99 02/23/18 15:20 02/23/18 15:20 02/23/18 15:20 02/23/18 15:20 02/23/18 15:20 Intake & Output 02/22/18 02/23/18 02/24/18 06:59 06:59 06:59 Intake Total 12 1221 Balance 12 1221 Weight 73.1 kg General appearance: PRESENT: no acute distress Head exam: PRESENT: atraumatic, normocephalic Eye exam: PRESENT: PERRLA Neck exam: PRESENT: full ROM Respiratory exam: PRESENT: clear to auscultation magdalena Cardiovascular exam: PRESENT: RRR, +S1, +S2 Pulses: PRESENT: normal dorsalis pedis pul, +2 pedal pulses bilateral Vascular exam: PRESENT: normal capillary refill GI/Abdominal exam: PRESENT: normal bowel sounds, soft Rectal exam: PRESENT: deferred Neurological exam: PRESENT: alert, awake, oriented to person, oriented to place , oriented to time, oriented to situation, CN II-XII grossly intact Psychiatric exam: PRESENT: appropriate affect, normal mood Skin exam: PRESENT: dry, intact, warm Results Laboratory Results: 02/23/18 04:36 02/23/18 04:36 02/22/18 02/23/18 02/23/18 22:35 04:36 04:36 WBC 6.9 RBC 3.44 L Hgb 10.6 L Hct 31.4 L MCV 91 MCH 30.7 MCHC 33.7 RDW 15.1 H Plt Count 259 Seg Neutrophils % 48.3 Lymphocytes % 36.1 Monocytes % 8.5 Eosinophils % 4.9 Basophils % 2.2 H Absolute Neutrophils 3.3 Absolute Lymphocytes 2.5 Absolute Monocytes 0.6 Absolute Eosinophils 0.3 Absolute Basophils 0.1 Sodium 145.3 H Potassium 4.6 Chloride 113 H Carbon Dioxide 23 Anion Gap 9 BUN 43 H Creatinine 4.39 H Est GFR ( Amer) 16 L Est GFR (Non-Af Amer) 13 L Glucose 101 Calcium 8.7 Total Bilirubin 0.3 AST 14 L ALT 12 L Alkaline Phosphatase 86 Ammonia 23.7 Total Protein 5.7 L Albumin 2.6 L 02/22/18 02/22/18 02/22/18 22:35 22:35 22:35 Creatine Kinase 27 L CK-MB (CK-2) 0.49 Troponin I 0.053 02/23/18 02/23/18 02/23/18 04:36 04:36 04:36 Creatine Kinase 25 L CK-MB (CK-2) 0.45 Troponin I 0.051 02/23/18 02/23/18 11:55 11:55 Creatine Kinase 22 L CK-MB (CK-2) 0.51 Troponin I 0.049 Impressions: Renal Ultrasound 02/23/18 00:00 IMPRESSION: Normal renal sonogram. Assessment & Plan - Diagnosis (1) Acute kidney injury superimposed on chronic kidney disease Is this a current diagnosis for this admission?: Yes Plan: There is superimposed acute kidney injury, treated with normal saline for possible prerenal component (2) Nephrotic syndrome Is this a current diagnosis for this admission?: Yes
[2018-02-23] MEDS: ATORVASTATIN CALCIUM 10 MG TABLET PO SCH (22:32)
[2018-02-23] MEDS: SENNOSIDES/DOCUSATE 8.6-50 MG 1 EACH TABLET PO SCH (22:32)
[2018-02-23] MEDS: AMLODIPINE BESYLATE 5 MG TABLET PO SCH (22:33)
[2018-02-24] MEDS ORDERED: ACETAMINOPHEN 325 MG TABLET ONE (05:33)
[2018-02-24] MEDS: ISOSORBIDE DINITRATE 20 MG TABLET PO SCH ×4 (05:34→21:17)
[2018-02-24] MEDS ORDERED: ACETAMINOPHEN 325 MG TABLET PO PRN (05:34)
[2018-02-24] MEDS: HEPARIN SOD (PORCINE) 5,000 UNIT/ML 1 ML SYRINGE SUBCUT SCH ×4 (05:35→21:19)
[2018-02-24 09:08] LABS: ABSOLUTE EOSINOPHILS # (AUTO) 0.4 10^3/uL (0.0-0.6); ABSOLUTE LYMPHOCYTES (AUTO) 1.9 10^3/uL (0.5-4.7); ABSOLUTE MONOCYTES (AUTO) 0.5 10^3/uL (0.1-1.4); ABSOLUTE NEUT (AUTO) 3.4 10^3/uL (1.7-8.2); BASOPHILS % (AUTO) 0.3 % (0-2); EOSINOPHILS % (AUTO) 6.6 % (0-6); HEMATOCRIT 30.6 % (37.9-51.0); HEMOGLOBIN 10.3 g/dL (13.5-17.0); LYMPHOCYTES % (AUTO) 30.3 % (13-45); MEAN CORPUSCULAR HEMOGLOBIN 30.7 pg (27.0-33.4); MEAN CORPUSCULAR HGB CONC 33.6 g/dL (32.0-36.0); MEAN CORPUSCULAR VOLUME 91 fl (80-97); MONOCYTES % (AUTO) 8.4 % (3-13); PLATELET COUNT 230 10^3/uL (150-450); RED BLOOD COUNT 3.35 10^6/uL (4.35-5.55); RED CELL DISTRIBUTION WIDTH 15.1 % (11.5-14.0); SEGMENTED NEUTROPHILS % (AUTO) 54.4 % (42-78); TOTAL CELLS COUNTED % (AUTO) 100 %; WHITE BLOOD COUNT 6.2 10^3/uL (4.0-10.5)
[2018-02-24 09:34] LABS: ALANINE AMINOTRANSFERASE 12 U/L (21-72); ALBUMIN 2.4 g/dL (3.5-5.0); ALKALINE PHOSPHATASE 75 U/L (38-126); ANION GAP 8 (5-19); ASPARTATE AMINO TRANSFERASE 12 U/L (17-59); BILIRUBIN,DIRECT 0.2 mg/dL (0.0-0.4); BILIRUBIN,TOTAL 0.2 mg/dL (0.2-1.3); BLOOD UREA NITROGEN 39 mg/dL (7-20); CALCIUM 8.3 mg/dL (8.4-10.2); CARBON DIOXIDE 21 mmol/L (22-30); CHLORIDE 117 mmol/L (98-107); GLUCOSE 95 mg/dL (75-110); POTASSIUM 4.8 mmol/L (3.6-5.0); SODIUM 146.4 mmol/L (137-145); TOTAL PROTEIN 5.2 g/dL (6.3-8.2)
[2018-02-24] MEDS: ASPIRIN 81 MG TABLET, CHEWABLE PO SCH (11:26)
[2018-02-24] MEDS: POLYETHYLENE GLYCOL 3350 POWDER 17 GM/1 PACKET PO SCH (11:26)
[2018-02-24] MEDS: CLONIDINE HCL 0.1 MG TABLET PO SCH ×2 (11:26→21:18)
[2018-02-24] MEDS: FLUTICASONE PROPIONATE HFA 110 MCG/PUFF 12 GM MDI IH SCH ×2 (11:26→17:13)
[2018-02-24] MEDS: METOPROLOL SUCCINATE 50 MG TAB.SR.24H PO SCH (11:26)
[2018-02-24] MEDS: TIOTROPIUM BROMIDE DPI 5 CAP/KIT (18 MCG/CAP) IH SCH (11:27)
--- NOTE | 2018-02-24 12:13 | PDOC PROGRESS REPORT ---
Subjective Progress Note for:: 02/24/18 Subjective:: Patient was admitted for the hyperkalemia renal failure and elevated troponin Patient is currently denied any chest pain denied any shortness of the breath Patient with a history of the chronic kidney disease and congestive heart failure Patient's otherwise, no other symptoms today Reason For Visit: ACUTE ON CHRONIC KIDNEY DISEASE,NEPHROTIC RANGE Physical Exam Vital Signs: Temp Pulse Resp BP Pulse Ox 97.9 F 58 L 14 132/88 H 94 02/24/18 04:00 02/24/18 09:19 02/24/18 09:19 02/24/18 04:00 02/24/18 09:19 Intake & Output 02/23/18 02/24/18 02/25/18 06:59 06:59 06:59 Intake Total 12 2214 Balance 12 2214 Weight 73.1 kg General appearance: PRESENT: no acute distress, well-developed, well-nourished Head exam: PRESENT: atraumatic, normocephalic Eye exam: PRESENT: conjunctiva pink, EOMI, PERRLA. ABSENT: scleral icterus Ear exam: PRESENT: normal external ear exam Mouth exam: PRESENT: moist, tongue midline Neck exam: PRESENT: full ROM. ABSENT: carotid bruit, JVD, lymphadenopathy, thyromegaly Respiratory exam: PRESENT: clear to auscultation magdalena Cardiovascular exam: PRESENT: RRR. ABSENT: diastolic murmur, rubs, systolic murmur Pulses: PRESENT: normal dorsalis pedis pul, +2 pedal pulses bilateral Vascular exam: PRESENT: normal capillary refill GI/Abdominal exam: PRESENT: normal bowel sounds, soft. ABSENT: distended, guarding, mass, organolmegaly, rebound, tenderness Rectal exam: PRESENT: deferred Extremities exam: ABSENT: pedal edema Neurological exam: PRESENT: alert, awake, oriented to person, oriented to place , oriented to time, oriented to situation, CN II-XII grossly intact. ABSENT: motor sensory deficit Psychiatric exam: PRESENT: appropriate affect, normal mood. ABSENT: homicidal ideation, suicidal ideation Skin exam: PRESENT: dry, intact, warm. ABSENT: cyanosis, rash Results Laboratory Results: 02/24/18 08:36 02/24/18 08:36 02/23/18 02/24/18 02/24/18 20:32 08:36 08:36 WBC 6.2 RBC 3.35 L Hgb 10.3 L Hct 30.6 L MCV 91 MCH 30.7 MCHC 33.6 RDW 15.1 H Plt Count 230 Seg Neutrophils % 54.4 Lymphocytes % 30.3 Monocytes % 8.4 Eosinophils % 6.6 H Basophils % 0.3 Absolute Neutrophils 3.4 Absolute Lymphocytes 1.9 Absolute Monocytes 0.5 Absolute Eosinophils 0.4 Absolute Basophils 0.0 Sodium 146.4 H Potassium 4.8 Chloride 117 H Carbon Dioxide 21 L Anion Gap 8 BUN 39 H Creatinine 4.28 H Est GFR ( Amer) 16 L Est GFR (Non-Af Amer) 14 L Glucose 95 Calcium 8.3 L Total Bilirubin 0.2 AST 12 L ALT 12 L Alkaline Phosphatase 75 Total Protein 5.2 L Albumin 2.4 L PTH Intact 424.6 H 02/22/18 02/22/18 02/22/18 22:35 22:35 22:35 Creatine Kinase 27 L CK-MB (CK-2) 0.49 Troponin I 0.053 02/23/18 02/23/18 02/23/18 04:36 04:36 04:36 Creatine Kinase 25 L CK-MB (CK-2) 0.45 Troponin I 0.051 02/23/18 02/23/18 11:55 11:55 Creatine Kinase 22 L CK-MB (CK-2) 0.51 Troponin I 0.049 Impressions: Renal Ultrasound 02/23/18 00:00 IMPRESSION: Normal renal sonogram. Assessment & Plan - Diagnosis (1) Acute kidney injury superimposed on chronic kidney disease Is this a current diagnosis for this admission?: Yes (3) Nephrotic syndrome Is this a current diagnosis for this admission?: Yes (4) CVA (cerebral vascular accident) Qualifiers: CVA mechanism: unspecified Qualified Code(s): I63.9 - Cerebral infarction, unspecified Is this a current diagnosis for this admission?: Yes (5) Chronic diastolic (congestive) heart failure Is this a current diagnosis for this admission?: Yes (6) Chronic obstructive pulmonary disease (COPD) Qualifiers: COPD type: unspecified COPD Qualified Code(s): J44.9 - Chronic obstructive pulmonary disease, unspecified Is this a current diagnosis for this admission?: Yes (7) Hypertension Qualifiers: Hypertension type: unspecified secondary hypertension Qualified Code(s): I15.9 - Secondary hypertension, unspecified Is this a current diagnosis for this admission?: Yes - Time Time Spent with patient: 15-24 minutes Medications reviewed and adjusted accordingly: Yes Anticipated discharge: SNF Within: Other - Inpatient Certification Based on my medical assessment, after consideration of the patient's comorbidities, presenting symptoms, or acuity I expect that the services needed warrant INPATIENT care.: Yes I certify that my determination is in accordance with my understanding of Medicare's requirements for reasonable and necessary INPATIENT services [42 CFR 412.3e].: Yes Medical Necessity: Need Close Monitoring Due to Risk of Patient Decompensation, Need For IV Fluids Post Hospital Care: D/C Orthotic And Prosthetic Technician Documentation - Plan Summary Plan Summary: Continues to current medications repeat the Chem-7 in the morning
[2018-02-24] MEDS: NORMAL SALINE 1000 ML 1,000 ML IV PRN (15:34)
[2018-02-24] MEDS: AMLODIPINE BESYLATE 5 MG TABLET PO SCH (21:16)
[2018-02-24] MEDS: ATORVASTATIN CALCIUM 10 MG TABLET PO SCH (21:16)
[2018-02-24] MEDS: SENNOSIDES/DOCUSATE 8.6-50 MG 1 EACH TABLET PO SCH (21:18)
[2018-02-25] MEDS: NORMAL SALINE 1000 ML 1,000 ML IV PRN ×2 (05:34→20:31)
[2018-02-25] MEDS: ISOSORBIDE DINITRATE 20 MG TABLET PO SCH ×3 (05:38→22:41)
[2018-02-25] MEDS: HEPARIN SOD (PORCINE) 5,000 UNIT/ML 1 ML SYRINGE SUBCUT SCH ×3 (05:39→22:42)
[2018-02-25 05:56] LABS: ABSOLUTE BASOPHILS # (AUTO) 0.1 10^3/uL (0.0-0.2); ABSOLUTE EOSINOPHILS # (AUTO) 0.5 10^3/uL (0.0-0.6); ABSOLUTE LYMPHOCYTES (AUTO) 2.1 10^3/uL (0.5-4.7); ABSOLUTE MONOCYTES (AUTO) 0.5 10^3/uL (0.1-1.4); ABSOLUTE NEUT (AUTO) 3.4 10^3/uL (1.7-8.2); BASOPHILS % (AUTO) 1.9 % (0-2); EOSINOPHILS % (AUTO) 6.9 % (0-6); HEMATOCRIT 34.9 % (37.9-51.0); HEMOGLOBIN 11.6 g/dL (13.5-17.0); LYMPHOCYTES % (AUTO) 31.9 % (13-45); MEAN CORPUSCULAR HEMOGLOBIN 30.4 pg (27.0-33.4); MEAN CORPUSCULAR HGB CONC 33.3 g/dL (32.0-36.0); MEAN CORPUSCULAR VOLUME 91 fl (80-97); MONOCYTES % (AUTO) 7.8 % (3-13); PLATELET COUNT 211 10^3/uL (150-450); RED BLOOD COUNT 3.82 10^6/uL (4.35-5.55); RED CELL DISTRIBUTION WIDTH 15.3 % (11.5-14.0); SEGMENTED NEUTROPHILS % (AUTO) 51.5 % (42-78); TOTAL CELLS COUNTED % (AUTO) 100 %; WHITE BLOOD COUNT 6.6 10^3/uL (4.0-10.5)
[2018-02-25 06:17] LABS: ALANINE AMINOTRANSFERASE 11 U/L (21-72); ALBUMIN 2.9 g/dL (3.5-5.0); ALKALINE PHOSPHATASE 92 U/L (38-126); ANION GAP 9 (5-19); ASPARTATE AMINO TRANSFERASE 39 U/L (17-59); BILIRUBIN,DIRECT 0.3 mg/dL (0.0-0.4); BILIRUBIN,TOTAL 0.3 mg/dL (0.2-1.3); BLOOD UREA NITROGEN 38 mg/dL (7-20); CALCIUM 8.8 mg/dL (8.4-10.2); CARBON DIOXIDE 23 mmol/L (22-30); CHLORIDE 116 mmol/L (98-107); GLUCOSE 86 mg/dL (75-110); POTASSIUM 4.8 mmol/L (3.6-5.0); SODIUM 148.2 mmol/L (137-145); TOTAL PROTEIN 6.4 g/dL (6.3-8.2)
[2018-02-25] MEDS: METOPROLOL SUCCINATE 50 MG TAB.SR.24H PO SCH (10:19)
[2018-02-25] MEDS: POLYETHYLENE GLYCOL 3350 POWDER 17 GM/1 PACKET PO SCH (10:19)
[2018-02-25] MEDS: CLONIDINE HCL 0.1 MG TABLET PO SCH (11:07)
[2018-02-25] MEDS: FLUTICASONE PROPIONATE HFA 110 MCG/PUFF 12 GM MDI IH SCH ×2 (11:08→18:12)
[2018-02-25] MEDS: TIOTROPIUM BROMIDE DPI 5 CAP/KIT (18 MCG/CAP) IH SCH (11:08)
[2018-02-25] MEDS: AMLODIPINE BESYLATE 5 MG TABLET PO SCH ×2 (11:08→22:41)
[2018-02-25] MEDS: ASPIRIN 81 MG TABLET, CHEWABLE PO SCH (11:08)
--- NOTE | 2018-02-25 11:26 | PDOC PROGRESS REPORT ---
Subjective Progress Note for:: 02/25/18 Subjective:: Patient is currently doing fair Denied any chest pain denied any shortness of the breath Patient's heart rate is running 40-50 range but patient is completely asymptomatic's Patient is getting the beta-hussain and clonidine Reason For Visit: ACUTE ON CHRONIC KIDNEY DISEASE,NEPHROTIC RANGE Physical Exam Vital Signs: Temp Pulse Resp BP Pulse Ox 97.5 F 56 L 14 161/70 H 94 02/25/18 07:39 02/25/18 09:16 02/25/18 09:16 02/25/18 07:39 02/25/18 09:16 Intake & Output 02/24/18 02/25/18 02/26/18 06:59 06:59 06:59 Intake Total 2214 2180 Balance 2214 2180 Weight 77.2 kg General appearance: PRESENT: no acute distress, well-developed, well-nourished Head exam: PRESENT: atraumatic, normocephalic Eye exam: PRESENT: conjunctiva pink, EOMI, PERRLA. ABSENT: scleral icterus Ear exam: PRESENT: normal external ear exam Mouth exam: PRESENT: moist, tongue midline Neck exam: PRESENT: full ROM. ABSENT: carotid bruit, JVD, lymphadenopathy, thyromegaly Respiratory exam: PRESENT: clear to auscultation magdalena Cardiovascular exam: PRESENT: RRR. ABSENT: diastolic murmur, rubs, systolic murmur Pulses: PRESENT: normal dorsalis pedis pul, +2 pedal pulses bilateral Vascular exam: PRESENT: normal capillary refill GI/Abdominal exam: PRESENT: normal bowel sounds, soft. ABSENT: distended, guarding, mass, organolmegaly, rebound, tenderness Rectal exam: PRESENT: deferred Extremities exam: ABSENT: pedal edema Neurological exam: PRESENT: alert, awake, oriented to person, oriented to place , oriented to time, oriented to situation, CN II-XII grossly intact. ABSENT: motor sensory deficit Psychiatric exam: PRESENT: appropriate affect, normal mood. ABSENT: homicidal ideation, suicidal ideation Skin exam: PRESENT: dry, intact, warm. ABSENT: cyanosis, rash Results Laboratory Results: 02/25/18 05:23 02/25/18 05:23 02/25/18 02/25/18 05:23 05:23 WBC 6.6 RBC 3.82 L Hgb 11.6 L Hct 34.9 L MCV 91 MCH 30.4 MCHC 33.3 RDW 15.3 H Plt Count 211 Seg Neutrophils % 51.5 Lymphocytes % 31.9 Monocytes % 7.8 Eosinophils % 6.9 H Basophils % 1.9 Absolute Neutrophils 3.4 Absolute Lymphocytes 2.1 Absolute Monocytes 0.5 Absolute Eosinophils 0.5 Absolute Basophils 0.1 Sodium 148.2 H Potassium 4.8 Chloride 116 H Carbon Dioxide 23 Anion Gap 9 BUN 38 H Creatinine 4.31 H Est GFR ( Amer) 16 L Est GFR (Non-Af Amer) 13 L Glucose 86 Calcium 8.8 Total Bilirubin 0.3 AST 39 ALT 11 L Alkaline Phosphatase 92 Total Protein 6.4 Albumin 2.9 L 02/22/18 02/22/18 02/22/18 22:35 22:35 22:35 Creatine Kinase 27 L CK-MB (CK-2) 0.49 Troponin I 0.053 02/23/18 02/23/18 02/23/18 04:36 04:36 04:36 Creatine Kinase 25 L CK-MB (CK-2) 0.45 Troponin I 0.051 02/23/18 02/23/18 11:55 11:55 Creatine Kinase 22 L CK-MB (CK-2) 0.51 Troponin I 0.049 Impressions: Renal Ultrasound 02/23/18 00:00 IMPRESSION: Normal renal sonogram. Assessment & Plan - Diagnosis (1) Acute kidney injury superimposed on chronic kidney disease Is this a current diagnosis for this admission?: Yes (3) Nephrotic syndrome Is this a current diagnosis for this admission?: Yes (4) CVA (cerebral vascular accident) Qualifiers: CVA mechanism: unspecified Qualified Code(s): I63.9 - Cerebral infarction, unspecified Is this a current diagnosis for this admission?: Yes (5) Chronic diastolic (congestive) heart failure Is this a current diagnosis for this admission?: Yes (6) Chronic obstructive pulmonary disease (COPD) Qualifiers: COPD type: unspecified COPD Qualified Code(s): J44.9 - Chronic obstructive pulmonary disease, unspecified Is this a current diagnosis for this admission?: Yes (7) Hypertension Qualifiers: Hypertension type: unspecified secondary hypertension Qualified Code(s): I15.9 - Secondary hypertension, unspecified Is this a current diagnosis for this admission?: Yes (8) Bradycardia Is this a current diagnosis for this admission?: Yes Plan: We will hold the beta-hussain and clonidine patient is currently asymptomatic get the twelve-lead EKG Also consult Dr. Pace Will restart Norvasc 5 mg p.o. twice a day Add the hydralazine 25 mg p.o. every 8
[2018-02-25] MEDS: HYDRALAZINE HCL 25 MG TABLET PO SCH ×2 (14:02→22:41)
[2018-02-25 16:04] LABS: APPEARANCE,URINE CLEAR; BILIRUBIN,URINE NEGATIVE (NEGATIVE); COLOR,URINE STRAW; GLUCOSE, URINE NEGATIVE (NEGATIVE); KETONES,URINE NEGATIVE (NEGATIVE); LEUKOCYTE ESTERASE,URINE NEGATIVE (NEGATIVE); NITRITE,URINE NEGATIVE (NEGATIVE); PROTEIN,URINE >=500 mg/dL (NEGATIVE); URINE SPECIFIC GRAVITY 1.011; UROBILINOGEN,URINE NEGATIVE mg/dL (<2.0)
[2018-02-25 16:18] LABS: URINE CREATININE 52.5 mg/dL (22-328)
[2018-02-25 16:26] LABS: URINE PROTEIN 527.3 mg/dL (<12)
--- NOTE | 2018-02-25 22:17 | EKG REPORT ---
SEVERITY:- ABNORMAL ECG - SINUS BRADYCARDIA ATRIAL PREMATURE COMPLEX LEFT BUNDLE BRANCH BLOCK : Confirmed by: Beto Delarosa 25-Feb-2018 22:16:00
[2018-02-25] MEDS: SENNOSIDES/DOCUSATE 8.6-50 MG 1 EACH TABLET PO SCH (22:41)
[2018-02-25] MEDS: ATORVASTATIN CALCIUM 10 MG TABLET PO SCH (22:41)
[2018-02-26 06:16] LABS: ABSOLUTE BASOPHILS # (AUTO) 0.1 10^3/uL (0.0-0.2); ABSOLUTE EOSINOPHILS # (AUTO) 0.3 10^3/uL (0.0-0.6); ABSOLUTE LYMPHOCYTES (AUTO) 1.6 10^3/uL (0.5-4.7); ABSOLUTE MONOCYTES (AUTO) 0.5 10^3/uL (0.1-1.4); BASOPHILS % (AUTO) 1.3 % (0-2); EOSINOPHILS % (AUTO) 3.7 % (0-6); HEMATOCRIT 32.5 % (37.9-51.0); HEMOGLOBIN 11.2 g/dL (13.5-17.0); LYMPHOCYTES % (AUTO) 20.8 % (13-45); MEAN CORPUSCULAR HEMOGLOBIN 30.9 pg (27.0-33.4); MEAN CORPUSCULAR HGB CONC 34.6 g/dL (32.0-36.0); MEAN CORPUSCULAR VOLUME 89 fl (80-97); MONOCYTES % (AUTO) 7.3 % (3-13); PLATELET COUNT 259 10^3/uL (150-450); RED BLOOD COUNT 3.63 10^6/uL (4.35-5.55); RED CELL DISTRIBUTION WIDTH 14.9 % (11.5-14.0); SEGMENTED NEUTROPHILS % (AUTO) 66.9 % (42-78); TOTAL CELLS COUNTED % (AUTO) 100 %; WHITE BLOOD COUNT 7.5 10^3/uL (4.0-10.5)
[2018-02-26] MEDS: HYDRALAZINE HCL 25 MG TABLET PO SCH ×3 (06:28→22:54)
[2018-02-26] MEDS: HEPARIN SOD (PORCINE) 5,000 UNIT/ML 1 ML SYRINGE SUBCUT SCH ×3 (06:29→22:55)
[2018-02-26] MEDS: ISOSORBIDE DINITRATE 20 MG TABLET PO SCH ×3 (06:29→22:54)
[2018-02-26 06:47] LABS: ANION GAP 11 (5-19); BLOOD UREA NITROGEN 38 mg/dL (7-20); CALCIUM 8.7 mg/dL (8.4-10.2); CARBON DIOXIDE 21 mmol/L (22-30); CHLORIDE 114 mmol/L (98-107); GLUCOSE 93 mg/dL (75-110); POTASSIUM 4.3 mmol/L (3.6-5.0); SODIUM 146.1 mmol/L (137-145)
[2018-02-26] MEDS: AMLODIPINE BESYLATE 5 MG TABLET PO SCH ×2 (11:18→22:54)
[2018-02-26] MEDS: ASPIRIN 81 MG TABLET, CHEWABLE PO SCH (11:18)
[2018-02-26] MEDS: TIOTROPIUM BROMIDE DPI 5 CAP/KIT (18 MCG/CAP) IH SCH (11:18)
[2018-02-26] MEDS: FLUTICASONE PROPIONATE HFA 110 MCG/PUFF 12 GM MDI IH SCH ×2 (11:19→17:41)
[2018-02-26] MEDS: POLYETHYLENE GLYCOL 3350 POWDER 17 GM/1 PACKET PO SCH (11:19)
--- NOTE | 2018-02-26 18:35 | PDOC PROGRESS REPORT ---
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 Patient is a resident of a detention [facility], very sedentary. The detention staff discussed with the POA about kidney biopsy, he was open to the idea that patient should pursue kidney biopsy. Reason For Visit: ACUTE ON CHRONIC KIDNEY DISEASE,NEPHROTIC RANGE Physical Exam Vital Signs: Temp Pulse Resp BP Pulse Ox 97.7 F 73 16 146/93 H 100 02/26/18 15:52 02/26/18 15:52 02/26/18 15:52 02/26/18 15:52 02/26/18 13:08 Intake & Output 02/25/18 02/26/18 02/27/18 06:59 06:59 06:59 Intake Total 2180 1712 1075 Output Total 200 Balance 2180 1512 1075 Weight 77.2 kg 79.2 kg General appearance: PRESENT: no acute distress Eye exam: PRESENT: PERRLA Respiratory exam: PRESENT: clear to auscultation magdalena Cardiovascular exam: PRESENT: +S1, +S2 GI/Abdominal exam: PRESENT: soft Neurological exam: PRESENT: alert Results Laboratory Results: 02/26/18 05:29 02/26/18 05:29 02/26/18 02/26/18 05:29 05:29 WBC 7.5 RBC 3.63 L Hgb 11.2 L Hct 32.5 L MCV 89 MCH 30.9 MCHC 34.6 RDW 14.9 H Plt Count 259 Seg Neutrophils % 66.9 Lymphocytes % 20.8 Monocytes % 7.3 Eosinophils % 3.7 Basophils % 1.3 Absolute Neutrophils 5.0 Absolute Lymphocytes 1.6 Absolute Monocytes 0.5 Absolute Eosinophils 0.3 Absolute Basophils 0.1 Sodium 146.1 H Potassium 4.3 Chloride 114 H Carbon Dioxide 21 L Anion Gap 11 BUN 38 H Creatinine 4.17 H Est GFR ( Amer) 17 L Est GFR (Non-Af Amer) 14 L Glucose 93 Calcium 8.7 02/22/18 02/22/18 02/22/18 22:35 22:35 22:35 Creatine Kinase 27 L CK-MB (CK-2) 0.49 Troponin I 0.053 02/23/18 02/23/1802/23/18 04:36 04:36 04:36 Creatine Kinase 25 L CK-MB (CK-2) 0.45 Troponin I 0.051 02/23/18 02/23/18 11:55 11:55 Creatine Kinase 22 L CK-MB (CK-2) 0.51 Troponin I 0.049 Impressions: Renal Ultrasound 02/23/18 00:00 IMPRESSION: Normal renal sonogram. Assessment & Plan - Diagnosis (1) Acute kidney injury superimposed on chronic kidney disease Is this a current diagnosis for this admission?: Yes (2) Nephrotic syndrome Is this a current diagnosis for this admission?: Yes Plan: Consult Dr. garcia, nephrology
--- NOTE | 2018-02-26 21:24 | PDOC CONSULTATION ---
Consultation Consult Date: 02/26/18 Attending physician:: ILAN FALCON Consult reason:: I was asked to see the patient due to worsening kidney function nephrotic range proteinuria. History of Present Illness Admission Date/PCP: 02/22/18 21:39 ILAN FALCON MD History of Present Illness: PHOEBE CHARLES is a 77 year old male with history of hypertension, coronary artery disease, COPD and chronic kidney disease baseline stage III who was brought to the emergency room due to evaluation of worsening kidney function. When the patient came in on February 22 he has a BUN of 41, creatinine 4.72 with estimated GFR of 15. Today he has a BUN of 38, creatinine of 4.17 and estimated GFR of 17. Back in September 25, 2017 he had a BUN of 21, creatinine of 2.31 and estimated GFR of 33. Further review of records show that his BUN has been ranging anywhere from 15-20, creatinine ranging between 1.5-1.7, and estimated GFR ranging from 40-58. He does have chronic persistent hypoalbuminemia around 2.9-3. He has elevated PTH of 424.6 done this admission and a renal ultrasound which was essentially unremarkable and normal. His urine protein to creatinine ratio has been within nephrotic range which include a ratio of 10 this admission and previously 12 in February 14, 2018 and 6.4 on December 29, 2016. His urinalysis is greater than 500 protein moderate amount of blood RBC of 27. When I talked to the patient is very comfortable and stable , does not appear to be sick at all. He denies any chest pains, shortness of breath, leg swelling nor any problems with urination. He denies any blood in the urine. He said he is eating okay and has good appetite. He does not have any leg swelling. According to Dr. Falcon patient is really sedentary and does not really do anything in a care home to staying in his room. His blood pressure is also been elevated to 170-198/70 200+. He has some anemia as well. According to Dr. Falcon the care home staff has spoken to the patient's power of real estate attorney to discuss how aggressive they would want for workup of his kidney disease and nephrotic range proteinuria and apparently they want everything to be done. Past Medical History Cardiac Medical History: Reports: Coronary Artery Disease, Hyperlipidemia, Hypertension-primary Pulmonary Medical History: Reports: Chronic Obstructive Pulmonary Disease (COPD) Renal/ Medical History: Reports: Chronic Kidney Disease Stage III - The base creatinine of around 2.0. GI Medical History: Reports: Gastroesophageal Reflux Disease, Hiatal Hernia Past Surgical History Past Surgical History: 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 Social History Information Source: [facility] Records Smoking Status: Never Smoker Frequency of Alcohol Use: None Hx Recreational Drug Use: No Hx Prescription Drug Abuse: No Family History Family History: CAD Parental Family History Reviewed: Yes Children Family History Reviewed: Yes Sibling(s) Family History Reviewed.: Yes Medication/Allergy Home Medications: Amlodipine Besylate [Norvasc 5 mg Tablet] 5 mg PO QHS 12/29/16 Aspirin [Aspirin 81 mg Chewable Tablet] 81 mg PO DAILY 12/29/16 Atorvastatin Calcium [Lipitor 10 mg Tablet] 10 mg PO QHS 12/29/16 Clonidine HCl [Catapres 0.1 mg Tablet] 0.1 mg PO Q12 12/29/16 Isosorbide Dinitrate [Isordil Titradose 20 mg Tablet] 20 mg PO Q8 12/29/16 Polyethylene Glycol 3350 [Miralax Powder 17 gm/Packet] 17 gm PO DAILY 12/29/16 Tiotropium [place] [Spiriva Handihaler 5 Cap/Kit (18 Mcg/Cap)] 1 puff IN DAILY 12/29/16 Metoprolol Succinate [Toprol XL 100 mg Tablet] 100 mg PO DAILY 02/22/18 Albuterol Sulfate [Proventil 0.5% Neb 2.5 mg/0.5 ml Vial.neb] 2.5 mg NEB Q6HP PRN 02/23/18 Budesonide [Pulmicort 180 mcg Flexhaler] 2 puff IH DAILYP PRN 02/23/18 Ipratropium/Albuterol Sulfate [Duoneb 3 ml Ampul] 3 ml NEB Q6HP PRN 02/23/18 Sennosides/Docusate 8.6-50 mg [Senna Plus Tablet] 1 tab PO QHS 02/23/18 Allergies/Adverse Reactions: No Known Allergies Allergy (Verified 07/18/16 03:22) Review of Systems All systems: reviewed and no additional remarkable complaints except as stated Review of Systems: Constitutional: ABSENT: chills, fatigue, fever(s), headache(s), weight gain, weight loss Eyes: ABSENT: visual disturbances Ears: ABSENT: hearing changes Cardiovascular: ABSENT: chest pain, dyspnea on exertion, edema, orthropnea, palpitations Respiratory: ABSENT: cough, dyspnea, hemoptysis Gastrointestinal: ABSENT: abdominal pain, constipation, diarrhea, hematemesis, hematochezia, nausea, vomiting Genitourinary: ABSENT: dysuria, hematuria Musculoskeletal: ABSENT: joint swelling Integumentary: ABSENT: rash, wounds Neurological: ABSENT: abnormal gait, abnormal speech, confusion, dizziness, focal weakness, numbness, syncope Psychiatric: ABSENT: anxiety, depression Endocrine: ABSENT: cold intolerance, heat intolerance, polydipsia, polyuria Hematologic/Lymphatic: ABSENT: easy bleeding, easy bruising, lymphadenopathy Physical Exam Vital Signs: Temp Pulse Resp BP Pulse Ox 98.4 F 79 16 198/95 H 96 02/26/18 19:19 02/26/18 19:19 02/26/18 19:19 02/26/18 19:19 02/26/18 19:19 Intake & Output 02/25/18 02/26/18 02/27/18 06:59 06:59 06:59 Intake Total 2180 1712 1075 Output Total 200 Balance 2180 1512 1075 Weight 77.2 kg 79.2 kg Exam: General appearance: No acute distress, cooperative, well-developed, well- nourished Head exam: PRESENT: atraumatic, normocephalic Eye exam: PRESENT: Conjunctiva Switzer, EOMI, PERRLA. ABSENT: conjunctival injection, scleral icterus Mouth exam: PRESENT: moist, neck supple, tongue midline Neck exam: PRESENT: full ROM. ABSENT: carotid bruit, JVD, lymphadenopathy, thyromegaly Respiratory exam: PRESENT: clear to auscultation bilaterally. ABSENT: rales, rhonchi, stridor, wheezes Cardiovascular exam: PRESENT: RRR, +S1, +S2. ABSENT: systolic murmur Pulses: PRESENT: normal radial pulses, normal dorsalis pedis pulses GI/Abdominal exam: PRESENT: normal bowel sounds, soft. ABSENT: guarding, mass, tenderness Rectal exam: Deferred Extremities exam: PRESENT: full ROM. ABSENT: calf tenderness, pedal edema Musculoskeletal: PRESENT: full ROM. ABSENT: deformity Neurological exam: PRESENT: alert, Awake, Oriented to person, Oriented to place , Oriented to time, reflexes normal, CN II-XII grossly intact. ABSENT: motor sensory deficit Psychiatric exam: PRESENT: appropriate affect, normal mood. ABSENT: homicidal ideation, suicidal ideation Skin exam: PRESENT: intact, dry, warm. ABSENT: rash Results Laboratory Results: 02/26/18 05:29 02/26/18 05:29 02/26/18 02/26/18 05:29 05:29 WBC 7.5 RBC 3.63 L Hgb 11.2 L Hct 32.5 L MCV 89 MCH 30.9 MCHC 34.6 RDW 14.9 H Plt Count 259 Seg Neutrophils % 66.9 Lymphocytes % 20.8 Monocytes % 7.3 Eosinophils % 3.7 Basophils % 1.3 Absolute Neutrophils 5.0 Absolute Lymphocytes 1.6 Absolute Monocytes 0.5 Absolute Eosinophils 0.3 Absolute Basophils 0.1 Sodium 146.1 H Potassium 4.3 Chloride 114 H Carbon Dioxide 21 L Anion Gap 11 BUN 38 H Creatinine 4.17 H Est GFR ( Amer) 17 L Est GFR (Non-Af Amer) 14 L Glucose 93 Calcium 8.7 02/22/18 02/22/18 02/22/18 22:35 22:35 22:35 Creatine Kinase 27 L CK-MB (CK-2) 0.49 Troponin I 0.053 02/23/18 02/23/18 02/23/18 04:36 04:36 04:36 Creatine Kinase 25 L CK-MB (CK-2) 0.45 Troponin I 0.051 02/23/18 02/23/18 11:55 11:55 Creatine Kinase 22 L CK-MB (CK-2) 0.51 Troponin I 0.049 Impressions: Renal Ultrasound 02/23/18 00:00 IMPRESSION: Normal renal sonogram. Assessment & Plan - Diagnosis (1) Acute kidney injury superimposed on chronic kidney disease Is this a current diagnosis for this admission?: Yes Plan: Patient appears to be euvolemic and has been making urine but unable to quantify. There is really no obvious precipitating factor of worsening kidney function at this time. One causes a progressive deterioration of his underlying kidney disease. Patient's kidney function is really been stable for the last 3 days. Continue to monitor kidney function and electrolytes. (2) Nephrotic syndrome Is this a current diagnosis for this admission?: Yes Plan: Patient is nephrotic range proteinuria along with minimal microhematuria. Differential diagnosis includes FSGS, membranous nephropathy, needs to rule out paraproteinemia. I will send serologies for protein electrophoresis, SABA, ANCA , and hepatitis panel. Patient had mildly elevated ESR. Although I was told by Dr. Falcon to the patient's power of real estate attorney wants everything done the patient's does not seem to be very interested in doing a lot of things. I tried to explain to him about doing a kidney biopsy, its benefits and risks and he declined to have it done. I also discussed with him the possibility of dialysis if his kidney function continued to get worse and he also indicated that he does not want that procedure to be done. I think we are going to have to get in touch with the power of real estate attorney again to relate this information to them that patient does not really want to do anything including kidney biopsy and dialysis if he needs to. So for now I am going to do chest workup with blood work and continue to monitor kidney function. Discussed the case with Dr. Falcon. (3) Chronic kidney disease, stage 3 Is this a current diagnosis for this admission?: Yes (4) Hypertension Qualifiers: Hypertension type: unspecified secondary hypertension Qualified Code(s): I15.9 - Secondary hypertension, unspecified Is this a current diagnosis for this admission?: Yes Plan: Looks like patient was just started on hydralazine yesterday. (5) Secondary hyperparathyroidism Is this a current diagnosis for this admission?: Yes Plan: Start the patient on calcitriol. (6) Anemia in chronic kidney disease (CKD) Is this a current diagnosis for this admission?: Yes Plan: Mild. (7) Coronary artery disease Qualifiers: Coronary Disease-Associated Artery/Lesion type: unspecified vessel or lesion type [place] vs. transplanted heart: [place] heart Associated angina: angina presence unspecified Qualified Code(s): I25.10 - Atherosclerotic heart disease of [place] coronary artery without angina pectoris Is this a current diagnosis for this admission?: Yes (8) Dementia Is this a current diagnosis for this admission?: Yes - Notes Notes: Thank you very much for this consultation. I will follow patient with you. - Time Time Spent: Greater than 70 Minutes
[2018-02-26] MEDS: ATORVASTATIN CALCIUM 10 MG TABLET PO SCH (22:54)
[2018-02-26] MEDS: SENNOSIDES/DOCUSATE 8.6-50 MG 1 EACH TABLET PO SCH (22:54)
[2018-02-27] MEDS: HYDRALAZINE HCL 25 MG TABLET PO SCH ×3 (06:20→21:25)
[2018-02-27] MEDS: ISOSORBIDE DINITRATE 20 MG TABLET PO SCH ×3 (06:21→21:24)
[2018-02-27] MEDS: HEPARIN SOD (PORCINE) 5,000 UNIT/ML 1 ML SYRINGE SUBCUT SCH ×3 (06:21→21:26)
[2018-02-27 06:58] LABS: ANION GAP 10 (5-19); BLOOD UREA NITROGEN 39 mg/dL (7-20); CALCIUM 8.8 mg/dL (8.4-10.2); CARBON DIOXIDE 21 mmol/L (22-30); CHLORIDE 113 mmol/L (98-107); GLUCOSE 94 mg/dL (75-110); POTASSIUM 4.4 mmol/L (3.6-5.0); SODIUM 144.3 mmol/L (137-145)
[2018-02-27] MEDS: CALCITRIOL 0.25 MCG CAPSULE PO SCH (11:01)
[2018-02-27] MEDS: AMLODIPINE BESYLATE 5 MG TABLET PO SCH ×2 (11:01→21:25)
[2018-02-27] MEDS: ASPIRIN 81 MG TABLET, CHEWABLE PO SCH (11:01)
[2018-02-27] MEDS: TIOTROPIUM BROMIDE DPI 5 CAP/KIT (18 MCG/CAP) IH SCH (11:01)
[2018-02-27] MEDS: FLUTICASONE PROPIONATE HFA 110 MCG/PUFF 12 GM MDI IH SCH ×2 (11:02→17:43)
[2018-02-27] MEDS: POLYETHYLENE GLYCOL 3350 POWDER 17 GM/1 PACKET PO SCH (11:02)
--- NOTE | 2018-02-27 17:13 | PDOC PROGRESS REPORT ---
Subjective Progress Note for:: 02/27/18 Subjective:: Patient remains to be stable. He does not really offer any complaints. I asked him again today if his can allow us to do a kidney biopsy and he again tells me that he does not want to do it. I tried to call his brother Mr. Js Lopez but I got a voicemail so I left a message. I discuss this with Dr. Huerta and he is in agreement with we do not to do kidney biopsy as he is refusing to have it done. Reason For Visit: ACUTE ON CHRONIC KIDNEY DISEASE,NEPHROTIC RANGE Physical Exam Vital Signs: Temp Pulse Resp BP Pulse Ox 97.6 F 140 H 18 154/77 H 100 02/27/18 11:05 02/27/18 11:05 02/27/18 11:05 02/27/18 11:05 02/27/18 11:05 Intake & Output 02/26/18 02/27/18 02/28/18 06:59 06:59 06:59 Intake Total 1712 1675 125 Output Total 200 Balance 1512 1675 125 Weight 79.2 kg 79.1 kg Exam: General appearance: PRESENT: no acute distress, cooperative, well-developed, well-nourished Head exam: PRESENT: atraumatic, normocephalic Eye exam: PRESENT: conjunctiva pink, PERRLA. ABSENT: scleral icterus Neck exam: ABSENT: JVD Respiratory exam: PRESENT: Normal breath sounds. ABSENT: crackles, rales, rhonchi, unlabored, wheezes Cardiovascular exam: PRESENT: Regular rate rhythm -+S1, +S2. ABSENT: diastolic murmur, systolic murmur GI/Abdominal exam: PRESENT: normal bowel sounds, soft. ABSENT: guarding, mass, tenderness Extremities exam: ABSENT: No edema Neurological exam: PRESENT: alert, awake, oriented to person, place and time. Skin exam: PRESENT: dry, warm, Results Laboratory Results: 02/26/18 05:29 02/27/18 06:19 02/27/18 06:19 Sodium 144.3 Potassium 4.4 Chloride 113 H Carbon Dioxide 21 L Anion Gap 10 BUN 39 H Creatinine 4.26 H Est GFR ( Amer) 17 L Est GFR (Non-Af Amer) 14 L Glucose 94 Calcium 8.8 02/25/18 15:30 Catheterized Urine Urine Culture - Final Mixed Urogenital Sara 02/22/18 02/22/18 02/22/18 22:35 22:35 22:35 Creatine Kinase 27 L CK-MB (CK-2) 0.49 Troponin I 0.053 02/23/18 02/23/18 02/23/18 04:36 04:36 04:36 Creatine Kinase 25 L CK-MB (CK-2) 0.45 Troponin I 0.051 02/23/18 02/23/18 11:55 11:55 Creatine Kinase 22 L CK-MB (CK-2) 0.51 Troponin I 0.049 Impressions: Renal Ultrasound 02/23/18 00:00 IMPRESSION: Normal renal sonogram. Assessment & Plan - Diagnosis (1) Acute kidney injury superimposed on chronic kidney disease Is this a current diagnosis for this admission?: Yes Plan: Kidney function is stable and unchanged. He does not have any uremic symptoms. Patient continues to refuse declined doing kidney biopsy. The workup and serologies are all still pending and probably will not be back until either the end of this week for next week. Nevertheless at this point patient does not need any renal replacement therapy. His kidney function just needs to be followed up as an outpatient. Since the patient is declining to do kidney biopsy and the patient's kidney function is stable I think he should go back to the long-term. No further recommendations at this point. Discussed this with Dr. Huerta. (2) Nephrotic syndrome Is this a current diagnosis for this admission?: Yes Plan: Differential diagnoses include FSGS whether primary or secondary, membranous nephropathy, or paraproteinemia. Patient is really asymptomatic without any edema. Patient declines kidney biopsy. (3) Chronic kidney disease, stage 3 Is this a current diagnosis for this admission?: Yes Plan: Monitor kidney function as outpatient. (4) Hypertension Qualifiers: Hypertension type: unspecified secondary hypertension Qualified Code(s): I15.9 - Secondary hypertension, unspecified Is this a current diagnosis for this admission?: Yes Plan: Continue blood pressure regimen. (5) Secondary hyperparathyroidism Is this a current diagnosis for this admission?: Yes Plan: Continue calcitriol. (6) Anemia in chronic kidney disease (CKD) Is this a current diagnosis for this admission?: Yes Plan: Stable. (7) Coronary artery disease Qualifiers: Coronary Disease-Associated Artery/Lesion type: unspecified vessel or lesion type [place] vs. transplanted heart: [place] heart Associated angina: angina presence unspecified Qualified Code(s): I25.10 - Atherosclerotic heart disease of [place] coronary artery without angina pectoris Is this a current diagnosis for this admission?: Yes (8) Dementia Is this a current diagnosis for this admission?: Yes - Time Time with patient: 15-25 minutes
--- NOTE | 2018-02-27 19:29 | PDOC TRANSFER SUMMARY ---
General - Admit/Disc Date/PCP Admission Date/Primary Care Provider: 02/22/18 21:39 ILAN FALCON MD Discharge Date: 02/27/18 - Discharge Diagnosis (1) Acute kidney injury superimposed on chronic kidney disease Is this a current diagnosis for this admission?: Yes (2) Nephrotic syndrome Is this a current diagnosis for this admission?: Yes (3) Chronic kidney disease, stage IV (severe) Is this a current diagnosis for this admission?: Yes (4) Secondary hyperparathyroidism Is this a current diagnosis for this admission?: Yes (5) Hypertension Is this a current diagnosis for this admission?: Yes - Additional Information Home Medications: Amlodipine Besylate [Norvasc 5 mg Tablet] 5 mg PO QHS 12/29/16 Aspirin [Aspirin 81 mg Chewable Tablet] 81 mg PO DAILY 12/29/16 Atorvastatin Calcium [Lipitor 10 mg Tablet] 10 mg PO QHS 12/29/16 Clonidine HCl [Catapres 0.1 mg Tablet] 0.1 mg PO Q12 12/29/16 Isosorbide Dinitrate [Isordil Titradose 20 mg Tablet] 20 mg PO Q8 12/29/16 Polyethylene Glycol 3350 [Miralax Powder 17 gm/Packet] 17 gm PO DAILY 12/29/16 Tiotropium [place] [Spiriva Handihaler 5 Cap/Kit (18 Mcg/Cap)] 1 puff IN DAILY 12/29/16 Metoprolol Succinate [Toprol XL 100 mg Tablet] 100 mg PO DAILY 02/22/18 Albuterol Sulfate [Proventil 0.5% Neb 2.5 mg/0.5 ml Vial.neb] 2.5 mg NEB Q6HP PRN 02/23/18 Budesonide [Pulmicort 180 mcg Flexhaler] 2 puff IH DAILYP PRN 02/23/18 Ipratropium/Albuterol Sulfate [Duoneb 3 ml Ampul] 3 ml NEB Q6HP PRN 02/23/18 Sennosides/Docusate 8.6-50 mg [Senna Plus Tablet] 1 tab PO QHS 02/23/18 Calcitriol [Rocaltrol 0.25 mcg Capsule] 0.25 mcg PO DAILY capsule 02/27/18 History of Present Illness Admission Date/PCP: 02/22/18 21:39 ILAN FALCON MD History of Present Illness: PHOEBE CHARLES is a 77 year old male, He has chronic kidney disease stage III with base creatinine of 2-2.5, he was recently diagnosed with nephrotic range proteinuria, comprehensive metabolic panel was drawn in the alf, he was found to have serum creatinine of 4, potassium of over 5.5, patient is a resident of the alf at [place] because of the acute on chronic kidney disease with hyperkalemia patient was referred to emergency room for evaluation.The emergency room was evaluated he was found to have serum creatinine of 4 but the potassium was in the 4 range for the admission was advised because of the acute on chronic kidney disease. Kidney ultrasound was done, this was negative for hydronephrosis, normal-sized kidney, there could be a prerenal component for the acute on chronic kidney disease. 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 Patient is very sedentary Hospital Course Hospital Course: Patient was admitted for the management of acute on chronic kidney disease in the setting of nephrotic range proteinuria, he was treated with normal saline without much change in the serum creatinine, this seems to be is new baseline. The estimated GFR is consistent with chronic kidney disease stage IV. He was seen by nephrology, he needed a kidney biopsy as part of the management for nephrotic syndrome but patient does not want any part of that, he is not interested in kidney biopsy and he has no interest in hemodialysis. The business continuity global director asked him if he has any interest in hemodialysis if his kidney function Should decline to the extent that for him to survive he has to obtain hemodialysis but patient no he also have secondary hyperparathyroidism suggesting advanced kidney disease Physical Exam Vital Signs: Temp Pulse Resp BP Pulse Ox 97.6 F 63 18 154/77 H 100 02/27/18 11:05 02/27/18 14:00 02/27/18 11:05 02/27/18 11:05 02/27/18 11:05 Intake & Output 02/26/18 02/27/18 02/28/18 06:59 06:59 06:59 Intake Total 1712 1675 375 Output Total 200 Balance 1512 1675 375 Weight 79.2 kg 79.1 kg General appearance: PRESENT: no acute distress Eye exam: PRESENT: PERRLA Respiratory exam: PRESENT: clear to auscultation magdalena Cardiovascular exam: PRESENT: +S1, +S2 GI/Abdominal exam: PRESENT: soft Neurological exam: PRESENT: alert Results Laboratory Results: 02/26/18 05:29 02/27/18 06:19 02/27/18 06:19 Sodium 144.3 Potassium 4.4 Chloride 113 H Carbon Dioxide 21 L Anion Gap 10 BUN 39 H Creatinine 4.26 H Est GFR ( Amer) 17 L Est GFR (Non-Af Amer) 14 L Glucose 94 Calcium 8.8 02/25/18 15:30 Catheterized Urine Urine Culture - Final Mixed Urogenital Sara 02/22/18 02/22/18 02/22/18 22:35 22:35 22:35 Creatine Kinase 27 L CK-MB (CK-2) 0.49 Troponin I 0.053 02/23/18 02/23/18 02/23/18 04:36 04:36 04:36 Creatine Kinase 25 L CK-MB (CK-2) 0.45 Troponin I 0.051 02/23/18 02/23/18 11:55 11:55 Creatine Kinase 22 L CK-MB (CK-2) 0.51 Troponin I 0.049 Impressions: Renal Ultrasound 02/23/18 00:00 IMPRESSION: Normal renal sonogram. Qualifiers - * PATIENT BEING DISCHARGED WITH ANY OF THE FOLLOWING DIAGNOSIS: No
[2018-02-27] MEDS: SENNOSIDES/DOCUSATE 8.6-50 MG 1 EACH TABLET PO SCH (21:25)
[2018-02-27] MEDS: ATORVASTATIN CALCIUM 10 MG TABLET PO SCH (21:25)
[2018-02-28 05:29] LABS: ANION GAP 10 (5-19); BLOOD UREA NITROGEN 39 mg/dL (7-20); CALCIUM 9.1 mg/dL (8.4-10.2); CARBON DIOXIDE 20 mmol/L (22-30); CHLORIDE 115 mmol/L (98-107); GLUCOSE 102 mg/dL (75-110); POTASSIUM 4.4 mmol/L (3.6-5.0); SODIUM 145.1 mmol/L (137-145)
[2018-02-28] MEDS: HYDRALAZINE HCL 25 MG TABLET PO SCH ×2 (06:22→14:38)
[2018-02-28] MEDS: ISOSORBIDE DINITRATE 20 MG TABLET PO SCH ×2 (06:23→14:38)
[2018-02-28] MEDS: HEPARIN SOD (PORCINE) 5,000 UNIT/ML 1 ML SYRINGE SUBCUT SCH ×2 (06:23→14:41)
[2018-02-28 06:38] LABS: HEPATITS B SURFACE ANTIGEN Negative (Negative)
[2018-02-28 09:43] LABS: HEPATITIS B CORE AB TOT Negative (Negative); HEPATITIS B SURFACE AB QUANT 4.1 mIU/mL (Immunity>9)
[2018-02-28] MEDS: ASPIRIN 81 MG TABLET, CHEWABLE PO SCH (10:43)
[2018-02-28] MEDS: AMLODIPINE BESYLATE 5 MG TABLET PO SCH (10:43)
[2018-02-28] MEDS: CALCITRIOL 0.25 MCG CAPSULE PO SCH (10:43)
[2018-02-28] MEDS: TIOTROPIUM BROMIDE DPI 5 CAP/KIT (18 MCG/CAP) IH SCH (10:44)
[2018-02-28] MEDS: FLUTICASONE PROPIONATE HFA 110 MCG/PUFF 12 GM MDI IH SCH ×2 (10:45→18:14)
[2018-02-28] MEDS: POLYETHYLENE GLYCOL 3350 POWDER 17 GM/1 PACKET PO SCH (10:46)
[2018-02-28 10:47] LABS: GLOMERULAR BASMENT MEMBRANE AB 5 units (0-20)
[2018-02-28 16:43] VITALS: BP 160/80
[2018-03-01 07:37] LABS: ANTINUCLEAR ANTIBODIES Negative (Negative)
[2018-03-01 15:38] LABS: ANTIMYELOPEROXIDASE (MPO) AB <9.0 U/mL (0.0-9.0); CYTOPLASMIC (C-ANCA) <1:20 titer (Neg:<1:20)
[2018-03-01 18:36] LABS: A/G RATIO 0.8 (0.7-1.7); ALBUMIN 2 2.4 g/dL (2.9-4.4); ALPHA-2-GLOBULIN 2 0.9 g/dL (0.4-1.0); GLOBULIN TOTAL 3.1 g/dL (2.2-3.9); MONOCLONAL SPIKE Not Observed g/dL (Not Observ); PROTEIN TOTAL SERUM 5.5 g/dL (6.0-8.5)
[2018-03-02 07:17] LABS: ATYPICAL PANCA <1:20 titer (Neg:<1:20); PERINUCLEAR (P-ANCA) <1:20 titer (Neg:<1:20)
== END 2018-02-28 21:55 | DRG 683 ==
LOC: ER 18:58 → EH 21:39 → OBSVTOIN 21:39 → 3W 02-23 01:05
PROVIDERS: ADMIT Internal Medicine; ATTEND Internal Medicine
DX: N17.9 Acute kidney failure, unspecified (principal); I13.0 Hypertensive heart and chronic kidney disease with heart failure and stage 1 through stage 4 chronic kidney disease, or unspecified chronic kidney disease; I50.22 Chronic systolic (congestive) heart failure; D63.1 Anemia in chronic kidney disease; N18.4 Chronic kidney disease, stage 4 (severe); Z53.29 Procedure and treatment not carried out because of patient's decision for other reasons; I25.10 Atherosclerotic heart disease of native coronary artery without angina pectoris; R00.1 Bradycardia, unspecified; N04.1 Nephrotic syndrome with focal and segmental glomerular lesions; N25.81 Secondary hyperparathyroidism of renal origin; F03.90 Unspecified dementia, unspecified severity, without behavioral disturbance, psychotic disturbance, mood disturbance, and anxiety; J44.9 Chronic obstructive pulmonary disease, unspecified; K21.9 Gastro-esophageal reflux disease without esophagitis; K44.9 Diaphragmatic hernia without obstruction or gangrene; Z82.49 Family history of ischemic heart disease and other diseases of the circulatory system; Z79.899 Other long term (current) drug therapy; Z95.1 Presence of aortocoronary bypass graft
CPT/HCPCS: 36415; 76775; 80048; 80053; 80076; 81001; 82140; 82150; 82550; 82553; 82570; 83036; 83516; 83690; 83735; 83880; 83970; 84100; 84156; 84165; 84439; 84443; 84484; 85025; 85610; 85652; 85730; 86038; 86140; 86256; 86317; 86704; 87086; 87340; 87521; 93005; 93010; 99285; J1644; J3490; J7030

== ENCOUNTER → 2018-02-22 | Outpatient (CLI) | payer MEDICARE, MEDICAID ==
[2018-02-22 16:08] LABS: ABSOLUTE EOSINOPHILS # (AUTO) 0.2 10^3/uL (0.0-0.6); ABSOLUTE MONOCYTES (AUTO) 0.4 10^3/uL (0.1-1.4); ABSOLUTE NEUT (AUTO) 3.9 10^3/uL (1.7-8.2); BASOPHILS % (AUTO) 0.5 % (0-2); EOSINOPHILS % (AUTO) 3.7 % (0-6); HEMATOCRIT 35.1 % (37.9-51.0); HEMOGLOBIN 11.6 g/dL (13.5-17.0); MEAN CORPUSCULAR HEMOGLOBIN 30.3 pg (27.0-33.4); MEAN CORPUSCULAR VOLUME 92 fl (80-97); MONOCYTES % (AUTO) 6.2 % (3-13); PLATELET COUNT 282 10^3/uL (150-450); RED BLOOD COUNT 3.83 10^6/uL (4.35-5.55); RED CELL DISTRIBUTION WIDTH 15.2 % (11.5-14.0); SEGMENTED NEUTROPHILS % (AUTO) 59.6 % (42-78); TOTAL CELLS COUNTED % (AUTO) 100 %; WHITE BLOOD COUNT 6.6 10^3/uL (4.0-10.5)
[2018-02-22 16:13] LABS: INTERNATIONAL RATION (INR) 1.01; PROTHROMBIN TIME 13.8 SEC (11.4-15.4)
[2018-02-22 16:14] LABS: PARTIAL THROMBOPLASTIN TIME 40.5 SEC (23.5-35.8)
[2018-02-22 16:22] LABS: ALANINE AMINOTRANSFERASE 15 U/L (21-72); ALBUMIN 2.9 g/dL (3.5-5.0); ALKALINE PHOSPHATASE 103 U/L (38-126); ANION GAP 11 (5-19); ASPARTATE AMINO TRANSFERASE 15 U/L (17-59); BILIRUBIN,DIRECT 0.2 mg/dL (0.0-0.4); BILIRUBIN,TOTAL 0.2 mg/dL (0.2-1.3); BLOOD UREA NITROGEN 41 mg/dL (7-20); C-REACTIVE PROTEIN 14.4 mg/L (<10.0); CALCIUM 9.1 mg/dL (8.4-10.2); CARBON DIOXIDE 24 mmol/L (22-30); CHLORIDE 112 mmol/L (98-107); GLUCOSE 104 mg/dL (75-110); POTASSIUM 5.4 mmol/L (3.6-5.0); SODIUM 146.7 mmol/L (137-145); TOTAL PROTEIN 6.2 g/dL (6.3-8.2)
[2018-02-22 16:45] LABS: ERYTHROCYTE SEDIMENTATION RATE 82 mm/hr (0-20)
== END ==
LOC: PNR 14:00
PROVIDERS: ATTEND Internal Medicine
DX: N18.3 Chronic kidney disease, stage 3 (moderate) (principal); N28.9 Disorder of kidney and ureter, unspecified; R80.9 Proteinuria, unspecified; Z79.899 Other long term (current) drug therapy; Z79.01 Long term (current) use of anticoagulants
CPT/HCPCS: 80053; 85025; 85610; 85652; 85730; 86140

== ENCOUNTER → 2018-04-06 | Outpatient (CLI) | payer MEDICARE, MEDICAID ==
[2018-04-06 15:13] LABS: HEMATOCRIT 34.8 % (37.9-51.0); HEMOGLOBIN 11.7 g/dL (13.5-17.0); MEAN CORPUSCULAR HEMOGLOBIN 30.7 pg (27.0-33.4); MEAN CORPUSCULAR HGB CONC 33.5 g/dL (32.0-36.0); MEAN CORPUSCULAR VOLUME 92 fl (80-97); PLATELET COUNT 257 10^3/uL (150-450); RED CELL DISTRIBUTION WIDTH 14.5 % (11.5-14.0); WHITE BLOOD COUNT 7.3 10^3/uL (4.0-10.5)
[2018-04-06 15:36] LABS: ANION GAP 8 (5-19); BLOOD UREA NITROGEN 56 mg/dL (7-20); CALCIUM 9.2 mg/dL (8.4-10.2); CARBON DIOXIDE 25 mmol/L (22-30); CHLORIDE 108 mmol/L (98-107); GLUCOSE 92 mg/dL (75-110); POTASSIUM 5.4 mmol/L (3.6-5.0); SODIUM 141.4 mmol/L (137-145)
[2018-04-06 18:26] LABS: CHOLESTEROL 216.54 mg/dL (0-200); TRIGLYCERIDES 131 mg/dL (<150)
[2018-04-06 18:37] LABS: DIRECT LDL 127 mg/dL (<100)
== END ==
LOC: PNR 14:02
PROVIDERS: ATTEND Internal Medicine
DX: E78.5 Hyperlipidemia, unspecified (principal); N18.4 Chronic kidney disease, stage 4 (severe); D64.9 Anemia, unspecified
CPT/HCPCS: 80048; 80061; 85027

== ENCOUNTER → 2018-04-19 | Outpatient (CLI) | payer MEDICARE, MEDICAID ==
--- NOTE | 2018-04-19 14:07 | RADIOLOGY REPORT (SQ) ---
EXAM DESCRIPTION: U/S RETROPERITON (RENAL/AORTA) COMPLETED DATE/TIME: 04/19/2018 1:41 pm REASON FOR STUDY: CKD IV (N18.4) N18.4 CHRONIC KIDNEY DISEASE, STAGE 4 (SEVERE) COMPARISON: Renal ultrasound 02/23/2018, 07/18/2016 CT abdomen pelvis 12/28/2016 TECHNIQUE: Dynamic and static grayscale images acquired of the kidneys and bladder and recorded on P ACS. Additional selected color Doppler and spectral images recorded. LIMITATIONS: Large body habitus FINDINGS: RIGHT KIDNEY: Normal size, 9.7 cm in length. Diffuse cortical thinning and mild increased echogenicity from medical renal disease. No solid or suspicious masses. No hydronephrosis. No calci fications. LEFT KIDNEY: Normal size, 8.6 cm in length. Diffuse cortical thinning and mild increased echogenici ty from medical renal disease. Limited visualization left kidney due to the body habitus. No solid o r suspicious masses. No hydronephrosis. No calcifications. BLADDER: No masses. Bilateral ureteral jets are identified OTHER FINDINGS: Infrarenal abdominal aorta measures 3.5 x 3 cm in greatest diameter. IMPRESSION: No hydronephrosis. Bilateral renal cortical thinning and increased echogenicity from me dical renal disease. 3.5 x 3 cm infrarenal abdominal aortic aneurysm COMMENT: AAA Size: 3.5 to 3.9 cm diameter abdominal aorta, evaluate with ultrasound every 12 month s. Follow-up Recommendation for abdominal aorta surveillance, please perform abdominal aorta ultrasound Every 12 months *Based upon the Society for Vascular Surgery Guidelines: J Vasc Surg. 2009 Dec;50(4 Suppl):S2-49 *For aortas of maximum diameter of 2.6-2.9 cm meeting the criteria for AAA (?1.5 x proximal normal se gment) TECHNICAL DOCUMENTATION: JOB ID: [id number] [employer]- All Rights Reserved Reading location - IP/workstation name: [email or web address]
== END ==
LOC: RAD 12:11
PROVIDERS: ATTEND Internal Medicine Nephrology
DX: I12.9 Hypertensive chronic kidney disease with stage 1 through stage 4 chronic kidney disease, or unspecified chronic kidney disease (principal); N18.3 Chronic kidney disease, stage 3 (moderate); E11.22 Type 2 diabetes mellitus with diabetic chronic kidney disease
CPT/HCPCS: 76770

== ENCOUNTER → 2018-05-01 | Outpatient (CLI) | payer MEDICARE, MEDICAID ==
[2018-05-01 14:05] LABS: HEMATOCRIT 32.2 % (37.9-51.0); HEMOGLOBIN 10.8 g/dL (13.5-17.0); MEAN CORPUSCULAR HEMOGLOBIN 30.6 pg (27.0-33.4); MEAN CORPUSCULAR HGB CONC 33.6 g/dL (32.0-36.0); MEAN CORPUSCULAR VOLUME 91 fl (80-97); PLATELET COUNT 267 10^3/uL (150-450); RED BLOOD COUNT 3.54 10^6/uL (4.35-5.55); RED CELL DISTRIBUTION WIDTH 14.6 % (11.5-14.0); WHITE BLOOD COUNT 6.9 10^3/uL (4.0-10.5)
[2018-05-01 14:37] LABS: ANION GAP 10 (5-19); BLOOD UREA NITROGEN 59 mg/dL (7-20); CALCIUM 9.3 mg/dL (8.4-10.2); CARBON DIOXIDE 23 mmol/L (22-30); CHLORIDE 108 mmol/L (98-107); GLUCOSE 113 mg/dL (75-110); PHOSPHORUS 5.3 mg/dL (2.5-4.5); POTASSIUM 5.3 mmol/L (3.6-5.0); SODIUM 141.4 mmol/L (137-145)
== END ==
LOC: LAB 13:31
PROVIDERS: ATTEND Internal Medicine Nephrology
DX: I12.9 Hypertensive chronic kidney disease with stage 1 through stage 4 chronic kidney disease, or unspecified chronic kidney disease (principal); N18.4 Chronic kidney disease, stage 4 (severe); E11.22 Type 2 diabetes mellitus with diabetic chronic kidney disease; E87.5 Hyperkalemia
CPT/HCPCS: 36415; 80048; 83970; 84100; 85027

== ENCOUNTER 2018-05-23 08:45 | Inpatient (IN) | payer MEDICARE, MEDICAID ==
--- NOTE | 2018-05-23 08:51 | ER Document Report ---
ED Neuro Symptoms/Deficit - General Stated Complaint: POSSIBLE STROKE Time Seen by Provider: 05/23/18 08:50 Primary Care Provider: Neo DOVER MD [Primary Care Provider] - Follow up as needed Notes: 78-year-old male was sent from the senior living with altered mental status. Nursing staff was awoke this morning with screaming of the patient's roommate. The roommate stated the patient was having a seizure and shaking. Upon arrival they found the patient confused. He had not bitten his tongue and is unknown if there was any urinary frequent continence. EMS was activated. They noticed that his left side of his face looked a little droopier than normal. Patient is usually alert and oriented and was very confused and not really talking. The patient cannot voice any complaints. TRAVEL OUTSIDE OF THE [place] IN LAST 30 DAYS: No - Related Data Allergies/Adverse Reactions: No Known Allergies Allergy (Verified 07/18/16 03:22) Past Medical History - Social History Smoking Status: Former Smoker Family History: Reviewed & Not Pertinent, CAD - Past Medical History Cardiac Medical History: Reports: Hx Coronary Artery Disease, Hx Hypercholesterolemia, Hx Hypertension Pulmonary Medical History: Reports: Hx COPD Renal/ Medical History: Reports: Hx Renal Insufficiency. Denies: Hx Peritoneal Dialysis GI Medical History: Reports: Hx Gastroesophageal Reflux Disease, Hx Hiatal Hernia Musculoskeletal Medical History: Reports Hx Muscle Weakness - generalized Past Surgical History: Reports: Hx Cardiac Surgery, Hx Coronary Artery Bypass Graft - Immunizations Hx Diphtheria, Pertussis, Tetanus Vaccination: Yes Review of Systems - Review of Systems -: Yes ROS unobtainable due to patient's medical condition Physical Exam - Notes Notes: GENERAL_APPEARANCE: Chronically ill-appearing, alert VITALS: reviewed, see vital signs table. HEAD: no_swelling\\tenderness on the head. EYES: PERRL, EOMI, conjunctiva_clear. NOSE: no_nasal_discharge. MOUTH: (-)decreased moisture. THROAT: no_tonsilar_inflammation, no_airway_obstruction. no_lymphadenopathy NECK: supple, no_neck_tenderness, (-)thyromegaly. BACK: no_back_tenderness. CHEST_WALL: no_chest_tenderness. LUNGS: no_wheezing, no_rales, no_rhonchi, (-)accessory muscle use, good air exchange bilateral. HEART: normal_rate, normal_rhythm, normal_S1, normal_S2, (-)S3, (-)S4, n o_murmur, no_rub. ABDOMEN: normal_BS, soft, no_abd_tenderness, (-)guarding, (-)rebound, no_organomegaly, no_abd_masses. EXTREMITIES: good pulses in all_extremities, no_swelling\\tenderness in the ex tremities, no_edema. SKIN: warm, dry, good_color, no_rash. MENTAL_STATUS: Alert but will not talk or answer questions NEURO: Neg Motor or Sensory Deficits on exam, CN 2-12 intact except mild downtu rn in the nasolabial fold not complete paralysis, DTR 2+ symmetric x 4, patient will follow instructions without signs of cerebellar dysfunction. Course - Re-evaluation Re-evalutation: 05/23/18 08:56 78-year-old who presents with altered mental status. Nursing staff at the senior living were awoken for possible seizure. Also time of onset is unknown. Because of this the patient is not a candidate for TPA due to unknown time of onset and seizure. Symptoms are difficult to tell I cannot detect any motor weakness in the arm or leg. He will squeeze my hands. 05/23/18 10:15 Kidney function is worse. Potassium is actually a little bit better than last time. Patient has been seen by nephrology but has refused dialysis. Continues to refuse dialysis. CODE STATUS really is unknown at this time. Patient's continually getting better from a cognitive standpoint the facial droop on the left seems to be improving he has had a history of stroke before this could have been seizure versus small stroke. However with his renal problems and complex comorbidities he is likely not a candidate for anything more aggressive. I have spoken with his family doctor Dr. Huerta they will place him in observation and try to determine a closer CODE STATUS his kidney functions continues to get worse and without dialysis he will likely not last very long. - Laboratory Result Diagrams: 05/23/18 09:00 05/23/18 09:00 - Diagnostic Test Radiology reviewed: Reports reviewed Radiology results interpreted by me: 05/23/18 10:15 Chest X-Ray 05/23/18 08:49 IMPRESSION: 1. No significant interval changes since the prior examination dated 01/25/2016. No acute findings. Head CT 05/23/18 08:49 IMPRESSION: 1. The examination is limited due to motion and patient positioning. 2. No significant interval changes since the prior study dated 12/28/2016. No acute intracranial abnormality. 3. Chronic small vessel ischemic changes and atrophy. Old remote cerebral infarcts. EVIDENCE OF ACUTE STROKE: NO ED NIH Stroke Scale - NIH Stroke Scale *: 1. NIH scale should be completed with appropriate accompanying assessment tools. *: 2. The NIH should reflect what the patient is capable of doing and should not be coached by the clinician. 1a. Level of Consciousness: 0=Alert;keenly responsive -: 1=Drowsy -: 2=Obtunded -: 3=Coma/unresponsive or reflex to noxious stimuli. 1a. Responses: 0 1b. Orientation Questions: a. What month is it? -: b. How old are you? -: 0=Answers both questions correctly. -: 1=Answers one question correctly or patient is intubated or has orotracheal trauma. -: 2=Answers neither question correctly. 1b. Responses: 1 1c. Response to commands: a. Open and close eyes? -: b. Slide Fasteners Inspector and release hand? -: Credit is given despite weakness. Demonstration of task is permitted. Substitute command if hands cannot be used. -: 0=Performs both tasks correctly -: 1=Performs one task correctly -: 2=Performs neither task correctly 1c. Responses: 0 2. Gaze: Establish eye contact and instruct patient to "Follow my finger" -: 0=Normal -: 1=Partial gaze palsy. Gaze is abnormal in one or both eyes, but where forced deviation or total gaze paresis is not present. -: 2=Forced deviation or total gaze paresis. 2. Responses: 0 3. Visual Orr: Sees fingers in all four quadrants. -: 0=No visual loss. -: 1=Partial hemianopsia. -: 2=Complete hemianopsia. -: 3=Bilateral hemianopsia (including Cortical blindness) 3. Responses: 0 4. Facial Movement: Instruct patient to: -: a. Show me your teeth -: b. Raise your eyebrows -: c. Close your eyes -: d. Smile -: 0=Normal symmetrical movement -: 1=Minor paralysis (flattened nasolabial fold, asymmetry on smiling). -: 2=Partial paralysis (total or near total paralysis of lower face). -: 3=Complete paralysis of upper and lower face 4. Responses: 1 5. Motor functions (left arm): Alternate sides and extend each arm with palms down (90 degrees if sitting or 45 degrees for supine). -: 0=No drift;limb holds for full 10 seconds. -: 1=Drift; limb holds but drifts down before full 10 seconds, but does not hit bed. -: 2=Some effort against gravity; limb cannot get to or maintain position. -: 3=No effort against gravity; limb falls. -: 4=No movement. -: UN=Amputation, joint fusion, explain in comments. 5. Responses (left arm): 0 5. Motor Functions (right arm): Alternate sides and extend each arm with palms down (90 degrees if sitting or 45 degrees for supine). -: 0=No drift;limb holds for full 10 seconds. -: 1=Drift; limb holds but drifts down before full 10 seconds, but does not hit bed. -: 2=Some effort against gravity; limb cannot get to or maintain position. -: 3=No effort against gravity; limb falls. -: 4=No movement. -: UN=Amputation, joint fusion, explain in comments. 5. Responses (right arm): 0 6. Motor Functions (left leg): With patient lying supine, alternate sides and extend each leg (30 degrees always while supine). -: 0=No drift, leg holds position for full 5 seconds -: 1=Drift; leg falls before full 5 seconds but does not hit bed. -: 2=Some effort against gravity, leg falls to bed but some effort against gra vity. -: 3=No effort against gravity, leg falls to bed immediately. -: 4=No movement. -: UN=Amputation, joint fusion; explain in comments. 6. Responses (left leg): 0 6. Motor Functions (right leg): With patient lying supine, alternate sides and extend each leg (30 degrees always while supine). -: 0=No drift, leg holds position for full 5 seconds -: 1=Drift; leg falls before full 5 seconds but does not hit bed. -: 2=Some effort against gravity, leg falls to bed but some effort against gravity. -: 3=No effort against gravity, leg falls to bed immediately. -: 4=No movement. -: UN=Amputation, joint fusion; explain in comments. 6. Responses (right leg): 0 7. Limb Ataxia: With eyes open instruct patient to: -: a. "Touch your finger to your nose". -: b. "Touch your heel to your sethi" -: 0=Absent -: 1=Present in one limb. -: 2=Present in two limbs. -: UN=Amputation or joint fusion; explain in comments. 7. Responses: 0 8. Sensory: Test sensation using pinprick or noxious stimuli. Test as many body parts as possible. -: 0=Normal;no sensory loss -: 1=Mile to moderate sensory loss (patient feels pin prick but is less sharp on affected side). -: 2=Severe or total sensory loss. 8. Responses: 0 9. Best Language: Instruct patient to: -: a. "Describe what you see in this picture." -: b. "Name the items in this picture." -: c. "Read these sentences." -: 0=No aphasia, normal -: 1=Mild to moderate aphasia. -: 2=Severe aphasia -: 3=Mute, global aphasia, no usable speech or auditory comprehension. 9. Responses: 3 10. Articulation, Dysarthia: Instruct patient to: -: "Read these words" or "Repeat these words" -: 0=Normal -: 1=Mild to moderate; patient may slur some words but can be understood without difficulty. -: 2=Severe; patients speech so slurred as to be unintelligible in the absence of dysphasia. -: UN=Intubated or other physical barrier, explain in comments. 10. Responses: UN 11. Extinction or inattention: 0=No abnormality -: 1= Visual, tactile, auditory, spatial, or personal inattention or extinction to bilateral simulation in one or the sensory modalities. -: 2=Profound dariela-inattention or dariela-inattention to more than one modality; does not recognize own hand. 11. Responses: 0 Total Score: 5 Discharge - Discharge Clinical Impression: CVA (cerebral vascular accident) Qualifiers: CVA mechanism: other Qualified Code(s): I63.89 - Other cerebral infarction Condition: Fair Disposition: ADMITTED OBSERVATION Admitting Provider: [facility] Unit Admitted: Telemetry Referrals: Neo DOVER MD [Primary Care Provider] - Follow up as needed
[2018-05-23] MEDS ORDERED: LORAZEPAM INJ 2 MG/1 ML VIAL IV ONE (09:00)
[2018-05-23 09:21] LABS: ABSOLUTE BASOPHILS # (AUTO) 0.1 10^3/uL (0.0-0.2); ABSOLUTE EOSINOPHILS # (AUTO) 0.4 10^3/uL (0.0-0.6); ABSOLUTE LYMPHOCYTES (AUTO) 2.9 10^3/uL (0.5-4.7); ABSOLUTE MONOCYTES (AUTO) 0.7 10^3/uL (0.1-1.4); ABSOLUTE NEUT (AUTO) 3.6 10^3/uL (1.7-8.2); BASOPHILS % (AUTO) 1.5 % (0-2); EOSINOPHILS % (AUTO) 4.7 % (0-6); HEMOGLOBIN 11.4 g/dL (13.5-17.0); LYMPHOCYTES % (AUTO) 38.2 % (13-45); MEAN CORPUSCULAR HEMOGLOBIN 31.1 pg (27.0-33.4); MEAN CORPUSCULAR HGB CONC 33.5 g/dL (32.0-36.0); MEAN CORPUSCULAR VOLUME 93 fl (80-97); MONOCYTES % (AUTO) 8.9 % (3-13); PLATELET COUNT 308 10^3/uL (150-450); RED BLOOD COUNT 3.66 10^6/uL (4.35-5.55); RED CELL DISTRIBUTION WIDTH 14.9 % (11.5-14.0); SEGMENTED NEUTROPHILS % (AUTO) 46.7 % (42-78); TOTAL CELLS COUNTED % (AUTO) 100 %; WHITE BLOOD COUNT 7.7 10^3/uL (4.0-10.5)
--- NOTE | 2018-05-23 09:21 | RADIOLOGY REPORT (SQ) ---
EXAM DESCRIPTION: CT HEAD WITHOUT COMPLETED DATE/TIME: 05/23/2018 8:58 am REASON FOR STUDY: Left facial droop COMPARISON: 12/28/2016 TECHNIQUE: Axial images acquired through the brain without intravenous contrast. Images reviewed wi th bone, brain and subdural windows. Additional sagittal and coronal reconstructions were generated. Images stored on PACS. All CT scanners at this facility use dose modulation, iterative reconstruction, and/or weight based d osing when appropriate to reduce radiation dose to as low as reasonably achievable (ALARA). [facility]: Dose Right [facility]: CareDose [facility]: Dose Right [facility]: Teradose 4D [facility]: Smart [employer] RADIATION DOSE: mGy. LIMITATIONS: None. FINDINGS: VENTRICLES: Chronic prominent appearing ventricles. The cisterns are patent. CEREBRUM: Encephalomalacia changes in the right frontal lobe and posterior left frontal lobe, probab ly related to prior old remote infarcts. Chronic small vessel ischemic changes and old remote left t halamic infarct. No masses. No hemorrhage. No midline shift. No evidence for acute infarction CEREBELLUM: No masses. No hemorrhage. No alteration of density. No evidence for acute infarction. EXTRAAXIAL SPACES: Atrophy. No masses. ORBITS AND GLOBE: No intra- or extraconal masses. Normal contour of globe without masses. CALVARIUM: No fracture. PARANASAL SINUSES: No fluid or mucosal thickening. SOFT TISSUES: No mass or hematoma. OTHER: Atherosclerotic changes involving the cavernous portion of the internal carotid arteries extr acranial, carotid artery's. . IMPRESSION: 1. The examination is limited due to motion and patient positioning. 2. No significant interval changes since the prior study dated 12/28/2016. No acute intracranial ab normality. 3. Chronic small vessel ischemic changes and atrophy. Old remote cerebral infarcts. EVIDENCE OF ACUTE STROKE: NO COMMENT: 1. The results of this examination were discussed with emergency department provider on 05/23/2018 at 09:11 hours. Quality ID # [id number]: Final reports with documentation of one or more dose reduction techniques (e.g., Au tomated exposure control, adjustment of the mA and/or kV according to patient size, use of iterative reconstruction technique) TECHNICAL DOCUMENTATION: JOB ID: [id number] [employer]- All Rights Reserved Reading location - IP/workstation name: [email or web address]
[2018-05-23 09:25] LABS: INTERNATIONAL RATION (INR) 0.99
[2018-05-23 09:26] LABS: PARTIAL THROMBOPLASTIN TIME 35.5 SEC (23.5-35.8)
[2018-05-23 09:28] LABS: PROTHROMBIN TIME 13.6 SEC (11.4-15.4)
[2018-05-23 09:43] LABS: ALANINE AMINOTRANSFERASE < 6 U/L (21-72); ALBUMIN 3.9 g/dL (3.5-5.0); ALKALINE PHOSPHATASE 92 U/L (38-126); ANION GAP 14 (5-19); ASPARTATE AMINO TRANSFERASE 23 U/L (17-59); BILIRUBIN,DIRECT 0.4 mg/dL (0.0-0.4); BILIRUBIN,TOTAL 0.4 mg/dL (0.2-1.3); BLOOD UREA NITROGEN 54 mg/dL (7-20); CALCIUM 10.3 mg/dL (8.4-10.2); CARBON DIOXIDE 20 mmol/L (22-30); CHLORIDE 113 mmol/L (98-107); CREATINE KINASE 42 U/L (55-170); GLUCOSE 116 mg/dL (75-110); POTASSIUM 5.1 mmol/L (3.6-5.0); SODIUM 146.6 mmol/L (137-145); TOTAL PROTEIN 7.5 g/dL (6.3-8.2)
--- NOTE | 2018-05-23 09:43 | RADIOLOGY REPORT (SQ) ---
EXAM DESCRIPTION: CHEST SINGLE VIEW COMPLETED DATE/TIME: 05/23/2018 9:29 am REASON FOR STUDY: Left facial droop COMPARISON: 01/25/2016 EXAM PARAMETERS: NUMBER OF VIEWS: One view. TECHNIQUE: Single frontal radiographic view of the chest acquired. RADIATION DOSE: NA LIMITATIONS: None. FINDINGS: LUNGS AND PLEURA: No opacities, masses or pneumothorax. No pleural effusion. MEDIASTINUM AND HILAR STRUCTURES: No masses. Contour normal. HEART AND VASCULAR STRUCTURES: Stable appearance. BONES: No acute findings. HARDWARE: Prior anterior median sternotomy and CABG. OTHER: No other significant finding. IMPRESSION: 1. No significant interval changes since the prior examination dated 01/25/2016. No acu te findings. TECHNICAL DOCUMENTATION: JOB ID: [id number] [employer]- All Rights Reserved Reading location - IP/workstation name: [email or web address]
[2018-05-23] MEDS ORDERED: NORMAL SALINE 1000 ML 1,000 ML IV ONE (09:49)
[2018-05-23 09:52] LABS: CREATINE KINASE MB 0.77 ng/mL (<4.55)
[2018-05-23 09:54] LABS: TROPONIN I 0.064 ng/mL
[2018-05-23 10:17] LABS: AMORPHOUS SEDIMENT,URINE TRACE /HPF; APPEARANCE,URINE CLOUDY; BILIRUBIN,URINE NEGATIVE (NEGATIVE); COLOR,URINE YELLOW; GLUCOSE, URINE NEGATIVE (NEGATIVE); KETONES,URINE NEGATIVE (NEGATIVE); LEUKOCYTE ESTERASE,URINE NEGATIVE (NEGATIVE); NITRITE,URINE NEGATIVE (NEGATIVE); PROTEIN,URINE >=500 mg/dL (NEGATIVE); URINE SPECIFIC GRAVITY 1.013; UROBILINOGEN,URINE NEGATIVE mg/dL (<2.0)
[2018-05-23] MEDS ORDERED: ASPIRIN 300 MG SUPP, RECTAL PR ONE (10:18)
[2018-05-23] MEDS: ASPIRIN/DIPYRIDAMOLE 25-200 MG 1 CAP.SR CPMP.12HR PO SCH ×2 (16:40→23:15)
[2018-05-23] MEDS: HEPARIN SOD (PORCINE) 5,000 UNIT/ML 1 ML SYRINGE SUBCUT SCH ×2 (16:43→23:16)
[2018-05-23] MEDS ORDERED: (PENDING PHARMACY ID) (Budesonide [Pulmicort 180 Mcg Flexhaler] 2 PUFF) IH PRN (18:15)
[2018-05-23] MEDS ORDERED: IPRATROPIUM/ALBUTEROL 0.5-2.5 MG/3 ML AMPUL NEB PRN (18:15)
[2018-05-23] MEDS ORDERED: ALBUTEROL SULFATE 0.083% NEB 2.5 MG/3 ML AMPUL NEB PRN (18:15)
[2018-05-23] MEDS ORDERED: (PENDING PHARMACY ID) (Sertraline Hcl [Zoloft] 25 MG) PO SCH (18:30)
--- NOTE | 2018-05-23 18:45 | PDOC H&P ---
History of Present Illness Admission Date/PCP: 05/23/18 14:35 ILAN FALCON MD History of Present Illness: PHOEBE CHARLES is a 78 year old male,He has a history of CVA with residual right-sided hemiplegia, chronic kidney disease stage V, a DNR status, he does not want hemodialysis, he was transferred from the care home to the emergency room because of concern for a new CVA, the history was that patient's roommate screams out earlier this morning for help because he thought patient was having a seizure when the care home staff got to his room it was stated that patient was confused they thought he had a stroke he was then transferred to the emergency room. He has no history of seizure, in the emergency room a CT head was done, it demonstrated encephalomalacia changes in the right frontal lobe, posterior left frontal lobe consistent with old infarct but there is no acute change.I saw patient on the floor he is awake is at his baseline he has lost some weight since I last saw him in the care home, this is expected because of his CKD stage V. I discussed prognosis with the patient's POA, he has CKD stage V and the he does not want dialysis this portend a poor prognosis Past Medical History Cardiac Medical History: Reports: Coronary Artery Disease, Hyperlipidema, Hypertension Pulmonary Medical History: Reports: Chronic Obstructive Pulmonary Disease (COPD) Renal/ Medical History: Reports: End Stage Renal Disease GI Medical History: Reports: Gastroesophageal Reflux Disease, Hiatal Hernia Hematology: Reports: Anemia Past Surgical History Past Surgical History: 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 Social History Smoking Status: Former Smoker Frequency of Alcohol Use: None Hx Recreational Drug Use: No Hx Prescription Drug Abuse: No - Advance Directive Resuscitation Status: Do Not Resuscitate Family History Family History: Reviewed & Not Pertinent, CAD Parental Family History Reviewed: Yes Children Family History Reviewed: Yes Sibling(s) Family History Reviewed.: Yes Medication/Allergy Home Medications: Albuterol Sulfate [Ventolin 0.083% Neb 2.5 mg/3 mL Ampul] 2.5 mg NEB RTQ6HP PRN 05/23/18 Amlodipine Besylate [Norvasc 5 mg Tablet] 5 mg PO QHS 05/23/18 Aspirin [Aspirin 81 mg Chewable Tablet] 81 mg PO QAM 05/23/18 Atorvastatin Calcium [Lipitor 10 mg Tablet] 10 mg PO QHS 05/23/18 Budesonide [Pulmicort 180 mcg Flexhaler] 2 puff IH DAILYP PRN 05/23/18 Calcitriol [Rocaltrol 0.25 mcg Capsule] 0.25 mcg PO QAM 05/23/18 Clonidine HCl [Catapres 0.1 mg Tablet] 0.1 mg PO Q12 05/23/18 Ipratropium/Albuterol Sulfate [Duoneb 3 ml Ampul] 3 ml NEB RTQ6HP PRN 05/23/18 Isosorbide Dinitrate [Isordil Titradose 20 mg Tablet] 20 mg PO Q8 05/23/18 Metoprolol Succinate [Toprol XL 100 mg Tablet] 100 mg PO QAM 05/23/18 Polyethylene Glycol 3350 [Miralax Powder 17 gm/Packet] 17 mg PO QAM 05/23/18 Sennosides/Docusate 8.6-50 mg [Senna Plus Tablet] 1 tab PO QHS 05/23/18 Sertraline HCl [Zoloft] 25 mg PO QAM 05/23/18 Sodium Polystyrene Sulfonate [Kayexalate 15 gm/60 ml Susp 60 ml] 15 gm PO Q12 05/23/18 Tiotropium Rugby [Spiriva Handihaler 5 Cap/Kit (18 Mcg/Cap)] 1 cap IH QAM 05/23/18 Allergies/Adverse Reactions: No Known Allergies Allergy (Verified 07/18/16 03:22) Review of Systems Eyes: ABSENT: visual disturbances Ears: ABSENT: hearing changes Cardiovascular: ABSENT: chest pain, dyspnea on exertion, edema, orthropnea, palpitations Respiratory: ABSENT: cough, hemoptysis Gastrointestinal: ABSENT: as per HPI, bloating, coffee ground emesis, constipation, diarrhea, dysphagia, heartburn, hematemesis, hematochezia, melena, nausea, vomiting, other Genitourinary: ABSENT: dysuria, hematuria Musculoskeletal: ABSENT: joint swelling Integumentary: ABSENT: rash, wounds Neurological: PRESENT: confusion, focal weakness Psychiatric: ABSENT: anxiety, depression, homidical ideation, suicidal ideation Endocrine: ABSENT: cold intolerance, heat intolerance, menstrual abnormalities, polydipsia, polyuria Hematologic/Lymphatic: ABSENT: easy bleeding, easy bruising, lymphadenopathy Physical Exam Vital Signs: Temp Pulse Resp BP Pulse Ox 97.1 F 63 12 121/80 90 L 05/23/18 15:48 05/23/18 16:00 05/23/18 16:17 05/23/18 16:17 05/23/18 16:00 Intake & Output 05/22/18 05/23/18 05/24/18 06:59 06:59 06:59 Intake Total 1000 Balance 1000 Weight 64.8 kg General appearance: PRESENT: no acute distress Head exam: PRESENT: atraumatic, normocephalic Eye exam: PRESENT: PERRLA Ear exam: PRESENT: normal external ear exam Mouth exam: PRESENT: moist, tongue midline Neck exam: PRESENT: full ROM Respiratory exam: PRESENT: clear to auscultation magdalena Cardiovascular exam: PRESENT: RRR, +S1, +S2 Vascular exam: PRESENT: normal capillary refill GI/Abdominal exam: PRESENT: normal bowel sounds, soft Rectal exam: PRESENT: deferred Neurological exam: PRESENT: alert, motor sensory deficit - Right-sided hemiplegia Psychiatric exam: PRESENT: appropriate affect, normal mood Skin exam: PRESENT: dry, intact, warm Results Laboratory Results: 05/23/18 09:00 05/23/18 09:00 05/23/18 05/23/18 05/23/18 09:00 09:00 09:23 WBC 7.7 RBC 3.66 L Hgb 11.4 L Hct 34.0 L MCV 93 MCH 31.1 MCHC 33.5 RDW 14.9 H Plt Count 308 Seg Neutrophils % 46.7 Lymphocytes % 38.2 Monocytes % 8.9 Eosinophils % 4.7 Basophils % 1.5 Absolute Neutrophils 3.6 Absolute Lymphocytes 2.9 Absolute Monocytes 0.7 Absolute Eosinophils 0.4 Absolute Basophils 0.1 Sodium 146.6 H Potassium 5.1 H Chloride 113 H Carbon Dioxide 20 L Anion Gap 14 BUN 54 H Creatinine 6.64 H Est GFR ( Amer) 10 L Est GFR (Non-Af Amer) 8 L Glucose 116 H Calcium 10.3 H Total Bilirubin 0.4 AST 23 ALT < 6 L Alkaline Phosphatase 92 Total Protein 7.5 Albumin 3.9 Urine Color YELLOW Urine Appearance CLOUDY Urine pH 5.0 Ur Specific [place] 1.013 Urine Protein >=500 H Urine Glucose (UA) NEGATIVE Urine Ketones NEGATIVE Urine Blood MODERATE H Urine Nitrite NEGATIVE Ur Leukocyte Esterase NEGATIVE Urine WBC (Auto) 12 Urine RBC (Auto) 62 05/23/18 05/23/18 09:00 09:00 Creatine Kinase 42 L CK-MB (CK-2) 0.77 Troponin I 0.064 Impressions: Chest X-Ray 05/23/18 08:49 IMPRESSION: 1. No significant interval changes since the prior examination dated 01/25/2016. No acute findings. Head CT 05/23/18 08:49 IMPRESSION: 1. The examination is limited due to motion and patient positioning. 2. No significant interval changes since the prior study dated 12/28/2016. No acute intracranial abnormality. 3. Chronic small vessel ischemic changes and atrophy. Old remote cerebral infarcts. EVIDENCE OF ACUTE STROKE: NO Assessment & Plan - Diagnosis (1) Transient ischemic attack Is this a current diagnosis for this admission?: Yes Plan: This is probably a TIA, cannot completely rule out a seizure, EEG will be obtained (2) Chronic kidney disease, stage 5 Is this a current diagnosis for this admission?: Yes (3) Secondary hyperparathyroidism Is this a current diagnosis for this admission?: Yes
--- NOTE | 2018-05-23 19:16 | EKG REPORT ---
SEVERITY:- ABNORMAL ECG - SINUS RHYTHM PROBABLE LEFT ATRIAL ABNORMALITY NONSPECIFIC INTRAVENTRICULAR CONDUCTION DELAY LVH WITH SECONDARY REPOLARIZATION ABNORMALITY ST DEPRESSION, CONSIDER ISCHEMIA, INF LEADS : Confirmed by: Delma Fuchs MD 23-May-2018 19:15:39
[2018-05-23] MEDS ORDERED: LORAZEPAM 1 MG TABLET PO PRN (20:33)
[2018-05-23] MEDS: CLONIDINE HCL 0.1 MG TABLET PO SCH (20:45)
[2018-05-23] MEDS: SODIUM POLYSTYRENE SULFONATE 15 GM/60 ML PO SCH (20:47)
[2018-05-23] MEDS: POLYETHYLENE GLYCOL 3350 POWDER 17 GM/1 PACKET PO SCH (20:48)
[2018-05-23] MEDS: TIOTROPIUM BROMIDE DPI 5 CAP/KIT (18 MCG/CAP) IH SCH (20:48)
[2018-05-23] MEDS: CALCITRIOL 0.25 MCG CAPSULE PO SCH (20:49)
[2018-05-23] MEDS: METOPROLOL SUCCINATE 50 MG TAB.SR.24H PO SCH (20:50)
[2018-05-23] MEDS: SERTRALINE HCL 50 MG TABLET PO SCH (20:50)
--- NOTE | 2018-05-23 22:35 | RADIOLOGY REPORT (SQ) ---
EXAM DESCRIPTION: MR BRAIN WITHOUT IV CONTRAST COMPLETED DATE/TME: 05/23/2018 00:00 CLINICAL HISTORY: 78 years, Male, TIA COMPARISON: CT brain from today's date. Prior MRI brain 12/16/2016 TECHNIQUE: 302 Images stored on PACS. LIMITATIONS: Motion artifact. FINDINGS: Motion artifact significantly degrades image quality and limits the exam. As visualized the pituitary and suprasellar regions are unremarkable. The globes are grossly intact in the paranasal sinuses are unremarkable. Partial opacification of the right mastoid air cells is suggested. The cranial nerve complex these cannot be well evaluated due to motion. Normal flow void in visualized intracranial vessels. Negative for intra or extra-axial hemorrhage. Diffusion-weighted images show no evidence for acute infarct. Ventricular prominence out of proportion to sulcal prominence, which may reflect NPH, as before. No definitive mass or midline shift. Diffuse atrophy. Areas of encephalomalacia in the frontal parietal regions bilaterally may reflect sequelae of old ischemic event.. IMPRESSION: Limited due to extensive motion artifact. No evidence for an acute intracranial abnormality. Stable ventricular prominence, somewhat out of proportion to sulcal prominence. Underlying atrophy with areas of encephalomalacia bilaterally. copyright 2010 [email or web address]- All Rights Reserved
[2018-05-23] MEDS: ATORVASTATIN CALCIUM 10 MG TABLET PO SCH (23:17)
[2018-05-23] MEDS: ISOSORBIDE DINITRATE 20 MG TABLET PO SCH (23:17)
[2018-05-23] MEDS: SENNOSIDES/DOCUSATE 8.6-50 MG 1 EACH TABLET PO SCH (23:17)
[2018-05-23] MEDS: AMLODIPINE BESYLATE 5 MG TABLET PO SCH (23:18)
--- NOTE | 2018-05-23 23:50 | XCELERA REPORT ---
[address] [address] Transthoracic Echocardiogram Report Name: PHOEBE CHARLES Age: 78 yrs Gender: Male : 1940 Patient Status: Inpatient Patient Location: [address] [place] [address] Study Date: 05/23/2018 05:50 PM Height: 66 in Weight: 167 lb BSA: 1.9 m2 Procedure: A two-dimensional transthoracic echocardiogram with color flow and Doppler was performed. The study was technically limited with all images being suboptimal in quality. Reason For Study: TIA History: TIA. Ordering Physician: ILAN FALCON Performed By: Christine Turner Interpretation Summary There is no obvious cardiac source of embolus noted on this transthoracic echocardiogram. Follow-up with a SPARKLE is suggested if cardiac source is still suspected. The left ventricle is mildly dilated. There is normal left ventricular wall thickness. LV EF is 35% to 40% Left ventricular systolic function is moderately reduced. Doppler measurements suggest impaired left ventricular relaxation, which is associated with grade I/IV or mild diastolic dysfunction There is moderate global hypokinesis of the left ventricle. There is no thrombus. There is no ventricular septal defect visualized. The right ventricle is normal size. There is mild right ventricular hypertrophy. The right ventricular systolic function is normal. The right atrium is normal. The left atrial size is normal. The interatrial septum is intact with no evidence for an atrial septal defect. There is no Doppler evidence for an interatrial shunt There is no evidence of mitral valve prolapse. There is no mitral valve stenosis. There is no vegetation seen on the mitral valve. There is a trace amount of mitral regurgitation There is no aortic valvular vegetation. There is no aortic valve stenosis There is aortic sclerosis without aortic stenosis. There is no LVOT obstruction. There is a mild amount of aortic regurgitation There is no tricuspid stenosis. There is a trace amount of tricuspid regurgitation Right ventricular systolic pressure is normal. RVSP is 22 to 27 mm of Hg , with RA mean of 5 to 10. There is no pulmonic valvular stenosis. There is no pulmonic valvular regurgitation. The aortic root is normal size. The inferior vena cava appeared normal and decreased > 50% with respiration (RAP 5-10 mmHg) There is no pericardial effusion. There is no obvious cardiac source of embolus noted on this transthoracic echocardiogram. Follow-up with a SPARKLE is suggested if cardiac source is still suspected MMode/2D Measurements & Calculations RVDd: 2.2 cm LVIDd: 5.2 cm FS: 21.9 % Ao root diam: 3.1 cm IVSd: 0.96 cm LVIDs: 4.0 cm EDV(Teich): 127.5 ml Ao root area: 7.4 cm2 LVPWd: 0.87 cm ESV(Teich): 71.3 ml LA dimension: 2.6 cm EF(Teich): 44.0 % Doppler Measurements & Calculations MV E max bennie: MV P1/2t max bennie: Ao V2 max: AI max bennie: 66.6 cm/sec 72.7 cm/sec 136.8 cm/sec 465.6 cm/sec MV A max bennie: MV P1/2t: 62.3 msec Ao max PG: AI max P.0 mmHg 130.3 cm/sec MVA(P1/2t): 3.5 cm2 7.5 mmHg AI dec slope: MV E/A: 0.51 MV dec slope: 140.3 cm/sec2 AI P1/2t: 971.9 msec 341.8 cm/sec2 MV dec time: 0.24 sec LV V1 max PG: TV V2 max: PA V2 max: TR max bennie: 5.2 mmHg 137.1 cm/sec 107.6 cm/sec 206.3 cm/sec LV V1 max: TV max P.5 mmHg PA max PG: TR max P.0 mmHg 113.5 cm/sec 4.8 mmHg AV P1/2t-pr_phl: MV P1/2t-pr_phl: 991.8 msec 62.3 msec Left Ventricle The left ventricle is mildly dilated. There is normal left ventricular wall thickness. LV EF is 35% to 40%. Left ventricular systolic function is moderately reduced. Doppler measurements suggest impaired left ventricular relaxation, which is associated with grade I/IV or mild diastolic dysfunction. There is moderate global hypokinesis of the left ventricle. There is no thrombus. There is no ventricular septal defect visualized. Right Ventricle The right ventricle is normal size. There is mild right ventricular hypertrophy. The right ventricular systolic function is normal. Atria The right atrium is normal. The left atrial size is normal. The interatrial septum is intact with no evidence for an atrial septal defect. There is no Doppler evidence for an interatrial shunt. Mitral Valve There is no evidence of mitral valve prolapse. There is no vegetation seen on the mitral valve. There is no mitral valve stenosis. There is a trace amount of mitral regurgitation. Aortic Valve There is no aortic valvular vegetation. There is no aortic valve stenosis. There is aortic sclerosis without aortic stenosis. There is no LVOT obstruction. There is a mild amount of aortic regurgitation. Tricuspid Valve There is no tricuspid stenosis. There is a trace amount of tricuspid regurgitation. Right ventricular systolic pressure is normal. RVSP is 22 to 27 mm of Hg , with RA mean of 5 to 10. Pulmonic Valve There is no pulmonic valvular stenosis. There is no pulmonic valvular regurgitation. Great Vessels The aortic root is normal size. The inferior vena cava appeared normal and decreased > 50% with respiration (RAP 5-10 mmHg). Effusions There is no pericardial effusion. : ILAN FALCON > Delma Fuchs
--- NOTE | 2018-05-24 04:05 | RADIOLOGY REPORT (SQ) ---
EXAM DESCRIPTION: US CAROTID DOPPLER BILATERAL COMPLETED DATE/TME: 05/23/2018 14:36 CLINICAL HISTORY: 78 years, Male, TIA COMPARISON: Prior ultrasound 12/16/2016 TECHNIQUE: Transverse and longitudinal sonographic images of the cervical portions of the carotid arteries. LIMITATIONS: Uncooperative patient FINDINGS: The healthcare consulting manager was unable to assess the left internal carotid artery appropriately, as well as the left external carotid and vertebral artery. Imaging over the right common and internal carotid shows equivocal/mild atheromatous plaque formation. The visualized left common carotid appears unremarkable. Doppler and spectral analysis with color flow shows biphasic waveforms bilaterally. Velocities (in peak systolic velocity): Proximal right CCA: 48 cm/s. Proximal left CCA: 49 cm/s. Distal right CCA: 44 cm/s. Distal left CCA: 48 cm/s. Proximal right ICA: 25 cm/s. Distal right ICA: 32 cm/s. Right ICA to CCA ratio: 0.7. Right ECA: 47 cm/s. Right vertebral artery: 23 cm/s. Antegrade flow. IMPRESSION: Suboptimal assessment of the left internal carotid artery, external carotid artery and vertebral artery. Mild atheromatous changes of the right ICA and CCA. No sonographic evidence for severe stenosis, as above copyright 2010 [email or web address]- All Rights Reserved
[2018-05-24] MEDS: CLONIDINE HCL 0.1 MG TABLET PO SCH ×2 (06:25→17:22)
[2018-05-24] MEDS: HEPARIN SOD (PORCINE) 5,000 UNIT/ML 1 ML SYRINGE SUBCUT SCH ×3 (06:26→22:26)
[2018-05-24] MEDS: SODIUM POLYSTYRENE SULFONATE 15 GM/60 ML PO SCH ×2 (06:28→17:22)
[2018-05-24] MEDS: ISOSORBIDE DINITRATE 20 MG TABLET PO SCH ×3 (06:28→22:38)
[2018-05-24] MEDS: CALCITRIOL 0.25 MCG CAPSULE PO SCH (08:20)
[2018-05-24] MEDS: SERTRALINE HCL 50 MG TABLET PO SCH (08:20)
[2018-05-24] MEDS: POLYETHYLENE GLYCOL 3350 POWDER 17 GM/1 PACKET PO SCH (08:23)
[2018-05-24] MEDS: TIOTROPIUM BROMIDE DPI 5 CAP/KIT (18 MCG/CAP) IH SCH (08:24)
[2018-05-24] MEDS: METOPROLOL SUCCINATE 50 MG TAB.SR.24H PO SCH (08:25)
[2018-05-24] MEDS: ASPIRIN/DIPYRIDAMOLE 25-200 MG 1 CAP.SR CPMP.12HR PO SCH ×2 (12:33→22:26)
[2018-05-24 19:21] LABS: HEMATOCRIT 30.1 % (37.9-51.0); HEMOGLOBIN 10.4 g/dL (13.5-17.0); MEAN CORPUSCULAR HEMOGLOBIN 32.6 pg (27.0-33.4); MEAN CORPUSCULAR HGB CONC 34.6 g/dL (32.0-36.0); MEAN CORPUSCULAR VOLUME 94 fl (80-97); PLATELET COUNT 258 10^3/uL (150-450); RED BLOOD COUNT 3.19 10^6/uL (4.35-5.55); WHITE BLOOD COUNT 6.3 10^3/uL (4.0-10.5)
[2018-05-24 19:45] LABS: ABSOLUTE LYMPHOCYTES# (MANUAL) 1.8 10^3/uL (0.5-4.7); ABSOLUTE MONOCYTES # (MANUAL) 0.7 10^3/uL (0.1-1.4); ABSOLUTE NEUTROPHILS# (MANUAL) 3.7 10^3/uL (1.7-8.2); BASOPHILS % (MANUAL) 1 % (0-2); EOSINOPHILS % (MANUAL) 2 % (0-6); LYMPHOCYTES % (MANUAL) 28 % (13-45); MONOCYTES % (MANUAL) 11 % (3-13); SEGMENTED NEUTROPHILS % (MAN) 58 % (42-78); TOTAL CELLS COUNTED 100
[2018-05-24 19:46] LABS: ANISOCYTOSIS SLIGHT; PLATELET COMMENT ADEQUATE; TOXIC GRANULATION SLIGHT
[2018-05-24 19:49] LABS: ALANINE AMINOTRANSFERASE 18 U/L (21-72); ALBUMIN 3.2 g/dL (3.5-5.0); ALKALINE PHOSPHATASE 90 U/L (38-126); ANION GAP 10 (5-19); ASPARTATE AMINO TRANSFERASE 16 U/L (17-59); BILIRUBIN,DIRECT 0.2 mg/dL (0.0-0.4); BILIRUBIN,TOTAL 0.3 mg/dL (0.2-1.3); BLOOD UREA NITROGEN 50 mg/dL (7-20); CALCIUM 9.7 mg/dL (8.4-10.2); CARBON DIOXIDE 21 mmol/L (22-30); CHLORIDE 115 mmol/L (98-107); GLUCOSE 100 mg/dL (75-110); POTASSIUM 4.4 mmol/L (3.6-5.0); SODIUM 145.7 mmol/L (137-145); TOTAL PROTEIN 6.2 g/dL (6.3-8.2)
--- NOTE | 2018-05-24 21:28 | PDOC TRANSFER SUMMARY ---
General - Admit/Disc Date/PCP Admission Date/Primary Care Provider: 05/23/18 14:35 ILAN FALCON MD Discharge Date: 05/24/18 - Discharge Diagnosis (1) Transient ischemic attack Is this a current diagnosis for this admission?: Yes (2) Chronic kidney disease, stage 5 Is this a current diagnosis for this admission?: Yes (3) Secondary hyperparathyroidism Is this a current diagnosis for this admission?: Yes - Additional Information Resuscitation Status: Do Not Resuscitate Home Medications: Albuterol Sulfate [Ventolin 0.083% Neb 2.5 mg/3 mL Ampul] 2.5 mg NEB RTQ6HP PRN 05/23/18 Amlodipine Besylate [Norvasc 5 mg Tablet] 5 mg PO QHS 05/23/18 Aspirin [Aspirin 81 mg Chewable Tablet] 81 mg PO QAM 05/23/18 Atorvastatin Calcium [Lipitor 10 mg Tablet] 10 mg PO QHS 05/23/18 Budesonide [Pulmicort 180 mcg Flexhaler] 2 puff IH DAILYP PRN 05/23/18 Calcitriol [Rocaltrol 0.25 mcg Capsule] 0.25 mcg PO QAM 05/23/18 Clonidine HCl [Catapres 0.1 mg Tablet] 0.1 mg PO Q12 05/23/18 Ipratropium/Albuterol Sulfate [Duoneb 3 ml Ampul] 3 ml NEB RTQ6HP PRN 05/23/18 Isosorbide Dinitrate [Isordil Titradose 20 mg Tablet] 20 mg PO Q8 05/23/18 Metoprolol Succinate [Toprol XL 100 mg Tablet] 100 mg PO QAM 05/23/18 Polyethylene Glycol 3350 [Miralax Powder 17 gm/Packet] 17 mg PO QAM 05/23/18 Sennosides/Docusate 8.6-50 mg [Senna Plus Tablet] 1 tab PO QHS 05/23/18 Sertraline HCl [Zoloft] 25 mg PO QAM 05/23/18 Sodium Polystyrene Sulfonate [Kayexalate 15 gm/60 ml Susp 60 ml] 15 gm PO Q12 05/23/18 Tiotropium [place] [Spiriva Handihaler 5 Cap/Kit (18 Mcg/Cap)] 1 cap IH QAM 03/06/19 History of Present Illness Admission Date/PCP: 05/23/18 14:35 ILAN FALCON MD History of Present Illness: PHOEBE CHARLES is a 78 year old male,He has a history of CVA with residual right-sided hemiplegia, chronic kidney disease stage V, a DNR status, he does not want hemodialysis, he was transferred from the intermediate to the emergency room because of concern for a new CVA, the history was that patient's roommate screams out earlier this morning for help because he thought patient was having a seizure when the intermediate staff got to his room it was stated that patient was confused they thought he had a stroke he was then transferred to the emergency room. He has no history of seizure, in the emergency room a CT head was done, it demonstrated encephalomalacia changes in the right frontal lobe, posterior left frontal lobe consistent with old infarct but there is no acute change.I saw patient on the floor he is awake is at his baseline he has lost some weight since I last saw him in the intermediate, this is expected because of his CKD stage V. I discussed prognosis with the patient's POA, he has CKD stage V and the he does not want dialysis this portend a poor prognosis Hospital Course Hospital Course: Patient was admitted for the management of TIA he has baseline CVA with residual right-sided hemiplegia was admitted because of concern for CVA versus seizure, EEG was done the EEG did not show any active seizure but it was not a continuous EEG monitoring, it was a single EEG which by itself does not exclude seizure if negative, a single EEG is useful to confirm seizure not to excluded if negative. A 2D echo was done as part of the management for acute stroke, TIA, there was no intracardiac emboli demonstrated on a 2D echo but patient has cardiomyopathy the estimated ejection fraction of left ventricle was about 40%, he has underlying CKD stage V he does not want dialysis, overall prognosis is very poor in this patient he was made a DNR on this admission, the intermediate should also consider making him a DNR since he does not want any dialysis Physical Exam Vital Signs: Temp Pulse Resp BP Pulse Ox 97.7 F 66 16 180/77 H 99 05/24/18 19:20 05/24/18 19:58 05/24/18 19:58 05/24/18 19:58 03/07/19 19:58 Intake & Output 05/23/18 05/24/18 05/25/18 06:59 06:59 06:59 Intake Total 1000 50 Output Total 375 220 Balance 625 -170 Weight 64.7 kg General appearance: PRESENT: no acute distress Eye exam: PRESENT: PERRLA Respiratory exam: PRESENT: clear to auscultation magdalena Cardiovascular exam: PRESENT: +S1, +S2 GI/Abdominal exam: PRESENT: soft Neurological exam: PRESENT: alert, motor sensory deficit - RT sided hemiplegia Results Laboratory Results: 05/24/18 18:53 05/24/18 18:53 05/24/18 05/24/18 18:53 18:53 WBC 6.3 RBC 3.19 L Hgb 10.4 L Hct 30.1 L MCV 94 MCH 32.6 MCHC 34.6 RDW 15.0 H Plt Count 258 Seg Neutrophils % Not Reportable Lymphocytes % Not Reportable Monocytes % Not Reportable Eosinophils % Not Reportable Basophils % Not Reportable Absolute Neutrophils Not Reportable Absolute Lymphocytes Not Reportable Absolute Monocytes Not Reportable Absolute Eosinophils Not Reportable Absolute Basophils Not Reportable Sodium 145.7 H Potassium 4.4 Chloride 115 H Carbon Dioxide 21 L Anion Gap 10 BUN 50 H Creatinine 6.32 H Est GFR ( Amer) 10 L Est GFR (Non-Af Amer) 9 L Glucose 100 Calcium 9.7 Total Bilirubin 0.3 AST 16 L ALT 18 L Alkaline Phosphatase 90 Total Protein 6.2 L Albumin 3.2 L 05/23/18 05/23/18 09:00 09:00 Creatine Kinase 42 L CK-MB (CK-2) 0.77 Troponin I 0.064 Impressions: Head MRI 05/23/18 00:00 IMPRESSION: Limited due to extensive motion artifact. No evidence for an acute intracranial abnormality. Stable ventricular prominence, somewhat out of proportion to sulcal prominence. Underlying atrophy with areas of encephalomalacia bilaterally. copyright 2011 [employer]- All Rights Reserved Chest X-Ray 05/23/18 08:49 IMPRESSION: 1. No significant interval changes since the prior examination dated 01/25/2016. No acute findings. Head CT 05/23/18 08:49 IMPRESSION: 1. The examination is limited due to motion and patient positioning. 2. No significant interval changes since the prior study dated 12/28/2016. No acute intracranial abnormality. 3. Chronic small vessel ischemic changes and atrophy. Old remote cerebral infarcts. EVIDENCE OF ACUTE STROKE: NO Carotid Doppler Study 05/23/18 14:36 IMPRESSION: Suboptimal assessment of the left internal carotid artery, external carotid artery and vertebral artery. Mild atheromatous changes of the right ICA and CCA. No sonographic evidence for severe stenosis, as above copyright 2010 [employer]- All Rights Reserved Transfer Plan - Time Spent with Patient Time spent with patient: Greater than 30 Minutes Qualifiers - * PATIENT BEING DISCHARGED WITH ANY OF THE FOLLOWING DIAGNOSIS: No
[2018-05-24] MEDS: ATORVASTATIN CALCIUM 10 MG TABLET PO SCH (22:38)
[2018-05-24] MEDS: SENNOSIDES/DOCUSATE 8.6-50 MG 1 EACH TABLET PO SCH (22:38)
[2018-05-24] MEDS: AMLODIPINE BESYLATE 5 MG TABLET PO SCH (22:38)
[2018-05-25] MEDS: CLONIDINE HCL 0.1 MG TABLET PO SCH (05:38)
[2018-05-25] MEDS: HEPARIN SOD (PORCINE) 5,000 UNIT/ML 1 ML SYRINGE SUBCUT SCH ×2 (05:39→14:49)
[2018-05-25] MEDS: ISOSORBIDE DINITRATE 20 MG TABLET PO SCH ×2 (05:40→14:49)
[2018-05-25 06:01] LABS: ABSOLUTE EOSINOPHILS # (AUTO) 0.3 10^3/uL (0.0-0.6); ABSOLUTE LYMPHOCYTES (AUTO) 2.4 10^3/uL (0.5-4.7); ABSOLUTE MONOCYTES (AUTO) 0.8 10^3/uL (0.1-1.4); ABSOLUTE NEUT (AUTO) 4.8 10^3/uL (1.7-8.2); BASOPHILS % (AUTO) 0.3 % (0-2); EOSINOPHILS % (AUTO) 3.9 % (0-6); HEMATOCRIT 30.6 % (37.9-51.0); HEMOGLOBIN 10.3 g/dL (13.5-17.0); LYMPHOCYTES % (AUTO) 28.4 % (13-45); MEAN CORPUSCULAR HEMOGLOBIN 30.7 pg (27.0-33.4); MEAN CORPUSCULAR HGB CONC 33.6 g/dL (32.0-36.0); MEAN CORPUSCULAR VOLUME 91 fl (80-97); MONOCYTES % (AUTO) 9.7 % (3-13); PLATELET COUNT 254 10^3/uL (150-450); RED BLOOD COUNT 3.35 10^6/uL (4.35-5.55); SEGMENTED NEUTROPHILS % (AUTO) 57.7 % (42-78); TOTAL CELLS COUNTED % (AUTO) 100 %; WHITE BLOOD COUNT 8.4 10^3/uL (4.0-10.5)
[2018-05-25 06:30] LABS: ALANINE AMINOTRANSFERASE < 6 U/L (21-72); ALBUMIN 3.6 g/dL (3.5-5.0); ALKALINE PHOSPHATASE 91 U/L (38-126); ANION GAP 12 (5-19); ASPARTATE AMINO TRANSFERASE 21 U/L (17-59); BILIRUBIN,DIRECT 0.3 mg/dL (0.0-0.4); BILIRUBIN,TOTAL 0.3 mg/dL (0.2-1.3); BLOOD UREA NITROGEN 48 mg/dL (7-20); CALCIUM 9.9 mg/dL (8.4-10.2); CARBON DIOXIDE 22 mmol/L (22-30); CHLORIDE 117 mmol/L (98-107); GLUCOSE 101 mg/dL (75-110); POTASSIUM 4.4 mmol/L (3.6-5.0); SODIUM 150.5 mmol/L (137-145); TOTAL PROTEIN 6.8 g/dL (6.3-8.2)
[2018-05-25 08:46] VITALS: BP 178/79
--- NOTE | 2018-05-25 08:53 | EEG PRO FEE REPORT ---
EEG INTERPRETATION PATIENT NAME: PHOEBE CHARLES ROOM#: [id number] ORDER#: [id number] DATE OF STUDY: 05/24/2018 : 1940 REFERRING MD: ILAN FALCON M.D. REASON FOR STUDY: Evaluate for epileptiform activity MEDICATIONS: Albuterol, Norvasc, Lipitor, Clonidine, Aggrenox, Isosorbide dinitrate, Toprol XL, Miralax, Senna, Zoloft, Kayexalate, Spiriva History This is a 78 year old male with a history of prior stroke, coronary artery disease, status post CABG, hypertension, hypercholesterolemia, COPD, end stage renal disease, anemia, GERD, admitted with TIA. The [facility]. This EEG was requested for evaluation for epileptiform activity. EEG Interpretation This EEG was recorded during wakefulness, stage I, and stage II sleep. The awake EEG is characterized by a background of predominantly polymorphic 5-7 Hz theta and 2-3 Hz delta activity. The EEG is reactive to eye opening and closure, with a posterior dominant rhythm of approximately 6-7 Hz. The EEG is symmetric in amplitude and frequencies. There was frequent myogenic artifact in the frontal regions during wakefulness. Stage I sleep is characterized by slowing of the background rhythm by 1-2 Hz and vertex waves. Stage II sleep was achieved with the appearance of sleep spindles. Photic stimulation resulted in no appreciable photic driving, and there was no epileptiform activity elicited to photic stimulation. There were occasional brief approximately 0.5 to 1 second runs of independent bi-temporal archiform sharply contoured wave forms which are consistent with wicket spikes {a benign variant}. There were no definitive epileptiform abnormalities {no sharp waves and no spikes}. There were no seizures. The EKG showed a regular rhythm with typically 55-65 bpm. EEG Impression This EEG is abnormal due to a diffuse background slowing, which is consistent with diffuse encephalopathy but nonspecific for etiology as this is commonly seen in diffuse hypoxic injury, toxic metabolic derangements, hypothermia, drug intoxication, postictal state. There was no epileptiform activity or seizures. If there is high clinical suspicion for epilepsy then additional EEG evaluation should be considered. INTERPRETING PHYSICIAN: EDMUNDO CALI M.D. /: BEN TT: [id number] ID: [id number] /: 205 TD: 1838 JOB: [id number] cc:Kobe ARANA M.D. > MTDD
[2018-05-25] MEDS: SERTRALINE HCL 50 MG TABLET PO SCH (09:02)
[2018-05-25] MEDS: METOPROLOL SUCCINATE 50 MG TAB.SR.24H PO SCH (09:02)
[2018-05-25] MEDS: CALCITRIOL 0.25 MCG CAPSULE PO SCH (09:02)
[2018-05-25] MEDS: POLYETHYLENE GLYCOL 3350 POWDER 17 GM/1 PACKET PO SCH (09:02)
[2018-05-25] MEDS: TIOTROPIUM BROMIDE DPI 5 CAP/KIT (18 MCG/CAP) IH SCH (09:03)
[2018-05-25] MEDS: ASPIRIN/DIPYRIDAMOLE 25-200 MG 1 CAP.SR CPMP.12HR PO SCH (10:06)
== END 2018-05-25 17:05 | DRG 69 ==
LOC: ER 08:45 → EH 11:17 → OBSVTOIN 14:35 → 3S 15:30
PROVIDERS: ADMIT Internal Medicine; ATTEND Internal Medicine
DX: G45.9 Transient cerebral ischemic attack, unspecified (principal); N18.5 Chronic kidney disease, stage 5; N25.81 Secondary hyperparathyroidism of renal origin; I69.351 Hemiplegia and hemiparesis following cerebral infarction affecting right dominant side; Z66 Do not resuscitate; G93.89 Other specified disorders of brain; J44.9 Chronic obstructive pulmonary disease, unspecified; I25.10 Atherosclerotic heart disease of native coronary artery without angina pectoris; E78.00 Pure hypercholesterolemia, unspecified; K21.9 Gastro-esophageal reflux disease without esophagitis; Z87.891 Personal history of nicotine dependence; Z79.82 Long term (current) use of aspirin; Z79.51 Long term (current) use of inhaled steroids; Z79.899 Other long term (current) drug therapy
CPT/HCPCS: 36415; 70450; 70551; 71045; 80053; 81001; 82550; 82553; 84484; 85025; 85610; 85730; 93005; 93010; 93306; 93880; 95819; 96361; 96374; 99285; J1644; J2060; J3490; J7030

== ENCOUNTER 2018-05-28 18:06 | Emergency (ER) | payer MEDICARE, MEDICAID ==
[2018-05-28] MEDS ORDERED: HALOPERIDOL LACTATE INJ 5 MG/1 ML VIAL IM ONE (20:59)
[2018-05-28 22:32] LABS: ABSOLUTE BASOPHILS # (AUTO) 0.1 10^3/uL (0.0-0.2); ABSOLUTE EOSINOPHILS # (AUTO) 0.1 10^3/uL (0.0-0.6); ABSOLUTE MONOCYTES (AUTO) 0.6 10^3/uL (0.1-1.4); ABSOLUTE NEUT (AUTO) 7.9 10^3/uL (1.7-8.2); BASOPHILS % (AUTO) 0.5 % (0-2); EOSINOPHILS % (AUTO) 0.6 % (0-6); HEMATOCRIT 30.9 % (37.9-51.0); HEMOGLOBIN 10.5 g/dL (13.5-17.0); MEAN CORPUSCULAR VOLUME 91 fl (80-97); MONOCYTES % (AUTO) 6.3 % (3-13); PLATELET COUNT 271 10^3/uL (150-450); RED CELL DISTRIBUTION WIDTH 14.7 % (11.5-14.0); SEGMENTED NEUTROPHILS % (AUTO) 82.6 % (42-78); TOTAL CELLS COUNTED % (AUTO) 100 %; WHITE BLOOD COUNT 9.6 10^3/uL (4.0-10.5)
[2018-05-28] MEDS ORDERED: DIPHENHYDRAMINE HCL 50 MG/ML VIAL IV ONE (23:00)
[2018-05-28] MEDS ORDERED: LORAZEPAM INJ 2 MG/1 ML VIAL IV ONE (23:00)
[2018-05-28 23:46] LABS: ALANINE AMINOTRANSFERASE 17 U/L (21-72); ALBUMIN 2.9 g/dL (3.5-5.0); ALKALINE PHOSPHATASE 81 U/L (38-126); ANION GAP 10 (5-19); ASPARTATE AMINO TRANSFERASE 20 U/L (17-59); BILIRUBIN,DIRECT 0.2 mg/dL (0.0-0.4); BILIRUBIN,TOTAL 0.3 mg/dL (0.2-1.3); BLOOD UREA NITROGEN 43 mg/dL (7-20); CARBON DIOXIDE 20 mmol/L (22-30); CHLORIDE 109 mmol/L (98-107); GLUCOSE 101 mg/dL (75-110); POTASSIUM 3.5 mmol/L (3.6-5.0); SODIUM 139.2 mmol/L (137-145); TOTAL PROTEIN 5.8 g/dL (6.3-8.2)
[2018-05-28 23:53] LABS: ACETAMINOPHEN < 10 ug/mL (10-30); ALCOHOL < 10 mg/dL (NONE DETECTED)
--- NOTE | 2018-05-28 23:55 | RADIOLOGY REPORT (SQ) ---
EXAM DESCRIPTION: CT HEAD WITHOUT IV CONTRAST COMPLETED DATE/TME: 05/28/2018 19:55 CLINICAL HISTORY: 78 years, Male, Seizure This exam was performed according to our departmental dose-optimization program which includes automated exposure control, adjustment of the mA and/or kVp according to patient size and/or use of iterative reconstruction technique where applicable. Compared to prior CT head dated 05/23/2018. FINDINGS: No acute intracranial hemorrhage, mass effect or midline shift. No extra-axial fluid collections. Ventricles and subarachnoid spaces are moderately dilated consistent with cerebral atrophy. Right frontoparietal encephalomalacia. Left parietal encephalomalacia consistent with chronic infarct. Visualized paranasal sinuses and the mastoid air cells are clear. The skull is intact. IMPRESSION: No acute intracranial hemorrhage. Chronic ischemic changes. No significant interval change.
[2018-05-29 00:59] LABS: AMORPHOUS SEDIMENT,URINE 1+ /HPF; APPEARANCE,URINE CLEAR; BILIRUBIN,URINE NEGATIVE (NEGATIVE); COLOR,URINE STRAW; GLUCOSE, URINE NEGATIVE (NEGATIVE); KETONES,URINE NEGATIVE (NEGATIVE); LEUKOCYTE ESTERASE,URINE NEGATIVE (NEGATIVE); NITRITE,URINE NEGATIVE (NEGATIVE); PROTEIN,URINE >=500 mg/dL (NEGATIVE); URINE SPECIFIC GRAVITY 1.008; UROBILINOGEN,URINE NEGATIVE mg/dL (<2.0)
[2018-05-29 01:07] LABS: URINE AMPHETAMINES SCREEN NEGATIVE; URINE BARBITURATES SCREEN NEGATIVE; URINE BENZODIAZEPINES SCREEN NEGATIVE; URINE COCAINE SCREEN NEGATIVE; URINE MARIJUANA (THC) SCREEN NEGATIVE; URINE METHADONE SCREEN NEGATIVE; URINE PHENCYCLIDINE SCREEN NEGATIVE
--- NOTE | 2018-05-29 01:23 | ER Document Report ---
ED Seizure - General Chief Complaint: Probable Seizure Stated Complaint: POSSIBLE SEIZURE Time Seen by Provider: 05/28/18 18:37 Primary Care Provider: ILAN FALCON MD [Primary Care Provider] - Follow up as needed Mode of Arrival: Stretcher Information source: Emergency Med Personnel, [facility] Records Cannot obtain history due to: Dementia Notes: HISTORY OF PRESENT ILLNESS: Patient is a 78-year-old male with a past medical history of multiple chronic health conditions including dementia with a recent hospital physician for possible TIA versus seizure who presents with possible recurrent episode of shaking that was visualized by the patient's roommate and his long term facility. Patient has baseline dementia and is unable to give information when questioned. Location: Global Onset: Sudden prior to arrival Provocation: Unknown Quality: Shaking of the upper extremities Radiation: None Severity: Mild Timing: Last approximately 30-45 seconds Associated symptoms: No fevers or chills, no cough or congestion, no chest pain or shortness of breath REVIEW OF SYSTEMS: CONSTITUTIONAL : Denies fever or chills, no sweats. Denies recent illness. EENT: Denies eye, ear, throat, or mouth pain or symptoms. Denies nasal or sin us congestion. CARDIOVASCULAR: Denies chest pain. RESPIRATORY: Denies cough, cold, or chest congestion. Denies shortness of breath, difficulty breathing, or wheezing. GASTROINTESTINAL: Denies abdominal pain. Denies nausea, vomiting, or diarrhea. Denies constipation. GENITOURINARY: Denies difficulty urinating, painful urination, burning, frequency, or blood in urine. MUSCULOSKELETAL: Denies neck or back pain or joint pain or swelling. SKIN: Denies rash or skin lesions. HEMATOLOGIC : Denies easy bruising or bleeding. LYMPHATIC: Denies swollen, enlarged glands. NEUROLOGICAL: Positive for shaking/seizure activity. Denies altered mental status or loss of consciousness. Denies headache. Denies weakness or paralysis or loss of use of either side. Denies problems with gait or speech. Denies sensory or motor loss. PSYCHIATRIC: Denies anxiety or stress or depression. All other systems reviewed and negative. PHYSICAL EXAMINATION: GENERAL: Well-appearing, well-nourished and in no acute distress. HEAD: Atraumatic, normocephalic. No scalp deformity, depression, or crepitance. EYES: Pupils are 3 mm and equal/round/reactive to light, extraocular movements intact, sclera anicteric, conjunctiva are normal. ENT: Nares patent bilaterally, oropharynx clear without exudates or palatal petechia. Moist mucous membranes. No tonsil hypertrophy. NECK: Normal range of motion, supple without lymphadenopathy. LUNGS: Breath sounds present, equal, and clear to auscultation bilaterally. No wheezes, rales, or rhonchi. HEART: Regular rate and rhythm without murmurs, rubs, or gallops. 2+ peripheral pulses. Normal capillary refill. ABDOMEN: Soft, nontender, nondistended. Normoactive bowel sounds. No guarding, no rebound. No masses appreciated. BACK: Normal contour, no midline tenderness. Rectal exam deferred. GENITAL: Deferred. EXTREMITIES: Normal range of motion, no pitting or edema. No cyanosis. NEUROLOGICAL: Patient is nonverbal. No focal neurological deficits. Moves all extremities spontaneously and on command. PSYCH: Normal mood, normal affect. No suicidal thoughts/ideations. No homocidal thoughts/ideations. No hallucinations. SKIN: Warm, dry, normal turgor, no rashes or lesions noted. ASSESSMENT AND PLAN: This patient is a 78-year-old male who presents with possible recurrent seizure activity, although patient was admitted for identical symptoms and had a negative workup including an EEG and MRI of his brain. 1. Will obtain labs, urine, and head CT. 2. Will observe and review previous records. TRAVEL OUTSIDE OF THE [place] IN LAST 30 DAYS: No - Related Data Allergies/Adverse Reactions: No Known Allergies Allergy (Verified 07/18/16 03:22) Past Medical History - General Information source: Emergency Med Personnel, [facility] Records Cannot obtain history due to: Dementia - Social History Smoking Status: Unknown if Ever Smoked Chew tobacco use (# tins/day): No Frequency of alcohol use: None Drug Abuse: None Lives with: [facility] Family History: Reviewed & Not Pertinent, CAD Patient has suicidal ideation: No Patient has homicidal ideation: No - Past Medical History Cardiac Medical History: Reports: Hx Coronary Artery Disease, Hx Hy percholesterolemia, Hx Hypertension Pulmonary Medical History: Reports: Hx COPD EENT Medical History: Reports: None Neurological Medical History: Reports: None Endocrine Medical History: Reports: None Renal/ Medical History: Reports: Hx End Stage Renal Disease, Hx Renal In sufficiency. Denies: Hx Peritoneal Dialysis Malignancy Medical History: Reports None GI Medical History: Reports: Hx Gastroesophageal Reflux Disease, Hx Hiatal Hernia Musculoskeletal Medical History: Reports Hx Muscle Weakness - generalized Skin Medical History: Reports None Psychiatric Medical History: Reports: None Traumatic Medical History: Reports: None Infectious Medical History: Reports: None Past Surgical History: Reports: Hx Cardiac Surgery, Hx Coronary Artery Bypass Graft - Immunizations Immunizations up to date: Yes Hx Diphtheria, Pertussis, Tetanus Vaccination: Yes History of Influenza Vaccine for 12/2016 - 05/2017 Season: Yes Physical Exam - Vital signs Vitals: Temp Pulse Resp BP Pulse Ox 98.2 F 72 18 114/87 H 97 05/28/18 18:17 05/28/18 18:17 05/28/18 18:17 05/28/18 18:17 05/28/18 18:17 Course - Re-evaluation Re-evalutation: 05/29/18 03:29 Labs are unremarkable, negative urinalysis, CT head shows no acute intracranial pathology. After reviewing the patient's previous admission, it does not appear patient had any evidence of seizure and had no activity while admitted. Patient will be discharged home with return precautions and follow-up. Given his dementia, patient is unable to voice understanding or agreeing with the plan. - Vital Signs Vital signs: Temp Pulse Resp BP Pulse Ox 98.1 F 72 13 120/71 99 05/29/18 03:01 05/28/18 18:17 05/29/18 02:01 05/29/18 02:01 05/29/18 02:01 - Laboratory Result Diagrams: 05/28/18 22:20 05/28/18 23:17 Laboratory results interpreted by me: 05/28/18 05/28/18 05/29/18 22:20 23:17 00:35 RBC 3.40 L Hgb 10.5 L Hct 30.9 L RDW 14.7 H Seg Neutrophils % 82.6 H Lymphocytes % 10.0 L Potassium 3.5 L Chloride 109 H Carbon Dioxide 20 L BUN 43 H Creatinine 5.88 H Est GFR ( Amer) 11 L Est GFR (Non-Af Amer) 9 L ALT 17 L Total Protein 5.8 L Albumin 2.9 L Urine Protein >=500 H Urine Blood MODERATE H Acetaminophen < 10 L - Diagnostic Test Radiology reviewed: Image reviewed, Reports reviewed - EKG Interpretation by Me EKG shows normal: Sinus rhythm Rate: Normal Rhythm: NSR Galloway/QRS: LBBB Voltage: Increased voltage P Waves: No: JARON, LAE, Absent, AV Dissociation, Other Heart block present: 1st Degree When compared to previous EKG there are: No significant change Discharge - Discharge Clinical Impression: Seizure Condition: Good Disposition: HOME-SNF (ED ONLY) Instructions: New Seizure ([facility]) Additional Instructions: You have been evaluated in the Emergency Department for possible seizure activity. While here, you had blood work with urinalysis and a scan of your head that were all normal and it is now safe to be discharged home. Please follow-up with your primary physician as instructed in 24-48 hours. Return to the Emergency Department if you experience uncontrollable seizures, increasing disorientation or confusion, or any other concerning symptoms. Referrals: ILAN FALCON MD [Primary Care Provider] - Follow up as needed Print Language: Cameroonian
[2018-05-29 04:22] VITALS: BP 139/66
--- NOTE | 2018-05-29 07:15 | EKG REPORT ---
SEVERITY:- ABNORMAL ECG - SINUS RHYTHM PROBABLE LEFT ATRIAL ABNORMALITY LEFT BUNDLE BRANCH BLOCK : Confirmed by: Quoc Sadler MD 29-May-2018 07:15:05
== END 2018-05-29 04:30 ==
LOC: ER 18:06
DX: R56.9 Unspecified convulsions (principal); I25.10 Atherosclerotic heart disease of native coronary artery without angina pectoris; E78.00 Pure hypercholesterolemia, unspecified; I12.0 Hypertensive chronic kidney disease with stage 5 chronic kidney disease or end stage renal disease; N18.6 End stage renal disease; J44.9 Chronic obstructive pulmonary disease, unspecified; Z95.1 Presence of aortocoronary bypass graft; F03.90 Unspecified dementia, unspecified severity, without behavioral disturbance, psychotic disturbance, mood disturbance, and anxiety
CPT/HCPCS: 93005; 99285; 96372; 51701; 96375; 96374; 36415; 80307 ×3; 85025; 80053; 81001; 84484; 70450; 93010; J1200; J1630; J2060

== ENCOUNTER 2018-06-21 18:16 | Emergency (ER) | payer MEDICARE, MEDICAID ==
--- NOTE | 2018-06-21 18:57 | ER Document Report ---
ED General - General Chief Complaint: Altered Mental Status Stated Complaint: ALTERED MENTAL STATUS Time Seen by Provider: 06/21/18 18:36 Primary Care Provider: ILAN FALCON MD [Primary Care Provider] - Follow up as needed Cannot obtain history due to: Unstable vital signs, Other - Aphasia Notes: Patient is a 78-year-old male with a past medical history of CVA with resulting expressive aphasia, profound dementia, CKD stage V, DNR status, presents from [facility] due to concern of a possible episode of shaking. This is witnessed by the dietitian at that facility. Apparently this lasted 5 minutes. When nursing staff came to the room the patient was at his baseline. They contacted family who asked that the patient be transported to the emergency department. On arrival the patient is unable to speak. He is acting his baseline per EMS who gave report at bedside. No further history can be obtained. TRAVEL OUTSIDE OF THE [place] IN LAST 30 DAYS: No - Related Data Allergies/Adverse Reactions: No Known Allergies Allergy (Verified 07/18/16 03:22) Past Medical History - General Information source: Transfer Record, Emergency Med Personnel, [facility] Records Cannot obtain history due to: Dementia - Social History Smoking Status: Unknown if Ever Smoked Lives with: Snf Family History: Reviewed & Not Pertinent, CAD - Past Medical History Cardiac Medical History: Reports: Hx Coronary Artery Disease, Hx Hypercholesterolemia, Hx Hypertension Pulmonary Medical History: Reports: Hx COPD Renal/ Medical History: Reports: Hx End Stage Renal Disease, Hx Renal Insufficiency. Denies: Hx Peritoneal Dialysis GI Medical History: Reports: Hx Gastroesophageal Reflux Disease, Hx Hiatal Hernia Musculoskeletal Medical History: Reports Hx Muscle Weakness - generalized Past Surgical History: Reports: Hx Cardiac Surgery, Hx Coronary Artery Bypass Graft - Immunizations Immunizations up to date: Yes Hx Diphtheria, Pertussis, Tetanus Vaccination: Yes Review of Systems - Review of Systems -: Yes ROS unobtainable due to patient's medical condition Physical Exam - Vital signs Interpretation: Hypertensive Notes: PHYSICAL EXAMINATION: GENERAL: Frail, elderly male lying in bed. Does not speak. HEAD: Atraumatic, normocephalic. EYES: Pupils equal round and reactive to light, sclera anicteric, conjunctiva are normal. ENT: nares patent, oropharynx clear without exudates. Moderately dry mucous membranes. NECK: supple without lymphadenopathy LUNGS: Breath sounds clear to auscultation bilaterally and equal. No wheezes rales or rhonchi. HEART: Regular rate and rhythm without murmurs ABDOMEN: Soft, nontender, normoactive bowel sounds. No guarding, no rebound. No masses appreciated. EXTREMITIES: no pitting or edema. No cyanosis. NEUROLOGICAL: Expressive aphasia, does not follow commands. PSYCH: A phasic SKIN: Warm, Dry, normal turgor, no rashes or lesions noted. Course - Re-evaluation Re-evalutation: 06/21/18 18:52 Patient presents with concerns of a possible episode of shaking witnessed by a dietitian at [facility]. Nursing staff and they came to the room stated that the patient was at baseline, contacted the family who asked that the patient be brought to the emergency department. On presentation patient is at his reported baseline per EMS and review of medical records. A phasic, unable to provide any history. Physical examination shows moderate contractures of all 4 extremities, no obvious focal deficit. Patient is completely aphasic. Patient was hospitalized the beginning of May and had a re-visit to the emergency department thereafter for similar circumstances. At that time he had an EEG and is also had brain imaging on 2 separate occasions for the same which was noted to be unremarkable. Patient is a very poor prognosis, stage V kidney disease, DNR at baseline. Given that he is currently asymptomatic and has had multiple evaluations for these recurrent episodes of "shaking" which may or may not be seizures I do not believe repeat blood work, urinalysis or CT imaging is appropriate today. I have advised that this issue should recur could continue to be evaluated by his primary care doctor who did hospitalize him within the past 30 days for the same. Discharge - Discharge Clinical Impression: Shaking, Expressive aphasia Dementia Qualifiers: Dementia type: unspecified type Dementia behavioral disturbance: without behavioral disturbance Qualified Code(s): F03.90 - Unspecified dementia without behavioral disturbance Condition: Stable Disposition: HOME-SNF (ED ONLY) Additional Instructions: The exact cause of the patient's symptoms is uncertain but he has been hospitalized and seen in the emerge department on 2 previous occasions within the past 30 days for the same with negative workups. Please return for any additional symptoms that are concerning. Referrals: ILAN FALCON MD [Primary Care Provider] - Follow up as needed
[2018-06-22 00:09] VITALS: BP 116/92
== END 2018-06-22 00:39 ==
LOC: ER 18:16
DX: R25.1 Tremor, unspecified (principal); R47.01 Aphasia; F03.90 Unspecified dementia, unspecified severity, without behavioral disturbance, psychotic disturbance, mood disturbance, and anxiety; R41.82 Altered mental status, unspecified; I12.0 Hypertensive chronic kidney disease with stage 5 chronic kidney disease or end stage renal disease; N18.5 Chronic kidney disease, stage 5; Z86.73 Personal history of transient ischemic attack (TIA), and cerebral infarction without residual deficits
CPT/HCPCS: 99285